=== PATIENT | male | born 1930 | race Caucasian/White ===

== ENCOUNTER 2016-09-16 19:27 | Inpatient (IN) | payer MEDICARE ==
[~2016-09-16] VITALS: Ht 180.3 cm; Wt 66.7 kg
[2016-09-16] MEDS ORDERED: Vancomycin 1.5gm/D5W 250ml 250 ML IVPB ONE (19:45)
--- NOTE | 2016-09-16 19:51 | Emergency Room Report ---
History of Present Illness General Chief Complaint: Dyspnea/Respdistress Source: Family Member, Medical Record (Chasity Day M.D.) Present Illness HPI 86-year-old male with Parkinson's disease bedbound nonverbal end-stage dementia brought by EMS from senior living for shortness of breath. EMS reports that patient was hypoxic at 76 on room air and went up to 95% with nonrebreather. Per senior living charts no other information obtained. No information able to be obtained from patient as patient is nonverbal. Per speaking with the patient 's bilingual case manager patient is deemed DO NOT RESUSCITATE. Per speaking to patient sign the patient is now made DO NOT RESUSCITATE and DO NOT INTUBATE. (Chasity Day M.D.) Allergies: Coded Allergies: No Known Allergies (Unverified , 09/16/16) Patient History Limited by: medical condition Past Medical History: HTN, CAD, dementia Past Surgical History: unable to obtain Pertinent Family History: unable to obtain (Chasity Day M.D.) Nursing Documentation-H Hx Cardiac Problems: No Hx Hypertension: No Hx Pacemaker: No Hx Asthma: No Hx COPD: No Hx Diabetes: No Hx Cancer: No Hx Gastrointestinal Problems: No Hx Dialysis: No Hx Neurological Problems: Yes - dementia, parkinsons Hx Cerebrovascular Accident: No Hx Seizures: No (Chasity Day M.D.) Review of Systems All Other Systems: limited - patient nonverbal (Chasity Day M.D.) Physical Exam Vital Signs Date Time Temp Pulse Resp B/P Pulse Ox O2 Delivery O2 Flow Rate FiO2 09/16/16 19:24 113 22 90/60 94 Simple Mask Sp02 EP Interpretation: abnormal General Appearance: normal inspection, moderate distress, cachetic, other - nonverbal male, appears to be in resp distress, Chronically Ill Head: normocephalic, atraumatic Eyes: bilateral eye EOMI, bilateral eye PERRL, bilateral eye normal inspection ENT: normal ENT inspection, normal pharynx, moist mucus membranes Neck: normal inspection, full range of motion, supple Respiratory: no respiratory distress, respiratory distress, decreased breath sounds, other - unable to fully assess as poor inspiratory effort. satting 97 on NRB Cardiovascular #1: normal inspection, no edema, normal capillary refill, tachycardia Gastrointestinal: normal inspection, normal bowel sounds, soft, non-distended, no guarding, other - no grimace to deep palpation of abdomen. soft Musculoskeletal: normal inspection, non-tender, other - normal passive ROM of ext Neurologic: other - nonverbal, not following commands, minimally moving ext spontaneously, good tone (Chasity Day M.D.) Procedures Critical Care Time Critical Care Time 45 minutes of CC time 86 yo M with sepsis VS: hypotension, tachycardia Sepsis criteria met Airway patent. +hypoxic, NRB applied, patient DNI BP improved here with IVF PLAN: IV access, labs, lactate, Blood/Urine Cx, Abx Tele vs RASHID CC time also includes review of labs, review of EMR and paperwork from SNF CC could include dosing of pressors, additional Abx CC time does not include procedures (Chasity Day M.D.) Medical Decision Making Medicare Attestation IChasity MD hereby attest that the medical record entry for date of service, 09/16/16 accurately reflects signatures/notations that I made in my capacity as MD when I treated/diagnosed the above listed Medicare beneficiary. I attest that this information is true, accurate and complete to the best of my knowledge. I understand that any falsification, omission, or concealment of material fact may subject me to administrative, civil, or criminal liability. This patient warrants hospital admission for extreme of age and has a condition that cannot be treated as outpatient. (Chasity Day M.D.) Diagnostic Impression: Primary Impression: Pneumonia Qualified Codes: J18.9 - Pneumonia, unspecified organism Additional Impressions: Sepsis Hypoxia Respiratory failure DNR (do not resuscitate) ER Course 86 YO hx parkinsons, cad, htn, nonverbal, sent in for hypoxia and hypotension. DDX: sepsis, 2/2 to UTI/PNA or intraabdominal infection, vs ACS / CHF Plan: IV access, gambling monitor, O2 via NRB obtain labs: cbc, bmp, blood cx, lactate, ua, ucx, cxr anticipate admission ER Course: patient remained tachycardic hypotension improved with fluids hypoxic on RA, improved with NRB afebrile rectally IVF and ABX given source likely PNA CXR: R sided complicated infiltrate vs lung abscess vs. free air. however repeat abd exam, no grimace to deep palpation, slightly distended CT C/A/P performed to better evaluate -- appears to be R sided PNA EKG: sinus tach labs: no leukocytosis, +inc lactate, potassium 5.0, renal failure 1.8 d/w patient's son - patient made DNR/DNI with only selective comfort measures. no central line no intubation no pressors no TEMP documented by nursing staff however was verbally told afebrile at 99 rectally Disposition: Patient is in critical condition and is to be admitted to tele. He will need continuation of fluids/abx for sepsis 2/[address] C/A/P read pending however grossly appears to have R sided lung infiltrate, no free air seen patient is DNR/DNI as made by son at bedside. only selective comfort measures to be done. d/w hospitalist (Chasity Day M.D.) ER Course Agreed with the above assessment and physical exam. CT lung, abdomen and pelvis was reviewed and is written below. Patient improved with treatment but serious. (Tree Nash M.D.) EKG Diagnostic Results Rate: tachycardiac Rhythm: NSR ST Segments: no acute changes (Chasity Day M.D.) Rhythm Strip Diag. Results Rhythm Strip Time: 19:48 EP Interpretation: yes Rate: 101 Rhythm: NSR (Chasity Day M.D.) CT/MRI/US Diagnostic Results CT/MRI/US Diagnostic Results : Imaging Test Ordered: chest, abd, pelvis Impression CT chest: Lower lobe airspace disease bilaterally and right upper lobe airspace disease concerning for pneumonia. Cardiomegaly without pericardial effusion. Multivessel coronary calcifications. Reactive small prominent he did mediastinal hilar lymph nodes. CT abdomen and pelvis: Fluids and nondistended stomach and bowel without wall thickening or surrounding inflammation is nonspecific and may be normal might also be seen with gastroenteritis in the clinical setting. No bowel obstruction. No appendicitis or any other inflammatory changes about. This is unremarkable. Gallbladder is seen. Tympanic cyst. No obstructive uropathy. No free air or free fluid. Lipoma involving the right psoas muscle. Compression fractures involving T12 and L3 vertebral bodies. Retropulsion of the posterior superior wall of the L3 vertebral body into the central canal resulting in at least moderate central canal narrowing Judy-Colace any associated neurologic deficits. Age of this fracture may be more recent. Palpate for tenderness. Good alignment degenerative lenin-lysthesis of L5 on S1. (Tree Nash M.D.) Last Vital Signs Date Time Temp Pulse Resp B/P Pulse Ox O2 Delivery O2 Flow Rate FiO2 09/16/16 19:24 113 22 90/60 94 Simple Mask (Chasity Day M.D.) Last Vital Signs Date Time Temp Pulse Resp B/P Pulse Ox O2 Delivery O2 Flow Rate FiO2 09/17/16 04:00 98.1 78 20 119/68 97 Simple Mask 8.0 50 Status: improved (Tree Nash M.D.) Disposition: ADMITTED INPATIENT Condition: Critical Referrals: NON PHYSICIAN (PCP) Chasity Day M.D. Sep 16, 2016 19:51 Tree Nash M.D. Sep 17, 2016 06:49
[2016-09-16 20:09] LABS: ABG ALLEN TEST POSITIVE; ABG BASE EXCESS -0.8; ABG PCO2 33.1 mmHg (35.0-45.0)
[2016-09-16 20:10] LABS: BASOPHILS % (AUTO) 0.5 % (0.0-2.0); EOSINOPHILS % (AUTO) 0.2 % (0.0-3.0); LYMPHOCYTES % (AUTO) 14.3 % (20.0-45.0); MEAN CORPUSCULAR HEMOGLOBIN 30.6 PG (27.0-31.0); MEAN CORPUSCULAR HGB CONC 33.1 G/DL (32.0-36.0); MEAN CORPUSCULAR VOLUME 93 FL (80-99); MEAN PLATELET VOLUME 8.3 FL (6.5-10.1); MONOCYTES % (AUTO) 5.6 % (1.0-10.0); NEUTROPHILS % (AUTO) 79.5 % (45.0-75.0); PLATELET COUNT 254 K/UL (150-450); RED BLOOD COUNT 4.61 M/UL (4.70-6.10); RED CELL DISTRIBUTION WIDTH 13.5 % (11.6-14.8); WHITE BLOOD COUNT 7.7 K/UL (4.8-10.8)
[2016-09-16 20:26] LABS: TROPONIN I < 0.30 ng/mL (<=0.30)
[2016-09-16 20:29] LABS: ALANINE AMINOTRANSFERASE 5 U/L (3-41); ALBUMIN/GLOBULIN RATIO 1.3 (1.0-2.7); ANION GAP 13 (5-15); ASPARTATE AMINO TRANSFERASE 13 U/L (5-40); CALCIUM 9.6 mg/dL (8.6-10.2); CARBON DIOXIDE 27 mEQ/L (20-30); CHLORIDE 99 mEQ/L (98-107); CREATININE 1.8 mg/dL (0.7-1.2); HEMOLYSIS 16; SODIUM 139 mEQ/L (135-145); TOTAL PROTEIN 7.4 g/dL (6.6-8.7)
[2016-09-16 20:32] LABS: REFLEX LACTIC ACID YES OR NO YES
[2016-09-16 20:40] LABS: CKMB 2.8 ng/mL (< 6.7)
[2016-09-16 20:41] VITALS: BP 147/107
[2016-09-16] MEDS ORDERED: Zosyn 4.5gm inj ONE (21:04)
[2016-09-16 21:59] LABS: APPEARANCE,URINE CLEAR; KETONES,URINE NEGATIVE (NEGATIVE); LEUKOCYTE ESTERASE ,URINE NEGATIVE (NEGATIVE); NITRITE,URINE NEGATIVE (NEGATIVE); PH,URINE 8 (4.5-8.0); PROTEIN,URINE NEGATIVE (NEGATIVE); UROBILINOGEN,URINE NORMAL MG/DL (0.0-1.0)
[2016-09-16] MEDS ORDERED: Piperacillin/Tazobactam 4.5 GM in NS 110 ML IV SCH (22:00)
[2016-09-16] MEDS ORDERED: OMEPRAZOLE40 M1 ORAL (22:10)
[2016-09-16] MEDS ORDERED: LISINOPRIL5 MG ORAL (22:10)
[2016-09-16] MEDS ORDERED: SINEMET 25/1001 EA ORAL (22:10)
[2016-09-16] MEDS ORDERED: TYLENOL325 MG ORAL (22:10)
[2016-09-16] MEDS ORDERED: PROSCAR5 MG ORAL (22:10)
[2016-09-16] MEDS ORDERED: ASPIR 8181 MG ORAL (22:10)
[2016-09-16] MEDS ORDERED: CENTRUM SILVER1 EAC7 PO (22:10)
[2016-09-16] MEDS ORDERED: MODAFINIL100 MG ORAL (22:10)
[2016-09-16] MEDS ORDERED: ZOFRAN4 M3 ORAL (22:10)
[2016-09-16] MEDS ORDERED: SYMBICORT 16010.2 G1 IH (22:10)
[2016-09-16] MEDS ORDERED: MIRTAZAPINE7.5 MG ORAL (22:10)
[2016-09-16] MEDS ORDERED: TAMSULOSIN HCL0.4 MG ORAL (22:10)
[2016-09-16] MEDS ORDERED: PLAVIX75 MG ORAL (22:10)
[2016-09-16] MEDS ORDERED: GLYCERIN L5.4 GM/5.4 RC (22:10)
[2016-09-16] MEDS ORDERED: LIPITOR80 MG ORAL (22:10)
[2016-09-16] MEDS ORDERED: ATROPINE INJ (22:10)
[2016-09-16] MEDS ORDERED: MIRALAX17 G2 ORAL (22:10)
[2016-09-16] MEDS ORDERED: GUAIFENESIN-CO118 M1 ORAL (22:10)
[2016-09-16] MEDS ORDERED: ARTIFICIAL TEA1 EAC2 OP (22:10)
[2016-09-16] MEDS ORDERED: METOPROLOL SUCC25 MG ORAL (22:10)
[2016-09-16] MEDS ORDERED: DOCUSATE SODIU100 MG ORAL (22:10)
[2016-09-16 22:36] VITALS: BP 130/72
[2016-09-17 00:02] VITALS: BP 119/68
[2016-09-17] MEDS ORDERED: SINEMET 25-2501 EACH ORAL (00:51)
[2016-09-17] MEDS ORDERED: [UNRECOGNIZED DRUG - OTHER] (00:51)
[2016-09-17] MEDS ORDERED: TYLENOL EXTRA500 MG ORAL (00:51)
[2016-09-17] MEDS ORDERED: ATROPINE 0.01%-10 ML ORAL (00:51)
[2016-09-17] MEDS ORDERED: Robitussin DM PO (00:55)
[2016-09-17 04:00] VITALS: BP 119/68
[2016-09-17] MEDS ORDERED: Zosyn 3.375gm inj ONE (05:25)
[2016-09-17] MEDS: Piperacillin/Tazobactam 3.375 GM in D5W 110 ML IVPB SCH ×3 (05:37→23:10)
[2016-09-17 08:45] LABS: ANION GAP 8 (5-15); CALCIUM 7.8 mg/dL (8.6-10.2); CARBON DIOXIDE 24 mEQ/L (20-30); CHLORIDE 105 mEQ/L (98-107); HEMOLYSIS 3; POTASSIUM 3.9 mEQ/L (3.4-4.9); SODIUM 137 mEQ/L (135-145)
[2016-09-17 08:46] VITALS: BP 97/52
[2016-09-17 08:52] LABS: BASOPHILS % (AUTO) 0.9 % (0.0-2.0); EOSINOPHILS % (AUTO) 1.3 % (0.0-3.0); LYMPHOCYTES % (AUTO) 22.4 % (20.0-45.0); MEAN CORPUSCULAR HEMOGLOBIN 31.3 PG (27.0-31.0); MEAN CORPUSCULAR HGB CONC 34.5 G/DL (32.0-36.0); MEAN CORPUSCULAR VOLUME 91 FL (80-99); MEAN PLATELET VOLUME 7.5 FL (6.5-10.1); MONOCYTES % (AUTO) 7.4 % (1.0-10.0); NEUTROPHILS % (AUTO) 68.1 % (45.0-75.0); PLATELET COUNT 181 K/UL (150-450); RED BLOOD COUNT 3.35 M/UL (4.70-6.10); RED CELL DISTRIBUTION WIDTH 12.9 % (11.6-14.8); WHITE BLOOD COUNT 5.6 K/UL (4.8-10.8)
--- NOTE | 2016-09-17 09:42 | Diagnostic Imaging Report ---
Indication: Chest and abdominal pain Technique: Continuous helical transaxial imaging of the abdomen and pelvis was obtained from the lung bases to the pubic symphysis. No IV contrast was administered. Coronal 2-D reformats were also obtained. Study obtained in a Siemens sensation [address] Total Dose length Product (DLP): [address] Dose Index Volume (CTDIvol): 11.2 mGy Comparison: None Findings: CT chest: There is consolidation that is fairly extensive involving the lung bases bilaterally worse on the right. There is also some infiltrate in the right upper lobe. Findings are consistent with pneumonia. Aorta and coronary arteries show moderate calcification. There is no pleural effusion present. Small nodes are seen in mediastinum. Aorta is calcified. CT abdomen pelvis: Breathing motion limits evaluation. There is a moderate degree of stool within the distal colon and rectal vault which is distended. There is probable gallbladder sludge or small stones. There is no obvious hydronephrosis or evidence of obstructive nephropathy. Cystic foci are noted within the lateral segment of the left lobe of the liver or just adjacent to it. These are probably arising from the liver. Other hypodensities noted within the liver consistent with cysts. There is no free fluid or free air. No compelling evidence for bowel obstruction. Appendix not definitely seen. There is a focus of macroscopic fat involving the lateral aspect of the right iliopsoas muscle extending into the iliac is muscle difficult to measure but approximately 3.8 x 1.4 x 4.2 cm consistent with a lipoma. Compression fracture deformities involving the L3 vertebra and T12 vertebra as are noted. These are probably old fractures. Please correlate clinically. There is mild retropulsion of the superior aspects of the vertebral endplate at both of these levels. The bones are osteopenic diffusely. There is an anterolisthesis of L5 on S1 associated with bilateral pars interarticularis defects. Narrowing of several thoracic and lumbar discs noted with vacuum phenomena. Impression: Evidence of bilateral pneumonia involving the lower lung yi. Fecal impaction with moderate distention of the rectum. Atherosclerotic disease. Multiple hypodensities in the liver presumably cysts. Gallbladder stones versus sludge. Compression fracture deformities, probably old involving the T12 and L3 vertebra. Mild retropulsion noted. If clinically warranted evaluation with MRI may be of benefit. Limited evaluation due to breathing motion. Old left hip fracture. Status post pinning. Right psoas lipoma [facility] has communicated the preliminary results to the Emergency Department. Their findings are largely concordant with this report. The CT scanner at [facility] is accredited by the [employer] and the scans are performed using dose optimization techniques as appropriate to a performed exam including Automatic Exposure control.
--- NOTE | 2016-09-17 11:23 | Wound Care Consultation ---
Wound Assessment Wound Assessment #1: Wound Number: #1 Wound Present on Admission: Yes New Wound: No Status Change of Wound: No Wound Location Body Site: sacral Wound Type: pressure ulcer Elizabeth Test: Does not Elizabeth Pressure Ulcer Stage: I Wound Length: 3.0 Wound Width: 3.0 Percent of Wound [place]/Red: 100 Wound Drainage Amount: None Wound Drainage Odor: None/Absent Tissue Surrounding Wound: Erythemic Wound General Appearance: Reddened Wound Assessment #2: Wound Number: #2 Wound Present on Admission: Yes New Wound: No Status Change of Wound: No Wound Location Body Site: other - BRIDGE OF NOSE Wound Type: pressure ulcer Elizabeth Test: Does not Elizabeth Pressure Ulcer Stage: I Wound Length: 0.3 Wound Width: 0.3 Percent of Wound [place]/Red: 100 Wound Drainage Amount: None Wound Drainage Odor: None/Absent Tissue Surrounding Wound: Erythemic Wound General Appearance: Reddened Wound Assessment #3: Wound Number: #3 Wound Present on Admission: Yes New Wound: No Status Change of Wound: No Wound Location Body Site Modif: left Wound Location Body Site: heel Wound Type: pressure ulcer Elizabeth Test: Does not Elizabeth Pressure Ulcer Stage: I Wound Length: 4.0 Wound Width: 4.0 Percent of Wound [place]/Red: 100 Wound Drainage Amount: None Wound Drainage Odor: None/Absent Tissue Surrounding Wound: Intact Wound General Appearance: Reddened Wound Assessment #4: Wound Number: #4 Wound Present on Admission: Yes New Wound: No Status Change of Wound: No Wound Location Body Site Modif: right Wound Location Body Site: heel Wound Type: pressure ulcer Elizabeth Test: Does not Elizabeth Pressure Ulcer Stage: I Wound Length: 4.0 Wound Width: 4.0 Percent of Wound [place]/Red: 100 Wound Drainage Amount: None Wound Drainage Odor: None/Absent Tissue Surrounding Wound: Intact Wound General Appearance: Reddened Wound Comment #1 Sacral stage 1 pressure ulcer. #2 Bridge of nose stage 1 pressure ulcer. #3 Left heel stage 1 pressure ulcer. #4 Right heel stage 1 pressure ulcer. Recommendation. - Local wound care as ordered. - Apply low air loss SPR mattress for skin and wound management. - Apply foam cushion tape to bridge of nose and sides of cheek for skin management and prevention 02 mask. - Turn and reposition. - Offload affected pressure sites. place pillows offload. - Apply heel protectors, Offload heels. - Optimize nutrition. - Keep clean and dry. - Avoid shear and friction. - Assess and notify MD for any further changes of condition to skin noted. MARIAA KAISER Sep 17, 2016 11:23
[2016-09-17 12:00] VITALS: BP 137/75
--- NOTE | 2016-09-17 12:19 | Consultation ---
Consult Note Consult Note NEUROLOGY CONSULTATION: Full note dictated #[id number] 86 y/o, CM of ?H who has a PH of CAD, PD, Dementia, non-verbal, and being essentially bed bound. He was hospitalized for a pneumonia. ON EXAM: Non-verbal. Follows a few simple commands. Tone increased with spasticity and rigidity. Quadriparesis - LE>UE with LE flexion contractures. G 1/4 tremor which increases with effort. Globally diminished DTRs with extensor plantars. IMPRESSION: Encephalopathy due to pneumonia and sepsis. H/O PD on Sinemet. Also has corticospinal tract findings - unexplained. REC: 1. Would insert NGT and restart on same dose of Sinemet that he was taking at his NH. 2. CT of brain - no contrast to evaluate for corticospinal tract findings - unexplained. 3. Frequent ROM exercises. 4. W/U for other treatable encephalopathy. Shayne Dickson M.D., M.S.P.Juli. SHAYNE DICKSON Sep 17, 2016 12:19
--- NOTE | 2016-09-17 12:38 | Diagnostic Imaging Report ---
Indication: Dyspnea Comparison: None A single view chest radiograph was obtained. Findings: There is a focus of infiltrate likely pneumonia in the right upper lobe. Right basal infiltrate also noted. Lung volumes are low bilaterally. Cardiomegaly is present. The bones are osteopenic. Impression: Suspicion of right-sided pneumonia
--- NOTE | 2016-09-17 12:40 | Consultation ---
Consult Note Consult Note asked to eval for Cr 1.8 Admitted with aspiration pneumonia examined- data reviewed Assessment/Plan Renal failure acute vs chronic Low BP , dehydration CAD Parkinson BPH HTN GERD Low Cognition Pneumonia plan: Slow hydrate Avoid nephrotoxics monitor renal parameters- Neuro eval Anemia VANITA Nation Sep 17, 2016 12:40
--- NOTE | 2016-09-17 12:48 | Consultation ---
History of Present Illness General Date patient seen: Sep 17, 2016 Chief Complaint: Dyspnea/Respdistress Referring physician: Dr. Fried Reason for Consultation: dyspnea Present Illness HPI 86 year old male with hx Dementia, Parkinson, bed bound, DNR transported to ER from assisted living because of hypotension. He was diagnosed to have pneumonia and sepsis, admitted to telemetry for further evaluation. Pt is awake, looks comfortable. the healthcare network pricing consultant at the bed site helping with the PMHx. I met with the son, Alexandro who want DNR, and no Gtube ever. He is not sure about NG tube for now. Allergies: Coded Allergies: No Known Allergies (Unverified , 09/16/16) Medication History Scheduled Aspirin* (Aspir 81*), 81 MG ORAL Q3XWK, (Reported) Atorvastatin (Lipitor), 20 MG ORAL BEDTIME, (Reported) Carbidopa/Levodopa* (Sinemet 25-250 Mg Tablet*), 1 TAB ORAL THREE TIMES A DAY, ( Reported) Clopidogrel Bisulfate* (Plavix*), 75 MG ORAL DAILY, (Reported) Dextran 70/Hypromellose (Artificial Tears), 1 EACH OP QID, (Reported) Finasteride* (Proscar*), 5 MG ORAL DAILY, (Reported) Levodopa/Carbidopa (Carbidopa-Levodopa 25-100 Tab), 1.5 TAB ORAL THREE TIMES A DAY, (Reported) Lisinopril (Lisinopril*), 2.5 MG ORAL DAILY, (Reported) Metoprolol Succinate* (Metoprolol Succinate*), 25 MG ORAL BID, (Reported) Mirtazapine* (Mirtazapine*), 7.5 MG ORAL BEDTIME, (Reported) Modafinil* (Provigil), 200 MG ORAL DAILY, (Reported) Omeprazole (Omeprazole), 40 MG ORAL DAILY, (Reported) Tamsulosin Hcl (Tamsulosin Hcl*), 0.8 MG ORAL BEDTIME, (Reported) Scheduled PRN Acetaminophen* (Tylenol Extra Strength*), 500 MG ORAL Q6H PRN for Mild Pain/ Temp > 100.5, (Reported) Atropine Sulfate in 0.9% NaCl (Atropine 0.01%-Ns Eye Drops), 10 ML ORAL QID PRN for PRN, (Reported) Budesonide/Formoterol Fumarate (Symbicort 160-4.5 Mcg Inhaler), 1 PUFF IH BID PRN for Shortness of Breath, (Reported) Docusate Sodium* (Docusate Sodium*), 100 MG ORAL TWICE A DAY PRN for PRN, ( Reported) Guaifenesin/Codeine Phos* (Robitussin Ac*), Unknown Dose ORAL Q4H PRN for For Cough, (Reported) Ondansetron* (Zofran*), 4 MG ORAL Q6H PRN for Nausea & Vomiting, (Reported) Polyethylene Glycol 3350* (Miralax*), 17 GM ORAL DAILY PRN for PRN, (Reported) [Robitussin DM], 10 MG PO Q4HR PRN for For Cough, (Reported) Miscellaneous Medications Glycerin (Glycerin Laxative), Unknown Dose RC, (Reported) Multivit-Min/FA/Lycopen/Lutein (Centrum Silver Men Tablet), 1 EACH PO, (Reported ) Discontinued Medications Acetaminophen (Tylenol), 500 MG ORAL PRN PRN for For Pain, (Reported) Discontinued Reason: Therapy completed Atropine (Atropine Sulfate), Unknown Dose INJ, (Reported) Discontinued Reason: Pt stopped taking med [robitu], (Reported) Discontinued Reason: Pt stopped taking med Patient History Healthcare decision maker Alexandro Luevano Resuscitation status Do Not Resuscitate Advanced Directive on File Yes Past Medical/Surgical History Past Medical/Surgical History: (1) Parkinson disease (2) Dementia (3) Limited mobility Review of Systems Hematologic/Lymphatic: Reports: no symptoms Physical Exam General Appearance: WD/WN HEENT: normocephalic Neck: non-tender, normal alignment Respiratory/Chest: chest wall non-tender, lungs clear Cardiovascular/Chest: normal peripheral pulses, regular rhythm Abdomen: normal bowel sounds, non tender Genitourinary/Rectal: normal genital exam, normal rectal exam Extremities: normal range of motion Skin Exam: normal pigmentation Last 24 Hour Vital Signs Date Time Temp Pulse Resp B/P Pulse Ox O2 Delivery O2 Flow Rate FiO2 09/17/16 08:46 99.7 68 18 97/52 97 Simple Mask 15.0 09/17/16 04:00 98.1 78 20 119/68 97 Simple Mask 8.0 50 09/17/16 04:00 74 09/17/16 00:23 Venturi Mask 12.0 50 09/17/16 00:23 97 Venturi Mask 12.0 50 09/17/16 00:02 98.1 88 20 119/68 98 Venturi Mask 09/17/16 00:00 88 09/16/16 22:48 99.7 99 19 130/72 98 Non-Rebreather 09/16/16 22:36 99.7 99 19 130/72 98 Non-Rebreather 09/16/16 20:42 111 25 Non-Rebreather 09/16/16 20:41 99.7 111 25 147/107 100 Non-Rebreather 09/16/16 19:24 113 22 90/60 94 Simple Mask Intake and Output 09/16/16 09/17/16 19:00 07:00 Intake Total 2659.0 ml Output Total 725 ml Balance 1934.0 ml Intake IV Total 2659.0 ml Output Urine Total 725 ml # Bowel Movements 1 Laboratory Tests Test 09/16/16 19:30 09/16/16 19:58 09/16/16 21:30 09/16/16 22:00 White Blood Count 7.7 K/UL (4.8-10.8) Red Blood Count 4.61 M/UL (4.70-6.10) L Hemoglobin 14.1 G/DL (14.2-18.0) L Hematocrit 42.7 % (42.0-52.0) Mean Corpuscular Volume 93 FL (80-99) Mean Corpuscular Hemoglobin 30.6 PG (27.0-31.0) Mean Corpuscular Hemoglobin Concent 33.1 G/DL (32.0-36.0) Red Cell Distribution Width 13.5 % (11.6-14.8) Platelet Count 254 K/UL (150-450) Mean Platelet Volume 8.3 FL (6.5-10.1) Neutrophils (%) (Auto) 79.5 % (45.0-75.0) H Lymphocytes (%) (Auto) 14.3 % (20.0-45.0) L Monocytes (%) (Auto) 5.6 % (1.0-10.0) Eosinophils (%) (Auto) 0.2 % (0.0-3.0) Basophils (%) (Auto) 0.5 % (0.0-2.0) Sodium Level 139 mEQ/L (135-145) Potassium Level 5.0 mEQ/L (3.4-4.9) H Chloride Level 99 mEQ/L (98-107) Carbon Dioxide Level 27 mEQ/L (20-30) Anion Gap 13 (5-15) Blood Urea Nitrogen 19 mg/dL (7-23) Creatinine 1.8 mg/dL (0.7-1.2) H Estimat Glomerular Filtration Rate mL/min (>60) Glucose Level 126 mg/dL (74-106) H Lactic Acid Level 3.00 mmol/L (0.66-2.22) H 1.40 mmol/L (0.66-2.22) Calcium Level 9.6 mg/dL (8.6-10.2) Total Bilirubin 0.5 mg/dL (0.0-1.2) Aspartate Amino Transf (AST/SGOT) 13 U/L (5-40) Alanine Aminotransferase (ALT/SGPT) 5 U/L (3-41) Alkaline Phosphatase 132 U/L (40-129) H Total Creatine Kinase 82 U/L (38-174) Creatine Kinase MB 2.8 ng/mL (< 6.7) Creatine Kinase MB Relative Index 3.4 Troponin I < 0.30 ng/mL (<=0.30) Total Protein 7.4 g/dL (6.6-8.7) Albumin 4.2 g/dL (3.5-5.2) Globulin 3.2 g/dL Albumin/Globulin Ratio 1.3 (1.0-2.7) Arterial Blood pH 7.448 (7.350-7.450) Arterial Blood Partial Pressure CO2 33.1 mmHg (35.0-45.0) L Arterial Blood Partial Pressure O2 201.8 mmHg (75.0-100.0) H Arterial Blood HCO3 22.4 mmol/L (22.0-26.0) Arterial Blood Oxygen Saturation 99.1 % (92.0-98.0) H Arterial Blood Base Excess -0.8 Temo Test Positive Venous Blood pH Pending Venous Blood Partial Pressure CO2 Pending Venous Blood Partial Pressure O2 Pending Venous Blood HCO3 Pending Venous Blood Total Carbon Dioxide Pending Venous Bld O2 Saturation (Measured) Pending Venous Blood Oxygen Saturation Pending Venous Blood Base Excess Pending Methemoglobin Pending Sodium (Blood Gas) Pending Urine Color Pale yellow Urine Appearance Clear Urine pH 8 (4.5-8.0) Urine Specific [place] 1.010 (1.005-1.035) Urine Protein Negative (NEGATIVE) Urine Glucose (UA) Negative (NEGATIVE) Urine Ketones Negative (NEGATIVE) Urine Occult Blood Negative (NEGATIVE) Urine Nitrite Negative (NEGATIVE) Urine Bilirubin Negative (NEGATIVE) Urine Urobilinogen Normal MG/DL (0.0-1.0) Urine Leukocyte Esterase Negative (NEGATIVE) Test 09/17/16 08:05 White Blood Count 5.6 K/UL (4.8-10.8) Red Blood Count 3.35 M/UL (4.70-6.10) L Hemoglobin 10.5 G/DL (14.2-18.0) L Hematocrit 30.3 % (42.0-52.0) L Mean Corpuscular Volume 91 FL (80-99) Mean Corpuscular Hemoglobin 31.3 PG (27.0-31.0) H Mean Corpuscular Hemoglobin Concent 34.5 G/DL (32.0-36.0) Red Cell Distribution Width 12.9 % (11.6-14.8) Platelet Count 181 K/UL (150-450) Mean Platelet Volume 7.5 FL (6.5-10.1) Neutrophils (%) (Auto) 68.1 % (45.0-75.0) Lymphocytes (%) (Auto) 22.4 % (20.0-45.0) Monocytes (%) (Auto) 7.4 % (1.0-10.0) Eosinophils (%) (Auto) 1.3 % (0.0-3.0) Basophils (%) (Auto) 0.9 % (0.0-2.0) Sodium Level 137 mEQ/L (135-145) Potassium Level 3.9 mEQ/L (3.4-4.9) Chloride Level 105 mEQ/L (98-107) Carbon Dioxide Level 24 mEQ/L (20-30) Anion Gap 8 (5-15) Blood Urea Nitrogen 15 mg/dL (7-23) Creatinine 1.0 mg/dL (0.7-1.2) Estimat Glomerular Filtration Rate mL/min (>60) Glucose Level 94 mg/dL (74-106) Calcium Level 7.8 mg/dL (8.6-10.2) L Height (Feet): 5 Height (Inches): 11.00 Weight (Pounds): 147 Medications Current Medications Medications (Trade) Dose Ordered Sig/Angie Route PRN Reason Start Time Stop Time Status Last Admin Dose Admin Acetaminophen (Tylenol) 650 mg Q4H PRN ORAL Mild Pain (Pain Scale 1-3) 09/16/16 23:30 10/16/16 23:29 Dextrose STAT PRN IV Hypoglycemia 09/16/16 23:30 10/16/16 23:29 Piperacillin Sod/ Tazobactam Sod/ Dextrose (Zosyn/D5W) 110 ml @ 27.5 mls/hr EVERY 8 HOURS IVPB 09/17/16 06:00 09/22/16 05:59 09/17/16 05:37 Sodium Chloride (Sodium Chloride 1000ml bag) 1,000 ml @ 75 mls/hr [id number] IVLG 09/17/16 00:16 10/17/16 00:15 09/17/16 00:11 Vancomycin HCl 1 gm/Dextrose 275 ml @ 183.708 mls/hr Q24H IVPB 09/17/16 20:00 09/22/16 19:59 Assessment/Plan Problem List: (1) Sepsis ICD Codes: A41.9 - Sepsis, unspecified organism SNOMED: 04671516 (2) ATN (acute tubular necrosis) ICD Codes: N17.0 - Acute kidney failure with tubular necrosis SNOMED: 58040761 (3) Acute encephalopathy ICD Codes: G93.40 - Encephalopathy, unspecified SNOMED: 2849840 (4) Pneumonia ICD Codes: J18.9 - Pneumonia, unspecified organism SNOMED: 336259987 Qualifiers: Qualified Codes: J18.9 - Pneumonia, unspecified organism (5) Protein-calorie malnutrition, severe ICD Codes: E43 - Unspecified severe protein-calorie malnutrition SNOMED: 562785919 (6) Dementia ICD Codes: F03.90 - Unspecified dementia without behavioral disturbance SNOMED: 42088245 (7) Parkinson disease ICD Codes: G20 - Parkinson's disease SNOMED: 49804064 (8) Limited mobility ICD Codes: Z74.09 - Other reduced mobility SNOMED: 0487067 Assessment/Plan respiratory treatment IV antibiotics titrate fio2 to sat of 92% npo swallow study dvt prophylaxis CHILO SHANKS Sep 17, 2016 12:48
--- NOTE | 2016-09-17 13:06 | History and Physical ---
History of Present Illness General Date patient seen: Sep 17, 2016 Time patient seen: 13:06 Reason for Hospitalization: Dyspnea/Respdistress Present Illness HPI 86yo male with pmh of HTN, CAD, Parkinson's disease, dementia, bed bound and non -verbal, BPH who presents from [facility] with hypotension and hypoxia. Per son and CG , pt noted to have low BPs and low O2 saturations and therefore was brought into ER for further eval. Pt noted to have increased cough and congestion the last few days. No reports of fevers/chills. Pt has been taking in some PO intake. Unable to obtain ROS given pt w/ dementia and is nonverbal. In ED, concern for severe sepsis 2/2 PNA vs UTI. Pt hypotensive and tachycardic , as well as hypoxic on room air. Hypotension improved w/ IVFs. O2 satus improved w/ NRB. PCXR showed R sided infiltrate. CT c/a/p showed b/l PNA. Pt w/ lactic acidosis. Pt given vanco and zosyn in ED. Per TOM and per son Alexandro pt is DNR/DNI. Per TOM, family does not want artificial feeding w/ feeding tube. Allergies: Coded Allergies: No Known Allergies (Unverified , 09/16/16) Medication History Scheduled Aspirin* (Aspir 81*), 81 MG ORAL Q3XWK, (Reported) Atorvastatin (Lipitor), 20 MG ORAL BEDTIME, (Reported) Carbidopa/Levodopa* (Sinemet 25-250 Mg Tablet*), 1 TAB ORAL THREE TIMES A DAY, ( Reported) Clopidogrel Bisulfate* (Plavix*), 75 MG ORAL DAILY, (Reported) Dextran 70/Hypromellose (Artificial Tears), 1 EACH OP QID, (Reported) Finasteride* (Proscar*), 5 MG ORAL DAILY, (Reported) Levodopa/Carbidopa (Carbidopa-Levodopa 25-100 Tab), 1.5 TAB ORAL THREE TIMES A DAY, (Reported) Lisinopril (Lisinopril*), 2.5 MG ORAL DAILY, (Reported) Metoprolol Succinate* (Metoprolol Succinate*), 25 MG ORAL BID, (Reported) Mirtazapine* (Mirtazapine*), 7.5 MG ORAL BEDTIME, (Reported) Modafinil* (Provigil), 200 MG ORAL DAILY, (Reported) Omeprazole (Omeprazole), 40 MG ORAL DAILY, (Reported) Tamsulosin Hcl (Tamsulosin Hcl*), 0.8 MG ORAL BEDTIME, (Reported) Scheduled PRN Acetaminophen* (Tylenol Extra Strength*), 500 MG ORAL Q6H PRN for Mild Pain/ Temp > 100.5, (Reported) Atropine Sulfate in 0.9% NaCl (Atropine 0.01%-Ns Eye Drops), 10 ML ORAL QID PRN for PRN, (Reported) Budesonide/Formoterol Fumarate (Symbicort 160-4.5 Mcg Inhaler), 1 PUFF IH BID PRN for Shortness of Breath, (Reported) Docusate Sodium* (Docusate Sodium*), 100 MG ORAL TWICE A DAY PRN for PRN, ( Reported) Guaifenesin/Codeine Phos* (Robitussin Ac*), Unknown Dose ORAL Q4H PRN for For Cough, (Reported) Ondansetron* (Zofran*), 4 MG ORAL Q6H PRN for Nausea & Vomiting, (Reported) Polyethylene Glycol 3350* (Miralax*), 17 GM ORAL DAILY PRN for PRN, (Reported) [Robitussin DM], 10 MG PO Q4HR PRN for For Cough, (Reported) Miscellaneous Medications Glycerin (Glycerin Laxative), Unknown Dose RC, (Reported) Multivit-Min/FA/Lycopen/Lutein (Centrum Silver Men Tablet), 1 EACH PO, (Reported ) Discontinued Medications Acetaminophen (Tylenol), 500 MG ORAL PRN PRN for For Pain, (Reported) Discontinued Reason: Therapy completed Atropine (Atropine Sulfate), Unknown Dose INJ, (Reported) Discontinued Reason: Pt stopped taking med [robitu], (Reported) Discontinued Reason: Pt stopped taking med Patient History Healthcare decision maker Alexandro Luevano Resuscitation status Do Not Resuscitate Advanced Directive on File Yes Past Medical/Surgical History Past Medical/Surgical History: (1) CAD (coronary artery disease) (2) HTN (hypertension) (3) BPH (benign prostatic hyperplasia) (4) Dementia Family History Family History: Patient reports no known family medical history. Social History Social History: (1) Lives in assisted living facility Review of Systems ROS Narrative Unable to obtain given pt w/ dementia and non-verbal Physical Exam Physical Exam Narrative General: eyes closed, poorly responsive to voice or pain, NAD, appears stated age Head: normocephalic, without obvious abnormality, atraumatic Eyes: conjunctivae/corneas clear. PERRL, EOM's intact Throat: lips, mucosa, and tongue normal. MMM Neck: supple, symmetrical, trachea midline, and no JVD Lungs: +rhonchi b/l Heart: regular rate and rhythm, S1, S2 normal, no murmur, click, rub or gallop Abdomen: soft, non-tender, non-distended, bowel sounds normal; no masses or organomegaly Extremities: extremities normal, atraumatic, no cyanosis or edema Pulses: 2+ and symmetric Skin: skin color, texture, turgor normal; no rashes or lesions Neurologic: grossly normal, no focal deficits Last 24 Hour Vital Signs Date Time Temp Pulse Resp B/P Pulse Ox O2 Delivery O2 Flow Rate FiO2 09/17/16 08:46 99.7 68 18 97/52 97 Simple Mask 15.0 09/17/16 04:00 98.1 78 20 119/68 97 Simple Mask 8.0 50 09/17/16 04:00 74 09/17/16 00:23 Venturi Mask 12.0 50 09/17/16 00:23 97 Venturi Mask 12.0 50 09/17/16 00:02 98.1 88 20 119/68 98 Venturi Mask 09/17/16 00:00 88 09/16/16 22:48 99.7 99 19 130/72 98 Non-Rebreather 09/16/16 22:36 99.7 99 19 130/72 98 Non-Rebreather 09/16/16 20:42 111 25 Non-Rebreather 09/16/16 20:41 99.7 111 25 147/107 100 Non-Rebreather 09/16/16 19:24 113 22 90/60 94 Simple Mask Intake and Output 09/16/16 09/17/16 19:00 07:00 Intake Total 2659.0 ml Output Total 725 ml Balance 1934.0 ml Intake IV Total 2659.0 ml Output Urine Total 725 ml # Bowel Movements 1 Laboratory Tests Test 09/16/16 19:30 09/16/16 19:58 09/16/16 21:30 09/16/16 22:00 White Blood Count 7.7 K/UL (4.8-10.8) Red Blood Count 4.61 M/UL (4.70-6.10) L Hemoglobin 14.1 G/DL (14.2-18.0) L Hematocrit 42.7 % (42.0-52.0) Mean Corpuscular Volume 93 FL (80-99) Mean Corpuscular Hemoglobin 30.6 PG (27.0-31.0) Mean Corpuscular Hemoglobin Concent 33.1 G/DL (32.0-36.0) Red Cell Distribution Width 13.5 % (11.6-14.8) Platelet Count 254 K/UL (150-450) Mean Platelet Volume 8.3 FL (6.5-10.1) Neutrophils (%) (Auto) 79.5 % (45.0-75.0) H Lymphocytes (%) (Auto) 14.3 % (20.0-45.0) L Monocytes (%) (Auto) 5.6 % (1.0-10.0) Eosinophils (%) (Auto) 0.2 % (0.0-3.0) Basophils (%) (Auto) 0.5 % (0.0-2.0) Sodium Level 139 mEQ/L (135-145) Potassium Level 5.0 mEQ/L (3.4-4.9) H Chloride Level 99 mEQ/L (98-107) Carbon Dioxide Level 27 mEQ/L (20-30) Anion Gap 13 (5-15) Blood Urea Nitrogen 19 mg/dL (7-23) Creatinine 1.8 mg/dL (0.7-1.2) H Estimat Glomerular Filtration Rate mL/min (>60) Glucose Level 126 mg/dL (74-106) H Lactic Acid Level 3.00 mmol/L (0.66-2.22) H 1.40 mmol/L (0.66-2.22) Calcium Level 9.6 mg/dL (8.6-10.2) Total Bilirubin 0.5 mg/dL (0.0-1.2) Aspartate Amino Transf (AST/SGOT) 13 U/L (5-40) Alanine Aminotransferase (ALT/SGPT) 5 U/L (3-41) Alkaline Phosphatase 132 U/L (40-129) H Total Creatine Kinase 82 U/L (38-174) Creatine Kinase MB 2.8 ng/mL (< 6.7) Creatine Kinase MB Relative Index 3.4 Troponin I < 0.30 ng/mL (<=0.30) Total Protein 7.4 g/dL (6.6-8.7) Albumin 4.2 g/dL (3.5-5.2) Globulin 3.2 g/dL Albumin/Globulin Ratio 1.3 (1.0-2.7) Arterial Blood pH 7.448 (7.350-7.450) Arterial Blood Partial Pressure CO2 33.1 mmHg (35.0-45.0) L Arterial Blood Partial Pressure O2 201.8 mmHg (75.0-100.0) H Arterial Blood HCO3 22.4 mmol/L (22.0-26.0) Arterial Blood Oxygen Saturation 99.1 % (92.0-98.0) H Arterial Blood Base Excess -0.8 Temo Test Positive Venous Blood pH Pending Venous Blood Partial Pressure CO2 Pending Venous Blood Partial Pressure O2 Pending Venous Blood HCO3 Pending Venous Blood Total Carbon Dioxide Pending Venous Bld O2 Saturation (Measured) Pending Venous Blood Oxygen Saturation Pending Venous Blood Base Excess Pending Methemoglobin Pending Sodium (Blood Gas) Pending Urine Color Pale yellow Urine Appearance Clear Urine pH 8 (4.5-8.0) Urine Specific [place] 1.010 (1.005-1.035) Urine Protein Negative (NEGATIVE) Urine Glucose (UA) Negative (NEGATIVE) Urine Ketones Negative (NEGATIVE) Urine Occult Blood Negative (NEGATIVE) Urine Nitrite Negative (NEGATIVE) Urine Bilirubin Negative (NEGATIVE) Urine Urobilinogen Normal MG/DL (0.0-1.0) Urine Leukocyte Esterase Negative (NEGATIVE) Test 09/17/16 08:05 White Blood Count 5.6 K/UL (4.8-10.8) Red Blood Count 3.35 M/UL (4.70-6.10) L Hemoglobin 10.5 G/DL (14.2-18.0) L Hematocrit 30.3 % (42.0-52.0) L Mean Corpuscular Volume 91 FL (80-99) Mean Corpuscular Hemoglobin 31.3 PG (27.0-31.0) H Mean Corpuscular Hemoglobin Concent 34.5 G/DL (32.0-36.0) Red Cell Distribution Width 12.9 % (11.6-14.8) Platelet Count 181 K/UL (150-450) Mean Platelet Volume 7.5 FL (6.5-10.1) Neutrophils (%) (Auto) 68.1 % (45.0-75.0) Lymphocytes (%) (Auto) 22.4 % (20.0-45.0) Monocytes (%) (Auto) 7.4 % (1.0-10.0) Eosinophils (%) (Auto) 1.3 % (0.0-3.0) Basophils (%) (Auto) 0.9 % (0.0-2.0) Sodium Level 137 mEQ/L (135-145) Potassium Level 3.9 mEQ/L (3.4-4.9) Chloride Level 105 mEQ/L (98-107) Carbon Dioxide Level 24 mEQ/L (20-30) Anion Gap 8 (5-15) Blood Urea Nitrogen 15 mg/dL (7-23) Creatinine 1.0 mg/dL (0.7-1.2) Estimat Glomerular Filtration Rate mL/min (>60) Glucose Level 94 mg/dL (74-106) Calcium Level 7.8 mg/dL (8.6-10.2) L Height (Feet): 5 Height (Inches): 11.00 Weight (Pounds): 147 Medications Current Medications Medications (Trade) Dose Ordered Sig/Angie Route PRN Reason Start Time Stop Time Status Last Admin Dose Admin Acetaminophen (Tylenol) 650 mg Q4H PRN ORAL FEVER 09/17/16 13:00 10/17/16 12:59 UNV Acetaminophen (Tylenol) 650 mg Q4H PRN ORAL Mild Pain (Pain Scale 1-3) 09/17/16 13:00 10/17/16 12:59 UNV Acetaminophen (Tylenol) 650 mg Q4H PRN ORAL Mild Pain (Pain Scale 1-3) 09/16/16 23:30 10/16/16 23:29 Bisacodyl (Dulcolax) 10 mg ONCE ONCE RECTAL 09/17/16 13:00 09/17/16 13:01 UNV Carbidopa/Levodopa (Sinemet 25/250) 1 ea TID@0700,1200,1700 ORAL 09/17/16 13:00 10/17/16 12:59 Dextrose STAT PRN IV Hypoglycemia 09/16/16 23:30 10/16/16 23:29 Heparin Sodium (Porcine) (Heparin 5000 units/ml) 5,000 units EVERY 12 HOURS SUBQ 09/17/16 21:00 10/17/16 20:59 Lorazepam (Ativan 2mg/ml 1ml) 0.5 mg Q4H PRN IV For Anxiety 09/17/16 13:00 09/24/16 12:59 UNV Morphine Sulfate (Morphine Sulfate) 2 mg Q6H PRN IVP Moderate Pain (Pain Scale 4-6) 09/17/16 13:00 09/24/16 12:59 UNV Ondansetron HCl (Zofran) 4 mg Q6H PRN IVP Nausea & Vomiting 09/17/16 13:00 10/17/16 12:59 UNV Piperacillin Sod/ Tazobactam Sod/ Dextrose (Zosyn/D5W) 110 ml @ 27.5 mls/hr EVERY 8 HOURS IVPB 09/17/16 06:00 09/22/16 05:59 09/17/16 05:37 Polyethylene Glycol (Miralax) 17 gm DAILY PRN ORAL Constipation 09/17/16 13:00 10/17/16 12:59 UNV Sodium Chloride (Sodium Chloride 1000ml bag) 1,000 ml @ 75 mls/hr [id number] IVLG 09/17/16 00:16 10/17/16 00:15 09/17/16 00:11 Temazepam (Restoril) 15 mg HSPRN PRN ORAL Insomnia 09/17/16 13:00 09/24/16 12:59 UNV Vancomycin HCl 1 gm/Dextrose 275 ml @ 183.708 mls/hr Q24H IVPB 09/17/16 20:00 09/22/16 19:59 Assessment/Plan Problem List: (1) Acute respiratory failure with hypoxia ICD Codes: J96.01 - Acute respiratory failure with hypoxia SNOMED: 89116225, 396278811 (2) Severe sepsis ICD Codes: A41.9 - Sepsis, unspecified organism; R65.20 - Severe sepsis without septic shock SNOMED: 67809329 (3) Aspiration pneumonia ICD Codes: J69.0 - Pneumonitis due to inhalation of food and vomit SNOMED: 148833371 (4) Lactic acidosis ICD Codes: E87.2 - Acidosis SNOMED: 84921103 (5) Toxic metabolic encephalopathy ICD Codes: G92 - Toxic encephalopathy SNOMED: 981809561 (6) Parkinson disease ICD Codes: G20 - Parkinson's disease SNOMED: 09645816 (7) Dementia ICD Codes: F03.90 - Unspecified dementia without behavioral disturbance SNOMED: 60520527 (8) ALMA (acute kidney injury) ICD Codes: N17.9 - Acute kidney failure, unspecified SNOMED: 81011388 (9) ATN (acute tubular necrosis) ICD Codes: N17.0 - Acute kidney failure with tubular necrosis SNOMED: 91972291 (10) Protein-calorie malnutrition, severe ICD Codes: E43 - Unspecified severe protein-calorie malnutrition SNOMED: 573620349 (11) Iron deficiency ICD Codes: E61.1 - Iron deficiency SNOMED: 85286707 (12) BPH (benign prostatic hyperplasia) ICD Codes: N40.0 - Benign prostatic hyperplasia without lower urinary tract symptoms SNOMED: 677491179, 060896450 (13) CAD (coronary artery disease) ICD Codes: I25.10 - Atherosclerotic heart disease of [place] coronary artery without angina pectoris SNOMED: 17900406 Status: not improved Assessment/Plan Admit inpt Pulmonology consulted Cont vanco and zosyn for empiric converge of aspiration PNA F/u cultures Duonebs ATC and PRN Chest PT Suction PRN Trend CBC Nephrology consulted mIVFs Trend BMP Monitor UOP Neurology consulted Check CT brain 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 Disposition: Once the patient is stable to leave the hospital, I anticipate the patient will likely be discharged to the following environment: [facility] w/ hospice vs SNF w/ hospice I spent 70 minutes on this patient's case, and 40 minutes were dedicated to counseling and/or care coordination. Discussed with patient/family, nursing staff, SW/CM, pulmonology, renal, neurology regarding clinical status, treatment course, and disposition planning. Time of note may not reflect time of encounter. Elizabeth Portillo M.D. Sep 17, 2016 13:06
[2016-09-17] MEDS ORDERED: Miralax 17gm pkt ORAL PRN (14:00)
[2016-09-17] MEDS ORDERED: Morphine Sulfate 2mg/ml Inj IVP PRN ×2 (14:00→16:00)
[2016-09-17] MEDS ORDERED: LORazepam Inj 2mg/ml 1ml IV PRN ×2 (14:00→16:30)
--- NOTE | 2016-09-17 14:01 | Consultation ---
DATE OF CONSULTATION: 09/17/2016 NEUROLOGY CONSULTATION CONSULTING PHYSICIAN: Paresh Dickson M.D. REQUESTING PHYSICIAN: Viridiana Fried M.D. HISTORY: Mr. Naseem Luevano is an 86-year-old, gentleman, of unknown handedness, who does have a past history of coronary artery disease, Parkinson's disease, dementia, is nonverbal, and is essentially bed bound. He apparently lives in a residential, where he was noted to have an alteration in his mental state. He was brought into the [facility] Emergency Room where he was discovered to have a pneumonia. He has since been hospitalized started on intravenous fluids and antibiotics. This consultation was requested to evaluate the patient for his Parkinson's disease and manage his Parkinson's disease. The patient himself was unable to give me any history. PAST MEDICAL HISTORY: Significant for coronary artery disease, Parkinson's disease, dementia, being nonverbal, and being nonmobile. FAMILY HISTORY: Unavailable. PERSONAL HISTORY: Home: He lives in a residential. Work: Unknown. Habits: Unknown. PRESENT MEDICATIONS: Include vancomycin, Zosyn, and Tylenol p.r.n. PHYSICAL EXAMINATION: GENERAL: He is a well-developed, well-nourished, pleasant gentleman, lying in bed with his legs flexed and his upper extremities flexed. VITAL SIGNS: Pulse 68 per minute, blood pressure 97/52 mmHg, respirations 18 per minute, and temperature 99.7 degrees Fahrenheit. HEAD: Normocephalic and atraumatic. EENT: Examination benign. NECK: No neck rigidity was observed. NEUROLOGICAL EXAMINATION: MENTAL STATUS EXAMINATION: He was awake and looked alert. He was nonverbal and thus further mental status testing was impossible. He did follow a few simple commands, but this was quite inconsistent. Further mental status testing was impossible. SPEECH: Could not be tested as he was mute. LANGUAGE: He followed a few simple commands inconsistently. He was unable to express himself in any way. CRANIAL NERVE EXAMINATION: II: He did blink to threat in all yi. III, IV & : External ocular movements were present on oculocephalic maneuvers. The pupils were 3 mm in diameter, equal, round, regular and reactive sluggishly to light. V & VII: The corneal reflexes were present bilaterally. VIII: He seemed to be able to hear and had no nystagmus. IX & X: The gag reflex was present but diminished. XI: The sternocleidomastoids and trapezii function. XII: The tongue was in midline without any fasciculations or atrophy. MOTOR SYSTEM: The tone was increased in all four extremities with a combination of spasticity and rigidity. Examination of muscle mass revealed generalized muscle wasting. He also had bilateral upper and lower extremity flexion contractures. Examination of power was impossible to perform in an organized manner. 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 SENSORY EXAMINATION: He responded appropriately to deep pain. He was unable to cooperate for the sensory modalities. REFLEXES: Trace+ and bilaterally symmetrical at the biceps, triceps, brachioradialis, knees, and zero at both ankles. The plantar responses were flexor bilaterally. COORDINATION, STANCE & GAIT: Could not be tested. ABNORMAL MOVEMENTS: Tremor (7-8 Hz): G 1/4 Tremor (4-5 Hz): G 0/4 Rigidity: G 2/4 Bradykinesia: G 3/4 Hypomimia: G 3/4. DIAGNOSTIC IMPRESSION: 1. Mr. Naseem Luevano is an 86-year-old, gentleman, of unknown handedness, who does have a past history of coronary artery disease, Parkinson's disease, dementia, being nonverbal and being essentially bed-bound, who was hospitalized for change in mental state, which was discovered to be due to a pneumonia. 2. 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 In addition, he also has bradykinesia, hypomimia, and globally diminished reflexes with extensor plantar responses bilaterally. 3. Laboratory data on admission revealed that he was anemic with a hemoglobin of 10.4. His creatinine was elevated to 1.8. His alkaline phosphatase was elevated to 132. He also had lactic acidosis which has now improved. His urinalysis was essentially benign. 4. A CT scan of the chest, abdomen and pelvis revealed bilateral pneumonia involving the lower lung yi, fecal impaction with moderate distention of his rectum, multiple liver cysts, gallbladder stones versus sludge., compression fractures of the T12 and L3 which looked old, an old left hip fracture that was pinned, a right psoas lipoma. 5. The patient's history, neurological examination, and laboratory data are most compatible with an encephalopathy related to his pneumonia and sepsis. He also has parkinsonian symptoms and in addition is exhibiting corticospinal tract dysfunction which at this point in time, is unexplained. RECOMMENDATIONS: 1. Agree with management thus far. 2. It would be prudent to insert a nasogastric tube and restart the patient on the same dose of Sinemet that he was taking at his residential. 3. A CT scan of the brain should be performed to exclude ongoing acute intracranial pathology as the patient does have corticospinal tract findings that are unexplained. 4. Frequent range of motion exercises should be performed. 5. The patient should be worked up thoroughly for other treatable causes of encephalopathy with in addition to the laboratory tests already done, a B12 level, folate level, vitamin D level, TSH, and ESR. 6. Depending on how the patient fares over the next day or so further recommendations will be given. Thank you for entrusting me with the care of Mr. Luevano. I shall follow him with you. Paresh Dickson M.D., M.S.P.H. DR: CHIQUITA JOB#: [id number] LINO
[2016-09-17 14:09] LABS: THYROID STIMULATING HORMONE 2.28 uIU/mL (0.300-4.500)
[2016-09-17] MEDS ORDERED: Miralax 17gm pkt NG PRN (14:30)
--- NOTE | 2016-09-17 15:47 | Diagnostic Imaging Report ---
Indication: Headache Technique: Contiguous 5 mm thick transaxial imaging of the head obtained in a Siemens Sensation [address] scanner. Soft tissue and bone windows generated. Total Dose length Product (DLP): [address] Dose Index Volume (CTDIvol): 70.38 mGy Comparison: none Findings: There is moderate prominence of the ventricles, basal cisterns, and cerebral sulci consistent with atrophy. Moderate, nonspecific, white matter hypoattenuation is noted throughout the brain consistent with chronic small vessel disease. There is no midline shift, edema, acute hemorrhage, mass effect, or abnormal extra-axial fluid collections. Bones and extra osseous soft tissues are unremarkable. Impression: No acute intracranial bleed, mass effect or edema. Moderate atrophy of the brain. Evidence of chronic small vessel disease involving white matter tracts. Note: The posterior fossa is obscured by artifact and is not optimally seen or evaluated. The CT scanner at [facility] is accredited by the [employer] and the scans are performed using dose optimization techniques as appropriate to a performed exam including Automatic Exposure control.
[2016-09-17 16:00] VITALS: BP 123/68
[2016-09-17] MEDS ORDERED: Miralax 17gm pkt NG SCH (18:00)
[2016-09-17] MEDS: Miralax 17gm pkt NG SCH (18:00)
[2016-09-17 20:00] VITALS: BP 157/84
[2016-09-17] MEDS ORDERED: Vancomycin 1250mg/D5W 250ml IVPB SCH (20:00)
[2016-09-17] MEDS ORDERED: Vancomycin 1 GM in D5W 275 ML IVPB SCH (20:00)
[2016-09-17] MEDS ORDERED: Atorvastatin 20mg tab NG SCH ×2 (21:00)
[2016-09-17] MEDS ORDERED: Tamsulosin 0.4mg cap NGT SCH ×2 (21:00)
[2016-09-17] MEDS ORDERED: Heparin 5000 units/ml inj SUBQ SCH (21:00)
[2016-09-17] MEDS: Vancomycin 1250mg/D5W 250ml 250 ML IVPB SCH (21:11)
[2016-09-17] MEDS: Heparin 5000 units/ml inj SUBQ SCH (21:13)
[2016-09-18] VITALS (7 sets, daily range): BP systolic 115–171; BP diastolic 65–91
[2016-09-18] MEDS ORDERED: DiphenhydrAMINE 50mg/ml Inj IVP PRN (00:30)
[2016-09-18] MEDS: Piperacillin/Tazobactam 3.375 GM in D5W 110 ML IVPB SCH ×3 (06:22→22:40)
[2016-09-18 07:27] LABS: BASOPHILS % (AUTO) 0.7 % (0.0-2.0); EOSINOPHILS % (AUTO) 3.1 % (0.0-3.0); MEAN CORPUSCULAR HEMOGLOBIN 29.8 PG (27.0-31.0); MEAN CORPUSCULAR HGB CONC 32.6 G/DL (32.0-36.0); MEAN CORPUSCULAR VOLUME 91 FL (80-99); MEAN PLATELET VOLUME 8.2 FL (6.5-10.1); NEUTROPHILS % (AUTO) 70.3 % (45.0-75.0); PLATELET COUNT 202 K/UL (150-450); RED BLOOD COUNT 3.75 M/UL (4.70-6.10); RED CELL DISTRIBUTION WIDTH 13.1 % (11.6-14.8); WHITE BLOOD COUNT 6.4 K/UL (4.8-10.8)
[2016-09-18 07:56] LABS: ALANINE AMINOTRANSFERASE 10 U/L (3-41); ALBUMIN/GLOBULIN RATIO 1.1 (1.0-2.7); ANION GAP 12 (5-15); ASPARTATE AMINO TRANSFERASE 13 U/L (5-40); CALCIUM 8.3 mg/dL (8.6-10.2); CARBON DIOXIDE 23 mEQ/L (20-30); CHLORIDE 102 mEQ/L (98-107); CREATININE 0.9 mg/dL (0.7-1.2); HEMOLYSIS 3; MAGNESIUM 1.8 mg/dL (1.7-2.5); PHOSPHORUS 2.4 mg/dL (2.5-4.8); POTASSIUM 3.8 mEQ/L (3.4-4.9); SODIUM 137 mEQ/L (135-145); TOTAL PROTEIN 5.6 g/dL (6.6-8.7)
[2016-09-18 07:58] LABS: CRP QUANT 8.8 mg/dL (< 0.5); URIC ACID 2.1 mg/dL (3.0-7.5)
[2016-09-18 07:59] LABS: FERRITIN 143 ng/mL (10-230)
[2016-09-18 08:01] LABS: CORTISOL AM 14.7 ug/dL (6.0-20.0)
[2016-09-18] MEDS ORDERED: Aspirin Baby 81mg NG SCH ×2 (09:00)
[2016-09-18] MEDS: Miralax 17gm pkt NG SCH (09:00)
[2016-09-18] MEDS ORDERED: Modafinil 100mg tab NG SCH ×2 (09:00)
[2016-09-18] MEDS ORDERED: Tubing IV Secondary IV ONE ×2 (09:03→10:35)
--- NOTE | 2016-09-18 09:40 | General Progress Note ---
Assessment/Plan Status: stable - from renal stand Status Narrative Cr now WNL Assessment/Plan Renal failure acute vs chronic Cr resolved Encephalopathy Low BP , dehydration CAD Parkinson BPH HTN GERD Low Cognition Pneumonia, Aspiration plan: Slow hydrate Avoid nephrotoxics monitor renal parameters- Neuro eval noted IV iron Subjective ROS Limited/Unobtainable: No Constitutional: Reports: malaise, weakness Allergies: Coded Allergies: No Known Allergies (Unverified , 09/16/16) Objective Last 24 Hour Vital Signs Date Time Temp Pulse Resp B/P Pulse Ox O2 Delivery O2 Flow Rate FiO2 09/18/16 08:51 Venturi Mask 10.0 45 09/18/16 08:51 95 Venturi Mask 10.0 45 09/18/16 08:00 96.0 71 18 115/65 98 Simple Mask 10.0 09/18/16 04:00 97.3 75 20 138/82 99 Venturi Mask 10.0 09/18/16 00:00 97.7 70 20 145/86 99 Venturi Mask 09/17/16 23:48 Venturi Mask 09/17/16 23:47 87 20 98 Venturi Mask 10.0 45 09/17/16 20:25 97 Venturi Mask 12.0 50 09/17/16 20:25 Venturi Mask 12.0 50 09/17/16 20:00 97.7 92 20 157/84 98 Venturi Mask 10.0 09/17/16 16:00 97.9 84 19 123/68 98 Simple Mask 12.0 09/17/16 12:00 98.2 62 19 137/75 100 Simple Mask 8.0 09/17/16 12:00 80 Intake and Output 09/17/16 09/18/16 19:00 07:00 Intake Total 607.5 ml 1343.334 ml Output Total 2000 ml Balance 607.5 ml -656.666 ml Intake IV Total 607.5 ml 1343.334 ml Output Urine Total 2000 ml # Bowel Movements 4 Laboratory Tests 09/17/16 13:40: Erythrocyte Sedimentation Rate 47H, Vitamin B12 Level 744, Vitamin D 25-Hydroxy [Pending], 25-Hydroxy Vitamin D2 [Pending], 25-Hydroxy Vitamin D3 [Pending], Folate [Pending], Thyroid Stimulating Hormone (TSH) 2.280, Rapid Plasma Reagin Non reactive 09/18/16 06:25: White Blood Count 6.4, Red Blood Count 3.75L, Hemoglobin 11.2L, Hematocrit 34.2L , Mean Corpuscular Volume 91, Mean Corpuscular Hemoglobin 29.8, Mean Corpuscular Hemoglobin Concent 32.6, Red Cell Distribution Width 13.1, Platelet Count 202, Mean Platelet Volume 8.2, Neutrophils (%) (Auto) 70.3, Lymphocytes (% ) (Auto) 17.0L, Monocytes (%) (Auto) 9.0, Eosinophils (%) (Auto) 3.1H, Basophils (%) (Auto) 0.7, Sodium Level 137, Potassium Level 3.8, Chloride Level 102, Carbon Dioxide Level 23, Anion Gap 12, Blood Urea Nitrogen 12, Creatinine 0.9, Estimat Glomerular Filtration Rate , Glucose Level 79, Uric Acid 2.1L, Calcium Level 8.3L, Phosphorus Level 2.4L, Magnesium Level 1.8, Iron Level 21L, Total Iron Binding Capacity 183L, Percent Iron Saturation 11L, Unsaturated Iron Binding 162, Ferritin 143, Total Bilirubin 0.5, Aspartate Amino Transf (AST/SGOT ) 13, Alanine Aminotransferase (ALT/SGPT) 10, Alkaline Phosphatase 83, C- Reactive Protein, Quantitative 8.8H, Pro-B-Type Natriuretic Peptide 621H, Total Protein 5.6L, Albumin 3.0L, Globulin 2.6, Albumin/Globulin Ratio 1.1, Cortisol AM Sample 14.7 Height (Feet): 5 Height (Inches): 11.00 Weight (Pounds): 147 General Appearance: lethargic, confused Cardiovascular: tachycardia Respiratory/Chest: decreased breath sounds Abdomen: soft VANITA BILLINGS Sep 18, 2016 09:40
[2016-09-18] MEDS ORDERED: Budesonide HHN 0.25mg/2ml ud HHN SCH (10:00)
[2016-09-18] MEDS: Heparin 5000 units/ml inj SUBQ SCH ×2 (10:29→22:24)
[2016-09-18] MEDS ORDERED: NS 275ml ONE (10:35)
[2016-09-18] MEDS ORDERED: Iron Sucrose 200 MG in NS 110 ML IV ONE (10:45)
--- NOTE | 2016-09-18 12:05 | GI Initial Consult Note ---
History of Present Illness General Date patient seen: Sep 18, 2016 Time patient seen: 11:54 Reason for Hospitalization: Dyspnea/Respdistress Referring physician: Dr. Fried Reason for Consultation: Dysphagia / NGT placement Present Illness HPI 86 y/o male with PMHx of who has a PH of CAD, PD, Dementia, non-verbal, and being essentially bed bound hospitalized for sepsis and hypoxia found to have pneumonia on recent chest CT. GI consulted to place NGT after 2 failed attemps. He presents today with anemia, iron deficiency and hypoalbuminemia. Unknown history of endoscopic procedures. Home Meds Reported Medications [Robitussin DM] No Conflict Check, 10 MG PO Q4HR Y for For Cough 09/17/16 Atropine Sulfate in 0.9% NaCl (ATROPINE 0.01%-NS EYE DROPS) 10 Ml Drops, 10 ML ORAL QID Y for PRN, #4 ML 09/17/16 Acetaminophen* (TYLENOL EXTRA STRENGTH*) 500 Mg Tablet, 500 MG ORAL Q6H Y for Mild Pain/Temp > 100.5, TAB 0 Refills 09/17/16 Carbidopa/Levodopa* (SINEMET 25-250 MG TABLET*) 1 Each Tablet, 1 TAB ORAL THREE TIMES A DAY, TAB 09/17/16 Docusate Sodium* (DOCUSATE SODIUM*) 100 Mg Capsule, 100 MG ORAL TWICE A DAY Y for PRN, CAP 09/16/16 Glycerin (GLYCERIN LAXATIVE) 5.4 Gm/5.4 Ml Xin.pf.ladan, RC 09/16/16 Polyethylene Glycol 3350* (MIRALAX*) 17 Gm Powd.pack, 17 GM ORAL DAILY Y for PRN , PACKET 09/16/16 Guaifenesin/Codeine Phos* (ROBITUSSIN AC*) 118 Ml Liquid, ORAL Q4H Y for For Cough, #118 ML 0 Refills 09/16/16 Ondansetron* (ZOFRAN*) 4 Mg Tablet, 4 MG ORAL Q6H Y for Nausea & Vomiting, TAB 09/16/16 Budesonide/Formoterol Fumarate (SYMBICORT 160-4.5 MCG INHALER) 10.2 Gm Hfa.aer.ad, 1 PUFF IH BID Y for Shortness of Breath, #1 INH 0 Refills 09/16/16 Tamsulosin Hcl (TAMSULOSIN HCL*) 0.4 Mg Cap.er.24h, 0.8 MG ORAL BEDTIME, CAP 09/16/16 Aspirin* (ASPIR 81*) 81 Mg Tablet.dr, 81 MG ORAL Q3XWK, TAB 09/16/16 Mirtazapine* (MIRTAZAPINE*) 7.5 Mg Tablet, 7.5 MG ORAL BEDTIME, TAB 09/16/16 Atorvastatin (Lipitor) 80 Mg Tablet, 20 MG ORAL BEDTIME, #30 TAB 0 Refills 09/16/16 Clopidogrel Bisulfate* (PLAVIX*) 75 Mg Tablet, 75 MG ORAL DAILY, TAB 09/16/16 Finasteride* (PROSCAR*) 5 Mg Tablet, 5 MG ORAL DAILY, #30 TAB 0 Refills 09/16/16 Omeprazole (OMEPRAZOLE) 40 Mg Capsule.dr, 40 MG ORAL DAILY, CAP 09/16/16 Metoprolol Succinate* (METOPROLOL SUCCINATE*) 25 Mg Tab.er.24h, 25 MG ORAL BID, TAB 09/16/16 Modafinil* (PROVIGIL) 100 Mg Tablet, 200 MG ORAL DAILY, TAB 0 Refills 09/16/16 Multivit-Min/FA/Lycopen/Lutein (CENTRUM SILVER MEN TABLET) 1 Each Tablet, 1 EACH PO, TAB 09/16/16 Dextran 70/Hypromellose (ARTIFICIAL TEARS) 1 Each Droperette, 1 EACH OP QID 09/16/16 Lisinopril (LISINOPRIL*) 5 Mg Tablet, 2.5 MG ORAL DAILY, TAB 09/16/16 Levodopa/Carbidopa (Carbidopa-Levodopa 25-100 Tab) 1 Each Tablet, 1.5 TAB ORAL THREE TIMES A DAY, TAB 09/16/16 Discontinued Reported Medications [robitu] No Conflict Check 09/17/16 Atropine (Atropine Sulfate) 0.4 Mg/1 Ml Vial, INJ, MG 09/16/16 Acetaminophen (Tylenol) 325 Mg Tablet, 500 MG ORAL PRN Y for For Pain, #30 TAB 0 Refills 09/16/16 Med list reviewed/reconciled: Yes Allergies: Coded Allergies: No Known Allergies (Unverified , 09/16/16) Patient History History Provided By: Medical Record PMH Narrative Limited by: medical condition Past Medical History: HTN, CAD, dementia Past Surgical History: unable to obtain Pertinent Family History: unable to obtain Hx Cardiac Problems: No Hx Hypertension: No Hx Pacemaker: No Hx Asthma: No Hx COPD: No Hx Diabetes: No Hx Cancer: No Hx Gastrointestinal Problems: No Hx Dialysis: No Hx Neurological Problems: Yes - dementia, Parkinson Hx Cerebrovascular Accident: No Hx Seizures: No Social History: Denies: alcohol use, drug use, other, smoking Review of Systems All Other Systems: limited Physical Exam Vital Signs Date Time Temp Pulse Resp B/P Pulse Ox O2 Delivery O2 Flow Rate FiO2 09/16/16 19:24 113 22 90/60 94 Simple Mask 09/16/16 20:41 99.7 09/17/16 00:23 12.0 50 Sp02 EP Interpretation: reviewed Labs Laboratory Tests Test 09/17/16 13:40 09/18/16 06:25 Erythrocyte Sedimentation Rate 47 MM/HR (0-30) H Vitamin B12 Level 744 pg/mL (211-946) Vitamin D 25-Hydroxy Pending 25-Hydroxy Vitamin D2 Pending 25-Hydroxy Vitamin D3 Pending Folate Pending Thyroid Stimulating Hormone (TSH) 2.280 uIU/mL (0.300-4.500) Rapid Plasma Reagin Non reactive (Non Reactive) White Blood Count 6.4 K/UL (4.8-10.8) Red Blood Count 3.75 M/UL (4.70-6.10) L Hemoglobin 11.2 G/DL (14.2-18.0) L Hematocrit 34.2 % (42.0-52.0) L Mean Corpuscular Volume 91 FL (80-99) Mean Corpuscular Hemoglobin 29.8 PG (27.0-31.0) Mean Corpuscular Hemoglobin Concent 32.6 G/DL (32.0-36.0) Red Cell Distribution Width 13.1 % (11.6-14.8) Platelet Count 202 K/UL (150-450) Mean Platelet Volume 8.2 FL (6.5-10.1) Neutrophils (%) (Auto) 70.3 % (45.0-75.0) Lymphocytes (%) (Auto) 17.0 % (20.0-45.0) L Monocytes (%) (Auto) 9.0 % (1.0-10.0) Eosinophils (%) (Auto) 3.1 % (0.0-3.0) H Basophils (%) (Auto) 0.7 % (0.0-2.0) Sodium Level 137 mEQ/L (135-145) Potassium Level 3.8 mEQ/L (3.4-4.9) Chloride Level 102 mEQ/L (98-107) Carbon Dioxide Level 23 mEQ/L (20-30) Anion Gap 12 (5-15) Blood Urea Nitrogen 12 mg/dL (7-23) Creatinine 0.9 mg/dL (0.7-1.2) Estimat Glomerular Filtration Rate mL/min (>60) Glucose Level 79 mg/dL (74-106) Uric Acid 2.1 mg/dL (3.0-7.5) L Calcium Level 8.3 mg/dL (8.6-10.2) L Phosphorus Level 2.4 mg/dL (2.5-4.8) L Magnesium Level 1.8 mg/dL (1.7-2.5) Iron Level 21 ug/dL (59-158) L Total Iron Binding Capacity 183 ug/dL (250-400) L Percent Iron Saturation 11 % (15-50) L Unsaturated Iron Binding 162 ug/dL (112-346) Ferritin 143 ng/mL (10-230) Total Bilirubin 0.5 mg/dL (0.0-1.2) Aspartate Amino Transf (AST/SGOT) 13 U/L (5-40) Alanine Aminotransferase (ALT/SGPT) 10 U/L (3-41) Alkaline Phosphatase 83 U/L (40-129) C-Reactive Protein, Quantitative 8.8 mg/dL (< 0.5) H Pro-B-Type Natriuretic Peptide 621 pg/mL (0-450) H Total Protein 5.6 g/dL (6.6-8.7) L Albumin 3.0 g/dL (3.5-5.2) L Globulin 2.6 g/dL Albumin/Globulin Ratio 1.1 (1.0-2.7) Cortisol AM Sample 14.7 ug/dL (6.0-20.0) General Appearance: no apparent distress Head: normocephalic EENT: normal ENT inspection Neck: supple Respiratory: other Cardiovascular: normal rate Gastrointestinal: soft Rectal: deferred Genitourinary: no CVA tenderness Musculoskeletal: back normal Skin: normal inspection, normal color, no rash, warm/dry Lymphatic: normal inspection, no adenopathy Current Medications Current Medications Medications (Trade) Dose Ordered Sig/Angie Route PRN Reason Start Time Stop Time Status Last Admin Dose Admin Acetaminophen (Tylenol) 650 mg Q4H PRN ORAL FEVER>100.5 09/17/16 16:00 10/17/16 15:59 Acetaminophen (Tylenol) 650 mg Q4H PRN ORAL Mild Pain (Pain Scale 1-3) 09/17/16 19:30 10/17/16 19:29 Aspirin (ASA) 81 mg 3XW NG 09/18/16 09:00 10/18/16 08:59 Atorvastatin Calcium (Lipitor) 20 mg BEDTIME NG 09/17/16 21:00 10/17/16 20:59 Budesonide (Pulmicort) 0.25 mg EVERY 12 HOURS HHN 09/18/16 10:00 10/18/16 09:59 Carbidopa/Levodopa (Sinemet 25/250) 1 ea TID@0700,1200,1700 NG 09/17/16 17:00 10/17/16 16:59 Clopidogrel Bisulfate (Plavix) 75 mg DAILY NG 09/18/16 09:00 10/18/16 08:59 Dextrose (Dextrose 50%) STAT PRN IV Hypoglycemia 09/17/16 16:00 10/17/16 15:59 Diphenhydramine HCl 25 mg 25 mg Q6H PRN IVP ITCH and Insomnia 09/18/16 00:30 10/18/16 00:29 Heparin Sodium (Porcine) (Heparin 5000 units/ml) 5,000 units EVERY 12 HOURS SUBQ 09/17/16 21:00 10/17/16 20:59 09/18/16 10:29 Lansoprazole (Prevacid) 30 mg DAILY NG 09/18/16 09:00 10/18/16 08:59 Lorazepam (Ativan 2mg/ml 1ml) 0.5 mg Q4H PRN IV For Anxiety 09/17/16 16:30 09/24/16 16:29 Mirtazapine (Remeron) 7.5 mg BEDTIME NG 09/17/16 21:00 10/17/16 20:59 Modafinil (Provigil) 200 mg DAILY NG 09/18/16 09:00 09/25/16 08:59 Morphine Sulfate (Morphine Sulfate) 2 mg Q6H PRN IVP Moderate Pain (Pain Scale 4-6) 09/17/16 16:00 09/24/16 15:59 Ondansetron HCl (Zofran) 4 mg Q6H PRN IVP Nausea & Vomiting 09/17/16 16:00 10/17/16 15:59 Piperacillin Sod/ Tazobactam Sod 3.375 gm/Dextrose 110 ml @ 27.5 mls/hr EVERY 8 HOURS IVPB 09/17/16 22:00 09/22/16 21:59 09/18/16 06:22 Polyethylene Glycol (Miralax) 17 gm BID NG 09/17/16 18:00 10/17/16 17:59 Sodium Chloride (Sodium Chloride 1000ml bag) 1,000 ml @ 50 mls/hr Q20H IVLG 09/18/16 16:45 10/18/16 16:44 Tamsulosin HCl (Flomax) 0.8 mg BEDTIME NGT 09/17/16 21:00 10/17/16 20:59 Temazepam (Restoril) 15 mg HSPRN PRN ORAL Insomnia 09/17/16 21:00 09/24/16 20:59 Vancomycin HCl/ Dextrose (Vancomycin 1250mg/D5W 250ml) 250 ml @ 166.667 mls/hr Q24H IVPB 09/17/16 20:00 09/22/16 19:59 09/17/16 21:11 GI: Plan Problems: (1) Iron deficiency (2) Dehydration (3) Protein-calorie malnutrition, severe (4) Acute encephalopathy (5) Pneumonia Plan CT AP reviewed >> pneumonia ST evaluation reviewed >> video swallow when receptive unable to place NGT >> recommend no further manual NGT placement attempts iron deficiency >> venofer ppi monitor H&H, prn transfusions IV hydration + electrolyte correction abx fu labs Discussed with Dr. Robles. Thank you fro referring this patient, we will follow. Geovanna Agrawal N.P. Sep 18, 2016 12:04
--- NOTE | 2016-09-18 15:14 | Pulmonology Progress Note ---
Assessment/Plan Problems: (1) Sepsis (2) ATN (acute tubular necrosis) (3) Acute encephalopathy (4) Pneumonia (5) Protein-calorie malnutrition, severe (6) Dementia (7) Parkinson disease (8) Limited mobility Assessment/Plan discontinue non-essential meds liquid nena [place] change face mask to NC avoid NG tube. Subjective ROS Limited/Unobtainable: Yes Allergies: Coded Allergies: No Known Allergies (Unverified , 09/16/16) Objective Last 24 Hour Vital Signs Date Time Temp Pulse Resp B/P Pulse Ox O2 Delivery O2 Flow Rate FiO2 09/18/16 12:00 97.7 74 18 152/88 Simple Mask 10.0 09/18/16 10:08 Venturi Mask 10.0 45 09/18/16 10:06 94 18 97 Venturi Mask 10.0 45 09/18/16 08:51 Venturi Mask 10.0 45 09/18/16 08:51 95 Venturi Mask 10.0 45 09/18/16 08:00 96.0 71 18 115/65 98 Simple Mask 10.0 09/18/16 04:00 97.3 75 20 138/82 99 Venturi Mask 10.0 09/18/16 00:00 97.7 70 20 145/86 99 Venturi Mask 09/17/16 23:48 Venturi Mask 09/17/16 23:47 87 20 98 Venturi Mask 10.0 45 09/17/16 20:25 97 Venturi Mask 12.0 50 09/17/16 20:25 Venturi Mask 12.0 50 09/17/16 20:00 97.7 92 20 157/84 98 Venturi Mask 10.0 09/17/16 16:00 97.9 84 19 123/68 98 Simple Mask 12.0 Intake and Output 09/17/16 09/18/16 19:00 07:00 Intake Total 607.5 ml 1343.334 ml Output Total 2000 ml Balance 607.5 ml -656.666 ml Intake IV Total 607.5 ml 1343.334 ml Output Urine Total 2000 ml # Bowel Movements 4 HEENT: normocephalic, atraumatic Respiratory/Chest: chest wall non-tender, normal breath sounds Cardiovascular: normal peripheral pulses, normal rate Abdomen: normal bowel sounds, soft, non tender Genitourinary: normal external genitalia Extremities: no cyanosis 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 Complete Laboratory Tests 09/18/16 06:25: White Blood Count 6.4, Red Blood Count 3.75L, Hemoglobin 11.2L, Hematocrit 34.2L , Mean Corpuscular Volume 91, Mean Corpuscular Hemoglobin 29.8, Mean Corpuscular Hemoglobin Concent 32.6, Red Cell Distribution Width 13.1, Platelet Count 202, Mean Platelet Volume 8.2, Neutrophils (%) (Auto) 70.3, Lymphocytes (% ) (Auto) 17.0L, Monocytes (%) (Auto) 9.0, Eosinophils (%) (Auto) 3.1H, Basophils (%) (Auto) 0.7, Sodium Level 137, Potassium Level 3.8, Chloride Level 102, Carbon Dioxide Level 23, Anion Gap 12, Blood Urea Nitrogen 12, Creatinine 0.9, Estimat Glomerular Filtration Rate , Glucose Level 79, Uric Acid 2.1L, Calcium Level 8.3L, Phosphorus Level 2.4L, Magnesium Level 1.8, Iron Level 21L, Total Iron Binding Capacity 183L, Percent Iron Saturation 11L, Unsaturated Iron Binding 162, Ferritin 143, Total Bilirubin 0.5, Aspartate Amino Transf (AST/SGOT ) 13, Alanine Aminotransferase (ALT/SGPT) 10, Alkaline Phosphatase 83, C- Reactive Protein, Quantitative 8.8H, Pro-B-Type Natriuretic Peptide 621H, Total Protein 5.6L, Albumin 3.0L, Globulin 2.6, Albumin/Globulin Ratio 1.1, Cortisol AM Sample 14.7 Current Medications Medications (Trade) Dose Ordered Sig/Angie Route PRN Reason Start Time Stop Time Status Last Admin Dose Admin Acetaminophen (Tylenol) 650 mg Q4H PRN ORAL FEVER>100.5 09/17/16 16:00 10/17/16 15:59 Acetaminophen (Tylenol) 650 mg Q4H PRN ORAL Mild Pain (Pain Scale 1-3) 09/17/16 19:30 10/17/16 19:29 Albuterol/ Ipratropium (DuoNeb 0.5-3(2.5)mg/3ml) 3 ml Q4H PRN HHN Shortness of Breath 09/18/16 15:15 09/23/16 15:14 UNV Albuterol/ Ipratropium (DuoNeb 0.5-3(2.5)mg/3ml) 3 ml Q6HRT HHN 09/18/16 19:00 09/23/16 18:59 UNV Artificial Tears (Akwa-Tears) 1 drop QIDPRN PRN BOTH EYES Dry Eyes 09/18/16 15:15 10/18/16 15:14 UNV Budesonide 0.25 mg 0.25 mg EVERY 12 HOURS HHN 09/18/16 10:00 10/18/16 09:59 Carbidopa/Levodopa (Sinemet 25/250) 1 ea TID@0700,1200,1700 NG 09/17/16 17:00 10/17/16 16:59 Dextrose (Dextrose 50%) STAT PRN IV Hypoglycemia 09/17/16 16:00 10/17/16 15:59 Diphenhydramine HCl 25 mg 25 mg Q6H PRN IVP ITCH and Insomnia 09/18/16 00:30 10/18/16 00:29 Glycopyrrolate (Robinul) 0.1 mg Q6H PRN IV excessive secretions 09/18/16 15:15 10/18/16 15:14 UNV Heparin Sodium (Porcine) (Heparin 5000 units/ml) 5,000 units EVERY 12 HOURS SUBQ 09/17/16 21:00 10/17/16 20:59 09/18/16 10:29 Iron Sucrose/ Sodium Chloride (Venofer/Sodium Chloride) 60 ml @ 240 mls/hr BEDTIME IV 09/18/16 21:00 09/19/16 21:14 Lorazepam (Ativan 2mg/ml 1ml) 0.5 mg Q4H PRN IV For Anxiety 09/17/16 16:30 09/24/16 16:29 Modafinil (Provigil) 200 mg DAILY NG 09/18/16 09:00 09/25/16 08:59 Morphine Sulfate (Morphine Sulfate) 2 mg Q6H PRN IVP Moderate Pain (Pain Scale 4-6) 09/17/16 16:00 09/24/16 15:59 Ondansetron HCl (Zofran) 4 mg Q6H PRN IVP Nausea & Vomiting 09/17/16 16:00 10/17/16 15:59 Piperacillin Sod/ Tazobactam Sod 3.375 gm/Dextrose 110 ml @ 27.5 mls/hr EVERY 8 HOURS IVPB 09/17/16 22:00 09/22/16 21:59 09/18/16 06:22 Sodium Chloride (Sodium Chloride 1000ml bag) 1,000 ml @ 50 mls/hr Q20H IVLG 09/18/16 16:45 10/18/16 16:44 Vancomycin HCl/ Dextrose (Vancomycin 1250mg/D5W 250ml) 250 ml @ 166.667 mls/hr Q24H IVPB 09/17/16 20:00 09/22/16 19:59 09/17/16 21:11 CHILO SHANKS Sep 18, 2016 15:14
[2016-09-18] MEDS ORDERED: Artificial Tears 1.4% Op Soln BOTH EYES PRN (15:15)
[2016-09-18] MEDS ORDERED: DuoNeb 0.5-3(2.5)mg/3ml neb HHN PRN (15:15)
[2016-09-18] MEDS ORDERED: Morphine Sulfate 10mg/5ml Oral Soln ud ORAL PRN (15:15)
[2016-09-18] MEDS ORDERED: Glycopyrrolate 0.2mg/ml 1ml Vial IV PRN (15:15)
[2016-09-18] MEDS ORDERED: Morphine 5mg/2.5ml Oral Soln ORAL PRN (15:45)
--- NOTE | 2016-09-18 16:36 | Neurology Progress Note ---
Interim History Interim History Interim History Mr. Luevano looks alert and brighter today. He continues to be mute. He does follow commands inconsistently. He continues to be cognitively impoverished and motorically challenged. Attempts were made to insert an NGT but failed. Review of Systems Neuro Review of Systems Benign. Objective Physical Exam Last Vital Signs Date Time Temp Pulse Resp B/P Pulse Ox O2 Delivery O2 Flow Rate FiO2 09/18/16 12:00 97.7 74 18 152/88 Simple Mask 10.0 09/18/16 10:08 45 09/18/16 10:06 97 Laboratory Tests Test 09/18/16 06:25 White Blood Count 6.4 K/UL (4.8-10.8) Red Blood Count 3.75 M/UL (4.70-6.10) L Hemoglobin 11.2 G/DL (14.2-18.0) L Hematocrit 34.2 % (42.0-52.0) L Mean Corpuscular Volume 91 FL (80-99) Mean Corpuscular Hemoglobin 29.8 PG (27.0-31.0) Mean Corpuscular Hemoglobin Concent 32.6 G/DL (32.0-36.0) Red Cell Distribution Width 13.1 % (11.6-14.8) Platelet Count 202 K/UL (150-450) Mean Platelet Volume 8.2 FL (6.5-10.1) Neutrophils (%) (Auto) 70.3 % (45.0-75.0) Lymphocytes (%) (Auto) 17.0 % (20.0-45.0) L Monocytes (%) (Auto) 9.0 % (1.0-10.0) Eosinophils (%) (Auto) 3.1 % (0.0-3.0) H Basophils (%) (Auto) 0.7 % (0.0-2.0) Sodium Level 137 mEQ/L (135-145) Potassium Level 3.8 mEQ/L (3.4-4.9) Chloride Level 102 mEQ/L (98-107) Carbon Dioxide Level 23 mEQ/L (20-30) Anion Gap 12 (5-15) Blood Urea Nitrogen 12 mg/dL (7-23) Creatinine 0.9 mg/dL (0.7-1.2) Estimat Glomerular Filtration Rate mL/min (>60) Glucose Level 79 mg/dL (74-106) Uric Acid 2.1 mg/dL (3.0-7.5) L Calcium Level 8.3 mg/dL (8.6-10.2) L Phosphorus Level 2.4 mg/dL (2.5-4.8) L Magnesium Level 1.8 mg/dL (1.7-2.5) Iron Level 21 ug/dL (59-158) L Total Iron Binding Capacity 183 ug/dL (250-400) L Percent Iron Saturation 11 % (15-50) L Unsaturated Iron Binding 162 ug/dL (112-346) Ferritin 143 ng/mL (10-230) Total Bilirubin 0.5 mg/dL (0.0-1.2) Aspartate Amino Transf (AST/SGOT) 13 U/L (5-40) Alanine Aminotransferase (ALT/SGPT) 10 U/L (3-41) Alkaline Phosphatase 83 U/L (40-129) C-Reactive Protein, Quantitative 8.8 mg/dL (< 0.5) H Pro-B-Type Natriuretic Peptide 621 pg/mL (0-450) H Total Protein 5.6 g/dL (6.6-8.7) L Albumin 3.0 g/dL (3.5-5.2) L Globulin 2.6 g/dL Albumin/Globulin Ratio 1.1 (1.0-2.7) Cortisol AM Sample 14.7 ug/dL (6.0-20.0) Neurologic Exam Objective PHYSICAL EXAMINATION: GENERAL: He is a well-developed, well-nourished, pleasant gentleman, lying in bed in no acute distress. HEAD: Normocephalic and atraumatic. EENT: Examination benign. NECK: No neck rigidity was observed. NEUROLOGICAL EXAMINATION: MENTAL STATUS EXAMINATION: He was awake and alert. He was nonverbal and thus further mental status testing was impossible. He did follow a few simple commands, but this was quite inconsistent. Further mental status testing was impossible. SPEECH: Could not be tested as he was mute. LANGUAGE: He followed a few simple commands inconsistently. He was unable to express himself in any way. CRANIAL NERVE EXAMINATION: II: He did blink to threat in all yi. III, IV & : External ocular movements were present on oculocephalic maneuvers. The pupils were 3 mm in diameter, equal, round, regular and reactive sluggishly to light. V & VII: The corneal reflexes were present bilaterally. VIII: He seemed to be able to hear and had no nystagmus. IX & X: The gag reflex was present but diminished. XI: The sternocleidomastoids and trapezii function. XII: The tongue was in midline without any fasciculations or atrophy. MOTOR SYSTEM: The tone was increased in all four extremities with a combination of spasticity and rigidity. Examination of muscle mass revealed generalized muscle wasting. He also had bilateral upper and lower extremity flexion contractures. Examination of power was impossible to perform in an organized manner. 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 SENSORY EXAMINATION: He responded appropriately to deep pain. He was unable to cooperate for the sensory modalities. REFLEXES: Trace+ and bilaterally symmetrical at the biceps, triceps, brachioradialis, knees, and zero at both ankles. The plantar responses were flexor bilaterally. COORDINATION, STANCE & GAIT: Could not be tested. ABNORMAL MOVEMENTS: Tremor (7-8 Hz): G 1/4 Tremor (4-5 Hz): G 0/4 Rigidity: G 2/4 Bradykinesia: G 3/4 Hypomimia: G 3/4. Impression/Recommendations Diagnostic Impression 1. Mr. Naseem Luevano is an 86-year-old, gentleman, of unknown handedness, who does have a past history of coronary artery disease, Parkinson' s disease, dementia, being nonverbal and being essentially bed-bound, who was hospitalized for change in mental state, which was discovered to be due to a pneumonia. 2. He looks a little brighter but is still cognitively impoverished and motorically challenged. 3. 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 In addition, he also has bradykinesia, hypomimia, and globally diminished reflexes with extensor plantar responses bilaterally. 4. Laboratory data on admission revealed that he was anemic with a hemoglobin of 10.4. His creatinine was elevated to 1.8. His alkaline phosphatase was elevated to 132. He also had lactic acidosis which has now improved. His urinalysis was essentially benign. 5. A CT scan of the chest, abdomen and pelvis revealed bilateral pneumonia involving the lower lung yi, fecal impaction with moderate distention of his rectum, multiple liver cysts, gallbladder stones versus sludge., compression fractures of the T12 and L3 which looked old , an old left hip fracture that was pinned, a right psoas lipoma. 6. The CT of the brain revealed significant fronto-temporal atrophy and deep white matter changes. 7. The patient's history, neurological examination, and laboratory data are most compatible with an encephalopathy related to his pneumonia and sepsis. 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 Recommendations 1. Continue present management. 2. It would be prudent to insert a nasogastric tube and restart the patient on the same dose of Sinemet that [facility] at [facility]. 3. Frequent range of motion exercises should be performed. Paresh Dickson M.D., M.S.P.PARESH [place] Sep 18, 2016 16:36
--- NOTE | 2016-09-18 17:22 | General Progress Note ---
Assessment/Plan Problem List: (1) Acute respiratory failure with hypoxia ICD Codes: J96.01 - Acute respiratory failure with hypoxia SNOMED: 97363310, 542290081 (2) Severe sepsis ICD Codes: A41.9 - Sepsis, unspecified organism; R65.20 - Severe sepsis without septic shock SNOMED: 05971544 (3) Aspiration pneumonia ICD Codes: J69.0 - Pneumonitis due to inhalation of food and vomit SNOMED: 046919846 (4) Lactic acidosis ICD Codes: E87.2 - Acidosis SNOMED: 77398360 (5) Toxic metabolic encephalopathy ICD Codes: G92 - Toxic encephalopathy SNOMED: 702077455 (6) Parkinson disease ICD Codes: G20 - Parkinson's disease SNOMED: 14811489 (7) Dementia ICD Codes: F03.90 - Unspecified dementia without behavioral disturbance SNOMED: 19799804 (8) ALMA (acute kidney injury) ICD Codes: N17.9 - Acute kidney failure, unspecified SNOMED: 02670733 (9) ATN (acute tubular necrosis) ICD Codes: N17.0 - Acute kidney failure with tubular necrosis SNOMED: 16796485 (10) Protein-calorie malnutrition, severe ICD Codes: E43 - Unspecified severe protein-calorie malnutrition SNOMED: 657893995 (11) Iron deficiency ICD Codes: E61.1 - Iron deficiency SNOMED: 74372229 (12) BPH (benign prostatic hyperplasia) ICD Codes: N40.0 - Benign prostatic hyperplasia without lower urinary tract symptoms SNOMED: 628505888, 854478062 (13) CAD (coronary artery disease) ICD Codes: I25.10 - Atherosclerotic heart disease of red devil coronary artery without angina pectoris SNOMED: 38777753 Status: unchanged Assessment/Plan Pulmonology consulted Cont vanco and zosyn for empiric converge of aspiration PNA F/u blood cultures--ngtd Duonebs ATC and PRN Chest PT Suction PRN Trend CBC Nephrology consulted mIVFs Trend BMP Monitor UOP Neurology consulted Check CT brain--neg Cont sinemet as tolerated INDIAN NANNY eval--pt high aspiration risk, NPO except meds, difficult NGT placement D/w family and no plan for G tube. Would like to cont diet for oral gratification as plan is for home w/ hospice Pain control, bowel regimen Supportive care Hospice referral made to [facility] per daughter's request DC planning, home w/ hospice likely on Wednesday per family request DVT Prophylaxis: SCD, HSQ Code Status: DNR/DNI Hospital Classification Declaration: Based on this initial evaluation, and depending on the patient's clinical course, I anticipate that this patient will require hospitalization for 2-3 days for severe sepsis, aspiration PNA, ALMA and close respiratory/hemodynamic monitoring. Disposition: Once the patient is stable to leave the hospital, I anticipate the patient will likely be discharged to the following environment: [facility] w/ hospice vs SNF w/ hospice Discussed with patient/family, nursing staff, SW/CM, pulmonology, renal, neurology regarding clinical status, treatment course, and disposition planning. D/w family extensively regarding hospice and plan of care Time of note may not reflect time of encounter. Subjective Date patient seen: Sep 18, 2016 Time patient seen: 13:00 ROS Limited/Unobtainable: Yes Allergies: Coded Allergies: No Known Allergies (Unverified , 09/16/16) Subjective Pt poorly responsive, eyes closed On face mask Congested Difficult NGT placement D/w caregiver and daughter at bedside Objective Last 24 Hour Vital Signs Date Time Temp Pulse Resp B/P Pulse Ox O2 Delivery O2 Flow Rate FiO2 09/18/16 16:00 98.1 81 20 171/88 99 Simple Mask 10.0 09/18/16 12:00 97.7 74 18 152/88 Simple Mask 10.0 09/18/16 10:08 Venturi Mask 10.0 45 09/18/16 10:06 94 18 97 Venturi Mask 10.0 45 09/18/16 08:51 Venturi Mask 10.0 45 09/18/16 08:51 95 Venturi Mask 10.0 45 09/18/16 08:00 96.0 71 18 115/65 98 Simple Mask 10.0 09/18/16 04:00 97.3 75 20 138/82 99 Venturi Mask 10.0 09/18/16 00:00 97.7 70 20 145/86 99 Venturi Mask 09/17/16 23:48 Venturi Mask 09/17/16 23:47 87 20 98 Venturi Mask 10.0 45 09/17/16 20:25 97 Venturi Mask 12.0 50 09/17/16 20:25 Venturi Mask 12.0 50 09/17/16 20:00 97.7 92 20 157/84 98 Venturi Mask 10.0 Intake and Output 09/17/16 09/18/16 19:00 07:00 Intake Total 607.5 ml 1343.334 ml Output Total 2000 ml Balance 607.5 ml -656.666 ml Intake IV Total 607.5 ml 1343.334 ml Output Urine Total 2000 ml # Bowel Movements 4 Laboratory Tests 09/18/16 06:25: White Blood Count 6.4, Red Blood Count 3.75L, Hemoglobin 11.2L, Hematocrit 34.2L , Mean Corpuscular Volume 91, Mean Corpuscular Hemoglobin 29.8, Mean Corpuscular Hemoglobin Concent 32.6, Red Cell Distribution Width 13.1, Platelet Count 202, Mean Platelet Volume 8.2, Neutrophils (%) (Auto) 70.3, Lymphocytes (% ) (Auto) 17.0L, Monocytes (%) (Auto) 9.0, Eosinophils (%) (Auto) 3.1H, Basophils (%) (Auto) 0.7, Sodium Level 137, Potassium Level 3.8, Chloride Level 102, Carbon Dioxide Level 23, Anion Gap 12, Blood Urea Nitrogen 12, Creatinine 0.9, Estimat Glomerular Filtration Rate , Glucose Level 79, Uric Acid 2.1L, Calcium Level 8.3L, Phosphorus Level 2.4L, Magnesium Level 1.8, Iron Level 21L, Total Iron Binding Capacity 183L, Percent Iron Saturation 11L, Unsaturated Iron Binding 162, Ferritin 143, Total Bilirubin 0.5, Aspartate Amino Transf (AST/SGOT ) 13, Alanine Aminotransferase (ALT/SGPT) 10, Alkaline Phosphatase 83, C- Reactive Protein, Quantitative 8.8H, Pro-B-Type Natriuretic Peptide 621H, Total Protein 5.6L, Albumin 3.0L, Globulin 2.6, Albumin/Globulin Ratio 1.1, Cortisol AM Sample 14.7 Height (Feet): 5 Height (Inches): 11.00 Weight (Pounds): 147 Objective General: eyes closed, poorly responsive to voice or pain, NAD, appears stated age Head: normocephalic, without obvious abnormality, atraumatic Eyes: conjunctivae/corneas clear. PERRL, EOM's intact Throat: lips, mucosa, and tongue normal. MMM Neck: supple, symmetrical, trachea midline, and no JVD Lungs: +rhonchi b/l Heart: regular rate and rhythm, S1, S2 normal, no murmur, click, rub or gallop Abdomen: soft, non-tender, non-distended, bowel sounds normal; no masses or organomegaly Extremities: extremities normal, atraumatic, no cyanosis or edema Pulses: 2+ and symmetric Skin: skin color, texture, turgor normal; no rashes or lesions Neurologic: grossly normal, no focal deficits Elizabeth Portillo M.D. Sep 18, 2016 17:22
[2016-09-18] MEDS: DuoNeb 0.5-3(2.5)mg/3ml neb HHN SCH (18:51)
[2016-09-18] MEDS: Vancomycin 1250mg/D5W 250ml 250 ML IVPB SCH (20:38)
[2016-09-18] MEDS: Iron Sucrose 100 MG in NS 55 ML IV SCH (22:17)
[2016-09-19] MEDS: DuoNeb 0.5-3(2.5)mg/3ml neb HHN SCH ×4 (01:21→19:18)
[2016-09-19 04:00] VITALS: BP 134/74
[2016-09-19] MEDS: Piperacillin/Tazobactam 3.375 GM in D5W 110 ML IVPB SCH ×3 (06:15→23:47)
[2016-09-19 07:22] LABS: BASOPHILS % (AUTO) 0.5 % (0.0-2.0); EOSINOPHILS % (AUTO) 1.7 % (0.0-3.0); LYMPHOCYTES % (AUTO) 15.4 % (20.0-45.0); MEAN CORPUSCULAR HEMOGLOBIN 30.3 PG (27.0-31.0); MEAN CORPUSCULAR HGB CONC 33.6 G/DL (32.0-36.0); MEAN CORPUSCULAR VOLUME 90 FL (80-99); MEAN PLATELET VOLUME 7.9 FL (6.5-10.1); MONOCYTES % (AUTO) 8.2 % (1.0-10.0); NEUTROPHILS % (AUTO) 74.2 % (45.0-75.0); PLATELET COUNT 189 K/UL (150-450); RED BLOOD COUNT 3.43 M/UL (4.70-6.10); RED CELL DISTRIBUTION WIDTH 12.6 % (11.6-14.8); WHITE BLOOD COUNT 5.8 K/UL (4.8-10.8)
[2016-09-19 07:33] LABS: ANION GAP 12 (5-15); CALCIUM 8.2 mg/dL (8.6-10.2); CARBON DIOXIDE 23 mEQ/L (20-30); CHLORIDE 103 mEQ/L (98-107); CREATININE 0.8 mg/dL (0.7-1.2); HEMOLYSIS 5; MAGNESIUM 1.7 mg/dL (1.7-2.5); PHOSPHORUS 2.5 mg/dL (2.5-4.8); POTASSIUM 3.4 mEQ/L (3.4-4.9); SODIUM 138 mEQ/L (135-145)
[2016-09-19 08:00] VITALS: BP 121/79
[2016-09-19] MEDS: Heparin 5000 units/ml inj SUBQ SCH ×2 (09:44→22:24)
--- NOTE | 2016-09-19 10:35 | General Progress Note ---
Assessment/Plan Status: unchanged Status Narrative stable renal parameters- Asp prone, no tube feeding ! Assessment/Plan Renal failure acute vs chronic Cr resolved Encephalopathy Low BP , dehydration CAD Parkinson BPH HTN GERD Low Cognition Pneumonia, Aspiration plan: Slow hydrate Avoid nephrotoxics monitor renal parameters- Neuro eval noted IV iron DC planning Subjective ROS Limited/Unobtainable: Yes Allergies: Coded Allergies: No Known Allergies (Unverified , 09/16/16) Objective Last 24 Hour Vital Signs Date Time Temp Pulse Resp B/P Pulse Ox O2 Delivery O2 Flow Rate FiO2 09/19/16 08:00 98.8 100 26 121/79 95 Nasal Cannula 4.0 09/19/16 07:58 87 17 97 Nasal Cannula 4.0 09/19/16 07:51 88 17 97 Nasal Cannula 4.0 09/19/16 07:51 Nasal Cannula 4.0 09/19/16 07:50 97 Nasal Cannula 4.0 09/19/16 04:00 97.7 65 18 134/74 95 Nasal Cannula 4.0 09/19/16 01:29 94 18 96 Nasal Cannula 4.0 36 09/19/16 01:28 94 18 94 Nasal Cannula 4.0 36 09/18/16 23:38 98.1 90 18 148/83 98 Nasal Cannula 4.0 09/18/16 20:00 97.7 102 20 133/91 95 Nasal Cannula 4.0 09/18/16 19:08 97 18 96 Nasal Cannula 4.0 36 09/18/16 19:06 97 18 96 Nasal Cannula 4.0 36 09/18/16 18:57 95 18 95 Nasal Cannula 4.0 36 09/18/16 18:57 95 18 95 Nasal Cannula 4.0 36 09/18/16 18:52 Nasal Cannula 4.0 36 09/18/16 18:51 98 Venturi Mask 10.0 45 09/18/16 16:00 98.1 81 20 171/88 99 Simple Mask 10.0 09/18/16 12:00 97.7 74 18 152/88 Simple Mask 10.0 Intake and Output 09/18/16 09/19/16 19:00 07:00 Intake Total 147.5 ml 720.000 ml Output Total 1200 ml 600 ml Balance -1052.5 ml 120.000 ml Intake Oral 120 ml IV Total 27.5 ml 720.000 ml Output Urine Total 1200 ml 600 ml # Bowel Movements 2 1 Laboratory Tests 09/19/16 04:55: White Blood Count 5.8, Red Blood Count 3.43L, Hemoglobin 10.4L, Hematocrit 30.9L , Mean Corpuscular Volume 90, Mean Corpuscular Hemoglobin 30.3, Mean Corpuscular Hemoglobin Concent 33.6, Red Cell Distribution Width 12.6, Platelet Count 189, Mean Platelet Volume 7.9, Neutrophils (%) (Auto) 74.2, Lymphocytes (% ) (Auto) 15.4L, Monocytes (%) (Auto) 8.2, Eosinophils (%) (Auto) 1.7, Basophils (%) (Auto) 0.5, Sodium Level 138, Potassium Level 3.4, Chloride Level 103, Carbon Dioxide Level 23, Anion Gap 12, Blood Urea Nitrogen 13, Creatinine 0.8, Estimat Glomerular Filtration Rate , Glucose Level 78, Calcium Level 8.2L, Phosphorus Level 2.5, Magnesium Level 1.7 Height (Feet): 5 Height (Inches): 11.00 Weight (Pounds): 147 General Appearance: no apparent distress VANITA BILLINGS Sep 19, 2016 10:35
--- NOTE | 2016-09-19 11:43 | General Progress Note ---
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 Family reportedly no longer want NGT placement considering hospice Objective Last 24 Hour Vital Signs Date Time Temp Pulse Resp B/P Pulse Ox O2 Delivery O2 Flow Rate FiO2 09/19/16 08:00 98.8 100 26 121/79 95 Nasal Cannula 4.0 09/19/16 07:58 87 17 97 Nasal Cannula 4.0 09/19/16 07:51 88 17 97 Nasal Cannula 4.0 09/19/16 07:51 Nasal Cannula 4.0 09/19/16 07:50 97 Nasal Cannula 4.0 09/19/16 04:00 97.7 65 18 134/74 95 Nasal Cannula 4.0 09/19/16 01:29 94 18 96 Nasal Cannula 4.0 36 09/19/16 01:28 94 18 94 Nasal Cannula 4.0 36 09/18/16 23:38 98.1 90 18 148/83 98 Nasal Cannula 4.0 09/18/16 20:00 97.7 102 20 133/91 95 Nasal Cannula 4.0 09/18/16 19:08 97 18 96 Nasal Cannula 4.0 36 09/18/16 19:06 97 18 96 Nasal Cannula 4.0 36 09/18/16 18:57 95 18 95 Nasal Cannula 4.0 36 09/18/16 18:57 95 18 95 Nasal Cannula 4.0 36 09/18/16 18:52 Nasal Cannula 4.0 36 09/18/16 18:51 98 Venturi Mask 10.0 45 09/18/16 16:00 98.1 81 20 171/88 99 Simple Mask 10.0 09/18/16 12:00 97.7 74 18 152/88 Simple Mask 10.0 Intake and Output 09/18/16 09/19/16 19:00 07:00 Intake Total 147.5 ml 720.000 ml Output Total 1200 ml 600 ml Balance -1052.5 ml 120.000 ml Intake Oral 120 ml IV Total 27.5 ml 720.000 ml Output Urine Total 1200 ml 600 ml # Bowel Movements 2 1 Laboratory Tests 09/19/16 04:55: White Blood Count 5.8, Red Blood Count 3.43L, Hemoglobin 10.4L, Hematocrit 30.9L , Mean Corpuscular Volume 90, Mean Corpuscular Hemoglobin 30.3, Mean Corpuscular Hemoglobin Concent 33.6, Red Cell Distribution Width 12.6, Platelet Count 189, Mean Platelet Volume 7.9, Neutrophils (%) (Auto) 74.2, Lymphocytes (% ) (Auto) 15.4L, Monocytes (%) (Auto) 8.2, Eosinophils (%) (Auto) 1.7, Basophils (%) (Auto) 0.5, Sodium Level 138, Potassium Level 3.4, Chloride Level 103, Carbon Dioxide Level 23, Anion Gap 12, Blood Urea Nitrogen 13, Creatinine 0.8, Estimat Glomerular Filtration Rate , Glucose Level 78, Calcium Level 8.2L, Phosphorus Level 2.5, Magnesium Level 1.7 Height (Feet): 5 Height (Inches): 11.00 Weight (Pounds): 147 Objective Thin / frail old man cachectic non verbal supple coarse BS RR abd soft no edema OBS KAELYN FOUNTAIN Sep 19, 2016 11:43
[2016-09-19 12:00] VITALS: BP 162/95
--- NOTE | 2016-09-19 13:38 | Neurology Progress Note ---
Interim History Interim History Interim History Mr. Luevano looks alert and brighter today. He continues to be mute. He does follow commands inconsistently. He continues to be cognitively impoverished and motorically challenged. Attempts were made to insert an NGT but failed. He has been unable to take his oral medicines. No new medical problems have been observed. Review of Systems Neuro Review of Systems Unable to obtain. Objective Physical Exam Last Vital Signs Date Time Temp Pulse Resp B/P Pulse Ox O2 Delivery O2 Flow Rate FiO2 09/19/16 13:05 93 20 91 Nasal Cannula 4.0 09/19/16 12:00 97.9 162/95 09/19/16 01:29 36 Laboratory Tests Test 09/19/16 04:55 White Blood Count 5.8 K/UL (4.8-10.8) Red Blood Count 3.43 M/UL (4.70-6.10) L Hemoglobin 10.4 G/DL (14.2-18.0) L Hematocrit 30.9 % (42.0-52.0) L Mean Corpuscular Volume 90 FL (80-99) Mean Corpuscular Hemoglobin 30.3 PG (27.0-31.0) Mean Corpuscular Hemoglobin Concent 33.6 G/DL (32.0-36.0) Red Cell Distribution Width 12.6 % (11.6-14.8) Platelet Count 189 K/UL (150-450) Mean Platelet Volume 7.9 FL (6.5-10.1) Neutrophils (%) (Auto) 74.2 % (45.0-75.0) Lymphocytes (%) (Auto) 15.4 % (20.0-45.0) L Monocytes (%) (Auto) 8.2 % (1.0-10.0) Eosinophils (%) (Auto) 1.7 % (0.0-3.0) Basophils (%) (Auto) 0.5 % (0.0-2.0) Sodium Level 138 mEQ/L (135-145) Potassium Level 3.4 mEQ/L (3.4-4.9) Chloride Level 103 mEQ/L (98-107) Carbon Dioxide Level 23 mEQ/L (20-30) Anion Gap 12 (5-15) Blood Urea Nitrogen 13 mg/dL (7-23) Creatinine 0.8 mg/dL (0.7-1.2) Estimat Glomerular Filtration Rate mL/min (>60) Glucose Level 78 mg/dL (74-106) Calcium Level 8.2 mg/dL (8.6-10.2) L Phosphorus Level 2.5 mg/dL (2.5-4.8) Magnesium Level 1.7 mg/dL (1.7-2.5) Neurologic Exam Objective PHYSICAL EXAMINATION: GENERAL: He is a well-developed, well-nourished, pleasant gentleman, lying in bed in no acute distress. HEAD: Normocephalic and atraumatic. EENT: Examination benign. NECK: No neck rigidity was observed. NEUROLOGICAL EXAMINATION: MENTAL STATUS EXAMINATION: He was awake and alert. He was nonverbal and thus further mental status testing was impossible. He did follow a few simple commands, but this was quite inconsistent. Further mental status testing was impossible. SPEECH: Could not be tested as he was mute. LANGUAGE: He followed a few simple commands inconsistently. He was unable to express himself in any way. CRANIAL NERVE EXAMINATION: II: He did blink to threat in all yi. III, IV & : External ocular movements were present on oculocephalic maneuvers. He also followed my hand with his eyes. The pupils were 3 mm in diameter, equal, round, regular and reactive sluggishly to light. V & VII: The corneal reflexes were present bilaterally. VIII: He seemed to be able to hear and had no nystagmus. IX & X: The gag reflex was present but diminished. XI: The sternocleidomastoids and trapezii function. XII: The tongue was in midline without any fasciculations or atrophy. MOTOR SYSTEM: The tone was increased in all four extremities with a combination of spasticity and rigidity. Examination of muscle mass revealed generalized muscle wasting. Examination of power was impossible to perform in an organized manner. 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 SENSORY EXAMINATION: He responded appropriately to deep pain. He was unable to cooperate for the sensory modalities. REFLEXES: Trace+ and bilaterally symmetrical at the biceps, triceps, brachioradialis, knees, and zero at both ankles. The plantar responses were flexor bilaterally. COORDINATION, STANCE & GAIT: Could not be tested. ABNORMAL MOVEMENTS: Tremor (7-8 Hz): G 1/4 Tremor (4-5 Hz): G 0/4 Rigidity: G 1/4 Bradykinesia: G 3/4 Hypomimia: G 3/4. Impression/Recommendations Diagnostic Impression 1. Mr. Naseem Luevano is an 86-year-old, gentleman, of unknown handedness, who does have a past history of coronary artery disease, Parkinson' s disease, dementia, being nonverbal and being essentially bed-bound, who was hospitalized for a change in mental state, which was discovered to be due to a pneumonia. 2. He looks a little brighter but is still cognitively impoverished and motorically challenged. 3. 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 In addition, he also has bradykinesia, hypomimia, and globally diminished reflexes with extensor plantar responses bilaterally. 4. Laboratory data on admission revealed that he was anemic with a hemoglobin of 10.4. His creatinine was elevated to 1.8. His alkaline phosphatase was elevated to 132. He also had lactic acidosis which has now improved. His urinalysis was essentially benign. 5. A CT scan of the chest, abdomen and pelvis revealed bilateral pneumonia involving the lower lung yi, fecal impaction with moderate distention of his rectum, multiple liver cysts, gallbladder stones versus sludge., compression fractures of the T12 and L3 which looked old, an old left hip fracture that was pinned, a right psoas lipoma. 6. The CT of the brain revealed significant fronto-temporal atrophy and deep white matter changes. 7. The patient's history, neurological examination, and laboratory data are most compatible with an encephalopathy related to his pneumonia and sepsis. 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 Recommendations 1. Continue present management. 2. Would restart the patient on the same dose of Sinemet that he was taking at his long term. 3. Frequent range of motion exercises should be performed - caregiver instructed. Paresh Dickson M.D., M.S.P.H. PARESH DICKSON Sep 19, 2016 13:38
[2016-09-19 16:00] VITALS: BP 150/88
--- NOTE | 2016-09-19 16:02 | Pulmonology Progress Note ---
Assessment/Plan Problems: (1) Sepsis (2) ATN (acute tubular necrosis) (3) Acute encephalopathy (4) Pneumonia (5) Protein-calorie malnutrition, severe (6) Dementia (7) Parkinson disease (8) Limited mobility Assessment/Plan discontinue non-essential meds liquid nena [place] change face mask to NC avoid NG tube. Subjective ROS Limited/Unobtainable: No Allergies: Coded Allergies: No Known Allergies (Unverified , 09/16/16) Objective Last 24 Hour Vital Signs Date Time Temp Pulse Resp B/P Pulse Ox O2 Delivery O2 Flow Rate FiO2 09/19/16 13:05 93 20 91 Nasal Cannula 4.0 09/19/16 12:56 90 18 95 Nasal Cannula 4.0 09/19/16 12:00 97.9 95 20 162/95 95 Nasal Cannula 4.0 09/19/16 08:00 98.8 100 26 121/79 95 Nasal Cannula 4.0 09/19/16 07:58 87 17 97 Nasal Cannula 4.0 09/19/16 07:51 88 17 97 Nasal Cannula 4.0 09/19/16 07:51 Nasal Cannula 4.0 09/19/16 07:50 97 Nasal Cannula 4.0 09/19/16 04:00 97.7 65 18 134/74 95 Nasal Cannula 4.0 09/19/16 01:29 94 18 96 Nasal Cannula 4.0 36 09/19/16 01:28 94 18 94 Nasal Cannula 4.0 36 09/18/16 23:38 98.1 90 18 148/83 98 Nasal Cannula 4.0 09/18/16 20:00 97.7 102 20 133/91 95 Nasal Cannula 4.0 09/18/16 19:08 97 18 96 Nasal Cannula 4.0 36 09/18/16 19:06 97 18 96 Nasal Cannula 4.0 36 09/18/16 18:57 95 18 95 Nasal Cannula 4.0 36 09/18/16 18:57 95 18 95 Nasal Cannula 4.0 36 09/18/16 18:52 Nasal Cannula 4.0 36 09/18/16 18:51 98 Venturi Mask 10.0 45 Intake and Output 09/18/16 09/19/16 19:00 07:00 Intake Total 147.5 ml 720.000 ml Output Total 1200 ml 600 ml Balance -1052.5 ml 120.000 ml Intake Oral 120 ml IV Total 27.5 ml 720.000 ml Output Urine Total 1200 ml 600 ml # Bowel Movements 2 1 Objective General Appearance: WD/WN HEENT: normocephalic, atraumatic Respiratory/Chest: chest wall non-tender, lungs clear Breasts: no masses Cardiovascular: normal peripheral pulses, normal rate Abdomen: normal bowel sounds, soft, non tender Genitourinary: normal external genitalia Extremities: no cyanosis Skin: no rash Neurologic/Psychiatric: sign artist II-XII grossly normal, normal mood/affect Lymphatic: no groin adenopathy Microbiology Date/Time Source Procedure Growth Status 09/16/16 19:45 Blood Blood Culture - Preliminary NO GROWTH AFTER 48 HOURS Resulted 09/16/16 19:30 Blood Blood Culture - Preliminary NO GROWTH AFTER 48 HOURS Resulted 09/16/16 21:41 Nasal Nares MRSA Culture - Final NO METHICILLIN RESISTANT STAPH AUREUS... Complete 09/16/16 21:41 Rectum VRE Culture - Final NO VANCOMYCIN RESISTANT ENTEROCOCCUS ... Complete Laboratory Tests 09/19/16 04:55: White Blood Count 5.8, Red Blood Count 3.43L, Hemoglobin 10.4L, Hematocrit 30.9L , Mean Corpuscular Volume 90, Mean Corpuscular Hemoglobin 30.3, Mean Corpuscular Hemoglobin Concent 33.6, Red Cell Distribution Width 12.6, Platelet Count 189, Mean Platelet Volume 7.9, Neutrophils (%) (Auto) 74.2, Lymphocytes (% ) (Auto) 15.4L, Monocytes (%) (Auto) 8.2, Eosinophils (%) (Auto) 1.7, Basophils (%) (Auto) 0.5, Sodium Level 138, Potassium Level 3.4, Chloride Level 103, Carbon Dioxide Level 23, Anion Gap 12, Blood Urea Nitrogen 13, Creatinine 0.8, Estimat Glomerular Filtration Rate , Glucose Level 78, Calcium Level 8.2L, Phosphorus Level 2.5, Magnesium Level 1.7 Current Medications Medications (Trade) Dose Ordered Sig/Angie Route PRN Reason Start Time Stop Time Status Last Admin Dose Admin Acetaminophen (Tylenol) 650 mg Q4H PRN ORAL FEVER>100.5 09/17/16 16:00 10/17/16 15:59 Acetaminophen (Tylenol) 650 mg Q4H PRN ORAL Mild Pain (Pain Scale 1-3) 09/17/16 19:30 10/17/16 19:29 Albuterol/ Ipratropium (DuoNeb 0.5-3(2.5)mg/3ml) 3 ml Q4H PRN HHN Shortness of Breath 09/18/16 15:15 09/23/16 15:14 Albuterol/ Ipratropium (DuoNeb 0.5-3(2.5)mg/3ml) 3 ml Q6HRT HHN 09/18/16 19:00 09/23/16 18:59 09/19/16 12:55 Artificial Tears (Akwa-Tears) 1 drop QIDPRN PRN BOTH EYES Dry Eyes 09/18/16 15:15 10/18/16 15:14 Carbidopa/Levodopa (Sinemet 25/250) 1 ea TID@0700,1200,1700 NG 09/17/16 17:00 10/17/16 16:59 Dextrose (Dextrose 50%) STAT PRN IV Hypoglycemia 09/17/16 16:00 10/17/16 15:59 Diphenhydramine HCl 25 mg 25 mg Q6H PRN IVP ITCH and Insomnia 09/18/16 00:30 10/18/16 00:29 Glycopyrrolate (Robinul) 0.1 mg Q6H PRN IV excessive secretions 09/18/16 15:15 10/18/16 15:14 Heparin Sodium (Porcine) (Heparin 5000 units/ml) 5,000 units EVERY 12 HOURS SUBQ 09/17/16 21:00 10/17/16 20:59 09/19/16 09:44 Iron Sucrose/ Sodium Chloride (Venofer/Sodium Chloride) 60 ml @ 240 mls/hr BEDTIME IV 09/18/16 21:00 09/19/16 21:14 09/18/16 22:17 Lorazepam (Ativan 2mg/ml 1ml) 0.5 mg Q4H PRN IV For Anxiety 09/17/16 16:30 09/24/16 16:29 Morphine Sulfate (Morphine Sulfate) 2 mg Q6H PRN IVP Moderate Pain (Pain Scale 4-6) 09/17/16 16:00 09/24/16 15:59 Morphine Sulfate (Morphine 5mg/ 2.5ml Oral Soln) 5 mg Q3H PRN ORAL Breakthrough Pain 8/11/17 15:45 09/25/16 15:14 Ondansetron HCl (Zofran) 4 mg Q6H PRN IVP Nausea & Vomiting 09/17/16 16:00 10/17/16 15:59 Piperacillin Sod/ Tazobactam Sod 3.375 gm/Dextrose 110 ml @ 27.5 mls/hr EVERY 8 HOURS IVPB 09/17/16 22:00 09/22/16 21:59 09/19/16 13:48 Sodium Chloride 1,000 ml @ 50 mls/hr Q20H IVLG 09/18/16 16:45 10/18/16 16:44 09/19/16 13:48 Vancomycin HCl (Vanco rx to dose) 1 ea DAILY PRN MISC PER RX PROTOCOL 09/18/16 16:15 10/18/16 16:14 Vancomycin HCl/ Dextrose (Vancomycin 1250mg/D5W 250ml) 250 ml @ 166.667 mls/hr Q24H IVPB 09/17/16 20:00 09/22/16 19:59 09/18/16 20:38 CHILO SHANKS Sep 19, 2016 16:02
[2016-09-19] MEDS ORDERED: Tubing IV Secondary IV ONE (16:59)
[2016-09-19 20:00] VITALS: BP 125/84
[2016-09-19] MEDS: Vancomycin 1250mg/D5W 250ml 250 ML IVPB SCH (20:00)
[2016-09-19] MEDS: Iron Sucrose 100 MG in NS 55 ML IV SCH (20:21)
[2016-09-19] MEDS: Vancomycin 1 GM in D5W 275 ML IVPB SCH (22:16)
--- NOTE | 2016-09-19 22:25 | General Progress Note ---
Assessment/Plan Problem List: (1) Acute respiratory failure with hypoxia ICD Codes: J96.01 - Acute respiratory failure with hypoxia SNOMED: 22327198, 573098461 (2) Severe sepsis ICD Codes: A41.9 - Sepsis, unspecified organism; R65.20 - Severe sepsis without septic shock SNOMED: 87334596 (3) Aspiration pneumonia ICD Codes: J69.0 - Pneumonitis due to inhalation of food and vomit SNOMED: 273127874 (4) Lactic acidosis ICD Codes: E87.2 - Acidosis SNOMED: 35543578 (5) Toxic metabolic encephalopathy ICD Codes: G92 - Toxic encephalopathy SNOMED: 886030841 (6) Parkinson disease ICD Codes: G20 - Parkinson's disease SNOMED: 40094982 (7) Dementia ICD Codes: F03.90 - Unspecified dementia without behavioral disturbance SNOMED: 10748672 (8) ALMA (acute kidney injury) ICD Codes: N17.9 - Acute kidney failure, unspecified SNOMED: 79632024 (9) ATN (acute tubular necrosis) ICD Codes: N17.0 - Acute kidney failure with tubular necrosis SNOMED: 55390933 (10) Protein-calorie malnutrition, severe ICD Codes: E43 - Unspecified severe protein-calorie malnutrition SNOMED: 660605585 (11) Iron deficiency ICD Codes: E61.1 - Iron deficiency SNOMED: 21019727 (12) BPH (benign prostatic hyperplasia) ICD Codes: N40.0 - Benign prostatic hyperplasia without lower urinary tract symptoms SNOMED: 017057412, 535610153 (13) CAD (coronary artery disease) ICD Codes: I25.10 - Atherosclerotic heart disease of [place] coronary artery without angina pectoris SNOMED: 26163525 Status: stable Assessment/Plan Pulmonology consulted Cont vanco and zosyn for empiric converge of aspiration PNA F/u blood cultures--ngtd Duonebs ATC and PRN Chest PT Suction PRN Trend CBC Nephrology consulted mIVFs Trend BMP Monitor UOP Neurology consulted Check CT brain--neg Cont sinemet as tolerated HYDRODYNAMICS PROFESSOR eval--pt high aspiration risk, NPO except meds, difficult NGT placement D/w family and no plan for G tube. Would like to cont diet for oral gratification as plan is for home w/ hospice--Puree diet ordered Pain control, bowel regimen Supportive care Hospice referral made to [facility] per daughter's request DC planning, home w/ hospice likely on Wednesday per family request DVT Prophylaxis: SCD, HSQ Code Status: DNR/DNI Hospital Classification Declaration: Based on this initial evaluation, and depending on the patient's clinical course, I anticipate that this patient will require hospitalization for 2-3 days for severe sepsis, aspiration PNA, ALMA and close respiratory/hemodynamic monitoring. Disposition: Once the patient is stable to leave the hospital, I anticipate the patient will likely be discharged to the following environment: [facility] w/ hospice vs SNF w/ hospice Discussed with patient/family, nursing staff, SW/CM, pulmonology, renal, neurology regarding clinical status, treatment course, and disposition planning. D/w family extensively regarding hospice and plan of care Time of note may not reflect time of encounter. Subjective Date patient seen: Sep 19, 2016 Time patient seen: 13:00 ROS Limited/Unobtainable: Yes Allergies: Coded Allergies: No Known Allergies (Unverified , 09/16/16) Subjective Eyes open today but non responsive to verbal stimuli On NC Congestion improved Caregiver feeding small amts of puree diet D/w caregiver and daughter at bedside Objective Last 24 Hour Vital Signs Date Time Temp Pulse Resp B/P Pulse Ox O2 Delivery O2 Flow Rate FiO2 09/19/16 20:00 97.8 96 20 125/84 98 Nasal Cannula 4.0 09/19/16 19:55 75 20 99 Nasal Cannula 3.0 32 09/19/16 19:21 75 18 99 Nasal Cannula 3.0 09/19/16 19:20 99 Nasal Cannula 3.0 32 09/19/16 19:20 Nasal Cannula 3.0 32 09/19/16 16:00 97.5 90 20 150/88 96 Nasal Cannula 4.0 09/19/16 13:05 93 20 91 Nasal Cannula 4.0 09/19/16 12:56 90 18 95 Nasal Cannula 4.0 09/19/16 12:00 97.9 95 20 162/95 95 Nasal Cannula 4.0 09/19/16 08:00 98.8 100 26 121/79 95 Nasal Cannula 4.0 09/19/16 07:58 87 17 97 Nasal Cannula 4.0 09/19/16 07:51 88 17 97 Nasal Cannula 4.0 09/19/16 07:51 Nasal Cannula 4.0 09/19/16 07:50 97 Nasal Cannula 4.0 09/19/16 04:00 97.7 65 18 134/74 95 Nasal Cannula 4.0 09/19/16 01:29 94 18 96 Nasal Cannula 4.0 36 09/19/16 01:28 94 18 94 Nasal Cannula 4.0 36 09/18/16 23:38 98.1 90 18 148/83 98 Nasal Cannula 4.0 Intake and Output 09/18/16 09/19/16 19:00 07:00 Intake Total 147.5 ml 720.000 ml Output Total 1200 ml 600 ml Balance -1052.5 ml 120.000 ml Intake Oral 120 ml IV Total 27.5 ml 720.000 ml Output Urine Total 1200 ml 600 ml # Bowel Movements 2 1 Laboratory Tests 09/19/16 04:55: White Blood Count 5.8, Red Blood Count 3.43L, Hemoglobin 10.4L, Hematocrit 30.9L , Mean Corpuscular Volume 90, Mean Corpuscular Hemoglobin 30.3, Mean Corpuscular Hemoglobin Concent 33.6, Red Cell Distribution Width 12.6, Platelet Count 189, Mean Platelet Volume 7.9, Neutrophils (%) (Auto) 74.2, Lymphocytes (% ) (Auto) 15.4L, Monocytes (%) (Auto) 8.2, Eosinophils (%) (Auto) 1.7, Basophils (%) (Auto) 0.5, Sodium Level 138, Potassium Level 3.4, Chloride Level 103, Carbon Dioxide Level 23, Anion Gap 12, Blood Urea Nitrogen 13, Creatinine 0.8, Estimat Glomerular Filtration Rate , Glucose Level 78, Calcium Level 8.2L, Phosphorus Level 2.5, Magnesium Level 1.7 09/19/16 19:38: Vancomycin Level Trough 5.7 Height (Feet): 5 Height (Inches): 11.00 Weight (Pounds): 147 Objective General: eyes open, poorly responsive to voice or pain, NAD, appears stated age Head: normocephalic, without obvious abnormality, atraumatic Eyes: conjunctivae/corneas clear. PERRL, EOM's intact Throat: lips, mucosa, and tongue normal. MMM Neck: supple, symmetrical, trachea midline, and no JVD Lungs: +rhonchi b/l Heart: regular rate and rhythm, S1, S2 normal, no murmur, click, rub or gallop Abdomen: soft, non-tender, non-distended, bowel sounds normal; no masses or organomegaly Extremities: extremities normal, atraumatic, no cyanosis or edema Pulses: 2+ and symmetric Skin: skin color, texture, turgor normal; no rashes or lesions Neurologic: grossly normal, no focal deficits Elizabeth Portillo M.D. Sep 19, 2016 22:25
[2016-09-19 23:39] VITALS: BP 154/87
[2016-09-20] MEDS: DuoNeb 0.5-3(2.5)mg/3ml neb HHN SCH ×4 (00:59→19:06)
[2016-09-20 04:00] VITALS: BP 132/89
[2016-09-20] MEDS: Piperacillin/Tazobactam 3.375 GM in D5W 110 ML IVPB SCH ×3 (05:58→22:00)
[2016-09-20 08:00] VITALS: BP 154/84
[2016-09-20] MEDS: Vancomycin 1 GM in D5W 275 ML IVPB SCH ×3 (09:04→21:04)
[2016-09-20] MEDS: Heparin 5000 units/ml inj SUBQ SCH ×2 (09:06→21:05)
--- NOTE | 2016-09-20 12:10 | Neurology Progress Note ---
Interim History Interim History Interim History Mr. Luevano prefers to keep his eyes closed today. He is awake and does follow commands inconsistently. He continues to be mute. He continues to be cognitively impoverished and motorically challenged. He has been unable to take his oral medicines. No new medical problems have been observed. His son want to have him transferred to [facility]. Review of Systems Neuro Review of Systems Unable to obtain. Objective Physical Exam Last Vital Signs Date Time Temp Pulse Resp B/P Pulse Ox O2 Delivery O2 Flow Rate FiO2 09/20/16 08:00 98.7 79 20 154/84 100 Nasal Cannula 09/20/16 07:27 3.0 09/20/16 01:08 32 Laboratory Tests Test 09/19/16 19:38 Vancomycin Level Trough 5.7 ug/mL (5.0-12.0) Neurologic Exam Objective PHYSICAL EXAMINATION: GENERAL: He is a well-developed, well-nourished, pleasant gentleman, lying in bed in no acute distress. HEAD: Normocephalic and atraumatic. EENT: Examination benign. NECK: No neck rigidity was observed. NEUROLOGICAL EXAMINATION: MENTAL STATUS EXAMINATION: He was awake but not alert. He kept his eyes closed. He was nonverbal and thus further mental status testing was impossible. He did follow a few simple commands, but this was quite inconsistent. Further mental status testing was impossible. SPEECH: Could not be tested as he was mute. LANGUAGE: He followed a few simple commands inconsistently. He was unable to express himself in any way. CRANIAL NERVE EXAMINATION: II: He did blink to threat in all yi. III, IV & : External ocular movements were present on oculocephalic maneuvers. The pupils were 3 mm in diameter, equal, round, regular and reactive sluggishly to light. V & VII: The corneal reflexes were present bilaterally. VIII: He seemed to be able to hear and had no nystagmus. IX & X: The gag reflex was present but diminished. XI: The sternocleidomastoids and trapezii function. XII: The tongue was in midline without any fasciculations or atrophy. MOTOR SYSTEM: The tone was increased in all four extremities with a combination of spasticity and rigidity. Examination of muscle mass revealed generalized muscle wasting. Examination of power was impossible to perform in an organized manner. 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 SENSORY EXAMINATION: He responded appropriately to deep pain. He was unable to cooperate for the sensory modalities. REFLEXES: Trace+ and bilaterally symmetrical at the biceps, triceps, brachioradialis, knees, and zero at both ankles. The plantar responses were flexor bilaterally. COORDINATION, STANCE & GAIT: Could not be tested. ABNORMAL MOVEMENTS: Tremor (7-8 Hz): G 1/4 Tremor (4-5 Hz): G 0/4 Rigidity: G 1/4 Bradykinesia: G 3/4 Hypomimia: G 3/4. Impression/Recommendations Diagnostic Impression 1. Mr. Naseem Luevano is an 86-year-old, gentleman, of unknown handedness, who does have a past history of coronary artery disease, Parkinson' s disease, dementia, being nonverbal and being essentially bed-bound, who was hospitalized for a change in mental state, which was discovered to be due to a pneumonia. 2. He is more subdued today. He is still cognitively impoverished and motorically challenged. 3. 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 In addition, he also has bradykinesia, hypomimia, and globally diminished reflexes with extensor plantar responses bilaterally. 4. Laboratory data on admission revealed that he was anemic with a hemoglobin of 10.4. His creatinine was elevated to 1.8. His alkaline phosphatase was elevated to 132. He also had lactic acidosis which has now improved. His urinalysis was essentially benign. 5. A CT scan of the chest, abdomen and pelvis revealed bilateral pneumonia involving the lower lung yi, fecal impaction with moderate distention of his rectum, multiple liver cysts, gallbladder stones versus sludge., compression fractures of the T12 and L3 which looked old, an old left hip fracture that was pinned, a right psoas lipoma. 6. The CT of the brain revealed significant fronto-temporal atrophy and deep white matter changes. 7. The patient's history, neurological examination, and laboratory data are most compatible with an encephalopathy related to his pneumonia and sepsis. 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 Recommendations 1. Continue present management. 2. Sinemet 25/250 q 7AM, 12 Noon, 5 PM. 3. Frequent range of motion exercises should be performed - caregiver instructed. Paresh Dickson M.D., M.S.P.[facility]. PARESH DICKSON Sep 20, 2016 12:10
[2016-09-20 12:40] VITALS: BP 156/85
--- NOTE | 2016-09-20 12:44 | General Progress Note ---
Assessment/Plan Problem List: (1) Acute respiratory failure with hypoxia ICD Codes: J96.01 - Acute respiratory failure with hypoxia SNOMED: 09414008, 504736261 (2) Severe sepsis ICD Codes: A41.9 - Sepsis, unspecified organism; R65.20 - Severe sepsis without septic shock SNOMED: 35894110 (3) Aspiration pneumonia ICD Codes: J69.0 - Pneumonitis due to inhalation of food and vomit SNOMED: 867818750 (4) Lactic acidosis ICD Codes: E87.2 - Acidosis SNOMED: 08268359 (5) Toxic metabolic encephalopathy ICD Codes: G92 - Toxic encephalopathy SNOMED: 682573127 (6) Parkinson disease ICD Codes: G20 - Parkinson's disease SNOMED: 55572267 (7) Dementia ICD Codes: F03.90 - Unspecified dementia without behavioral disturbance SNOMED: 87913746 (8) ALMA (acute kidney injury) ICD Codes: N17.9 - Acute kidney failure, unspecified SNOMED: 43931125 (9) ATN (acute tubular necrosis) ICD Codes: N17.0 - Acute kidney failure with tubular necrosis SNOMED: 43924649 (10) Protein-calorie malnutrition, severe ICD Codes: E43 - Unspecified severe protein-calorie malnutrition SNOMED: 639124409 (11) Iron deficiency ICD Codes: E61.1 - Iron deficiency SNOMED: 30198353 (12) BPH (benign prostatic hyperplasia) ICD Codes: N40.0 - Benign prostatic hyperplasia without lower urinary tract symptoms SNOMED: 723298685, 206617312 (13) CAD (coronary artery disease) ICD Codes: I25.10 - Atherosclerotic heart disease of [place] coronary artery without angina pectoris SNOMED: 89546627 Status: stable Assessment/Plan Pulmonology consulted ID consulted Cont vanco and zosyn for empiric converge of aspiration PNA F/u blood cultures--ngtd Duonebs ATC and PRN Chest PT Suction PRN Trend CBC Nephrology consulted mIVFs Trend BMP Monitor UOP Neurology consulted Check CT brain--neg GI consulted for Dobhoff placement Cont sinemet as tolerated 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 Would like Dobhoff placement Pain control, bowel regimen Supportive care Hospice referral made to [facility] per daughter's request DC planning, home w/ hospice likely on Wednesday per family request DVT Prophylaxis: SCD, HSQ Code Status: DNR/DNI Hospital Classification Declaration: Based on this initial evaluation, and depending on the patient's clinical course, I anticipate that this patient will require hospitalization for 2-3 days for severe sepsis, aspiration PNA, ALMA and close respiratory/hemodynamic monitoring. Disposition: Once the patient is stable to leave the hospital, I anticipate the patient will likely be discharged to the following environment: SENIOR CARE w/ hospice vs SNF w/ hospice Extra time spent 32min in addition to normal encounter time for care/ coordination and counseling. Discussed with patient/family, nursing staff, SW/CM , pulmonology, renal, neurology regarding clinical status, treatment course, and disposition planning. D/w family extensively regarding plan of care. D/w GI re plan for Dobhoff placement tomorrow. D/w son re Dobhoff placement, plan of care, possible transfer to [facility] Time of note may not reflect time of encounter. Subjective Date patient seen: Sep 20, 2016 Time patient seen: 12:44 ROS Limited/Unobtainable: Yes Allergies: Coded Allergies: No Known Allergies (Unverified , 09/16/16) Subjective Opened eyes to voice of family, not speaking or following commands On NC Congestion improved Caregiver feeding small amts of puree diet Not able to take meds D/w son extensively--they no longer want hospice and would to optimize his nutrition and send him home. Son wants transfer to [facility] if we are unable to place NGT/Dobhoff. D/w Gi who states can place Dobhoff tomorrow AM Objective Last 24 Hour Vital Signs Date Time Temp Pulse Resp B/P Pulse Ox O2 Delivery O2 Flow Rate FiO2 09/20/16 12:40 98.5 79 20 156/85 99 Room Air 09/20/16 08:00 98.7 79 20 154/84 100 Nasal Cannula 09/20/16 07:27 79 20 100 Nasal Cannula 3.0 09/20/16 07:19 81 17 98 Nasal Cannula 3.0 09/20/16 07:18 Nasal Cannula 3.0 09/20/16 07:16 98 Nasal Cannula 3.0 09/20/16 04:00 98.5 89 20 132/89 95 Nasal Cannula 4.0 09/20/16 01:08 80 20 100 Nasal Cannula 3.0 32 09/20/16 01:00 78 18 98 Nasal Cannula 3.0 09/19/16 23:39 98.1 97 18 154/87 97 Nasal Cannula 4.0 09/19/16 20:00 97.8 96 20 125/84 98 Nasal Cannula 4.0 09/19/16 19:55 75 20 99 Nasal Cannula 3.0 32 09/19/16 19:21 75 18 99 Nasal Cannula 3.0 09/19/16 19:20 99 Nasal Cannula 3.0 32 09/19/16 19:20 Nasal Cannula 3.0 32 09/19/16 16:00 97.5 90 20 150/88 96 Nasal Cannula 4.0 09/19/16 13:05 93 20 91 Nasal Cannula 4.0 09/19/16 12:56 90 18 95 Nasal Cannula 4.0 Intake and Output 09/19/16 09/20/16 19:00 07:00 Intake Total 410.0 ml 982.500 ml Output Total 500 ml 500 ml Balance -90.0 ml 482.500 ml IV Total 410.0 ml 982.500 ml Output Urine Total 500 ml 500 ml # Bowel Movements 2 1 Laboratory Tests 09/19/16 19:38: Vancomycin Level Trough 5.7 Height (Feet): 5 Height (Inches): 11.00 Weight (Pounds): 147 Objective General: eyes open, poorly responsive to voice or pain, NAD, appears stated age Head: normocephalic, without obvious abnormality, atraumatic Eyes: conjunctivae/corneas clear. PERRL, EOM's intact Throat: lips, mucosa, and tongue normal. MMM Neck: supple, symmetrical, trachea midline, and no JVD Lungs: +rhonchi b/l Heart: regular rate and rhythm, S1, S2 normal, no murmur, click, rub or gallop Abdomen: soft, non-tender, non-distended, bowel sounds normal; no masses or organomegaly Extremities: extremities normal, atraumatic, no cyanosis or edema Pulses: 2+ and symmetric Skin: skin color, texture, turgor normal; no rashes or lesions Neurologic: grossly normal, no focal deficits Elizabeth Portillo M.D. Sep 20, 2016 12:44
--- NOTE | 2016-09-20 13:06 | Pulmonology Progress Note ---
Assessment/Plan Problems: (1) Sepsis (2) ATN (acute tubular necrosis) (3) Acute encephalopathy (4) Pneumonia (5) Protein-calorie malnutrition, severe (6) Dementia (7) Parkinson disease (8) Limited mobility Assessment/Plan discontinue non-essential meds liquid nena [place] change face mask to NC avoid NG tube. pts son decided to transfer the pt to [facility] Subjective ROS Limited/Unobtainable: No Constitutional: Reports: no symptoms HEENT: Repors: no symptoms Respiratory: Reports: no symptoms Allergies: Coded Allergies: No Known Allergies (Unverified , 09/16/16) Objective Last 24 Hour Vital Signs Date Time Temp Pulse Resp B/P Pulse Ox O2 Delivery O2 Flow Rate FiO2 09/20/16 12:40 98.5 79 20 156/85 99 Room Air 09/20/16 08:00 98.7 79 20 154/84 100 Nasal Cannula 09/20/16 07:27 79 20 100 Nasal Cannula 3.0 09/20/16 07:19 81 17 98 Nasal Cannula 3.0 09/20/16 07:18 Nasal Cannula 3.0 09/20/16 07:16 98 Nasal Cannula 3.0 09/20/16 04:00 98.5 89 20 132/89 95 Nasal Cannula 4.0 09/20/16 01:08 80 20 100 Nasal Cannula 3.0 32 09/20/16 01:00 78 18 98 Nasal Cannula 3.0 09/19/16 23:39 98.1 97 18 154/87 97 Nasal Cannula 4.0 09/19/16 20:00 97.8 96 20 125/84 98 Nasal Cannula 4.0 09/19/16 19:55 75 20 99 Nasal Cannula 3.0 32 09/19/16 19:21 75 18 99 Nasal Cannula 3.0 09/19/16 19:20 99 Nasal Cannula 3.0 32 09/19/16 19:20 Nasal Cannula 3.0 32 09/19/16 16:00 97.5 90 20 150/88 96 Nasal Cannula 4.0 Intake and Output 09/19/16 09/20/16 19:00 07:00 Intake Total 410.0 ml 982.500 ml Output Total 500 ml 500 ml Balance -90.0 ml 482.500 ml IV Total 410.0 ml 982.500 ml Output Urine Total 500 ml 500 ml # Bowel Movements 2 1 Objective General Appearance: WD/WN HEENT: normocephalic, atraumatic Respiratory/Chest: chest wall non-tender, lungs clear Breasts: no masses Cardiovascular: normal peripheral pulses, normal rate Abdomen: normal bowel sounds, soft, non tender Genitourinary: normal external genitalia Extremities: no cyanosis Skin: no rash Neurologic/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: 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5)mg/3ml) 3 ml Q6HRT HHN 09/18/16 19:00 09/23/16 18:59 09/20/16 07:16 Artificial Tears (Akwa-Tears) 1 drop QIDPRN PRN BOTH EYES Dry Eyes 09/18/16 15:15 10/18/16 15:14 Carbidopa/Levodopa (Sinemet 25/250) 1 ea TID@0700,1200,1700 NG 09/17/16 17:00 10/17/16 16:59 Dextrose (Dextrose 50%) STAT PRN IV Hypoglycemia 09/17/16 16:00 10/17/16 15:59 Diphenhydramine HCl 25 mg 25 mg Q6H PRN IVP ITCH and Insomnia 09/18/16 00:30 10/18/16 00:29 Glycopyrrolate (Robinul) 0.1 mg Q6H PRN IV excessive secretions 09/18/16 15:15 10/18/16 15:14 Heparin Sodium (Porcine) (Heparin 5000 units/ml) 5,000 units EVERY 12 HOURS SUBQ 09/17/16 21:00 10/17/16 20:59 09/20/16 09:06 Lorazepam (Ativan 2mg/ml 1ml) 0.5 mg Q4H PRN IV For Anxiety 09/17/16 16:30 09/24/16 16:29 Morphine Sulfate (Morphine Sulfate) 2 mg Q6H PRN IVP Moderate Pain (Pain Scale 4-6) 09/17/16 16:00 09/24/16 15:59 Morphine Sulfate (Morphine 5mg/ 2.5ml Oral Soln) 5 mg Q3H PRN ORAL Breakthrough Pain 09/18/16 15:45 09/25/16 15:14 Ondansetron HCl (Zofran) 4 mg Q6H PRN IVP Nausea & Vomiting 09/17/16 16:00 10/17/16 15:59 Piperacillin Sod/ Tazobactam Sod/ Dextrose (Zosyn/D5W) 110 ml @ 27.5 mls/hr EVERY 8 HOURS IVPB 09/17/16 22:00 09/22/16 21:59 09/20/16 05:58 Sodium Chloride (Sodium Chloride 1000ml bag) 1,000 ml @ 50 mls/hr Q20H IVLG 09/18/16 16:45 10/18/16 16:44 09/20/16 09:04 Vancomycin HCl 1 ea 1 ea DAILY PRN MISC PER RX PROTOCOL 09/18/16 16:15 10/18/16 16:14 Vancomycin HCl/ Dextrose (Vancomycin/D5W) 275 ml @ 183.333 mls/hr Q12H IVPB 09/19/16 21:00 09/24/16 20:59 09/20/16 10:00 CHILO SHANKS Sep 20, 2016 13:06
--- NOTE | 2016-09-20 14:50 | Infectious Diseases Prog Note ---
Assessment/Plan Assessment/Plan Full consult dictated: A) 1) aspiration pna, r/o cap pna 2) Parkinson's disease 3) allergies - negative 4) pmh noted P) 1) zosyn 2) check sc, labs chest x-ray 3) d/w son 4) thank you Subjective Allergies: Coded Allergies: No Known Allergies (Unverified , 09/16/16) Objective Vital Signs Last 24 Hour Vital Signs Date Time Temp Pulse Resp B/P Pulse Ox O2 Delivery O2 Flow Rate FiO2 09/20/16 13:34 Nasal Cannula 3.0 09/20/16 13:34 Nasal Cannula 3.0 09/20/16 12:40 98.5 79 20 156/85 99 Room Air 09/20/16 08:00 98.7 79 20 154/84 100 Nasal Cannula 09/20/16 07:27 79 20 100 Nasal Cannula 3.0 09/20/16 07:19 81 17 98 Nasal Cannula 3.0 09/20/16 07:18 Nasal Cannula 3.0 09/20/16 07:16 98 Nasal Cannula 3.0 09/20/16 04:00 98.5 89 20 132/89 95 Nasal Cannula 4.0 09/20/16 01:08 80 20 100 Nasal Cannula 3.0 32 09/20/16 01:00 78 18 98 Nasal Cannula 3.0 09/19/16 23:39 98.1 97 18 154/87 97 Nasal Cannula 4.0 09/19/16 20:00 97.8 96 20 125/84 98 Nasal Cannula 4.0 09/19/16 19:55 75 20 99 Nasal Cannula 3.0 32 09/19/16 19:21 75 18 99 Nasal Cannula 3.0 09/19/16 19:20 99 Nasal Cannula 3.0 32 09/19/16 19:20 Nasal Cannula 3.0 32 09/19/16 16:00 97.5 90 20 150/88 96 Nasal Cannula 4.0 Height (Feet): 5 Height (Inches): 11.00 Weight (Pounds): 147 Laboratory Tests Test 09/19/16 19:38 Vancomycin Level Trough 5.7 ug/mL (5.0-12.0) Current Medications Medications (Trade) Dose Ordered Sig/Angie Route PRN Reason Start Time Stop Time Status Last Admin Dose Admin Acetaminophen (Tylenol) 650 mg Q4H PRN ORAL FEVER>100.5 09/17/16 16:00 10/17/16 15:59 Acetaminophen (Tylenol) 650 mg Q4H PRN ORAL Mild Pain (Pain Scale 1-3) 09/17/16 19:30 10/17/16 19:29 Albuterol/ Ipratropium (DuoNeb 0.5-3(2.5)mg/3ml) 3 ml Q4H PRN HHN Shortness of Breath 09/18/16 15:15 09/23/16 15:14 Albuterol/ Ipratropium (DuoNeb 0.5-3(2.5)mg/3ml) 3 ml Q6HRT HHN 09/18/16 19:00 09/23/16 18:59 09/20/16 07:16 Artificial Tears (Akwa-Tears) 1 drop QIDPRN PRN BOTH EYES Dry Eyes 09/18/16 15:15 10/18/16 15:14 Carbidopa/Levodopa (Sinemet 25/250) 1 ea TID@0700,1200,1700 NG 09/17/16 17:00 10/17/16 16:59 Dextrose (Dextrose 50%) STAT PRN IV Hypoglycemia 09/17/16 16:00 10/17/16 15:59 Diphenhydramine HCl 25 mg 25 mg Q6H PRN IVP ITCH and Insomnia 09/18/16 00:30 10/18/16 00:29 Glycopyrrolate (Robinul) 0.1 mg Q6H PRN IV excessive secretions 09/18/16 15:15 10/18/16 15:14 Heparin Sodium (Porcine) (Heparin 5000 units/ml) 5,000 units EVERY 12 HOURS SUBQ 09/17/16 21:00 10/17/16 20:59 09/20/16 09:06 Lorazepam (Ativan 2mg/ml 1ml) 0.5 mg Q4H PRN IV For Anxiety 09/17/16 16:30 09/24/16 16:29 Morphine Sulfate (Morphine Sulfate) 2 mg Q6H PRN IVP Moderate Pain (Pain Scale 4-6) 09/17/16 16:00 09/24/16 15:59 Morphine Sulfate (Morphine 5mg/ 2.5ml Oral Soln) 5 mg Q3H PRN ORAL Breakthrough Pain 09/18/16 15:45 09/25/16 15:14 Ondansetron HCl (Zofran) 4 mg Q6H PRN IVP Nausea & Vomiting 09/17/16 16:00 10/17/16 15:59 Piperacillin Sod/ Tazobactam Sod/ Dextrose (Zosyn/D5W) 110 ml @ 27.5 mls/hr EVERY 8 HOURS IVPB 09/17/16 22:00 09/22/16 21:59 09/20/16 14:19 Sodium Chloride (Sodium Chloride 1000ml bag) 1,000 ml @ 50 mls/hr Q20H IVLG 09/18/16 16:45 10/18/16 16:44 09/20/16 09:04 Vancomycin HCl 1 ea 1 ea DAILY PRN MISC PER RX PROTOCOL 09/18/16 16:15 10/18/16 16:14 Vancomycin HCl/ Dextrose (Vancomycin/D5W) 275 ml @ 183.333 mls/hr Q12H IVPB 09/19/16 21:00 09/24/16 20:59 09/20/16 10:00 DOMINIC PARKER Sep 20, 2016 14:50
[2016-09-20 16:00] VITALS: BP 162/93
[2016-09-20 16:15] VITALS: BP 127/69
[2016-09-20] MEDS ORDERED: Tubing IV Secondary IV ONE (17:24)
--- NOTE | 2016-09-20 18:12 | General Progress Note ---
Assessment/Plan Assessment/Plan GI: Plan Problems: (1) Iron deficiency anemia (2) Dehydration (3) Protein-calorie malnutrition, severe (4) Acute encephalopathy (5) Pneumonia Plan CT AP reviewed >> pneumonia Keep NPO by mouth. Begin TF Hold PO meds - current tube not ideal for crushed meds iron deficiency >> venofer ppi monitor H&H, prn transfusions IV hydration + electrolyte correction abx fu labs Level of care discussion with family Subjective Allergies: Coded Allergies: No Known Allergies (Unverified , 09/16/16) Subjective patient non communicative d/w son at bedside he now wants feeding tube placed a weighed-tip NJT catheter was passed in to stomach and secured with tape position verified prior to use Objective Last 24 Hour Vital Signs Date Time Temp Pulse Resp B/P Pulse Ox O2 Delivery O2 Flow Rate FiO2 09/20/16 13:34 Nasal Cannula 3.0 09/20/16 13:34 Nasal Cannula 3.0 09/20/16 12:40 98.5 79 20 156/85 99 Room Air 09/20/16 08:00 98.7 79 20 154/84 100 Nasal Cannula 09/20/16 07:27 79 20 100 Nasal Cannula 3.0 09/20/16 07:19 81 17 98 Nasal Cannula 3.0 09/20/16 07:18 Nasal Cannula 3.0 09/20/16 07:16 98 Nasal Cannula 3.0 09/20/16 04:00 98.5 89 20 132/89 95 Nasal Cannula 4.0 09/20/16 01:08 80 20 100 Nasal Cannula 3.0 32 09/20/16 01:00 78 18 98 Nasal Cannula 3.0 09/19/16 23:39 98.1 97 18 154/87 97 Nasal Cannula 4.0 09/19/16 20:00 97.8 96 20 125/84 98 Nasal Cannula 4.0 09/19/16 19:55 75 20 99 Nasal Cannula 3.0 32 09/19/16 19:21 75 18 99 Nasal Cannula 3.0 09/19/16 19:20 99 Nasal Cannula 3.0 32 09/19/16 19:20 Nasal Cannula 3.0 32 Intake and Output 09/19/16 09/20/16 19:00 07:00 Intake Total 410.0 ml 982.500 ml Output Total 500 ml 500 ml Balance -90.0 ml 482.500 ml IV Total 410.0 ml 982.500 ml Output Urine Total 500 ml 500 ml # Bowel Movements 2 1 Laboratory Tests 09/19/16 19:38: Vancomycin Level Trough 5.7 Height (Feet): 5 Height (Inches): 11.00 Weight (Pounds): 147 Objective Thin / frail old man cachectic non verbal supple coarse BS RR abd soft no edema OBS AKELYN FOUNTAIN Sep 20, 2016 18:12
[2016-09-20 20:00] VITALS: BP 132/73
[2016-09-20] MEDS ORDERED: D5NS 1,000 ML IV SCH (22:00)
[2016-09-21] VITALS: BP 135/75
[2016-09-21] MEDS: DuoNeb 0.5-3(2.5)mg/3ml neb HHN SCH ×4 (02:18→19:54)
--- NOTE | 2016-09-21 03:00 | Consultation ---
DATE OF CONSULTATION: 09/20/2016 INFECTIOUS DISEASES CONSULTATION CONSULTING PHYSICIAN: Arcenio Parker M.D. ATTENDING PHYSICIAN: Viridiana Fried M.D. I was asked by Dr. Johnson to see this patient who is associated with Dr. Fried. REASON FOR CONSULTATION: The patient's chief complaint coming in is pneumonia, hypoxia, and sepsis. HISTORY OF PRESENT ILLNESS: This is an 86-year-old male with a history of Parkinson, who comes in to [facility] for hypoxia. The patient had a chest x-ray and was noted to have right-sided pneumonia. Infectious Diseases consultation was requested for antibiotic management. He is currently on Zosyn and vancomycin. The patient is at a risk for aspiration and healthcare-acquired pneumonia, but also has a risk for community acquired pneumonia since he does reside in a [facility] and [facility]. Sputum culture has been ordered. MAR was noted. Orders were noted. Notes were reviewed. Case was discussed with RN. Case was communicated with Dr. Johnson. Case discussed with the patient's son and family. PAST MEDICAL HISTORY: The patient's past medical history includes the following. The patient has a past medical history of Parkinson disease. He has a history of dementia, CAD, hypertension. He seems to be at aspiration risk. He has a history of hypoxia. He has a history of pneumonia per the son. He has what looks like hyperlipidemia, he is on a statin. No history of diabetes. No history of cancer mentioned. ALLERGIES: No known drug allergies. SOCIAL HISTORY: Negative for smoking, alcohol, and drug abuse. FAMILY HISTORY: No mention of exposure to tuberculosis or cancer per the records. MEDICATIONS: Upon reviewing the MAR, he is on the following medications. He is on vancomycin, he is DuoNeb, he is no Zosyn, he is on morphine, he is on albuterol, he is on artificial tears, he is on Robinul, he is on diphenhydramine. Antibiotics are Zosyn and vancomycin. He is on acetaminophen, heparin, carbidopa, lorazepam, and Zofran. REVIEW OF SYSTEMS: Constitutional: The patient has a Braxton. No central line. No generalized weakness or fatigue. He came in with fevers. He is afebrile at this time. He is arousable to a certain extent, responsive to a certain extent, opens his eyes, but overall lethargic. Head And Neck: No head pain, neck pain, or neck stiffness, but limited. No obvious dysphagia, but limited again. Cardiac: No pressure. Gastrointestinal: No nausea, vomiting, or diarrhea. Genitourinary: He has a Braxton. Pulmonary: No congestion, shortness of breath, or hemoptysis. He has some secretions. Skin: No new rash. Neurologic: No seizures. He came in with fever. No chills at this time. PHYSICAL EXAMINATION: VITAL SIGNS: Temperature is 98.5 degrees, pulse rate 79, respiratory rate 20, blood pressure 156/85, and saturation 99% on room air. T-max when he first came in was 99.7 degrees, consistently high. He was also tachycardic when he came in. Elevated respiratory rate was as high as 26 and heart rate was as high as 102. GENERAL: No acute distress. Very mild congestion noted. He opens his eyes. HEAD AND NECK: Oral exam, no thrush. Eye exam, no icterus. Normocephalic. No neck stiffness. Neck is supple. HEART: Regular. No gallop or murmur. No friction rub. ABDOMEN: Soft. Positive bowel sounds. Nontender. LUNGS: No rales. SKIN: No rash or dermatitis. MUSCULOSKELETAL: No effusion or contractures. Legs without cellulitis. PERIPHERAL VASCULAR: No evidence of cyanosis or gangrene. RECTAL: Deferred. GENITOURINARY: He has a Braxton. Urine is clear. LINES: Line site without phlebitis. NEUROLOGIC: Generalized weakness. Opens eyes. LABORATORY AND DIAGNOSTIC DATA: Laboratory data is as follows. The patient's white count 5.8, hemoglobin 10.4. Sedimentation rate 47. Creatinine 0.8. LFTs were noted. Chest x-ray shows right-sided pneumonia that is noted and reviewed. Right upper lobe pneumonia and right basilar pneumonia also noted. Sputum cultures were noted and is pending. Blood culture is negative today. MRSA screens are negative. Urinalysis is negative. ASSESSMENT AND PLAN: 1. The patient has what looks like a pneumonia. Most likely, this is aspiration pneumonia, since he is at risk for Parkinson and dementia. In addition, since he is at board and care, there is also a risk for healthcare-acquired pneumonia and also community acquired pneumonia. The patient had fevers and altered mental status and likely was septic. He also has hypoxia. He has systemic inflammatory response syndrome criteria. At this time, I agree with Zosyn and vancomycin. Check sputum culture. Followup labs and chest x-ray. Pulmonary treatment at this time. 2. The patient has a history of Parkinson. 3. Dementia. 4. Aspiration risk. 5. Anemia. 6. Coronary artery disease. 7. Hypertension. Blood pressure control per primary. 8. Benign prostatic hypertrophy. 9. ASSISTED. 10. Hypoxia. 11. History of pneumonia. 12. No known allergies. 13. Social history is negative. 14. Family history is noncontributory. 15. MAR was noted. 16. Case was discussed with RN. 17. Continue treatment with primary consultants. 18. Skin care per protocol. Wounds were reviewed. There is no significant drain decubitus in the patient. 19. Notes and records reviewed. 20. Case was discussed with the patient's son at length and the family. 21. Case was discussed with Dr. Johnosn. Arcenio Parker M.D. DR: Darin JOB#: [id number] CC:
[2016-09-21 04:00] VITALS: BP 131/77
[2016-09-21] MEDS: Piperacillin/Tazobactam 3.375 GM in D5W 110 ML IVPB SCH ×3 (06:00→22:12)
[2016-09-21 07:00] LABS: VITAMIN D 25-OH TOTAL 32 ng/mL (.)
[2016-09-21 08:00] VITALS: BP 111/68
[2016-09-21 08:08] LABS: BASOPHILS % (AUTO) 0.5 % (0.0-2.0); EOSINOPHILS % (AUTO) 2.5 % (0.0-3.0); LYMPHOCYTES % (AUTO) 21.1 % (20.0-45.0); MEAN CORPUSCULAR HEMOGLOBIN 30.8 PG (27.0-31.0); MEAN CORPUSCULAR HGB CONC 34.1 G/DL (32.0-36.0); MEAN CORPUSCULAR VOLUME 90 FL (80-99); MEAN PLATELET VOLUME 6.8 FL (6.5-10.1); MONOCYTES % (AUTO) 7.9 % (1.0-10.0); PLATELET COUNT 176 K/UL (150-450); RED BLOOD COUNT 3.21 M/UL (4.70-6.10); RED CELL DISTRIBUTION WIDTH 12.5 % (11.6-14.8); WHITE BLOOD COUNT 6.1 K/UL (4.8-10.8)
[2016-09-21] MEDS: Vancomycin 1 GM in D5W 275 ML IVPB SCH ×2 (08:27→21:12)
[2016-09-21] MEDS: Heparin 5000 units/ml inj SUBQ SCH ×2 (08:28→21:13)
[2016-09-21 08:31] LABS: ANION GAP 10 (5-15); CALCIUM 8.3 mg/dL (8.6-10.2); CARBON DIOXIDE 23 mEQ/L (20-30); CHLORIDE 106 mEQ/L (98-107); CREATININE 0.8 mg/dL (0.7-1.2); HEMOLYSIS 4; SODIUM 139 mEQ/L (135-145)
[2016-09-21 08:36] LABS: MAGNESIUM 1.7 mg/dL (1.7-2.5); PHOSPHORUS 1.8 mg/dL (2.5-4.8)
[2016-09-21] MEDS ORDERED: Potassium Phosphate 30 MM in NS 275 ML IVPB ONE (09:15)
[2016-09-21] MEDS ORDERED: D5NS 1000ml IV ONE (09:43)
[2016-09-21] MEDS ORDERED: NS 275ml ONE (09:43)
[2016-09-21] MEDS ORDERED: Sterile Water Irrig 1000ml IRRIG ONE (09:43)
[2016-09-21] MEDS ORDERED: Tubing IV Secondary IV ONE (09:43)
--- NOTE | 2016-09-21 10:17 | GI Progress Note ---
Assessment/Plan Problems: (1) Lives in assisted living facility ICD Codes: Z59.3 - Problems related to living in residential institution SNOMED: 008942539 (2) Iron deficiency ICD Codes: E61.1 - Iron deficiency SNOMED: 03239502 (3) Dehydration ICD Codes: E86.0 - Dehydration SNOMED: 11473440 (4) Protein-calorie malnutrition, severe ICD Codes: E43 - Unspecified severe protein-calorie malnutrition SNOMED: 020089602 (5) Acute encephalopathy ICD Codes: G93.40 - Encephalopathy, unspecified SNOMED: 8014561 (6) Parkinson disease ICD Codes: G20 - Parkinson's disease SNOMED: 99796738 Status: unchanged Status Narrative Discussed with Dr. Robles. Assessment/Plan CT AP reviewed >> pneumonia Keep NPO by mouth. Begin TF via dobhoff Hold PO meds - current tube not ideal for crushed meds iron deficiency >> venofer ppi monitor H&H, prn transfusions IV hydration + electrolyte correction abx fu labs Level of care discussion with family Subjective Subjective limited Objective Last 24 Hour Vital Signs Date Time Temp Pulse Resp B/P Pulse Ox O2 Delivery O2 Flow Rate FiO2 09/21/16 07:05 80 18 99 Nasal Cannula 2.0 28 09/21/16 07:00 96 Nasal Cannula 2.0 28 09/21/16 07:00 84 18 96 Nasal Cannula 2.0 28 09/21/16 07:00 Nasal Cannula 2.0 28 09/21/16 04:00 98.0 72 18 131/77 96 Nasal Cannula 2.0 09/21/16 02:21 79 18 99 Nasal Cannula 2.0 09/21/16 02:18 77 18 97 Nasal Cannula 2.0 09/21/16 00:00 98.2 74 18 135/75 97 Nasal Cannula 2.0 09/20/16 20:00 98.0 75 18 132/73 97 Nasal Cannula 2.0 09/20/16 19:15 86 18 100 Nasal Cannula 3.0 09/20/16 19:07 85 Nasal Cannula 3.0 09/20/16 19:07 Nasal Cannula 3.0 09/20/16 19:06 85 18 98 Nasal Cannula 3.0 09/20/16 16:15 98.2 73 18 127/69 98 Room Air 09/20/16 16:00 98.1 71 18 162/93 97 Nasal Cannula 4.0 09/20/16 13:34 Nasal Cannula 3.0 09/20/16 13:34 Nasal Cannula 3.0 09/20/16 12:40 98.5 79 20 156/85 99 Room Air Intake and Output 09/20/16 09/21/16 19:00 07:00 Intake Total 345.000 ml 1274.166 ml Output Total 500 ml 700 ml Balance -155.000 ml 574.166 ml Free Water 50 ml 50 ml IV Total 275.000 ml 804.166 ml Tube Feeding 20 ml 420 ml Output Urine Total 500 ml 700 ml Laboratory Tests Test 09/21/16 08:00 White Blood Count 6.1 K/UL (4.8-10.8) Red Blood Count 3.21 M/UL (4.70-6.10) L Hemoglobin 9.9 G/DL (14.2-18.0) L Hematocrit 28.9 % (42.0-52.0) L Mean Corpuscular Volume 90 FL (80-99) Mean Corpuscular Hemoglobin 30.8 PG (27.0-31.0) Mean Corpuscular Hemoglobin Concent 34.1 G/DL (32.0-36.0) Red Cell Distribution Width 12.5 % (11.6-14.8) Platelet Count 176 K/UL (150-450) Mean Platelet Volume 6.8 FL (6.5-10.1) Neutrophils (%) (Auto) 68.0 % (45.0-75.0) Lymphocytes (%) (Auto) 21.1 % (20.0-45.0) Monocytes (%) (Auto) 7.9 % (1.0-10.0) Eosinophils (%) (Auto) 2.5 % (0.0-3.0) Basophils (%) (Auto) 0.5 % (0.0-2.0) Sodium Level 139 mEQ/L (135-145) Potassium Level 3.0 mEQ/L (3.4-4.9) L Chloride Level 106 mEQ/L (98-107) Carbon Dioxide Level 23 mEQ/L (20-30) Anion Gap 10 (5-15) Blood Urea Nitrogen 9 mg/dL (7-23) Creatinine 0.8 mg/dL (0.7-1.2) Estimat Glomerular Filtration Rate mL/min (>60) Glucose Level 133 mg/dL (74-106) H Calcium Level 8.3 mg/dL (8.6-10.2) L Phosphorus Level 1.8 mg/dL (2.5-4.8) L Magnesium Level 1.7 mg/dL (1.7-2.5) Vancomycin Level Trough 16.2 ug/mL (5.0-12.0) H Microbiology Date/Time Source Procedure Growth Status 09/20/16 23:30 Sputum Induced Gram Stain Pending Resulted 09/20/16 23:30 Sputum Induced Sputum Culture - Preliminary Resulted Height (Feet): 5 Height (Inches): 11.00 Weight (Pounds): 147 General Appearance: no apparent distress Cardiovascular: normal rate Respiratory/Chest: normal breath sounds, no respiratory distress Abdominal Exam: normal bowel sounds, non tender, soft, other - dooff Geovanna Agrawal N.P. Sep 21, 2016 10:17
--- NOTE | 2016-09-21 10:29 | Diagnostic Imaging Report ---
Indication: Post feeding tube placement Technique: Supine view of the abdomen Comparison: none Findings: There is a weighted nasogastric feeding tube, tip projected at the level of the gastric fundus. Bowel gas pattern is unremarkable. No unusual masses or calcifications. The heart is enlarged and there is opacification of the left lung base Impression: Satisfactory position of feeding tube Other findings as described
[2016-09-21] MEDS ORDERED: Potassium Phosphate 30 MM in NS 275 ML IV ONE ×2 (10:30→11:00)
--- NOTE | 2016-09-21 10:44 | General Progress Note ---
Assessment/Plan Status: unchanged Status Narrative Low K and Phos- Son at bed side Assessment/Plan Renal failure acute vs chronic Cr resolved Encephalopathy Low BP , dehydration CAD Parkinson BPH HTN GERD Low Cognition Pneumonia, Aspiration plan: K and Phos supplement Avoid nephrotoxics monitor renal parameters- Neuro eval noted IV iron DC planning?? Subjective ROS Limited/Unobtainable: No Constitutional: Reports: malaise Allergies: Coded Allergies: No Known Allergies (Unverified , 09/16/16) Objective Last 24 Hour Vital Signs Date Time Temp Pulse Resp B/P Pulse Ox O2 Delivery O2 Flow Rate FiO2 09/21/16 08:00 96.2 86 18 111/68 93 Nasal Cannula 4.0 09/21/16 07:05 80 18 99 Nasal Cannula 2.0 28 09/21/16 07:00 96 Nasal Cannula 2.0 28 09/21/16 07:00 84 18 96 Nasal Cannula 2.0 28 09/21/16 07:00 Nasal Cannula 2.0 28 09/21/16 04:00 98.0 72 18 131/77 96 Nasal Cannula 2.0 09/21/16 02:21 79 18 99 Nasal Cannula 2.0 09/21/16 02:18 77 18 97 Nasal Cannula 2.0 09/21/16 00:00 98.2 74 18 135/75 97 Nasal Cannula 2.0 09/20/16 20:00 98.0 75 18 132/73 97 Nasal Cannula 2.0 09/20/16 19:15 86 18 100 Nasal Cannula 3.0 09/20/16 19:07 85 Nasal Cannula 3.0 09/20/16 19:07 Nasal Cannula 3.0 09/20/16 19:06 85 18 98 Nasal Cannula 3.0 09/20/16 16:15 98.2 73 18 127/69 98 Room Air 09/20/16 16:00 98.1 71 18 162/93 97 Nasal Cannula 4.0 09/20/16 13:34 Nasal Cannula 3.0 09/20/16 13:34 Nasal Cannula 3.0 09/20/16 12:40 98.5 79 20 156/85 99 Room Air Intake and Output 09/20/16 09/21/16 19:00 07:00 Intake Total 345.000 ml 1274.166 ml Output Total 500 ml 700 ml Balance -155.000 ml 574.166 ml Free Water 50 ml 50 ml IV Total 275.000 ml 804.166 ml Tube Feeding 20 ml 420 ml Output Urine Total 500 ml 700 ml Laboratory Tests 09/21/16 08:00: White Blood Count 6.1, Red Blood Count 3.21L, Hemoglobin 9.9L, Hematocrit 28.9L , Mean Corpuscular Volume 90, Mean Corpuscular Hemoglobin 30.8, Mean Corpuscular Hemoglobin Concent 34.1, Red Cell Distribution Width 12.5, Platelet Count 176, Mean Platelet Volume 6.8, Neutrophils (%) (Auto) 68.0, Lymphocytes (% ) (Auto) 21.1, Monocytes (%) (Auto) 7.9, Eosinophils (%) (Auto) 2.5, Basophils ( %) (Auto) 0.5, Sodium Level 139, Potassium Level 3.0L, Chloride Level 106, Carbon Dioxide Level 23, Anion Gap 10, Blood Urea Nitrogen 9, Creatinine 0.8, Estimat Glomerular Filtration Rate , Glucose Level 133H, Calcium Level 8.3L, Phosphorus Level 1.8L, Magnesium Level 1.7, Vancomycin Level Trough 16.2H Height (Feet): 5 Height (Inches): 11.00 Weight (Pounds): 147 General Appearance: no apparent distress, lethargic EENT: other - NGT + Cardiovascular: normal rate Respiratory/Chest: decreased breath sounds Abdomen: soft Objective other PE not changed VANITA BILLINGS Sep 21, 2016 10:44
[2016-09-21 12:00] VITALS: BP 109/61
--- NOTE | 2016-09-21 12:13 | Diagnostic Imaging Report ---
Indication: Shortness of breath Technique: One view of the chest Comparison: A 10/28/16 Findings: Interim partial clearing of previously demonstrated right mid and lower lung infiltrates, some residual disease still present. There is suggestion of increasing opacification in the retrocardiac region, however. There is suggestion of a small left pleural effusion. Nasogastric weighted feeding tube is now present, tip projected at the level of the gastric body fundus junction. Impression: Improved but persistent right mid and lower lung infiltrates. Suspect new or increased retrocardiac infiltrates Suspect small left pleural effusion Nasogastric feeding tube at the level of the gastric body/fundus junction
--- NOTE | 2016-09-21 12:20 | Pulmonology Progress Note ---
Assessment/Plan Problems: (1) Sepsis (2) ATN (acute tubular necrosis) (3) Acute encephalopathy (4) Pneumonia (5) Protein-calorie malnutrition, severe (6) Dementia (7) Parkinson disease (8) Limited mobility Assessment/Plan liquid nena [place] for excessive secretions change face mask to NC tolerating NG tube. feeding pts son decided to transfer the pt to [facility] Subjective ROS Limited/Unobtainable: Yes Interval Events: nG tube in place tolerating feeding Allergies: Coded Allergies: No Known Allergies (Unverified , 09/16/16) Objective Last 24 Hour Vital Signs Date Time Temp Pulse Resp B/P Pulse Ox O2 Delivery O2 Flow Rate FiO2 09/21/16 12:00 97.7 74 17 109/61 97 Nasal Cannula 2.0 09/21/16 08:00 96.2 86 18 111/68 93 Nasal Cannula 4.0 09/21/16 07:05 80 18 99 Nasal Cannula 2.0 28 09/21/16 07:00 96 Nasal Cannula 2.0 28 09/21/16 07:00 84 18 96 Nasal Cannula 2.0 28 09/21/16 07:00 Nasal Cannula 2.0 28 09/21/16 04:00 98.0 72 18 131/77 96 Nasal Cannula 2.0 09/21/16 02:21 79 18 99 Nasal Cannula 2.0 09/21/16 02:18 77 18 97 Nasal Cannula 2.0 09/21/16 00:00 98.2 74 18 135/75 97 Nasal Cannula 2.0 09/20/16 20:00 98.0 75 18 132/73 97 Nasal Cannula 2.0 09/20/16 19:15 86 18 100 Nasal Cannula 3.0 09/20/16 19:07 85 Nasal Cannula 3.0 09/20/16 19:07 Nasal Cannula 3.0 09/20/16 19:06 85 18 98 Nasal Cannula 3.0 09/20/16 16:15 98.2 73 18 127/69 98 Room Air 09/20/16 16:00 98.1 71 18 162/93 97 Nasal Cannula 4.0 09/20/16 13:34 Nasal Cannula 3.0 09/20/16 13:34 Nasal Cannula 3.0 09/20/16 12:40 98.5 79 20 156/85 99 Room Air Intake and Output 09/20/16 09/21/16 19:00 07:00 Intake Total 345.000 ml 1274.166 ml Output Total 500 ml 700 ml Balance -155.000 ml 574.166 ml Free Water 50 ml 50 ml IV Total 275.000 ml 804.166 ml Tube Feeding 20 ml 420 ml Output Urine Total 500 ml 700 ml Objective General Appearance: WD/WN HEENT: normocephalic, atraumatic Respiratory/Chest: chest wall non-tender, lungs clear Breasts: no masses Cardiovascular: normal peripheral pulses, normal rate Abdomen: normal bowel sounds, soft, non tender Genitourinary: normal external genitalia Extremities: no cyanosis Skin: no rash Neurologic/Psychiatric: medicaid biller II-XII grossly normal, normal mood/affect Lymphatic: no groin adenopathy Microbiology Date/Time Source Procedure Growth Status 09/20/16 23:30 Sputum Induced Gram Stain - Final Resulted 09/20/16 23:30 Sputum Induced Sputum Culture - Preliminary Resulted Laboratory Tests 09/21/16 08:00: White Blood Count 6.1, Red Blood Count 3.21L, Hemoglobin 9.9L, Hematocrit 28.9L , Mean Corpuscular Volume 90, Mean Corpuscular Hemoglobin 30.8, Mean Corpuscular Hemoglobin Concent 34.1, Red Cell Distribution Width 12.5, Platelet Count 176, Mean Platelet Volume 6.8, Neutrophils (%) (Auto) 68.0, Lymphocytes (% ) (Auto) 21.1, Monocytes (%) (Auto) 7.9, Eosinophils (%) (Auto) 2.5, Basophils ( %) (Auto) 0.5, Sodium Level 139, Potassium Level 3.0L, Chloride Level 106, Carbon Dioxide Level 23, Anion Gap 10, Blood Urea Nitrogen 9, Creatinine 0.8, Estimat Glomerular Filtration Rate , Glucose Level 133H, Calcium Level 8.3L, Phosphorus Level 1.8L, Magnesium Level 1.7, Vancomycin Level Trough 16.2H Current Medications Medications (Trade) Dose Ordered Sig/Angie Route PRN Reason Start Time Stop Time Status Last Admin Dose Admin Acetaminophen (Tylenol) 650 mg Q4H PRN ORAL FEVER>100.5 09/17/16 16:00 10/17/16 15:59 Acetaminophen (Tylenol) 650 mg Q4H PRN ORAL Mild Pain (Pain Scale 1-3) 09/17/16 19:30 10/17/16 19:29 Albuterol/ Ipratropium (DuoNeb 0.5-3(2.5)mg/3ml) 3 ml Q4H PRN HHN Shortness of Breath 09/18/16 15:15 09/23/16 15:14 Albuterol/ Ipratropium (DuoNeb 0.5-3(2.5)mg/3ml) 3 ml Q6HRT HHN 09/18/16 19:00 09/23/16 18:59 09/21/16 07:16 Artificial Tears (Akwa-Tears) 1 drop QIDPRN PRN BOTH EYES Dry Eyes 09/18/16 15:15 10/18/16 15:14 Carbidopa/Levodopa (Sinemet 25/250) 1 ea TID@0700,1200,1700 NG 09/17/16 17:00 10/17/16 16:59 09/21/16 06:39 Dextrose (Dextrose 50%) STAT PRN IV Hypoglycemia 09/17/16 16:00 10/17/16 15:59 Diphenhydramine HCl (Benadryl) 25 mg Q6H PRN IVP ITCH and Insomnia 09/18/16 00:30 10/18/16 00:29 Glycopyrrolate (Robinul) 0.1 mg Q6H PRN IV excessive secretions 09/18/16 15:15 10/18/16 15:14 Heparin Sodium (Porcine) (Heparin 5000 units/ml) 5,000 units EVERY 12 HOURS SUBQ 09/17/16 21:00 10/17/16 20:59 09/21/16 08:28 Lorazepam (Ativan 2mg/ml 1ml) 0.5 mg Q4H PRN IV For Anxiety 09/17/16 16:30 09/24/16 16:29 Morphine Sulfate (Morphine Sulfate) 2 mg Q6H PRN IVP Moderate Pain (Pain Scale 4-6) 09/17/16 16:00 09/24/16 15:59 Morphine Sulfate (Morphine 5mg/ 2.5ml Oral Soln) 5 mg Q3H PRN ORAL Breakthrough Pain 09/18/16 15:45 09/25/16 15:14 Ondansetron HCl (Zofran) 4 mg Q6H PRN IVP Nausea & Vomiting 09/17/16 16:00 10/17/16 15:59 Piperacillin Sod/ Tazobactam Sod 3.375 gm/Dextrose 110 ml @ 27.5 mls/hr EVERY 8 HOURS IVPB 09/20/16 22:00 09/25/16 21:59 09/21/16 06:00 Potassium Phosphate/Sodium Chloride (Potassium Phosphate/Sodium Chloride) 285 ml @ 47.5 mls/hr ONCE ONCE IV 09/21/16 11:00 09/21/16 16:59 09/21/16 11:19 Sodium Chloride 1,000 ml @ 50 mls/hr Q20H IV 09/21/16 09:00 10/21/16 08:59 09/21/16 08:30 Vancomycin HCl 1 ea 1 ea DAILY PRN MISC PER RX PROTOCOL 09/18/16 16:15 10/18/16 16:14 Vancomycin HCl 1 gm/Dextrose 275 ml @ 183.333 mls/hr Q12H IVPB 09/19/16 21:00 09/24/16 20:59 09/21/16 08:27 CHILO SHANKS Sep 21, 2016 12:20
[2016-09-21] MEDS ORDERED: KCl 10% 20 mEq/15ml liquid NG ONE (14:00)
[2016-09-21] MEDS ORDERED: NS w/KCl 20mEq 1,000 ML IV SCH (14:30)
[2016-09-21 16:00] VITALS: BP 128/75
[2016-09-21] MEDS ORDERED: Morphine 5mg/2.5ml Oral Soln GT PRN (16:30)
[2016-09-21 20:00] VITALS: BP 140/77
--- NOTE | 2016-09-21 20:45 | Neurology Progress Note ---
Interim History Interim History Interim History Mr. Luevano looks more alert and bright today. The NGT is in. He is awake and does follow commands more consistently. He continues to be mute - except for a single word. He continues to be cognitively impoverished and motorically challenged. No new medical problems have been observed. Review of Systems Neuro Review of Systems Unable to obtain. Objective Physical Exam Last Vital Signs Date Time Temp Pulse Resp B/P Pulse Ox O2 Delivery O2 Flow Rate FiO2 09/21/16 20:05 80 18 99 Nasal Cannula 2.0 28 09/21/16 16:00 97.7 128/75 Laboratory Tests Test 09/21/16 08:00 White Blood Count 6.1 K/UL (4.8-10.8) Red Blood Count 3.21 M/UL (4.70-6.10) L Hemoglobin 9.9 G/DL (14.2-18.0) L Hematocrit 28.9 % (42.0-52.0) L Mean Corpuscular Volume 90 FL (80-99) Mean Corpuscular Hemoglobin 30.8 PG (27.0-31.0) Mean Corpuscular Hemoglobin Concent 34.1 G/DL (32.0-36.0) Red Cell Distribution Width 12.5 % (11.6-14.8) Platelet Count 176 K/UL (150-450) Mean Platelet Volume 6.8 FL (6.5-10.1) Neutrophils (%) (Auto) 68.0 % (45.0-75.0) Lymphocytes (%) (Auto) 21.1 % (20.0-45.0) Monocytes (%) (Auto) 7.9 % (1.0-10.0) Eosinophils (%) (Auto) 2.5 % (0.0-3.0) Basophils (%) (Auto) 0.5 % (0.0-2.0) Sodium Level 139 mEQ/L (135-145) Potassium Level 3.0 mEQ/L (3.4-4.9) L Chloride Level 106 mEQ/L (98-107) Carbon Dioxide Level 23 mEQ/L (20-30) Anion Gap 10 (5-15) Blood Urea Nitrogen 9 mg/dL (7-23) Creatinine 0.8 mg/dL (0.7-1.2) Estimat Glomerular Filtration Rate mL/min (>60) Glucose Level 133 mg/dL (74-106) H Calcium Level 8.3 mg/dL (8.6-10.2) L Phosphorus Level 1.8 mg/dL (2.5-4.8) L Magnesium Level 1.7 mg/dL (1.7-2.5) Vancomycin Level Trough 16.2 ug/mL (5.0-12.0) H Neurologic Exam Objective PHYSICAL EXAMINATION: GENERAL: He is a well-developed, well-nourished, pleasant gentleman, lying in bed in no acute distress. HEAD: Normocephalic and atraumatic. EENT: Examination benign. NECK: No neck rigidity was observed. NEUROLOGICAL EXAMINATION: MENTAL STATUS EXAMINATION: He was awake and alert. He said a single word that was unintelligible. He did follow a few simple commands consistently. Further mental status testing was impossible. SPEECH: Could not be tested as he was mute. LANGUAGE: He followed a few simple commands consistently. He was unable to express himself in any way. CRANIAL NERVE EXAMINATION: II: He did blink to threat in all yi. III, IV & : External ocular movements were present on oculocephalic maneuvers. The pupils were 3 mm in diameter, equal, round, regular and reactive sluggishly to light. V & VII: The corneal reflexes were present bilaterally. VIII: He seemed to be able to hear and had no nystagmus. IX & X: The gag reflex was present but diminished. XI: The sternocleidomastoids and trapezii function. XII: The tongue was in midline without any fasciculations or atrophy. MOTOR SYSTEM: The tone was increased in all four extremities with a combination of spasticity and rigidity. Examination of muscle mass revealed generalized muscle wasting. Examination of power was impossible to perform in an organized manner. 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 SENSORY EXAMINATION: He responded appropriately to deep pain. He was unable to cooperate for the sensory modalities. REFLEXES: Trace+ and bilaterally symmetrical at the biceps, triceps, brachioradialis, knees, and zero at both ankles. The plantar responses were flexor bilaterally. COORDINATION, STANCE & GAIT: Could not be tested. ABNORMAL MOVEMENTS: Tremor (7-8 Hz): G 1/4 Tremor (4-5 Hz): G 0/4 Rigidity: G 1/4 Bradykinesia: G 2/4 Hypomimia: G 2/4. Impression/Recommendations Diagnostic Impression 1. Mr. Naseem Luevano is an 86-year-old, gentleman, of unknown handedness, who does have a past history of coronary artery disease, Parkinson' s disease, dementia, being nonverbal and being essentially bed-bound, who was hospitalized for a change in mental state, which was discovered to be due to a pneumonia. 2. He is brighter today. He is still cognitively impoverished and motorically challenged. 3. On neurological examination, at this time, he said a single word. 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 In addition, he also has bradykinesia, hypomimia, and globally diminished reflexes with extensor plantar responses bilaterally. 4. Laboratory data on admission revealed that he was anemic with a hemoglobin of 10.4. His creatinine was elevated to 1.8. His alkaline phosphatase was elevated to 132. He also had lactic acidosis which has now improved. His urinalysis was essentially benign. 5. A CT scan of the chest, abdomen and pelvis revealed bilateral pneumonia involving the lower lung yi, fecal impaction with moderate distention of his rectum, multiple liver cysts, gallbladder stones versus sludge., compression fractures of the T12 and L3 which looked old, an old left hip fracture that was pinned, a right psoas lipoma. 6. The CT of the brain revealed significant fronto-temporal atrophy and deep white matter changes. 7. The patient's history, neurological examination, and laboratory data are most compatible with an encephalopathy related to his pneumonia and sepsis. 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 8. He is brighter and less parkinsonian today. He is being fed through a NGT. Recommendations 1. Continue present management. 2. Sinemet 25/250 q 7AM, 12 Noon, 5 PM. 3. Frequent range of motion exercises should be performed. Shayne Dickson M.D., MAlma. SHAYNE DICKSON Sep 21, 2016 20:45
--- NOTE | 2016-09-21 20:47 | General Progress Note ---
Assessment/Plan Problem List: (1) Acute respiratory failure with hypoxia ICD Codes: J96.01 - Acute respiratory failure with hypoxia SNOMED: 51313637, 511814702 (2) Severe sepsis ICD Codes: A41.9 - Sepsis, unspecified organism; R65.20 - Severe sepsis without septic shock SNOMED: 69467593 (3) Aspiration pneumonia ICD Codes: J69.0 - Pneumonitis due to inhalation of food and vomit SNOMED: 531806669 (4) Lactic acidosis ICD Codes: E87.2 - Acidosis SNOMED: 64100948 (5) Toxic metabolic encephalopathy ICD Codes: G92 - Toxic encephalopathy SNOMED: 474037767 (6) Parkinson disease ICD Codes: G20 - Parkinson's disease SNOMED: 91315496 (7) Dementia ICD Codes: F03.90 - Unspecified dementia without behavioral disturbance SNOMED: 68949236 (8) ALMA (acute kidney injury) ICD Codes: N17.9 - Acute kidney failure, unspecified SNOMED: 25429542 (9) ATN (acute tubular necrosis) ICD Codes: N17.0 - Acute kidney failure with tubular necrosis SNOMED: 49129921 (10) Protein-calorie malnutrition, severe ICD Codes: E43 - Unspecified severe protein-calorie malnutrition SNOMED: 524575465 (11) Iron deficiency ICD Codes: E61.1 - Iron deficiency SNOMED: 44754385 (12) BPH (benign prostatic hyperplasia) ICD Codes: N40.0 - Benign prostatic hyperplasia without lower urinary tract symptoms SNOMED: 022650908, 292837167 (13) CAD (coronary artery disease) ICD Codes: I25.10 - Atherosclerotic heart disease of [place] coronary artery without angina pectoris SNOMED: 66927777 Status: stable Assessment/Plan Pulmonology consulted ID consulted Cont vanco and zosyn for empiric converge of aspiration PNA F/u blood cultures--ngtd Duonebs ATC and PRN Chest PT Suction PRN Trend CBC Nephrology consulted mIVFs Trend BMP Monitor UOP Neurology consulted Check CT brain--neg GI consulted for Dobhoff placement Dobhoff placed 09/20 Cont tube feeds No meds via Dobhoff per GI Cont sinemet as tolerated PO [employer] eval--pt high aspiration risk, NPO except meds, but family wish to cont PO as tolerated D/w family and no plan for G tube but would like trial of NGT/Dobhoff Pain control, bowel regimen Supportive care Hospice referral made to [facility] hospice per daughter's request but now family is refusing DVT Prophylaxis: SCD, HSQ Code Status: DNR/DNI Hospital Classification Declaration: Based on this initial evaluation, and depending on the patient's clinical course, I anticipate that this patient will require hospitalization for 2-3 days for severe sepsis, aspiration PNA, ALMA and close respiratory/hemodynamic monitoring. Disposition: Once the patient is stable to leave the hospital, I anticipate the patient will likely be discharged to the following environment: [facility] vs SNF Discussed with patient/family, nursing staff, SW/CM, pulmonology, renal, neurology regarding clinical status, treatment course, and disposition planning. D/w family extensively regarding plan of care. D/w pulm re PNA. D/w ID re abx. D/w son re plan of care Time of note may not reflect time of encounter. Subjective Date patient seen: Sep 21, 2016 Time patient seen: 12:00 ROS Limited/Unobtainable: Yes Allergies: Coded Allergies: No Known Allergies (Unverified , 09/16/16) Subjective Dobhoff placed yesterday and pt started on tube feeds More awake but still poorly responsive. Able to squeeze fingers on command Congestion improved Caregiver feeding small amts of puree diet Sinemet being given crushed in apple sauce D/w son extensively--they no longer want hospice and would to optimize his nutrition and send him home. Son wants transfer to [facility] if we are unable to place NGT/Dobhoff. D/w Gi who states can place Dobhoff tomorrow AM Objective Last 24 Hour Vital Signs Date Time Temp Pulse Resp B/P Pulse Ox O2 Delivery O2 Flow Rate FiO2 09/21/16 20:05 80 18 99 Nasal Cannula 2.0 09/21/16 19:55 80 18 98 Nasal Cannula 2.0 09/21/16 19:55 98 Nasal Cannula 2.0 09/21/16 19:55 Nasal Cannula 2.0 09/21/16 16:00 97.7 74 18 128/75 95 Nasal Cannula 2.0 09/21/16 12:45 78 18 99 Nasal Cannula 2.0 09/21/16 12:40 77 18 96 Nasal Cannula 2.0 09/21/16 12:00 97.7 74 17 109/61 97 Nasal Cannula 2.0 09/21/16 08:00 96.2 86 18 111/68 93 Nasal Cannula 4.0 09/21/16 07:05 80 18 99 Nasal Cannula 2.0 28 09/21/16 07:00 96 Nasal Cannula 2.0 28 09/21/16 07:00 84 18 96 Nasal Cannula 2.0 28 09/21/16 07:00 Nasal Cannula 2.0 28 09/21/16 04:00 98.0 72 18 131/77 96 Nasal Cannula 2.0 09/21/16 02:21 79 18 99 Nasal Cannula 2.0 09/21/16 02:18 77 18 97 Nasal Cannula 2.0 09/21/16 00:00 98.2 74 18 135/75 97 Nasal Cannula 2.0 Intake and Output 09/20/16 09/21/16 19:00 07:00 Intake Total 345.000 ml 1274.166 ml Output Total 500 ml 700 ml Balance -155.000 ml 574.166 ml Free Water 50 ml 50 ml IV Total 275.000 ml 804.166 ml Tube Feeding 20 ml 420 ml Output Urine Total 500 ml 700 ml Laboratory Tests 09/21/16 08:00: White Blood Count 6.1, Red Blood Count 3.21L, Hemoglobin 9.9L, Hematocrit 28.9L , Mean Corpuscular Volume 90, Mean Corpuscular Hemoglobin 30.8, Mean Corpuscular Hemoglobin Concent 34.1, Red Cell Distribution Width 12.5, Platelet Count 176, Mean Platelet Volume 6.8, Neutrophils (%) (Auto) 68.0, Lymphocytes (% ) (Auto) 21.1, Monocytes (%) (Auto) 7.9, Eosinophils (%) (Auto) 2.5, Basophils ( %) (Auto) 0.5, Sodium Level 139, Potassium Level 3.0L, Chloride Level 106, Carbon Dioxide Level 23, Anion Gap 10, Blood Urea Nitrogen 9, Creatinine 0.8, Estimat Glomerular Filtration Rate , Glucose Level 133H, Calcium Level 8.3L, Phosphorus Level 1.8L, Magnesium Level 1.7, Vancomycin Level Trough 16.2H Height (Feet): 5 Height (Inches): 11.00 Weight (Pounds): 147 Objective General: eyes open, poorly responsive to voice or pain, NAD, appears stated age Head: normocephalic, without obvious abnormality, atraumatic Eyes: conjunctivae/corneas clear. PERRL, EOM's intact Throat: lips, mucosa, and tongue normal. MMM Neck: supple, symmetrical, trachea midline, and no JVD Lungs: +rhonchi b/l Heart: regular rate and rhythm, S1, S2 normal, no murmur, click, rub or gallop Abdomen: soft, non-tender, non-distended, bowel sounds normal; no masses or organomegaly Extremities: extremities normal, atraumatic, no cyanosis or edema Pulses: 2+ and symmetric Skin: skin color, texture, turgor normal; no rashes or lesions Neurologic: grossly normal, no focal deficits Elizabeth Portillo M.D. Sep 21, 2016 20:47
--- NOTE | 2016-09-21 21:43 | Infectious Diseases Prog Note ---
Assessment/Plan Assessment/Plan ASSESSMENT AND PLAN: 1. aspiration pna/hap pna, sepsis, fevers, weakness, sirs - clinically more alert, fevers resolved - chest x-ray improved - continue zosyn and vancomycin - check sc, labs and f/u chest x-ray - pulmonary treatment - d/w pharmacy 2. The patient has a history of Parkinson. 3. Dementia. 4. Aspiration risk. 5. Anemia. 6. Coronary artery disease. 7. Hypertension. Blood pressure control per primary. 8. Benign prostatic hypertrophy. 9. [facility]. 10. Hypoxia. 11. History of pneumonia. 12. No known allergies. 13. Social history is negative. 14. Family history is noncontributory. 15. MAR was noted. 16. Case was discussed with RN. 17. Continue treatment with primary consultants. 18. Skin care per protocol. Wounds were reviewed. There is no significant drain decubitus in the patient. 19. Notes and records reviewed. 20. Case was discussed with the patient's son at length and the family. 21. Case was discussed with Dr. Johnson. Subjective Constitutional: Reports: fatigue, other - overall more alert , Denies: fever HEENT: Reports: congestion - some Respiratory: Reports: shortness of breath - some Cardiovascular: Denies: chest pain Gastrointestinal/Abdominal: Denies: diarrhea, nausea, vomiting Genitourinary: Reports: other - + goldberg Neurologic: Denies: headache Psychiatric: Reports: no symptoms Skin: Denies: rash Hematologic: Denies: bleeding Musculoskeletal: Denies: pain Allergies: Coded Allergies: No Known Allergies (Unverified , 09/16/16) Objective Vital Signs Last 24 Hour Vital Signs Date Time Temp Pulse Resp B/P Pulse Ox O2 Delivery O2 Flow Rate FiO2 09/21/16 20:05 80 18 99 Nasal Cannula 2.0 09/21/16 19:55 80 18 98 Nasal Cannula 2.0 09/21/16 19:55 98 Nasal Cannula 2.0 09/21/16 19:55 Nasal Cannula 2.0 09/21/16 16:00 97.7 74 18 128/75 95 Nasal Cannula 2.0 09/21/16 12:45 78 18 99 Nasal Cannula 2.0 09/21/16 12:40 77 18 96 Nasal Cannula 2.0 09/21/16 12:00 97.7 74 17 109/61 97 Nasal Cannula 2.0 09/21/16 08:00 96.2 86 18 111/68 93 Nasal Cannula 4.0 09/21/16 07:05 80 18 99 Nasal Cannula 2.0 28 09/21/16 07:00 96 Nasal Cannula 2.0 28 09/21/16 07:00 84 18 96 Nasal Cannula 2.0 28 09/21/16 07:00 Nasal Cannula 2.0 28 09/21/16 04:00 98.0 72 18 131/77 96 Nasal Cannula 2.0 09/21/16 02:21 79 18 99 Nasal Cannula 2.0 09/21/16 02:18 77 18 97 Nasal Cannula 2.0 09/21/16 00:00 98.2 74 18 135/75 97 Nasal Cannula 2.0 Height (Feet): 5 Height (Inches): 11.00 Weight (Pounds): 147 General Appearance: no acute distress HEENT: normocephalic, atraumatic, anicteric, mucous membranes moist, PERRL, EOMI, pharynx normal, supple, no JVD Respiratory/Chest: crackles/rales, rhonchi - bilaterally Cardiovascular: normal rate, regular rhythm, no gallop/murmur Abdomen: normal bowel sounds, soft, non tender, no organomegaly Genitourinary: other - + goldberg - urine slt cloudy Extremities: no cyanosis Skin: no rash 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 Suspect new or increased retrocardiac infiltrates Suspect small left pleural effusion Microbiology Date/Time Source Procedure Growth Status 09/16/16 19:45 Blood Blood Culture - Preliminary NO GROWTH AFTER 4 DAYS Resulted 09/20/16 23:30 Sputum Induced Gram Stain - Final Resulted 09/20/16 23:30 Sputum Induced Sputum Culture - Preliminary Resulted 09/16/16 21:41 Rectum VRE Culture - Final NO VANCOMYCIN RESISTANT ENTEROCOCCUS ... Complete Microbiology Date/Time Source Procedure Growth Status 09/20/16 23:30 Sputum Induced Gram Stain - Final Resulted 09/20/16 23:30 Sputum Induced Sputum Culture - Preliminary Resulted Laboratory Tests Test 09/21/16 08:00 White Blood Count 6.1 K/UL (4.8-10.8) Red Blood Count 3.21 M/UL (4.70-6.10) L Hemoglobin 9.9 G/DL (14.2-18.0) L Hematocrit 28.9 % (42.0-52.0) L Mean Corpuscular Volume 90 FL (80-99) Mean Corpuscular Hemoglobin 30.8 PG (27.0-31.0) Mean Corpuscular Hemoglobin Concent 34.1 G/DL (32.0-36.0) Red Cell Distribution Width 12.5 % (11.6-14.8) Platelet Count 176 K/UL (150-450) Mean Platelet Volume 6.8 FL (6.5-10.1) Neutrophils (%) (Auto) 68.0 % (45.0-75.0) Lymphocytes (%) (Auto) 21.1 % (20.0-45.0) Monocytes (%) (Auto) 7.9 % (1.0-10.0) Eosinophils (%) (Auto) 2.5 % (0.0-3.0) Basophils (%) (Auto) 0.5 % (0.0-2.0) Sodium Level 139 mEQ/L (135-145) Potassium Level 3.0 mEQ/L (3.4-4.9) L Chloride Level 106 mEQ/L (98-107) Carbon Dioxide Level 23 mEQ/L (20-30) Anion Gap 10 (5-15) Blood Urea Nitrogen 9 mg/dL (7-23) Creatinine 0.8 mg/dL (0.7-1.2) Estimat Glomerular Filtration Rate mL/min (>60) Glucose Level 133 mg/dL (74-106) H Calcium Level 8.3 mg/dL (8.6-10.2) L Phosphorus Level 1.8 mg/dL (2.5-4.8) L Magnesium Level 1.7 mg/dL (1.7-2.5) Vancomycin Level Trough 16.2 ug/mL (5.0-12.0) H Current Medications Medications (Trade) Dose Ordered Sig/Angie Route PRN Reason Start Time Stop Time Status Last Admin Dose Admin Acetaminophen (Tylenol) 650 mg Q4H PRN ORAL FEVER>100.5 09/17/16 16:00 10/17/16 15:59 Acetaminophen (Tylenol) 650 mg Q4H PRN ORAL Mild Pain (Pain Scale 1-3) 09/17/16 19:30 10/17/16 19:29 Albuterol/ Ipratropium (DuoNeb 0.5-3(2.5)mg/3ml) 3 ml Q4H PRN HHN Shortness of Breath 09/18/16 15:15 09/23/16 15:14 Albuterol/ Ipratropium (DuoNeb 0.5-3(2.5)mg/3ml) 3 ml Q6HRT HHN 09/18/16 19:00 09/23/16 18:59 09/21/16 19:54 Artificial Tears (Akwa-Tears) 1 drop QIDPRN PRN BOTH EYES Dry Eyes 09/18/16 15:15 10/18/16 15:14 Carbidopa/Levodopa (Sinemet 25/250) 1 ea TID@0700,1200,1700 NG 09/17/16 17:00 10/17/16 16:59 09/21/16 17:20 Dextrose (Dextrose 50%) STAT PRN IV Hypoglycemia 09/17/16 16:00 10/17/16 15:59 Diphenhydramine HCl (Benadryl) 25 mg Q6H PRN IVP ITCH and Insomnia 09/18/16 00:30 10/18/16 00:29 Glycopyrrolate (Robinul) 0.1 mg Q6H PRN IV excessive secretions 09/18/16 15:15 10/18/16 15:14 Heparin Sodium (Porcine) (Heparin 5000 units/ml) 5,000 units EVERY 12 HOURS SUBQ 09/17/16 21:00 10/17/16 20:59 09/21/16 21:13 Lorazepam (Ativan 2mg/ml 1ml) 0.5 mg Q4H PRN IV For Anxiety 09/17/16 16:30 09/24/16 16:29 Morphine Sulfate (Morphine Sulfate) 2 mg Q6H PRN IVP Moderate Pain (Pain Scale 4-6) 09/17/16 16:00 09/24/16 15:59 Morphine Sulfate (Morphine 5mg/ 2.5ml Oral Soln) 5 mg Q3H PRN GT Breakthrough Pain 09/21/16 16:30 09/25/16 15:14 Ondansetron HCl (Zofran) 4 mg Q6H PRN IVP Nausea & Vomiting 09/17/16 16:00 10/17/16 15:59 Piperacillin Sod/ Tazobactam Sod 3.375 gm/Dextrose 110 ml @ 27.5 mls/hr EVERY 8 HOURS IVPB 09/20/16 22:00 09/25/16 21:59 09/21/16 14:42 Sodium Chloride (NS w/KCl 20mEq) 1,000 ml @ 50 mls/hr Q20H IV 09/21/16 14:30 10/21/16 14:29 09/21/16 14:42 Vancomycin HCl 1 ea 1 ea DAILY PRN MISC PER RX PROTOCOL 09/18/16 16:15 10/18/16 16:14 Vancomycin HCl 1 gm/Dextrose 275 ml @ 183.333 mls/hr Q12H IVPB 09/19/16 21:00 09/24/16 20:59 09/21/16 21:12 DOMINIC PARKER Sep 21, 2016 21:42
[2016-09-22] VITALS: BP 148/80
[2016-09-22] MEDS: DuoNeb 0.5-3(2.5)mg/3ml neb HHN SCH ×4 (01:11→19:55)
[2016-09-22 04:00] VITALS: BP 152/85
[2016-09-22] MEDS: Piperacillin/Tazobactam 3.375 GM in D5W 110 ML IVPB SCH ×3 (05:56→21:48)
[2016-09-22 06:27] LABS: BASOPHILS % (AUTO) 0.8 % (0.0-2.0); EOSINOPHILS % (AUTO) 2.9 % (0.0-3.0); LYMPHOCYTES % (AUTO) 14.5 % (20.0-45.0); MEAN CORPUSCULAR HEMOGLOBIN 30.9 PG (27.0-31.0); MEAN CORPUSCULAR VOLUME 91 FL (80-99); MEAN PLATELET VOLUME 7.5 FL (6.5-10.1); MONOCYTES % (AUTO) 7.5 % (1.0-10.0); NEUTROPHILS % (AUTO) 74.3 % (45.0-75.0); PLATELET COUNT 190 K/UL (150-450); RED BLOOD COUNT 3.35 M/UL (4.70-6.10); RED CELL DISTRIBUTION WIDTH 12.5 % (11.6-14.8); WHITE BLOOD COUNT 5.9 K/UL (4.8-10.8)
[2016-09-22 06:40] LABS: ANION GAP 10 (5-15); CALCIUM 8.4 mg/dL (8.6-10.2); CARBON DIOXIDE 26 mEQ/L (20-30); CHLORIDE 106 mEQ/L (98-107); CREATININE 0.7 mg/dL (0.7-1.2); HEMOLYSIS 3; MAGNESIUM 1.5 mg/dL (1.7-2.5); PHOSPHORUS 2.3 mg/dL (2.5-4.8); POTASSIUM 3.4 mEQ/L (3.4-4.9); SODIUM 142 mEQ/L (135-145)
[2016-09-22 08:30] VITALS: BP 131/74
[2016-09-22] MEDS: Vancomycin 1 GM in D5W 275 ML IVPB SCH (09:55)
[2016-09-22] MEDS: Heparin 5000 units/ml inj SUBQ SCH ×2 (09:56→21:50)
[2016-09-22] MEDS ORDERED: Potassium Phosphate 20 MM in NS 275 ML IV ONE (10:00)
--- NOTE | 2016-09-22 11:22 | General Progress Note ---
Assessment/Plan Status: stable - from renal stand Assessment/Plan Renal failure acute vs chronic Cr resolved Encephalopathy Low BP , dehydration CAD Parkinson BPH HTN GERD Low Cognition Pneumonia, Aspiration plan: K and Phos supplement Avoid nephrotoxics monitor renal parameters- Neuro eval noted IV iron DC planning?? Subjective ROS Limited/Unobtainable: No Constitutional: Reports: malaise Allergies: Coded Allergies: No Known Allergies (Unverified , 09/16/16) Objective Last 24 Hour Vital Signs Date Time Temp Pulse Resp B/P Pulse Ox O2 Delivery O2 Flow Rate FiO2 09/22/16 08:30 98.2 76 18 131/74 97 Room Air 09/22/16 07:44 73 18 99 Nasal Cannula 2.0 09/22/16 07:38 68 18 98 Nasal Cannula 2.0 09/22/16 07:38 98 Nasal Cannula 2.0 28 09/22/16 07:38 28 09/22/16 07:38 Nasal Cannula 2.0 28 09/22/16 04:00 98.5 76 21 152/85 94 Room Air 09/22/16 01:15 81 18 99 Nasal Cannula 2.0 09/22/16 01:11 82 18 98 Nasal Cannula 2.0 09/22/16 00:00 97.9 74 20 148/80 97 Nasal Cannula 3.0 09/21/16 20:05 80 18 99 Nasal Cannula 2.0 09/21/16 20:00 97.9 69 20 140/77 97 Simple Mask 3.0 09/21/16 19:55 80 18 98 Nasal Cannula 2.0 09/21/16 19:55 98 Nasal Cannula 2.0 09/21/16 19:55 Nasal Cannula 2.0 09/21/16 16:00 97.7 74 18 128/75 95 Nasal Cannula 2.0 09/21/16 12:45 78 18 99 Nasal Cannula 2.0 09/21/16 12:40 77 18 96 Nasal Cannula 2.0 09/21/16 12:00 97.7 74 17 109/61 97 Nasal Cannula 2.0 Intake and Output 09/21/16 09/22/16 19:00 07:00 Intake Total 690 ml 50 ml Output Total 300 ml 700 ml Balance 390 ml -650 ml Free Water 50 ml 50 ml IV Total 200 ml Tube Feeding 440 ml Output Urine Total 300 ml 700 ml # Bowel Movements 1 Laboratory Tests 09/22/16 05:30: White Blood Count 5.9, Red Blood Count 3.35L, Hemoglobin 10.3L, Hematocrit 30.4L , Mean Corpuscular Volume 91, Mean Corpuscular Hemoglobin 30.9, Mean Corpuscular Hemoglobin Concent 34.0, Red Cell Distribution Width 12.5, Platelet Count 190, Mean Platelet Volume 7.5, Neutrophils (%) (Auto) 74.3, Lymphocytes (% ) (Auto) 14.5L, Monocytes (%) (Auto) 7.5, Eosinophils (%) (Auto) 2.9, Basophils (%) (Auto) 0.8, Sodium Level 142, Potassium Level 3.4, Chloride Level 106, Carbon Dioxide Level 26, Anion Gap 10, Blood Urea Nitrogen 9, Creatinine 0.7, Estimat Glomerular Filtration Rate , Glucose Level 108H, Calcium Level 8.4L, Phosphorus Level 2.3L, Magnesium Level 1.5L Height (Feet): 5 Height (Inches): 11.00 Weight (Pounds): 147 General Appearance: no apparent distress Objective other PE not changed VANITA BILLINGS Sep 22, 2016 11:21
[2016-09-22 11:49] VITALS: BP 151/83
[2016-09-22] MEDS: Modafinil 100mg tab ORAL SCH (11:57)
--- NOTE | 2016-09-22 12:34 | GI Progress Note ---
Assessment/Plan Problems: (1) Lives in assisted living facility ICD Codes: Z59.3 - Problems related to living in residential institution SNOMED: 121304219 (2) Iron deficiency ICD Codes: E61.1 - Iron deficiency SNOMED: 25227731 (3) Dehydration ICD Codes: E86.0 - Dehydration SNOMED: 86583162 (4) Protein-calorie malnutrition, severe ICD Codes: E43 - Unspecified severe protein-calorie malnutrition SNOMED: 327103417 (5) Acute encephalopathy ICD Codes: G93.40 - Encephalopathy, unspecified SNOMED: 5901645 (6) Parkinson disease ICD Codes: G20 - Parkinson's disease SNOMED: 39968739 Status: stable, progressing Status Narrative Discussed with Dr. Robles. Assessment/Plan CT AP reviewed >> pneumonia Keep NPO by mouth. Begin TF via dobhoff Hold PO meds - current tube not ideal for crushed meds iron deficiency >> venofer ppi monitor H&H, prn transfusions IV hydration + electrolyte correction abx fu labs Level of care discussion with family Subjective Subjective limited, more awake Objective Last 24 Hour Vital Signs Date Time Temp Pulse Resp B/P Pulse Ox O2 Delivery O2 Flow Rate FiO2 09/22/16 11:49 98.8 72 22 151/83 95 Nasal Cannula 2.0 09/22/16 08:30 98.2 76 18 131/74 97 Room Air 09/22/16 07:44 73 18 99 Nasal Cannula 2.0 09/22/16 07:38 68 18 98 Nasal Cannula 2.0 09/22/16 07:38 98 Nasal Cannula 2.0 09/22/16 07:38 28 09/22/16 07:38 Nasal Cannula 2.0 09/22/16 04:00 98.5 76 21 152/85 94 Room Air 09/22/16 01:15 81 18 99 Nasal Cannula 2.0 09/22/16 01:11 82 18 98 Nasal Cannula 2.0 09/22/16 00:00 97.9 74 20 148/80 97 Nasal Cannula 3.0 09/21/16 20:05 80 18 99 Nasal Cannula 2.0 28 09/21/16 20:00 97.9 69 20 140/77 97 Simple Mask 3.0 09/21/16 19:55 80 18 98 Nasal Cannula 2.0 09/21/16 19:55 98 Nasal Cannula 2.0 28 09/21/16 19:55 Nasal Cannula 2.0 28 09/21/16 16:00 97.7 74 18 128/75 95 Nasal Cannula 2.0 09/21/16 12:45 78 18 99 Nasal Cannula 2.0 28 09/21/16 12:40 77 18 96 Nasal Cannula 2.0 28 Intake and Output 09/21/16 09/22/16 19:00 07:00 Intake Total 690 ml 50 ml Output Total 300 ml 700 ml Balance 390 ml -650 ml Free Water 50 ml 50 ml IV Total 200 ml Tube Feeding 440 ml Output Urine Total 300 ml 700 ml # Bowel Movements 1 Laboratory Tests Test 09/22/16 05:30 White Blood Count 5.9 K/UL (4.8-10.8) Red Blood Count 3.35 M/UL (4.70-6.10) L Hemoglobin 10.3 G/DL (14.2-18.0) L Hematocrit 30.4 % (42.0-52.0) L Mean Corpuscular Volume 91 FL (80-99) Mean Corpuscular Hemoglobin 30.9 PG (27.0-31.0) Mean Corpuscular Hemoglobin Concent 34.0 G/DL (32.0-36.0) Red Cell Distribution Width 12.5 % (11.6-14.8) Platelet Count 190 K/UL (150-450) Mean Platelet Volume 7.5 FL (6.5-10.1) Neutrophils (%) (Auto) 74.3 % (45.0-75.0) Lymphocytes (%) (Auto) 14.5 % (20.0-45.0) L Monocytes (%) (Auto) 7.5 % (1.0-10.0) Eosinophils (%) (Auto) 2.9 % (0.0-3.0) Basophils (%) (Auto) 0.8 % (0.0-2.0) Sodium Level 142 mEQ/L (135-145) Potassium Level 3.4 mEQ/L (3.4-4.9) Chloride Level 106 mEQ/L (98-107) Carbon Dioxide Level 26 mEQ/L (20-30) Anion Gap 10 (5-15) Blood Urea Nitrogen 9 mg/dL (7-23) Creatinine 0.7 mg/dL (0.7-1.2) Estimat Glomerular Filtration Rate mL/min (>60) Glucose Level 108 mg/dL (74-106) H Calcium Level 8.4 mg/dL (8.6-10.2) L Phosphorus Level 2.3 mg/dL (2.5-4.8) L Magnesium Level 1.5 mg/dL (1.7-2.5) L Height (Feet): 5 Height (Inches): 11.00 Weight (Pounds): 147 General Appearance: no apparent distress, alert Cardiovascular: normal rate Respiratory/Chest: normal breath sounds, no respiratory distress, other - 2LNC Abdominal Exam: other - dobhoff Geovanna Agrawal N.P. Sep 22, 2016 12:34
--- NOTE | 2016-09-22 13:23 | Pulmonology Progress Note ---
Assessment/Plan Problems: (1) Sepsis (2) ATN (acute tubular necrosis) (3) Acute encephalopathy (4) Pneumonia (5) Protein-calorie malnutrition, severe (6) Dementia (7) Parkinson disease (8) Limited mobility Assessment/Plan tolerating feeding Robinol for excessive secretions change face mask to NC tolerating NG tube. feeding taper fio2, pulse oximeter on room air the plan is to dc home with possible hospitce or home care Subjective ROS Limited/Unobtainable: No Constitutional: Reports: no symptoms HEENT: Repors: no symptoms Allergies: Coded Allergies: No Known Allergies (Unverified , 09/16/16) Objective Last 24 Hour Vital Signs Date Time Temp Pulse Resp B/P Pulse Ox O2 Delivery O2 Flow Rate FiO2 09/22/16 11:49 98.8 72 22 151/83 95 Nasal Cannula 2.0 09/22/16 08:30 98.2 76 18 131/74 97 Room Air 09/22/16 07:44 73 18 99 Nasal Cannula 2.0 09/22/16 07:38 68 18 98 Nasal Cannula 2.0 09/22/16 07:38 98 Nasal Cannula 2.0 28 09/22/16 07:38 28 09/22/16 07:38 Nasal Cannula 2.0 28 09/22/16 04:00 98.5 76 21 152/85 94 Room Air 09/22/16 01:15 81 18 99 Nasal Cannula 2.0 09/22/16 01:11 82 18 98 Nasal Cannula 2.0 09/22/16 00:00 97.9 74 20 148/80 97 Nasal Cannula 3.0 09/21/16 20:05 80 18 99 Nasal Cannula 2.0 09/21/16 20:00 97.9 69 20 140/77 97 Simple Mask 3.0 09/21/16 19:55 80 18 98 Nasal Cannula 2.0 09/21/16 19:55 98 Nasal Cannula 2.0 09/21/16 19:55 Nasal Cannula 2.0 09/21/16 16:00 97.7 74 18 128/75 95 Nasal Cannula 2.0 Intake and Output 09/21/16 09/22/16 19:00 07:00 Intake Total 690 ml 50 ml Output Total 300 ml 700 ml Balance 390 ml -650 ml Free Water 50 ml 50 ml IV Total 200 ml Tube Feeding 440 ml Output Urine Total 300 ml 700 ml # Bowel Movements 1 Objective General Appearance: WD/WN HEENT: normocephalic, atraumatic Respiratory/Chest: chest wall non-tender, lungs clear Breasts: no masses Cardiovascular: normal peripheral pulses, normal rate Abdomen: normal bowel sounds, soft, non tender Genitourinary: normal external genitalia Extremities: no cyanosis Skin: no rash Neurologic/Psychiatric: 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 grossly normal, normal mood/affect Lymphatic: no groin adenopathy Microbiology Date/Time Source Procedure Growth Status 09/20/16 23:30 Sputum Induced Gram Stain - Final Resulted 09/20/16 23:30 Sputum Culture - Preliminary Gram Negative Bacillus 1 Gram Negative Bacillus 2 Resulted Laboratory Tests 09/22/16 05:30: White Blood Count 5.9, Red Blood Count 3.35L, Hemoglobin 10.3L, Hematocrit 30.4L , Mean Corpuscular Volume 91, Mean Corpuscular Hemoglobin 30.9, Mean Corpuscular Hemoglobin Concent 34.0, Red Cell Distribution Width 12.5, Platelet Count 190, Mean Platelet Volume 7.5, Neutrophils (%) (Auto) 74.3, Lymphocytes (% ) (Auto) 14.5L, Monocytes (%) (Auto) 7.5, Eosinophils (%) (Auto) 2.9, Basophils (%) (Auto) 0.8, Sodium Level 142, Potassium Level 3.4, Chloride Level 106, Carbon Dioxide Level 26, Anion Gap 10, Blood Urea Nitrogen 9, Creatinine 0.7, Estimat Glomerular Filtration Rate , Glucose Level 108H, Calcium Level 8.4L, Phosphorus Level 2.3L, Magnesium Level 1.5L Current Medications Medications (Trade) Dose Ordered Sig/Angie Route PRN Reason Start Time Stop Time Status Last Admin Dose Admin Acetaminophen (Tylenol) 650 mg Q4H PRN ORAL FEVER>100.5 09/17/16 16:00 10/17/16 15:59 Acetaminophen (Tylenol) 650 mg Q4H PRN ORAL Mild Pain (Pain Scale 1-3) 09/17/16 19:30 10/17/16 19:29 Albuterol/ Ipratropium (DuoNeb 0.5-3(2.5)mg/3ml) 3 ml Q4H PRN HHN Shortness of Breath 09/18/16 15:15 09/23/16 15:14 Albuterol/ Ipratropium (DuoNeb 0.5-3(2.5)mg/3ml) 3 ml Q6HRT HHN 09/18/16 19:00 09/23/16 18:59 09/22/16 07:38 Artificial Tears (Akwa-Tears) 1 drop QIDPRN PRN BOTH EYES Dry Eyes 09/18/16 15:15 10/18/16 15:14 Carbidopa/Levodopa (Sinemet 25/250) 1 ea TID@0700,1200,1700 NG 09/17/16 17:00 10/17/16 16:59 09/22/16 12:38 Dextrose (Dextrose 50%) STAT PRN IV Hypoglycemia 09/17/16 16:00 10/17/16 15:59 Diphenhydramine HCl (Benadryl) 25 mg Q6H PRN IVP ITCH and Insomnia 09/18/16 00:30 10/18/16 00:29 Glycopyrrolate (Robinul) 0.1 mg Q6H PRN IV excessive secretions 09/18/16 15:15 10/18/16 15:14 Heparin Sodium (Porcine) (Heparin 5000 units/ml) 5,000 units EVERY 12 HOURS SUBQ 09/17/16 21:00 10/17/16 20:59 09/22/16 09:56 Lorazepam (Ativan 2mg/ml 1ml) 0.5 mg Q4H PRN IV For Anxiety 09/17/16 16:30 09/24/16 16:29 Modafinil (Provigil) 200 mg DAILY ORAL 09/22/16 11:00 09/29/16 10:59 09/22/16 11:57 Morphine Sulfate (Morphine Sulfate) 2 mg Q6H PRN IVP Moderate Pain (Pain Scale 4-6) 09/17/16 16:00 09/24/16 15:59 Morphine Sulfate 5 mg 5 mg Q3H PRN GT Breakthrough Pain 09/21/16 16:30 09/25/16 15:14 Ondansetron HCl (Zofran) 4 mg Q6H PRN IVP Nausea & Vomiting 09/17/16 16:00 10/17/16 15:59 Piperacillin Sod/ Tazobactam Sod/ Dextrose (Zosyn/D5W) 110 ml @ 27.5 mls/hr EVERY 8 HOURS IVPB 09/20/16 22:00 09/25/16 21:59 09/22/16 05:56 Potassium Phosphate/Sodium Chloride (Potassium Phosphate/Sodium Chloride) 281.6667 ml @ 46.944 m... ONCE ONCE IV 09/22/16 10:00 09/22/16 15:59 09/22/16 10:04 Vancomycin HCl 1 ea 1 ea DAILY PRN MISC PER RX PROTOCOL 09/18/16 16:15 10/18/16 16:14 Vancomycin HCl 1 gm/Dextrose 275 ml @ 183.333 mls/hr Q12H IVPB 09/19/16 21:00 09/24/16 20:59 09/22/16 09:55 CHILO SHANKS Sep 22, 2016 13:23
--- NOTE | 2016-09-22 15:29 | Infectious Diseases Prog Note ---
Assessment/Plan Assessment/Plan ASSESSMENT AND PLAN: 1. gram neg pna, aspiration pna/hap pna, sepsis, fevers, weakness, sirs - clinically more alert, fevers resolved - chest x-ray improved - continue zosyn, discontinue vancomycin - check sc, labs and f/u chest x-ray - pulmonary treatment - d/w pharmacy - d/w Dr. Johnson 2. The patient has a history of Parkinson. 3. Dementia. 4. Aspiration risk. 5. Anemia. 6. Coronary artery disease. 7. Hypertension. Blood pressure control per primary. 8. Benign prostatic hypertrophy. 9. HARDIK. 10. Hypoxia. 11. History of pneumonia. 12. No known allergies. 13. Social history is negative. 14. Family history is noncontributory. 15. MAR was noted. 16. Case was discussed with RN. 17. Continue treatment with primary consultants. 18. Skin care per protocol. Wounds were reviewed. There is no significant drain decubitus in the patient. 19. Notes and records reviewed. 20. Case was discussed with the patient's son at length and the family. 21. Case was discussed with Dr. Johnson. Subjective Constitutional: Denies: fever HEENT: Reports: congestion - less Respiratory: Reports: shortness of breath - less Cardiovascular: Denies: chest pain Gastrointestinal/Abdominal: Denies: nausea Genitourinary: Denies: dysuria, hematuria Neurologic: Denies: headache, numbness Psychiatric: Denies: depression Skin: Denies: rash Hematologic: Denies: bleeding Musculoskeletal: Denies: pain Allergies: Coded Allergies: No Known Allergies (Unverified , 09/16/16) Objective Vital Signs Last 24 Hour Vital Signs Date Time Temp Pulse Resp B/P Pulse Ox O2 Delivery O2 Flow Rate FiO2 09/22/16 13:55 69 18 98 Nasal Cannula 2.0 09/22/16 13:47 28 09/22/16 13:47 68 18 94 Nasal Cannula 2.0 09/22/16 11:49 98.8 72 22 151/83 95 Nasal Cannula 2.0 09/22/16 08:30 98.2 76 18 131/74 97 Room Air 09/22/16 07:44 73 18 99 Nasal Cannula 2.0 09/22/16 07:38 68 18 98 Nasal Cannula 2.0 09/22/16 07:38 98 Nasal Cannula 2.0 28 09/22/16 07:38 28 09/22/16 07:38 Nasal Cannula 2.0 09/22/16 04:00 98.5 76 21 152/85 94 Room Air 09/22/16 01:15 81 18 99 Nasal Cannula 2.0 09/22/16 01:11 82 18 98 Nasal Cannula 2.0 09/22/16 00:00 97.9 74 20 148/80 97 Nasal Cannula 3.0 09/21/16 20:05 80 18 99 Nasal Cannula 2.0 09/21/16 20:00 97.9 69 20 140/77 97 Simple Mask 3.0 09/21/16 19:55 80 18 98 Nasal Cannula 2.0 09/21/16 19:55 98 Nasal Cannula 2.0 09/21/16 19:55 Nasal Cannula 2.0 09/21/16 16:00 97.7 74 18 128/75 95 Nasal Cannula 2.0 Height (Feet): 5 Height (Inches): 11.00 Weight (Pounds): 147 General Appearance: no acute distress HEENT: normocephalic, atraumatic, anicteric, mucous membranes moist, PERRL, EOMI, pharynx normal, supple, no JVD Respiratory/Chest: crackles/rales, rhonchi - bilaterally Cardiovascular: normal rate, regular rhythm, no gallop/murmur, no JVD Abdomen: normal bowel sounds, soft, non tender, no organomegaly, non distended Genitourinary: other Extremities: no cyanosis Skin: no rash 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 Suspect new or increased retrocardiac infiltrates Suspect small left pleural effusion Microbiology Date/Time Source Procedure Growth Status 09/16/16 19:45 Blood Blood Culture - Final NO GROWTH AFTER 5 DAYS Complete 09/20/16 23:30 Sputum Induced Gram Stain - Final Resulted 09/20/16 23:30 Sputum Culture - Preliminary Gram Negative Bacillus 1 Gram Negative Bacillus 2 Resulted 09/16/16 21:41 Rectum VRE Culture - Final NO VANCOMYCIN RESISTANT ENTEROCOCCUS ... Complete Microbiology Date/Time Source Procedure Growth Status 09/20/16 23:30 Sputum Induced Gram Stain - Final Resulted 09/20/16 23:30 Sputum Culture - Preliminary Gram Negative Bacillus 1 Gram Negative Bacillus 2 Resulted Laboratory Tests Test 09/22/16 05:30 White Blood Count 5.9 K/UL (4.8-10.8) Red Blood Count 3.35 M/UL (4.70-6.10) L Hemoglobin 10.3 G/DL (14.2-18.0) L Hematocrit 30.4 % (42.0-52.0) L Mean Corpuscular Volume 91 FL (80-99) Mean Corpuscular Hemoglobin 30.9 PG (27.0-31.0) Mean Corpuscular Hemoglobin Concent 34.0 G/DL (32.0-36.0) Red Cell Distribution Width 12.5 % (11.6-14.8) Platelet Count 190 K/UL (150-450) Mean Platelet Volume 7.5 FL (6.5-10.1) Neutrophils (%) (Auto) 74.3 % (45.0-75.0) Lymphocytes (%) (Auto) 14.5 % (20.0-45.0) L Monocytes (%) (Auto) 7.5 % (1.0-10.0) Eosinophils (%) (Auto) 2.9 % (0.0-3.0) Basophils (%) (Auto) 0.8 % (0.0-2.0) Sodium Level 142 mEQ/L (135-145) Potassium Level 3.4 mEQ/L (3.4-4.9) Chloride Level 106 mEQ/L (98-107) Carbon Dioxide Level 26 mEQ/L (20-30) Anion Gap 10 (5-15) Blood Urea Nitrogen 9 mg/dL (7-23) Creatinine 0.7 mg/dL (0.7-1.2) Estimat Glomerular Filtration Rate mL/min (>60) Glucose Level 108 mg/dL (74-106) H Calcium Level 8.4 mg/dL (8.6-10.2) L Phosphorus Level 2.3 mg/dL (2.5-4.8) L Magnesium Level 1.5 mg/dL (1.7-2.5) L Current Medications Medications (Trade) Dose Ordered Sig/Angie Route PRN Reason Start Time Stop Time Status Last Admin Dose Admin Acetaminophen (Tylenol) 650 mg Q4H PRN ORAL FEVER>100.5 09/17/16 16:00 10/17/16 15:59 Acetaminophen (Tylenol) 650 mg Q4H PRN ORAL Mild Pain (Pain Scale 1-3) 09/17/16 19:30 10/17/16 19:29 Albuterol/ Ipratropium (DuoNeb 0.5-3(2.5)mg/3ml) 3 ml Q4H PRN HHN Shortness of Breath 09/18/16 15:15 09/23/16 15:14 Albuterol/ Ipratropium (DuoNeb 0.5-3(2.5)mg/3ml) 3 ml Q6HRT HHN 09/18/16 19:00 09/23/16 18:59 09/22/16 13:47 Artificial Tears (Akwa-Tears) 1 drop QIDPRN PRN BOTH EYES Dry Eyes 09/18/16 15:15 10/18/16 15:14 Carbidopa/Levodopa (Sinemet 25/250) 1 ea TID@0700,1200,1700 NG 09/17/16 17:00 10/17/16 16:59 09/22/16 12:38 Dextrose (Dextrose 50%) STAT PRN IV Hypoglycemia 09/17/16 16:00 10/17/16 15:59 Diphenhydramine HCl (Benadryl) 25 mg Q6H PRN IVP ITCH and Insomnia 09/18/16 00:30 10/18/16 00:29 Glycopyrrolate (Robinul) 0.1 mg Q6H PRN IV excessive secretions 09/18/16 15:15 10/18/16 15:14 Heparin Sodium (Porcine) (Heparin 5000 units/ml) 5,000 units EVERY 12 HOURS SUBQ 09/17/16 21:00 10/17/16 20:59 09/22/16 09:56 Lorazepam (Ativan 2mg/ml 1ml) 0.5 mg Q4H PRN IV For Anxiety 09/17/16 16:30 09/24/16 16:29 Modafinil (Provigil) 200 mg DAILY ORAL 09/22/16 11:00 09/29/16 10:59 09/22/16 11:57 Morphine Sulfate (Morphine Sulfate) 2 mg Q6H PRN IVP Moderate Pain (Pain Scale 4-6) 09/17/16 16:00 09/24/16 15:59 Morphine Sulfate 5 mg 5 mg Q3H PRN GT Breakthrough Pain 09/21/16 16:30 09/25/16 15:14 Ondansetron HCl (Zofran) 4 mg Q6H PRN IVP Nausea & Vomiting 09/17/16 16:00 10/17/16 15:59 Piperacillin Sod/ Tazobactam Sod/ Dextrose (Zosyn/D5W) 110 ml @ 27.5 mls/hr EVERY 8 HOURS IVPB 09/20/16 22:00 09/25/16 21:59 09/22/16 14:23 Potassium Phosphate/Sodium Chloride (Potassium Phosphate/Sodium Chloride) 281.6667 ml @ 46.944 m... ONCE ONCE IV 09/22/16 10:00 09/22/16 15:59 09/22/16 10:04 Vancomycin HCl 1 ea 1 ea DAILY PRN MISC PER RX PROTOCOL 09/18/16 16:15 10/18/16 16:14 Vancomycin HCl 1 gm/Dextrose 275 ml @ 183.333 mls/hr Q12H IVPB 09/19/16 21:00 09/24/16 20:59 09/22/16 09:55 DOMINIC PARKER Sep 22, 2016 15:29
[2016-09-22 16:14] VITALS: BP 125/73
--- NOTE | 2016-09-22 18:00 | Neurology Progress Note ---
Interim History Interim History Interim History Mr. Luevano continues to look more alert and bright. He says he feels the "same" as yesterday. He is being fed and has been getting his medicine through the [facility]. He is awake and follows commands more consistently. He continues to be cognitively impoverished and motorically challenged. No new medical problems have been observed. Review of Systems Neuro Review of Systems Unable to obtain. Objective Physical Exam Last Vital Signs Date Time Temp Pulse Resp B/P Pulse Ox O2 Delivery O2 Flow Rate FiO2 09/22/16 16:14 97.8 73 25 125/73 99 Nasal Cannula 2.0 09/22/16 13:55 28 Laboratory Tests Test 09/22/16 05:30 White Blood Count 5.9 K/UL (4.8-10.8) Red Blood Count 3.35 M/UL (4.70-6.10) L Hemoglobin 10.3 G/DL (14.2-18.0) L Hematocrit 30.4 % (42.0-52.0) L Mean Corpuscular Volume 91 FL (80-99) Mean Corpuscular Hemoglobin 30.9 PG (27.0-31.0) Mean Corpuscular Hemoglobin Concent 34.0 G/DL (32.0-36.0) Red Cell Distribution Width 12.5 % (11.6-14.8) Platelet Count 190 K/UL (150-450) Mean Platelet Volume 7.5 FL (6.5-10.1) Neutrophils (%) (Auto) 74.3 % (45.0-75.0) Lymphocytes (%) (Auto) 14.5 % (20.0-45.0) L Monocytes (%) (Auto) 7.5 % (1.0-10.0) Eosinophils (%) (Auto) 2.9 % (0.0-3.0) Basophils (%) (Auto) 0.8 % (0.0-2.0) Sodium Level 142 mEQ/L (135-145) Potassium Level 3.4 mEQ/L (3.4-4.9) Chloride Level 106 mEQ/L (98-107) Carbon Dioxide Level 26 mEQ/L (20-30) Anion Gap 10 (5-15) Blood Urea Nitrogen 9 mg/dL (7-23) Creatinine 0.7 mg/dL (0.7-1.2) Estimat Glomerular Filtration Rate mL/min (>60) Glucose Level 108 mg/dL (74-106) H Calcium Level 8.4 mg/dL (8.6-10.2) L Phosphorus Level 2.3 mg/dL (2.5-4.8) L Magnesium Level 1.5 mg/dL (1.7-2.5) L Neurologic Exam Objective PHYSICAL EXAMINATION: GENERAL: He is a well-developed, well-nourished, pleasant gentleman, lying in bed in no acute distress. HEAD: Normocephalic and atraumatic. EENT: Examination benign. NECK: No neck rigidity was observed. NEUROLOGICAL EXAMINATION: MENTAL STATUS EXAMINATION: He was awake and alert. He said a few word that were intelligible. He did follow a few commands more consistently. Further mental status testing was impossible. SPEECH: He had a moderate dysarthria and was hypophonic. LANGUAGE: He followed a few simple commands and said a few words. CRANIAL NERVE EXAMINATION: II: He did blink to threat in all yi. III, IV & : External ocular movements were present. The pupils were 3 mm in diameter, equal, round, regular and reactive sluggishly to light. V & VII: The corneal reflexes were present bilaterally. VIII: He was able to hear and had no nystagmus. IX & X: The gag reflex was present but diminished. XI: The sternocleidomastoids and trapezii functioned. XII: The tongue was in midline without any fasciculations or atrophy. MOTOR SYSTEM: The tone was increased in all four extremities with a combination of spasticity and rigidity. Examination of muscle mass revealed generalized muscle wasting. Examination of power was impossible to perform in an organized manner. 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 SENSORY EXAMINATION: He responded appropriately to deep pain. He was unable to cooperate for other sensory modalities. REFLEXES: Trace+ and bilaterally symmetrical at the biceps, triceps, brachioradialis, knees, and zero at both ankles. The plantar responses were flexor bilaterally. COORDINATION, STANCE & GAIT: Could not be tested. ABNORMAL MOVEMENTS: Tremor (7-8 Hz): G Tr/4 Tremor (4-5 Hz): G 0/4 Rigidity: G 0/4 Bradykinesia: G 2/4 Hypomimia: G 2/4. Impression/Recommendations Diagnostic Impression 1. Mr. Naseem Luevano is an 86-year-old, gentleman, of unknown handedness, who does have a past history of coronary artery disease, Parkinson' s disease, dementia, being nonverbal and being essentially bed-bound, who was hospitalized for a change in mental state, which was discovered to be due to a pneumonia. 2. He is brighter today. He is able to say a few words. He is still cognitively impoverished and motorically challenged. 3. On neurological examination, at this time, he is able to say a few words. 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 In addition, he also has bradykinesia, hypomimia, and globally diminished reflexes with extensor plantar responses bilaterally. 4. Laboratory data on admission revealed that he was anemic with a hemoglobin of 10.4. His creatinine was elevated to 1.8. His alkaline phosphatase was elevated to 132. He also had lactic acidosis which has now improved. His urinalysis was essentially benign. 5. A CT scan of the chest, abdomen and pelvis revealed bilateral pneumonia involving the lower lung yi, fecal impaction with moderate distention of his rectum, multiple liver cysts, gallbladder stones versus sludge., compression fractures of the T12 and L3 which looked old, an old left hip fracture that was pinned, a right psoas lipoma. 6. The CT of the brain revealed significant fronto-temporal atrophy and deep white matter changes. 7. The patient's history, neurological examination, and laboratory data are most compatible with an encephalopathy related to his pneumonia and sepsis. 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 8. He is brighter and less parkinsonian today. He is being fed through a [facility]. Recommendations 1. Continue present management. 2. Sinemet 25/250 q 7AM, 12 Noon, 5 PM. 3. Frequent range of motion exercises should be performed. Paresh Dickson M.D., M.S.P.H. PARESH DICKSON Sep 22, 2016 18:00
[2016-09-22 20:11] VITALS: BP 130/74
[2016-09-23 00:17] VITALS: BP 138/75
--- NOTE | 2016-09-23 00:21 | General Progress Note ---
Assessment/Plan Problem List: (1) Acute respiratory failure with hypoxia ICD Codes: J96.01 - Acute respiratory failure with hypoxia SNOMED: 95469959, 973345453 (2) Severe sepsis ICD Codes: A41.9 - Sepsis, unspecified organism; R65.20 - Severe sepsis without septic shock SNOMED: 53270388 (3) Aspiration pneumonia ICD Codes: J69.0 - Pneumonitis due to inhalation of food and vomit SNOMED: 880185148 (4) Lactic acidosis ICD Codes: E87.2 - Acidosis SNOMED: 75239336 (5) Toxic metabolic encephalopathy ICD Codes: G92 - Toxic encephalopathy SNOMED: 050691583 (6) Parkinson disease ICD Codes: G20 - Parkinson's disease SNOMED: 99359883 (7) Dementia ICD Codes: F03.90 - Unspecified dementia without behavioral disturbance SNOMED: 41301536 (8) ALMA (acute kidney injury) ICD Codes: N17.9 - Acute kidney failure, unspecified SNOMED: 56453231 (9) ATN (acute tubular necrosis) ICD Codes: N17.0 - Acute kidney failure with tubular necrosis SNOMED: 55708542 (10) Protein-calorie malnutrition, severe ICD Codes: E43 - Unspecified severe protein-calorie malnutrition SNOMED: 000619906 (11) Iron deficiency ICD Codes: E61.1 - Iron deficiency SNOMED: 65085694 (12) BPH (benign prostatic hyperplasia) ICD Codes: N40.0 - Benign prostatic hyperplasia without lower urinary tract symptoms SNOMED: 235425070, 586292118 (13) CAD (coronary artery disease) ICD Codes: I25.10 - Atherosclerotic heart disease of [place] coronary artery without angina pectoris SNOMED: 94020312 Status: stable Assessment/Plan Pulmonology consulted ID consulted Cont vanco and zosyn for empiric converge of aspiration PNA F/u sputum culture F/u blood cultures--ngtd Duonebs ATC and PRN Chest PT Suction PRN Trend CBC Nephrology consulted Replete lytes Trend BMP Monitor UOP Neurology consulted Check CT brain--neg GI consulted for Dobhoff placement Dobhoff placed 09/20 Cont tube feeds No meds via Dobhoff per GI Cont sinemet and modafinil as tolerated 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 DME order placed DC planning DVT Prophylaxis: SCD, HSQ Code Status: DNR/DNI Hospital Classification Declaration: Based on this initial evaluation, and depending on the patient's clinical course, I anticipate that this patient will require hospitalization for 12 days for severe sepsis, aspiration PNA, ALMA and close respiratory/hemodynamic monitoring. Disposition: Once the patient is stable to leave the hospital, I anticipate the patient will likely be discharged to the following environment: Home w/ HH +CG vs SNF Discussed with patient/family, nursing staff, SW/CM, pulmonology, renal, neurology regarding clinical status, treatment course, and disposition planning. D/w family extensively regarding plan of care. D/w pulm re PNA. D/w ID re abx. D/w son re plan of care Time of note may not reflect time of encounter. Subjective Date patient seen: Sep 22, 2016 Time patient seen: 13:00 ROS Limited/Unobtainable: Yes Allergies: Coded Allergies: No Known Allergies (Unverified , 09/16/16) Subjective No acute o/n events Cont on tube feeds via Dobhoff Cont on IV vanco and zosyn More awake, following simple commands and per CG said a few words Congestion improved Caregiver feeding small amts of puree diet Sinemet being given crushed in apple sauce D/w son extensively--they no longer want hospice and would to optimize his nutrition and send him home. Objective Last 24 Hour Vital Signs Date Time Temp Pulse Resp B/P Pulse Ox O2 Delivery O2 Flow Rate FiO2 09/22/16 20:11 97.6 63 17 130/74 100 Nasal Cannula 2.0 09/22/16 19:45 70 16 99 Nasal Cannula 2.0 28 09/22/16 19:30 96 Nasal Cannula 2.0 28 09/22/16 19:30 67 16 96 Nasal Cannula 2.0 09/22/16 19:30 Nasal Cannula 2.0 28 09/22/16 16:14 97.8 73 25 125/73 99 Nasal Cannula 2.0 09/22/16 13:55 69 18 98 Nasal Cannula 2.0 28 09/22/16 13:47 28 09/22/16 13:47 68 18 94 Nasal Cannula 2.0 09/22/16 11:49 98.8 72 22 151/83 95 Nasal Cannula 2.0 09/22/16 08:30 98.2 76 18 131/74 97 Room Air 09/22/16 07:44 73 18 99 Nasal Cannula 2.0 09/22/16 07:38 68 18 98 Nasal Cannula 2.0 09/22/16 07:38 98 Nasal Cannula 2.0 09/22/16 07:38 09/22/16 07:38 Nasal Cannula 2.0 09/22/16 04:00 98.5 76 21 152/85 94 Room Air 09/22/16 01:15 81 18 99 Nasal Cannula 2.0 09/22/16 01:11 82 18 98 Nasal Cannula 2.0 09/22/16 00:00 97.9 74 20 148/80 97 Nasal Cannula 3.0 Intake and Output 09/21/16 09/22/16 19:00 07:00 Intake Total 690 ml 90 ml Output Total 300 ml 700 ml Balance 390 ml -610 ml Free Water 50 ml 50 ml IV Total 200 ml Tube Feeding 440 ml 40 ml Output Urine Total 300 ml 700 ml # Bowel Movements 1 Laboratory Tests 09/22/16 05:30: White Blood Count 5.9, Red Blood Count 3.35L, Hemoglobin 10.3L, Hematocrit 30.4L , Mean Corpuscular Volume 91, Mean Corpuscular Hemoglobin 30.9, Mean Corpuscular Hemoglobin Concent 34.0, Red Cell Distribution Width 12.5, Platelet Count 190, Mean Platelet Volume 7.5, Neutrophils (%) (Auto) 74.3, Lymphocytes (% ) (Auto) 14.5L, Monocytes (%) (Auto) 7.5, Eosinophils (%) (Auto) 2.9, Basophils (%) (Auto) 0.8, Sodium Level 142, Potassium Level 3.4, Chloride Level 106, Carbon Dioxide Level 26, Anion Gap 10, Blood Urea Nitrogen 9, Creatinine 0.7, Estimat Glomerular Filtration Rate , Glucose Level 108H, Calcium Level 8.4L, Phosphorus Level 2.3L, Magnesium Level 1.5L Height (Feet): 5 Height (Inches): 11.00 Weight (Pounds): 147 Objective General: eyes open, poorly responsive to voice or pain, NAD, appears stated age Head: normocephalic, without obvious abnormality, atraumatic Eyes: conjunctivae/corneas clear. PERRL, EOM's intact Throat: lips, mucosa, and tongue normal. MMM Neck: supple, symmetrical, trachea midline, and no JVD Lungs: +rhonchi b/l Heart: regular rate and rhythm, S1, S2 normal, no murmur, click, rub or gallop Abdomen: soft, non-tender, non-distended, bowel sounds normal; no masses or organomegaly Extremities: extremities normal, atraumatic, no cyanosis or edema Pulses: 2+ and symmetric Skin: skin color, texture, turgor normal; no rashes or lesions Neurologic: grossly normal, no focal deficits Elizabeth Portillo M.D. Sep 23, 2016 00:02
[2016-09-23] MEDS: DuoNeb 0.5-3(2.5)mg/3ml neb HHN SCH ×3 (01:03→13:31)
[2016-09-23 04:00] VITALS: BP 122/66
[2016-09-23] MEDS: Piperacillin/Tazobactam 3.375 GM in D5W 110 ML IVPB SCH ×3 (06:30→21:21)
[2016-09-23 07:10] LABS: BASOPHILS % (AUTO) 0.6 % (0.0-2.0); EOSINOPHILS % (AUTO) 2.3 % (0.0-3.0); LYMPHOCYTES % (AUTO) 10.5 % (20.0-45.0); MEAN CORPUSCULAR HEMOGLOBIN 30.5 PG (27.0-31.0); MEAN CORPUSCULAR HGB CONC 33.6 G/DL (32.0-36.0); MEAN CORPUSCULAR VOLUME 91 FL (80-99); MEAN PLATELET VOLUME 7.5 FL (6.5-10.1); MONOCYTES % (AUTO) 7.2 % (1.0-10.0); NEUTROPHILS % (AUTO) 79.5 % (45.0-75.0); PLATELET COUNT 193 K/UL (150-450); RED BLOOD COUNT 3.13 M/UL (4.70-6.10); RED CELL DISTRIBUTION WIDTH 13.3 % (11.6-14.8); WHITE BLOOD COUNT 6.2 K/UL (4.8-10.8)
[2016-09-23 07:29] LABS: ANION GAP 10 (5-15); CALCIUM 8.2 mg/dL (8.6-10.2); CARBON DIOXIDE 26 mEQ/L (20-30); CHLORIDE 102 mEQ/L (98-107); CREATININE 0.8 mg/dL (0.7-1.2); HEMOLYSIS 2; PHOSPHORUS 2.8 mg/dL (2.5-4.8); POTASSIUM 3.7 mEQ/L (3.4-4.9); SODIUM 138 mEQ/L (135-145)
[2016-09-23 08:00] VITALS: BP 128/74
[2016-09-23] MEDS: Modafinil 100mg tab ORAL SCH (09:45)
[2016-09-23] MEDS: Heparin 5000 units/ml inj SUBQ SCH ×2 (09:45→21:24)
[2016-09-23] MEDS ORDERED: GLYCOPYRRO0.2 MG/1 M IV (10:15)
[2016-09-23] MEDS ORDERED: METRONIDAZOLE500 MG ORAL (10:15)
[2016-09-23] MEDS ORDERED: CEFEPIME-D2 GM/50 ML IVPB (10:15)
[2016-09-23] MEDS ORDERED: DUONEB 0.5-3(2.53 ML HHN (10:29)
--- NOTE | 2016-09-23 10:49 | GI Progress Note ---
Assessment/Plan Problems: (1) Lives in assisted living facility ICD Codes: Z59.3 - Problems related to living in residential institution SNOMED: 927867445 (2) Iron deficiency ICD Codes: E61.1 - Iron deficiency SNOMED: 89486227 (3) Dehydration ICD Codes: E86.0 - Dehydration SNOMED: 58447367 (4) Protein-calorie malnutrition, severe ICD Codes: E43 - Unspecified severe protein-calorie malnutrition SNOMED: 311420434 (5) Acute encephalopathy ICD Codes: G93.40 - Encephalopathy, unspecified SNOMED: 8879657 (6) Parkinson disease ICD Codes: G20 - Parkinson's disease SNOMED: 89755254 Status: progressing Status Narrative Discussed with Dr. Robles. Assessment/Plan CT AP reviewed >> pneumonia NPO x meds >> fu ST eval TF via dobhoff Hold PO meds - current tube not ideal for crushed meds ppi monitor H&H, prn transfusions IV hydration + electrolyte correction abx fu labs level of care discussion with family Subjective Subjective limited, more awake Objective Last 24 Hour Vital Signs Date Time Temp Pulse Resp B/P Pulse Ox O2 Delivery O2 Flow Rate FiO2 09/23/16 09:40 97.3 09/23/16 09:01 73 16 97 Nasal Cannula 2.0 09/23/16 08:53 74 16 96 Nasal Cannula 2.0 09/23/16 08:53 Nasal Cannula 2.0 09/23/16 08:52 96 Nasal Cannula 2.0 09/23/16 08:00 100.1 76 20 128/74 95 Nasal Cannula 09/23/16 04:00 97.6 77 17 122/66 95 Nasal Cannula 2.0 09/23/16 01:03 72 16 97 Nasal Cannula 2.0 09/23/16 01:03 68 16 95 Nasal Cannula 2.0 28 09/23/16 00:17 97.4 71 16 138/75 93 Nasal Cannula 2.0 09/22/16 20:11 97.6 63 17 130/74 100 Nasal Cannula 2.0 09/22/16 19:45 70 16 99 Nasal Cannula 2.0 28 09/22/16 19:30 96 Nasal Cannula 2.0 28 09/22/16 19:30 67 16 96 Nasal Cannula 2.0 28 09/22/16 19:30 Nasal Cannula 2.0 28 09/22/16 16:14 97.8 73 25 125/73 99 Nasal Cannula 2.0 09/22/16 13:55 69 18 98 Nasal Cannula 2.0 28 09/22/16 13:47 28 09/22/16 13:47 68 18 94 Nasal Cannula 2.0 28 09/22/16 11:49 98.8 72 22 151/83 95 Nasal Cannula 2.0 Intake and Output 09/22/16 09/23/16 19:00 07:00 Intake Total 580 ml Output Total 980 ml 700 ml Balance -400 ml -700 ml Free Water 100 ml Tube Feeding 480 ml Output Urine Total 980 ml 700 ml # Voids 2 # Bowel Movements 1 Laboratory Tests Test 09/23/16 04:55 White Blood Count 6.2 K/UL (4.8-10.8) Red Blood Count 3.13 M/UL (4.70-6.10) L Hemoglobin 9.5 G/DL (14.2-18.0) L Hematocrit 28.4 % (42.0-52.0) L Mean Corpuscular Volume 91 FL (80-99) Mean Corpuscular Hemoglobin 30.5 PG (27.0-31.0) Mean Corpuscular Hemoglobin Concent 33.6 G/DL (32.0-36.0) Red Cell Distribution Width 13.3 % (11.6-14.8) Platelet Count 193 K/UL (150-450) Mean Platelet Volume 7.5 FL (6.5-10.1) Neutrophils (%) (Auto) 79.5 % (45.0-75.0) H Lymphocytes (%) (Auto) 10.5 % (20.0-45.0) L Monocytes (%) (Auto) 7.2 % (1.0-10.0) Eosinophils (%) (Auto) 2.3 % (0.0-3.0) Basophils (%) (Auto) 0.6 % (0.0-2.0) Sodium Level 138 mEQ/L (135-145) Potassium Level 3.7 mEQ/L (3.4-4.9) Chloride Level 102 mEQ/L (98-107) Carbon Dioxide Level 26 mEQ/L (20-30) Anion Gap 10 (5-15) Blood Urea Nitrogen 11 mg/dL (7-23) Creatinine 0.8 mg/dL (0.7-1.2) Estimat Glomerular Filtration Rate mL/min (>60) Glucose Level 133 mg/dL (74-106) H Calcium Level 8.2 mg/dL (8.6-10.2) L Phosphorus Level 2.8 mg/dL (2.5-4.8) Magnesium Level 2.0 mg/dL (1.7-2.5) Height (Feet): 5 Height (Inches): 11.00 Weight (Pounds): 147 General Appearance: no apparent distress, alert Cardiovascular: normal rate Respiratory/Chest: normal breath sounds, other - 2LNC Abdominal Exam: other - dobhoff Geovanna Agrawal N.P. Sep 23, 2016 10:49
[2016-09-23 12:00] VITALS: BP 119/70
--- NOTE | 2016-09-23 15:01 | General Progress Note ---
Assessment/Plan Status: stable - from renal stand Assessment/Plan Renal failure acute vs chronic Cr resolved Encephalopathy Low BP , dehydration CAD Parkinson BPH HTN GERD Low Cognition Pneumonia, Aspiration plan: per PMD stable from renal stand DC planning?? Subjective ROS Limited/Unobtainable: Yes Constitutional: Reports: malaise Allergies: Coded Allergies: No Known Allergies (Unverified , 09/16/16) Objective Last 24 Hour Vital Signs Date Time Temp Pulse Resp B/P Pulse Ox O2 Delivery O2 Flow Rate FiO2 09/23/16 13:32 73 18 97 Room Air 09/23/16 12:00 98.1 75 20 119/70 Nasal Cannula 09/23/16 09:40 97.3 09/23/16 09:01 73 16 97 Nasal Cannula 2.0 09/23/16 08:53 74 16 96 Nasal Cannula 2.0 09/23/16 08:53 Nasal Cannula 2.0 09/23/16 08:52 96 Nasal Cannula 2.0 09/23/16 08:00 100.1 76 20 128/74 95 Nasal Cannula 09/23/16 04:00 97.6 77 17 122/66 95 Nasal Cannula 2.0 09/23/16 01:03 72 16 97 Nasal Cannula 2.0 28 09/23/16 01:03 68 16 95 Nasal Cannula 2.0 28 09/23/16 00:17 97.4 71 16 138/75 93 Nasal Cannula 2.0 09/22/16 20:11 97.6 63 17 130/74 100 Nasal Cannula 2.0 09/22/16 19:45 70 16 99 Nasal Cannula 2.0 28 09/22/16 19:30 96 Nasal Cannula 2.0 28 09/22/16 19:30 67 16 96 Nasal Cannula 2.0 28 09/22/16 19:30 Nasal Cannula 2.0 28 09/22/16 16:14 97.8 73 25 125/73 99 Nasal Cannula 2.0 Intake and Output 09/22/16 09/23/16 19:00 07:00 Intake Total 580 ml Output Total 980 ml 700 ml Balance -400 ml -700 ml Free Water 100 ml Tube Feeding 480 ml Output Urine Total 980 ml 700 ml # Voids 2 # Bowel Movements 1 Laboratory Tests 09/23/16 04:55: White Blood Count 6.2, Red Blood Count 3.13L, Hemoglobin 9.5L, Hematocrit 28.4L , Mean Corpuscular Volume 91, Mean Corpuscular Hemoglobin 30.5, Mean Corpuscular Hemoglobin Concent 33.6, Red Cell Distribution Width 13.3, Platelet Count 193, Mean Platelet Volume 7.5, Neutrophils (%) (Auto) 79.5H, Lymphocytes ( %) (Auto) 10.5L, Monocytes (%) (Auto) 7.2, Eosinophils (%) (Auto) 2.3, Basophils (%) (Auto) 0.6, Sodium Level 138, Potassium Level 3.7, Chloride Level 102, Carbon Dioxide Level 26, Anion Gap 10, Blood Urea Nitrogen 11, Creatinine 0.8, Estimat Glomerular Filtration Rate , Glucose Level 133H, Calcium Level 8.2L , Phosphorus Level 2.8, Magnesium Level 2.0 Height (Feet): 5 Height (Inches): 11.00 Weight (Pounds): 147 General Appearance: no apparent distress Objective other PE not changed VANITA BILLINGS Sep 23, 2016 15:01
--- NOTE | 2016-09-23 15:43 | Pulmonology Progress Note ---
Assessment/Plan Problems: (1) Sepsis (2) ATN (acute tubular necrosis) (3) Acute encephalopathy (4) Pneumonia (5) Protein-calorie malnutrition, severe (6) Dementia (7) Parkinson disease (8) Limited mobility Assessment/Plan tolerating feeding change face mask to NC tolerating NG tube. feeding taper fio2, pulse oximeter on room air the plan is to dc home with possible hospitce or home care in process Subjective ROS Limited/Unobtainable: No Constitutional: Reports: no symptoms HEENT: Repors: no symptoms Allergies: Coded Allergies: No Known Allergies (Unverified , 09/16/16) Objective Last 24 Hour Vital Signs Date Time Temp Pulse Resp B/P Pulse Ox O2 Delivery O2 Flow Rate FiO2 09/23/16 13:32 73 18 97 Room Air 09/23/16 12:00 98.1 75 20 119/70 Nasal Cannula 09/23/16 09:40 97.3 09/23/16 09:01 73 16 97 Nasal Cannula 2.0 09/23/16 08:53 74 16 96 Nasal Cannula 2.0 09/23/16 08:53 Nasal Cannula 2.0 09/23/16 08:52 96 Nasal Cannula 2.0 09/23/16 08:00 100.1 76 20 128/74 95 Nasal Cannula 09/23/16 04:00 97.6 77 17 122/66 95 Nasal Cannula 2.0 09/23/16 01:03 72 16 97 Nasal Cannula 2.0 28 09/23/16 01:03 68 16 95 Nasal Cannula 2.0 28 09/23/16 00:17 97.4 71 16 138/75 93 Nasal Cannula 2.0 09/22/16 20:11 97.6 63 17 130/74 100 Nasal Cannula 2.0 09/22/16 19:45 70 16 99 Nasal Cannula 2.0 28 09/22/16 19:30 96 Nasal Cannula 2.0 28 09/22/16 19:30 67 16 96 Nasal Cannula 2.0 28 09/22/16 19:30 Nasal Cannula 2.0 28 09/22/16 16:14 97.8 73 25 125/73 99 Nasal Cannula 2.0 Intake and Output 09/22/16 09/23/16 19:00 07:00 Intake Total 580 ml Output Total 980 ml 700 ml Balance -400 ml -700 ml Free Water 100 ml Tube Feeding 480 ml Output Urine Total 980 ml 700 ml # Voids 2 # Bowel Movements 1 Objective General Appearance: WD/WN HEENT: normocephalic, atraumatic Respiratory/Chest: chest wall non-tender, lungs clear Breasts: no masses Cardiovascular: normal peripheral pulses, normal rate Abdomen: normal bowel sounds, soft, non tender Genitourinary: normal external genitalia Extremities: no cyanosis Skin: no rash 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/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 normal, normal mood/affect Lymphatic: no groin adenopathy Microbiology Date/Time Source Procedure Growth Status 09/20/16 23:30 Sputum Induced Gram Stain - Final Complete 09/20/16 23:30 Sputum Culture - Final Enterobacter Cloacae Complex Pseudomonas Aeruginosa Complete Laboratory Tests 09/23/16 04:55: White Blood Count 6.2, Red Blood Count 3.13L, Hemoglobin 9.5L, Hematocrit 28.4L , Mean Corpuscular Volume 91, Mean Corpuscular Hemoglobin 30.5, Mean Corpuscular Hemoglobin Concent 33.6, Red Cell Distribution Width 13.3, Platelet Count 193, Mean Platelet Volume 7.5, Neutrophils (%) (Auto) 79.5H, Lymphocytes ( %) (Auto) 10.5L, Monocytes (%) (Auto) 7.2, Eosinophils (%) (Auto) 2.3, Basophils (%) (Auto) 0.6, Sodium Level 138, Potassium Level 3.7, Chloride Level 102, Carbon Dioxide Level 26, Anion Gap 10, Blood Urea Nitrogen 11, Creatinine 0.8, Estimat Glomerular Filtration Rate , Glucose Level 133H, Calcium Level 8.2L , Phosphorus Level 2.8, Magnesium Level 2.0 Current Medications Medications (Trade) Dose Ordered Sig/Angie Route PRN Reason Start Time Stop Time Status Last Admin Dose Admin Acetaminophen (Tylenol) 650 mg Q4H PRN ORAL FEVER>100.5 09/17/16 16:00 10/17/16 15:59 Acetaminophen (Tylenol) 650 mg Q4H PRN ORAL Mild Pain (Pain Scale 1-3) 09/17/16 19:30 10/17/16 19:29 Albuterol/ Ipratropium (DuoNeb 0.5-3(2.5)mg/3ml) 3 ml Q6HRT HHN 09/18/16 19:00 09/23/16 18:59 09/23/16 13:31 Artificial Tears 1 drop 1 drop QIDPRN PRN BOTH EYES Dry Eyes 09/18/16 15:15 10/18/16 15:14 Carbidopa/Levodopa (Sinemet 25/250) 1 ea TID@0700,1200,1700 NG 09/17/16 17:00 10/17/16 16:59 09/23/16 12:11 Dextrose (Dextrose 50%) STAT PRN IV Hypoglycemia 09/17/16 16:00 10/17/16 15:59 Diphenhydramine HCl (Benadryl) 25 mg Q6H PRN IVP ITCH and Insomnia 09/18/16 00:30 10/18/16 00:29 Glycopyrrolate (Robinul) 0.1 mg Q6H PRN IV excessive secretions 09/18/16 15:15 10/18/16 15:14 Heparin Sodium (Porcine) (Heparin 5000 units/ml) 5,000 units EVERY 12 HOURS SUBQ 09/17/16 21:00 10/17/16 20:59 09/23/16 09:45 Lorazepam (Ativan 2mg/ml 1ml) 0.5 mg Q4H PRN IV For Anxiety 09/17/16 16:30 09/24/16 16:29 Modafinil (Provigil) 200 mg DAILY ORAL 09/22/16 11:00 09/29/16 10:59 09/23/16 09:45 Morphine Sulfate (Morphine Sulfate) 2 mg Q6H PRN IVP Moderate Pain (Pain Scale 4-6) 09/17/16 16:00 09/24/16 15:59 Morphine Sulfate (Morphine 5mg/ 2.5ml Oral Soln) 5 mg Q3H PRN GT Breakthrough Pain 09/21/16 16:30 09/25/16 15:14 Ondansetron HCl (Zofran) 4 mg Q6H PRN IVP Nausea & Vomiting 09/17/16 16:00 10/17/16 15:59 Piperacillin Sod/ Tazobactam Sod/ Dextrose (Zosyn/D5W) 110 ml @ 27.5 mls/hr EVERY 8 HOURS IVPB 09/20/16 22:00 09/25/16 21:59 09/23/16 14:00 CHILO SHANKS Sep 23, 2016 15:42
[2016-09-23 16:00] VITALS: BP 123/69
--- NOTE | 2016-09-23 17:03 | General Progress Note ---
Assessment/Plan Problem List: (1) Acute respiratory failure with hypoxia ICD Codes: J96.01 - Acute respiratory failure with hypoxia SNOMED: 67246110, 196942525 (2) Severe sepsis ICD Codes: A41.9 - Sepsis, unspecified organism; R65.20 - Severe sepsis without septic shock SNOMED: 25767747 (3) Aspiration pneumonia ICD Codes: J69.0 - Pneumonitis due to inhalation of food and vomit SNOMED: 565659233 (4) Lactic acidosis ICD Codes: E87.2 - Acidosis SNOMED: 37693939 (5) Toxic metabolic encephalopathy ICD Codes: G92 - Toxic encephalopathy SNOMED: 639904086 (6) Parkinson disease ICD Codes: G20 - Parkinson's disease SNOMED: 27154184 (7) Dementia ICD Codes: F03.90 - Unspecified dementia without behavioral disturbance SNOMED: 41097855 (8) ALMA (acute kidney injury) ICD Codes: N17.9 - Acute kidney failure, unspecified SNOMED: 52283140 (9) ATN (acute tubular necrosis) ICD Codes: N17.0 - Acute kidney failure with tubular necrosis SNOMED: 20011509 (10) Protein-calorie malnutrition, severe ICD Codes: E43 - Unspecified severe protein-calorie malnutrition SNOMED: 469010381 (11) Iron deficiency ICD Codes: E61.1 - Iron deficiency SNOMED: 74676782 (12) BPH (benign prostatic hyperplasia) ICD Codes: N40.0 - Benign prostatic hyperplasia without lower urinary tract symptoms SNOMED: 089329776, 615825889 (13) CAD (coronary artery disease) ICD Codes: I25.10 - Atherosclerotic heart disease of [place] coronary artery without angina pectoris SNOMED: 56502600 Status: stable Assessment/Plan Pulmonology consulted ID consulted Cont vanco and zosyn for empiric converge of aspiration PNA F/u sputum culture F/u blood cultures--ngtd Duonebs ATC and PRN Chest PT Suction PRN Trend CBC Nephrology consulted Replete lytes Trend BMP Monitor UOP Neurology consulted Check CT brain--neg GI consulted for Dobhoff placement Dobhoff placed 09/20 Cont tube feeds No meds via Dobhoff per GI Cont sinemet and modafinil as tolerated 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 DME order place Hospital bed, low pressure mattress, frank lift ordered--prequires these items due to h/o Parkinson's disease, dementia, aspiration pneumonia, pressure ulcers. He will need frequent body changing and positioning in ways not feasible in an ordinary bed. He will need HOB elevation given high aspiration risk per PRINTING MANAGER. Pt is also at risk of body deconditioning and worsening pressure sores. DC planning DVT Prophylaxis: SCD, HSQ Code Status: DNR/DNI Hospital Classification Declaration: Based on this initial evaluation, and depending on the patient's clinical course, I anticipate that this patient will require hospitalization for 12 days for severe sepsis, aspiration PNA, ALMA and close respiratory/hemodynamic monitoring. Disposition: Once the patient is stable to leave the hospital, I anticipate the patient will likely be discharged to the following environment: Home w/ HH +CG vs SNF Discussed with patient/family, nursing staff, SW/CM, pulmonology, renal, neurology regarding clinical status, treatment course, and disposition planning. D/w family extensively regarding plan of care. D/w pulm re PNA. D/w ID re abx. D/w son re plan of care Time of note may not reflect time of encounter. Subjective Date patient seen: Sep 23, 2016 Time patient seen: 17:03 ROS Limited/Unobtainable: Yes Allergies: Coded Allergies: No Known Allergies (Unverified , 09/16/16) Subjective No acute o/n events Cont on tube feeds via Dobhoff Cont IV zosyn per ID More awake, following simple commands and per CG said a few words Congestion improved Caregiver feeding small amts of puree diet Sinemet being given crushed in apple sauce D/w son extensively--they no longer want hospice and would like to optimize his nutrition and send him home. Objective Last 24 Hour Vital Signs Date Time Temp Pulse Resp B/P Pulse Ox O2 Delivery O2 Flow Rate FiO2 09/23/16 13:42 76 18 96 Room Air 09/23/16 13:32 73 18 97 Room Air 09/23/16 12:00 98.1 75 20 119/70 Nasal Cannula 09/23/16 09:40 97.3 09/23/16 09:01 73 16 97 Nasal Cannula 2.0 09/23/16 08:53 74 16 96 Nasal Cannula 2.0 09/23/16 08:53 Nasal Cannula 2.0 09/23/16 08:52 96 Nasal Cannula 2.0 09/23/16 08:00 100.1 76 20 128/74 95 Nasal Cannula 09/23/16 04:00 97.6 77 17 122/66 95 Nasal Cannula 2.0 09/23/16 01:03 72 16 97 Nasal Cannula 2.0 28 09/23/16 01:03 68 16 95 Nasal Cannula 2.0 28 09/23/16 00:17 97.4 71 16 138/75 93 Nasal Cannula 2.0 09/22/16 20:11 97.6 63 17 130/74 100 Nasal Cannula 2.0 09/22/16 19:45 70 16 99 Nasal Cannula 2.0 28 09/22/16 19:30 96 Nasal Cannula 2.0 28 09/22/16 19:30 67 16 96 Nasal Cannula 2.0 28 09/22/16 19:30 Nasal Cannula 2.0 28 Intake and Output 09/22/16 09/23/16 19:00 07:00 Intake Total 580 ml Output Total 980 ml 700 ml Balance -400 ml -700 ml Free Water 100 ml Tube Feeding 480 ml Output Urine Total 980 ml 700 ml # Voids 2 # Bowel Movements 1 Laboratory Tests 09/23/16 04:55: White Blood Count 6.2, Red Blood Count 3.13L, Hemoglobin 9.5L, Hematocrit 28.4L , Mean Corpuscular Volume 91, Mean Corpuscular Hemoglobin 30.5, Mean Corpuscular Hemoglobin Concent 33.6, Red Cell Distribution Width 13.3, Platelet Count 193, Mean Platelet Volume 7.5, Neutrophils (%) (Auto) 79.5H, Lymphocytes ( %) (Auto) 10.5L, Monocytes (%) (Auto) 7.2, Eosinophils (%) (Auto) 2.3, Basophils (%) (Auto) 0.6, Sodium Level 138, Potassium Level 3.7, Chloride Level 102, Carbon Dioxide Level 26, Anion Gap 10, Blood Urea Nitrogen 11, Creatinine 0.8, Estimat Glomerular Filtration Rate , Glucose Level 133H, Calcium Level 8.2L , Phosphorus Level 2.8, Magnesium Level 2.0 Height (Feet): 5 Height (Inches): 11.00 Weight (Pounds): 147 Objective General: eyes open, poorly responsive to voice or pain, NAD, appears stated age Head: normocephalic, without obvious abnormality, atraumatic Eyes: conjunctivae/corneas clear. PERRL, EOM's intact Throat: lips, mucosa, and tongue normal. MMM Neck: supple, symmetrical, trachea midline, and no JVD Lungs: +rhonchi b/l Heart: regular rate and rhythm, S1, S2 normal, no murmur, click, rub or gallop Abdomen: soft, non-tender, non-distended, bowel sounds normal; no masses or organomegaly Extremities: extremities normal, atraumatic, no cyanosis or edema Pulses: 2+ and symmetric Skin: skin color, texture, turgor normal; no rashes or lesions Neurologic: grossly normal, no focal deficits Elizabeth oPrtillo M.D. Sep 23, 2016 17:03
--- NOTE | 2016-09-23 17:50 | Neurology Progress Note ---
Interim History Interim History Interim History Mr. Luevano continues be more alert and bright. As per his caregiver he has been awake all day. He however is non-verbal today. He is being fed and has been getting his medicine through the NGT. He follows commands more consistently. He continues to be cognitively impoverished and motorically challenged. No new medical problems have been observed. Review of Systems Neuro Review of Systems Unable to obtain. Objective Physical Exam Last Vital Signs Date Time Temp Pulse Resp B/P Pulse Ox O2 Delivery O2 Flow Rate FiO2 09/23/16 16:00 97.7 74 20 123/69 95 Nasal Cannula 09/23/16 09:01 2.0 09/23/16 01:03 28 Laboratory Tests Test 09/23/16 04:55 White Blood Count 6.2 K/UL (4.8-10.8) Red Blood Count 3.13 M/UL (4.70-6.10) L Hemoglobin 9.5 G/DL (14.2-18.0) L Hematocrit 28.4 % (42.0-52.0) L Mean Corpuscular Volume 91 FL (80-99) Mean Corpuscular Hemoglobin 30.5 PG (27.0-31.0) Mean Corpuscular Hemoglobin Concent 33.6 G/DL (32.0-36.0) Red Cell Distribution Width 13.3 % (11.6-14.8) Platelet Count 193 K/UL (150-450) Mean Platelet Volume 7.5 FL (6.5-10.1) Neutrophils (%) (Auto) 79.5 % (45.0-75.0) H Lymphocytes (%) (Auto) 10.5 % (20.0-45.0) L Monocytes (%) (Auto) 7.2 % (1.0-10.0) Eosinophils (%) (Auto) 2.3 % (0.0-3.0) Basophils (%) (Auto) 0.6 % (0.0-2.0) Sodium Level 138 mEQ/L (135-145) Potassium Level 3.7 mEQ/L (3.4-4.9) Chloride Level 102 mEQ/L (98-107) Carbon Dioxide Level 26 mEQ/L (20-30) Anion Gap 10 (5-15) Blood Urea Nitrogen 11 mg/dL (7-23) Creatinine 0.8 mg/dL (0.7-1.2) Estimat Glomerular Filtration Rate mL/min (>60) Glucose Level 133 mg/dL (74-106) H Calcium Level 8.2 mg/dL (8.6-10.2) L Phosphorus Level 2.8 mg/dL (2.5-4.8) Magnesium Level 2.0 mg/dL (1.7-2.5) Neurologic Exam Objective PHYSICAL EXAMINATION: GENERAL: He is a well-developed, well-nourished, pleasant gentleman, lying in bed in no acute distress. HEAD: Normocephalic and atraumatic. EENT: Examination benign. NECK: No neck rigidity was observed. NEUROLOGICAL EXAMINATION: MENTAL STATUS EXAMINATION: He was awake and alert. He was non verbal. He did follow a few commands. Further mental status testing was impossible. SPEECH: He was mute. LANGUAGE: He followed a few simple commands but was mute. CRANIAL NERVE EXAMINATION: II: He did blink to threat in all yi. III, IV & : External ocular movements were present. The pupils were 3 mm in diameter, equal, round, regular and reactive sluggishly to light. V & VII: The corneal reflexes were present bilaterally. VIII: He was able to hear and had no nystagmus. IX & X: The gag reflex was present but diminished. XI: The sternocleidomastoids and trapezii functioned. XII: The tongue was in midline without any fasciculations or atrophy. MOTOR SYSTEM: The tone was increased in all four extremities with spasticity. Examination of muscle mass revealed generalized muscle wasting. Examination of power was impossible to perform in an organized manner. 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 SENSORY EXAMINATION: He responded appropriately to deep pain. He was unable to cooperate for other sensory modalities. REFLEXES: Trace+ and bilaterally symmetrical at the biceps, triceps, brachioradialis, knees, and zero at both ankles. The plantar responses were flexor bilaterally. COORDINATION, STANCE & GAIT: Could not be tested. ABNORMAL MOVEMENTS: Tremor (7-8 Hz): G Tr/4 Tremor (4-5 Hz): G 0/4 Rigidity: G 0/4 Bradykinesia: G 2/4 Hypomimia: G 2/4. Impression/Recommendations Diagnostic Impression 1. Mr. Naseem Luevano is an 86-year-old, gentleman, of unknown handedness, who does have a past history of coronary artery disease, Parkinson' s disease, dementia, being nonverbal and being essentially bed-bound, who was hospitalized for a change in mental state, which was discovered to be due to a pneumonia. 2. He continues to be bright. He however is non-verbal. He is still cognitively impoverished and motorically challenged. 3. On neurological examination, at this time, he is non-verbal. 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 In addition, he also has bradykinesia, hypomimia, and globally diminished reflexes with extensor plantar responses bilaterally. 4. Laboratory data on admission revealed that he was anemic with a hemoglobin of 10.4. His creatinine was elevated to 1.8. His alkaline phosphatase was elevated to 132. He also had lactic acidosis which has now improved. His urinalysis was essentially benign. 5. A CT scan of the chest, abdomen and pelvis revealed bilateral pneumonia involving the lower lung yi, fecal impaction with moderate distention of his rectum, multiple liver cysts, gallbladder stones versus sludge., compression fractures of the T12 and L3 which looked old, an old left hip fracture that was pinned, a right psoas lipoma. 6. The CT of the brain revealed significant fronto-temporal atrophy and deep white matter changes. 7. The patient's history, neurological examination, and laboratory data are most compatible with an encephalopathy related to his pneumonia and sepsis. 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 8. He continues to be brighter and less parkinsonian. He is being fed through a NGT. Recommendations 1. Continue present management. 2. Sinemet 25/250 q 7AM, 12 Noon, 5 PM. 3. Frequent range of motion exercises should be performed. Paresh Dickson M.D., M.S.[facility]. PARESH DICKSON Sep 23, 2016 17:50
--- NOTE | 2016-09-23 18:13 | Infectious Diseases Prog Note ---
Assessment/Plan Assessment/Plan ASSESSMENT AND PLAN: 1. pseudomonas/enterobacter pna, aspiration pna/hap pna, sepsis, fevers, weakness, sirs - clinically more alert, fevers resolved - 09/21 - chest x-ray improved on right but possible new retrocardiac infiltrate - continue zosyn for now - check sc, labs and f/u chest x-ray - pulmonary treatment - d/w pharmacy - d/w Dr. Johnson about abx - can discharge on iv cefepime and po flagy for one week, home health 2. The patient has a history of Parkinson. 3. Dementia. 4. Aspiration risk. 5. Anemia. 6. Coronary artery disease. 7. Hypertension. Blood pressure control per primary. 8. Benign prostatic hypertrophy. 9. HARDIK. 10. Hypoxia. 11. History of pneumonia. 12. No known allergies. 13. Social history is negative. 14. Family history is noncontributory. 15. MAR was noted. 16. Case was discussed with RN. 17. Continue treatment with primary consultants. 18. Skin care per protocol. Wounds were reviewed. There is no significant drain decubitus in the patient. 19. Notes and records reviewed. 20. Case was discussed with the patient's son at length and the family. 21. Case was discussed with Dr. Johnson. Subjective Constitutional: Denies: fatigue, fever HEENT: Denies: congestion Respiratory: Denies: shortness of breath Cardiovascular: Denies: chest pain Gastrointestinal/Abdominal: Denies: nausea, vomiting Genitourinary: Reports: other - + goldberg Neurologic: Denies: headache Psychiatric: Denies: depression Skin: Denies: rash Hematologic: Denies: bleeding Musculoskeletal: Denies: pain Allergies: Coded Allergies: No Known Allergies (Unverified , 09/16/16) Objective Vital Signs Last 24 Hour Vital Signs Date Time Temp Pulse Resp B/P Pulse Ox O2 Delivery O2 Flow Rate FiO2 09/23/16 16:00 97.7 74 20 123/69 95 Nasal Cannula 09/23/16 13:42 76 18 96 Room Air 09/23/16 13:32 73 18 97 Room Air 09/23/16 12:00 98.1 75 20 119/70 Nasal Cannula 09/23/16 09:40 97.3 09/23/16 09:01 73 16 97 Nasal Cannula 2.0 09/23/16 08:53 74 16 96 Nasal Cannula 2.0 09/23/16 08:53 Nasal Cannula 2.0 09/23/16 08:52 96 Nasal Cannula 2.0 09/23/16 08:00 100.1 76 20 128/74 95 Nasal Cannula 09/23/16 04:00 97.6 77 17 122/66 95 Nasal Cannula 2.0 09/23/16 01:03 72 16 97 Nasal Cannula 2.0 28 09/23/16 01:03 68 16 95 Nasal Cannula 2.0 28 09/23/16 00:17 97.4 71 16 138/75 93 Nasal Cannula 2.0 09/22/16 20:11 97.6 63 17 130/74 100 Nasal Cannula 2.0 09/22/16 19:45 70 16 99 Nasal Cannula 2.0 28 09/22/16 19:30 96 Nasal Cannula 2.0 28 09/22/16 19:30 67 16 96 Nasal Cannula 2.0 28 09/22/16 19:30 Nasal Cannula 2.0 28 Height (Feet): 5 Height (Inches): 11.00 Weight (Pounds): 147 General Appearance: no acute distress HEENT: normocephalic, atraumatic, anicteric, mucous membranes moist, PERRL, EOMI, pharynx normal, supple, no JVD, other - + ngt Respiratory/Chest: crackles/rales - few, rhonchi - bilaterally - few Cardiovascular: normal rate, regular rhythm, no gallop/murmur, no JVD Abdomen: normal bowel sounds, soft, non tender, no organomegaly, non distended Genitourinary: other - + goldberg - urine clear Extremities: no cyanosis Skin: no rash Neurologic/Psychiatric: driller portable II-XII grossly normal, alert, responsive Lymphatic: no neck adenopathy Musculoskeletal: no effusion Objective 09/21 - chest x-ray: Impression: Improved but persistent right mid and lower lung infiltrates. Suspect new or increased retrocardiac infiltrates Suspect small left pleural effusion Microbiology Date/Time Source Procedure Growth Status 09/20/16 23:30 Sputum Induced Gram Stain - Final Complete 09/20/16 23:30 Sputum Culture - Final Enterobacter Cloacae Complex Pseudomonas Aeruginosa Complete Laboratory Tests Test 09/23/16 04:55 White Blood Count 6.2 K/UL (4.8-10.8) Red Blood Count 3.13 M/UL (4.70-6.10) L Hemoglobin 9.5 G/DL (14.2-18.0) L Hematocrit 28.4 % (42.0-52.0) L Mean Corpuscular Volume 91 FL (80-99) Mean Corpuscular Hemoglobin 30.5 PG (27.0-31.0) Mean Corpuscular Hemoglobin Concent 33.6 G/DL (32.0-36.0) Red Cell Distribution Width 13.3 % (11.6-14.8) Platelet Count 193 K/UL (150-450) Mean Platelet Volume 7.5 FL (6.5-10.1) Neutrophils (%) (Auto) 79.5 % (45.0-75.0) H Lymphocytes (%) (Auto) 10.5 % (20.0-45.0) L Monocytes (%) (Auto) 7.2 % (1.0-10.0) Eosinophils (%) (Auto) 2.3 % (0.0-3.0) Basophils (%) (Auto) 0.6 % (0.0-2.0) Sodium Level 138 mEQ/L (135-145) Potassium Level 3.7 mEQ/L (3.4-4.9) Chloride Level 102 mEQ/L (98-107) Carbon Dioxide Level 26 mEQ/L (20-30) Anion Gap 10 (5-15) Blood Urea Nitrogen 11 mg/dL (7-23) Creatinine 0.8 mg/dL (0.7-1.2) Estimat Glomerular Filtration Rate mL/min (>60) Glucose Level 133 mg/dL (74-106) H Calcium Level 8.2 mg/dL (8.6-10.2) L Phosphorus Level 2.8 mg/dL (2.5-4.8) Magnesium Level 2.0 mg/dL (1.7-2.5) Current Medications Medications (Trade) Dose Ordered Sig/Angie Route PRN Reason Start Time Stop Time Status Last Admin Dose Admin Acetaminophen (Tylenol) 650 mg Q4H PRN ORAL FEVER>100.5 09/17/16 16:00 10/17/16 15:59 Acetaminophen (Tylenol) 650 mg Q4H PRN ORAL Mild Pain (Pain Scale 1-3) 09/17/16 19:30 10/17/16 19:29 Albuterol/ Ipratropium (DuoNeb 0.5-3(2.5)mg/3ml) 3 ml Q6HRT HHN 09/18/16 19:00 09/23/16 18:59 09/23/16 13:31 Artificial Tears 1 drop 1 drop QIDPRN PRN BOTH EYES Dry Eyes 09/18/16 15:15 10/18/16 15:14 Carbidopa/Levodopa (Sinemet 25/250) 1 ea TID@0700,1200,1700 NG 09/17/16 17:00 10/17/16 16:59 09/23/16 17:06 Dextrose (Dextrose 50%) STAT PRN IV Hypoglycemia 09/17/16 16:00 10/17/16 15:59 Diphenhydramine HCl (Benadryl) 25 mg Q6H PRN IVP ITCH and Insomnia 09/18/16 00:30 10/18/16 00:29 Glycopyrrolate (Robinul) 0.1 mg Q6H PRN IV excessive secretions 09/18/16 15:15 10/18/16 15:14 Heparin Sodium (Porcine) (Heparin 5000 units/ml) 5,000 units EVERY 12 HOURS SUBQ 09/17/16 21:00 10/17/16 20:59 09/23/16 09:45 Lorazepam (Ativan 2mg/ml 1ml) 0.5 mg Q4H PRN IV For Anxiety 09/17/16 16:30 09/24/16 16:29 Modafinil (Provigil) 200 mg DAILY ORAL 09/22/16 11:00 09/29/16 10:59 09/23/16 09:45 Morphine Sulfate (Morphine Sulfate) 2 mg Q6H PRN IVP Moderate Pain (Pain Scale 4-6) 09/17/16 16:00 09/24/16 15:59 Morphine Sulfate (Morphine 5mg/ 2.5ml Oral Soln) 5 mg Q3H PRN GT Breakthrough Pain 09/21/16 16:30 09/25/16 15:14 Ondansetron HCl (Zofran) 4 mg Q6H PRN IVP Nausea & Vomiting 09/17/16 16:00 10/17/16 15:59 Piperacillin Sod/ Tazobactam Sod/ Dextrose (Zosyn/D5W) 110 ml @ 27.5 mls/hr EVERY 8 HOURS IVPB 09/20/16 22:00 09/25/16 21:59 09/23/16 14:00 DOMINIC PARKER Sep 23, 2016 18:13
[2016-09-23 20:00] VITALS: BP 122/68
[2016-09-24] VITALS (7 sets, daily range): BP systolic 125–151; BP diastolic 66–80
[2016-09-24] MEDS: Piperacillin/Tazobactam 3.375 GM in D5W 110 ML IVPB SCH ×3 (06:25→22:05)
[2016-09-24 07:19] LABS: ANION GAP 7 (5-15); CALCIUM 8.3 mg/dL (8.6-10.2); CARBON DIOXIDE 29 mEQ/L (20-30); CHLORIDE 102 mEQ/L (98-107); CREATININE 0.8 mg/dL (0.7-1.2); HEMOLYSIS 0; SODIUM 138 mEQ/L (135-145)
[2016-09-24 07:31] LABS: BASOPHILS % (AUTO) 0.5 % (0.0-2.0); LYMPHOCYTES % (AUTO) 16.5 % (20.0-45.0); MEAN CORPUSCULAR HEMOGLOBIN 30.3 PG (27.0-31.0); MEAN CORPUSCULAR HGB CONC 33.2 G/DL (32.0-36.0); MEAN CORPUSCULAR VOLUME 91 FL (80-99); MEAN PLATELET VOLUME 7.2 FL (6.5-10.1); MONOCYTES % (AUTO) 8.4 % (1.0-10.0); NEUTROPHILS % (AUTO) 70.6 % (45.0-75.0); PLATELET COUNT 186 K/UL (150-450); RED BLOOD COUNT 3.14 M/UL (4.70-6.10); RED CELL DISTRIBUTION WIDTH 13.6 % (11.6-14.8); WHITE BLOOD COUNT 4.9 K/UL (4.8-10.8)
[2016-09-24] MEDS ORDERED: DiphenhydrAMINE & Zinc 28g Cream TOPIC PRN (10:00)
[2016-09-24] MEDS ORDERED: Vitamin A&D Oint 2oz Tube TOPIC SCH (10:00)
[2016-09-24] MEDS: Heparin 5000 units/ml inj SUBQ SCH ×2 (10:17→22:08)
--- NOTE | 2016-09-24 10:26 | GI Progress Note ---
Assessment/Plan Problems: (1) Lives in assisted living facility ICD Codes: Z59.3 - Problems related to living in residential institution SNOMED: 559748726 (2) Iron deficiency ICD Codes: E61.1 - Iron deficiency SNOMED: 12853179 (3) Dehydration ICD Codes: E86.0 - Dehydration SNOMED: 03420535 (4) Protein-calorie malnutrition, severe ICD Codes: E43 - Unspecified severe protein-calorie malnutrition SNOMED: 020878722 (5) Acute encephalopathy ICD Codes: G93.40 - Encephalopathy, unspecified SNOMED: 6870541 (6) Parkinson disease ICD Codes: G20 - Parkinson's disease SNOMED: 38595378 Status: stable Status Narrative Discussed with Dr. Robles. Assessment/Plan CT AP reviewed >> pneumonia NPO x meds >> fu ST eval TF via dobhoff Hold PO meds - current tube not ideal for crushed meds ppi monitor H&H, prn transfusions IV hydration + electrolyte correction abx fu labs level of care discussion with family Subjective Subjective limited, more awake Objective Last 24 Hour Vital Signs Date Time Temp Pulse Resp B/P Pulse Ox O2 Delivery O2 Flow Rate FiO2 09/24/16 08:20 97.7 68 18 136/77 96 Nasal Cannula 09/24/16 04:42 98.4 75 19 125/70 98 Nasal Cannula 2.0 09/24/16 00:21 98.3 74 16 129/73 95 Nasal Cannula 2.0 09/23/16 20:00 97.6 71 17 122/68 95 Nasal Cannula 09/23/16 19:50 97 Room Air 09/23/16 19:50 Room Air 09/23/16 16:00 97.7 74 20 123/69 95 Nasal Cannula 09/23/16 13:42 76 18 96 Room Air 09/23/16 13:32 73 18 97 Room Air 09/23/16 12:00 98.1 75 20 119/70 Nasal Cannula Intake and Output 09/23/16 09/24/16 19:00 07:00 Intake Total 600 ml 850 ml Output Total 1700 ml 500 ml Balance -1100 ml 350 ml Free Water 200 ml 80 ml IV Total 110 ml Tube Feeding 400 ml 660 ml Output Urine Total 1700 ml 500 ml # Voids 1 Laboratory Tests Test 09/24/16 05:30 White Blood Count 4.9 K/UL (4.8-10.8) Red Blood Count 3.14 M/UL (4.70-6.10) L Hemoglobin 9.5 G/DL (14.2-18.0) L Hematocrit 28.6 % (42.0-52.0) L Mean Corpuscular Volume 91 FL (80-99) Mean Corpuscular Hemoglobin 30.3 PG (27.0-31.0) Mean Corpuscular Hemoglobin Concent 33.2 G/DL (32.0-36.0) Red Cell Distribution Width 13.6 % (11.6-14.8) Platelet Count 186 K/UL (150-450) Mean Platelet Volume 7.2 FL (6.5-10.1) Neutrophils (%) (Auto) 70.6 % (45.0-75.0) Lymphocytes (%) (Auto) 16.5 % (20.0-45.0) L Monocytes (%) (Auto) 8.4 % (1.0-10.0) Eosinophils (%) (Auto) 4.0 % (0.0-3.0) H Basophils (%) (Auto) 0.5 % (0.0-2.0) Sodium Level 138 mEQ/L (135-145) Potassium Level 4.0 mEQ/L (3.4-4.9) Chloride Level 102 mEQ/L (98-107) Carbon Dioxide Level 29 mEQ/L (20-30) Anion Gap 7 (5-15) Blood Urea Nitrogen 13 mg/dL (7-23) Creatinine 0.8 mg/dL (0.7-1.2) Estimat Glomerular Filtration Rate mL/min (>60) Glucose Level 120 mg/dL (74-106) H Calcium Level 8.3 mg/dL (8.6-10.2) L Height (Feet): 5 Height (Inches): 11.00 Weight (Pounds): 147 General Appearance: no apparent distress Cardiovascular: normal rate Respiratory/Chest: normal breath sounds, no respiratory distress Abdominal Exam: normal bowel sounds, non tender, other - dobhoff Geovanna Agrawal NTeresa Sep 24, 2016 10:26
[2016-09-24] MEDS: Miralax 17gm pkt NG SCH (11:00)
[2016-09-24] MEDS: Modafinil 100mg tab ORAL SCH (11:00)
--- NOTE | 2016-09-24 12:05 | Diagnostic Imaging Report ---
Indications: Cough Technique: Portable AP chest Findings: Comparison: 09/21/16 Inspiratory effort has decreased. Cardiac silhouette remains enlarged. Bilateral interstitial infiltrates persist. Hazy opacities over both lung bases with associated costophrenic angle blunting have increased. Left retrocardiac region now obscured. Nasogastric tube remains in place. IMPRESSION: Persistent bilateral congestive changes with apparent increase in bilateral pleural effusions Underlying atelectasis or pneumonia left lower lobe not excludable
--- NOTE | 2016-09-24 12:15 | General Progress Note ---
Assessment/Plan Status: stable Assessment/Plan Renal failure acute vs chronic Cr resolved Encephalopathy Low BP , dehydration CAD Parkinson BPH HTN GERD Low Cognition Pneumonia, Aspiration plan: per PMD stable from renal stand DC planning?? Subjective ROS Limited/Unobtainable: No Constitutional: Reports: malaise Allergies: Coded Allergies: No Known Allergies (Unverified , 09/16/16) Objective Last 24 Hour Vital Signs Date Time Temp Pulse Resp B/P Pulse Ox O2 Delivery O2 Flow Rate FiO2 09/24/16 08:20 97.7 68 18 136/77 96 Nasal Cannula 09/24/16 04:42 98.4 75 19 125/70 98 Nasal Cannula 2.0 09/24/16 00:21 98.3 74 16 129/73 95 Nasal Cannula 2.0 09/23/16 20:00 97.6 71 17 122/68 95 Nasal Cannula 09/23/16 19:50 97 Room Air 09/23/16 19:50 Room Air 09/23/16 16:00 97.7 74 20 123/69 95 Nasal Cannula 09/23/16 13:42 76 18 96 Room Air 09/23/16 13:32 73 18 97 Room Air Intake and Output 09/23/16 09/24/16 19:00 07:00 Intake Total 600 ml 850 ml Output Total 1700 ml 500 ml Balance -1100 ml 350 ml Free Water 200 ml 80 ml IV Total 110 ml Tube Feeding 400 ml 660 ml Output Urine Total 1700 ml 500 ml # Voids 1 Laboratory Tests 09/24/16 05:30: White Blood Count 4.9, Red Blood Count 3.14L, Hemoglobin 9.5L, Hematocrit 28.6L , Mean Corpuscular Volume 91, Mean Corpuscular Hemoglobin 30.3, Mean Corpuscular Hemoglobin Concent 33.2, Red Cell Distribution Width 13.6, Platelet Count 186, Mean Platelet Volume 7.2, Neutrophils (%) (Auto) 70.6, Lymphocytes (% ) (Auto) 16.5L, Monocytes (%) (Auto) 8.4, Eosinophils (%) (Auto) 4.0H, Basophils (%) (Auto) 0.5, Sodium Level 138, Potassium Level 4.0, Chloride Level 102, Carbon Dioxide Level 29, Anion Gap 7, Blood Urea Nitrogen 13, Creatinine 0.8, Estimat Glomerular Filtration Rate , Glucose Level 120H, Calcium Level 8.3L Height (Feet): 5 Height (Inches): 11.00 Weight (Pounds): 147 General Appearance: no apparent distress Objective other PE not changed VANITA BILLINGS Sep 24, 2016 12:15
--- NOTE | 2016-09-24 12:44 | Neurology Progress Note ---
Interim History Interim History Interim History Mr. Luevano has been subdued today. As per his caregiver he has been coughing up a lot of secretions. He is non-verbal. The NGT feeding has been stopped.. He follows commands rarely. He continues to be cognitively impoverished and motorically challenged. Review of Systems Neuro Review of Systems Unable to obtain. Objective Physical Exam Last Vital Signs Date Time Temp Pulse Resp B/P Pulse Ox O2 Delivery O2 Flow Rate FiO2 09/24/16 12:25 97.9 73 18 151/80 97 Nasal Cannula 09/24/16 04:42 2.0 09/23/16 01:03 28 Laboratory Tests Test 09/24/16 05:30 White Blood Count 4.9 K/UL (4.8-10.8) Red Blood Count 3.14 M/UL (4.70-6.10) L Hemoglobin 9.5 G/DL (14.2-18.0) L Hematocrit 28.6 % (42.0-52.0) L Mean Corpuscular Volume 91 FL (80-99) Mean Corpuscular Hemoglobin 30.3 PG (27.0-31.0) Mean Corpuscular Hemoglobin Concent 33.2 G/DL (32.0-36.0) Red Cell Distribution Width 13.6 % (11.6-14.8) Platelet Count 186 K/UL (150-450) Mean Platelet Volume 7.2 FL (6.5-10.1) Neutrophils (%) (Auto) 70.6 % (45.0-75.0) Lymphocytes (%) (Auto) 16.5 % (20.0-45.0) L Monocytes (%) (Auto) 8.4 % (1.0-10.0) Eosinophils (%) (Auto) 4.0 % (0.0-3.0) H Basophils (%) (Auto) 0.5 % (0.0-2.0) Sodium Level 138 mEQ/L (135-145) Potassium Level 4.0 mEQ/L (3.4-4.9) Chloride Level 102 mEQ/L (98-107) Carbon Dioxide Level 29 mEQ/L (20-30) Anion Gap 7 (5-15) Blood Urea Nitrogen 13 mg/dL (7-23) Creatinine 0.8 mg/dL (0.7-1.2) Estimat Glomerular Filtration Rate mL/min (>60) Glucose Level 120 mg/dL (74-106) H Calcium Level 8.3 mg/dL (8.6-10.2) L Neurologic Exam Objective PHYSICAL EXAMINATION: GENERAL: He is a well-developed, well-nourished, pleasant gentleman, lying in bed in no acute distress. HEAD: Normocephalic and atraumatic. EENT: Examination benign. NECK: No neck rigidity was observed. NEUROLOGICAL EXAMINATION: MENTAL STATUS EXAMINATION: He was awake but subdued. He was non verbal. He did follow a few commands inconsistently. Further mental status testing was impossible. SPEECH: He was mute. LANGUAGE: He followed a few simple commands but was mute. CRANIAL NERVE EXAMINATION: II: He did blink to threat in all yi. III, IV & : External ocular movements were present. The pupils were 3 mm in diameter, equal, round, regular and reactive sluggishly to light. V & VII: The corneal reflexes were present bilaterally. VIII: He was able to hear and had no nystagmus. IX & X: The gag reflex was present but diminished. XI: The sternocleidomastoids and trapezii functioned. XII: The tongue was in midline without any fasciculations or atrophy. MOTOR SYSTEM: The tone was increased in all four extremities with spasticity. Examination of muscle mass revealed generalized muscle wasting. Examination of power was impossible to perform in an organized manner. 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 SENSORY EXAMINATION: He responded appropriately to deep pain. He was unable to cooperate for other sensory modalities. REFLEXES: Trace+ and bilaterally symmetrical at the biceps, triceps, brachioradialis, knees, and zero at both ankles. The plantar responses were flexor bilaterally. COORDINATION, STANCE & GAIT: Could not be tested. ABNORMAL MOVEMENTS: Tremor (7-8 Hz): G Tr/4 Tremor (4-5 Hz): G 0/4 Rigidity: G 0/4 Bradykinesia: G 2/4 Hypomimia: G 2/4. Impression/Recommendations Diagnostic Impression 1. Mr. Naseem Luevano is an 86-year-old, gentleman, of unknown handedness, who does have a past history of coronary artery disease, Parkinson' s disease, dementia, being nonverbal and being essentially bed-bound, who was hospitalized for a change in mental state, which was discovered to be due to a pneumonia. 2. He is subdued today. He is non-verbal. He is still cognitively impoverished and motorically challenged. 3. On neurological examination, at this time, he is subdued and non-verbal. 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 In addition, he also has bradykinesia, hypomimia, and globally diminished reflexes with extensor plantar responses bilaterally. 4. Laboratory data on admission revealed that he was anemic with a hemoglobin of 10.4. His creatinine was elevated to 1.8. His alkaline phosphatase was elevated to 132. He also had lactic acidosis which has now improved. His urinalysis was essentially benign. 5. A CT scan of the chest, abdomen and pelvis revealed bilateral pneumonia involving the lower lung yi, fecal impaction with moderate distention of his rectum, multiple liver cysts, gallbladder stones versus sludge., compression fractures of the T12 and L3 which looked old, an old left hip fracture that was pinned, a right psoas lipoma. 6. The CT of the brain revealed significant fronto-temporal atrophy and deep white matter changes. 7. The patient's history, neurological examination, and laboratory data are most compatible with an encephalopathy related to his pneumonia and sepsis. 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 8. He is subdued today but his parkinsonian syndrome is relatively well controlled. His NGT feeds have been stopped due to increased secretions.. Recommendations 1. Continue present management. 2. Sinemet 25/250 q 7AM, 12 Noon, 5 PM. 3. Frequent range of motion exercises should be performed. Paresh Dickson M.D., M[facility]. PARESH DICKSON Sep 24, 2016 12:44
[2016-09-24] MEDS: DuoNeb 0.5-3(2.5)mg/3ml neb HHN SCH ×3 (12:58→19:55)
--- NOTE | 2016-09-24 18:11 | Infectious Diseases Prog Note ---
Assessment/Plan Assessment/Plan ASSESSMENT AND PLAN: 1. pseudomonas/enterobacter pna, aspiration pna/hap pna, sepsis, fevers, weakness, sirs - clinically more alert, fevers resolved - 09/21 - chest x-ray improved on right but possible new retrocardiac infiltrate - continue zosyn for now - day # 4 abx - check labs and f/u chest x-ray - pulmonary treatment - d/w pharmacy - d/w Dr. Johnson about abx - can discharge on iv cefepime and po flagy for one week, home health 2. The patient has a history of Parkinson. 3. Dementia. 4. Aspiration risk. 5. Anemia. 6. Coronary artery disease. 7. Hypertension. Blood pressure control per primary. 8. Benign prostatic hypertrophy. 9. HARDIK. 10. Hypoxia. 11. History of pneumonia. 12. No known allergies. 13. Social history is negative. 14. Family history is noncontributory. 15. MAR was noted. 16. Case was discussed with RN. 17. Continue treatment with primary consultants. 18. Skin care per protocol. Wounds were reviewed. There is no significant drain decubitus in the patient. 19. Notes and records reviewed. 20. Case was discussed with the patient's son at length and the family. 21. Case was discussed with Dr. Johnson. Subjective Constitutional: Reports: fatigue, fever - lgt x 1, other - more alert Respiratory: Denies: shortness of breath Cardiovascular: Denies: chest pain Gastrointestinal/Abdominal: Denies: constipation, diarrhea, nausea, vomiting Genitourinary: Reports: other - + goldberg Neurologic: Denies: headache Psychiatric: Reports: no symptoms Hematologic: Denies: bleeding Musculoskeletal: Denies: pain Allergies: Coded Allergies: No Known Allergies (Unverified , 09/16/16) Objective Vital Signs Last 24 Hour Vital Signs Date Time Temp Pulse Resp B/P Pulse Ox O2 Delivery O2 Flow Rate FiO2 09/24/16 16:45 97.2 74 19 134/76 94 Nasal Cannula 09/24/16 12:25 97.9 73 18 151/80 97 Nasal Cannula 09/24/16 08:20 97.7 68 18 136/77 96 Nasal Cannula 09/24/16 04:42 98.4 75 19 125/70 98 Nasal Cannula 2.0 09/24/16 00:21 98.3 74 16 129/73 95 Nasal Cannula 2.0 09/23/16 20:00 97.6 71 17 122/68 95 Nasal Cannula 09/23/16 19:50 97 Room Air 09/23/16 19:50 Room Air Height (Feet): 5 Height (Inches): 11.00 Weight (Pounds): 147 General Appearance: no acute distress HEENT: normocephalic, atraumatic, anicteric, PERRL, EOMI, supple, no JVD Respiratory/Chest: crackles/rales, rhonchi - bilaterally Cardiovascular: normal rate, regular rhythm, no gallop/murmur, no JVD Abdomen: normal bowel sounds, soft, non tender, no organomegaly, non distended Genitourinary: other - + goldberg Extremities: no cyanosis Skin: no rash 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 Suspect new or increased retrocardiac infiltrates Suspect small left pleural effusion Microbiology Date/Time Source Procedure Growth Status 09/16/16 19:45 Blood Blood Culture - Final NO GROWTH AFTER 5 DAYS Complete 09/20/16 23:30 Sputum Induced Gram Stain - Final Complete 09/20/16 23:30 Sputum Culture - Final Enterobacter Cloacae Complex Pseudomonas Aeruginosa Complete 09/16/16 21:41 Rectum VRE Culture - Final NO VANCOMYCIN RESISTANT ENTEROCOCCUS ... Complete Laboratory Tests Test 09/24/16 05:30 White Blood Count 4.9 K/UL (4.8-10.8) Red Blood Count 3.14 M/UL (4.70-6.10) L Hemoglobin 9.5 G/DL (14.2-18.0) L Hematocrit 28.6 % (42.0-52.0) L Mean Corpuscular Volume 91 FL (80-99) Mean Corpuscular Hemoglobin 30.3 PG (27.0-31.0) Mean Corpuscular Hemoglobin Concent 33.2 G/DL (32.0-36.0) Red Cell Distribution Width 13.6 % (11.6-14.8) Platelet Count 186 K/UL (150-450) Mean Platelet Volume 7.2 FL (6.5-10.1) Neutrophils (%) (Auto) 70.6 % (45.0-75.0) Lymphocytes (%) (Auto) 16.5 % (20.0-45.0) L Monocytes (%) (Auto) 8.4 % (1.0-10.0) Eosinophils (%) (Auto) 4.0 % (0.0-3.0) H Basophils (%) (Auto) 0.5 % (0.0-2.0) Sodium Level 138 mEQ/L (135-145) Potassium Level 4.0 mEQ/L (3.4-4.9) Chloride Level 102 mEQ/L (98-107) Carbon Dioxide Level 29 mEQ/L (20-30) Anion Gap 7 (5-15) Blood Urea Nitrogen 13 mg/dL (7-23) Creatinine 0.8 mg/dL (0.7-1.2) Estimat Glomerular Filtration Rate mL/min (>60) Glucose Level 120 mg/dL (74-106) H Calcium Level 8.3 mg/dL (8.6-10.2) L Current Medications Medications (Trade) Dose Ordered Sig/Angie Route PRN Reason Start Time Stop Time Status Last Admin Dose Admin Acetaminophen (Tylenol) 650 mg Q4H PRN ORAL FEVER>100.5 09/17/16 16:00 10/17/16 15:59 Acetaminophen (Tylenol) 650 mg Q4H PRN ORAL Mild Pain (Pain Scale 1-3) 09/17/16 19:30 10/17/16 19:29 Albuterol/ Ipratropium (DuoNeb 0.5-3(2.5)mg/3ml) 3 ml Q6HRT HHN 09/24/16 10:45 09/29/16 10:44 09/24/16 12:58 Artificial Tears (Akwa-Tears) 1 drop QIDPRN PRN BOTH EYES Dry Eyes 09/18/16 15:15 10/18/16 15:14 Carbidopa/Levodopa (Sinemet 25/250) 1 ea TID@0700,1200,1700 NG 09/17/16 17:00 10/17/16 16:59 09/24/16 13:23 Dextrose (Dextrose 50%) STAT PRN IV Hypoglycemia 09/17/16 16:00 10/17/16 15:59 Glycopyrrolate (Robinul) 0.1 mg Q6H PRN IV excessive secretions 09/18/16 15:15 10/18/16 15:14 Heparin Sodium (Porcine) (Heparin 5000 units/ml) 5,000 units EVERY 12 HOURS SUBQ 09/17/16 21:00 10/17/16 20:59 09/24/16 10:17 Modafinil 200 mg 200 mg DAILY ORAL 09/22/16 11:00 09/29/16 10:59 09/24/16 11:00 Morphine Sulfate (Morphine 5mg/ 2.5ml Oral Soln) 5 mg Q3H PRN GT Breakthrough Pain 09/21/16 16:30 09/25/16 15:14 Ondansetron HCl (Zofran) 4 mg Q6H PRN IVP Nausea & Vomiting 09/17/16 16:00 10/17/16 15:59 Piperacillin Sod/ Tazobactam Sod/ Dextrose (Zosyn/D5W) 110 ml @ 27.5 mls/hr EVERY 8 HOURS IVPB 09/23/16 22:00 09/28/16 21:59 09/24/16 14:50 Polyethylene Glycol (Miralax) 17 gm DAILY NG 09/24/16 11:00 10/24/16 10:59 09/24/16 11:00 DOMINIC PARKER Sep 24, 2016 18:11
--- NOTE | 2016-09-24 21:36 | Pulmonology Progress Note ---
Assessment/Plan Problems: (1) Sepsis (2) ATN (acute tubular necrosis) (3) Acute encephalopathy (4) Pneumonia (5) Protein-calorie malnutrition, severe (6) Dementia (7) Parkinson disease (8) Limited mobility Assessment/Plan tolerating feeding more cough according to the home health care worker change face mask to NC tolerating NG tube. feeding taper fio2, pulse oximeter on room air dc planning in process Subjective Interval Events: open eyes Allergies: Coded Allergies: No Known Allergies (Unverified , 09/16/16) Objective Last 24 Hour Vital Signs Date Time Temp Pulse Resp B/P Pulse Ox O2 Delivery O2 Flow Rate FiO2 09/24/16 20:45 97.9 67 20 126/66 99 Room Air 09/24/16 20:02 69 15 98 Room Air 21 09/24/16 19:57 21 09/24/16 19:57 92 15 93 Room Air 21 09/24/16 19:56 Room Air 21 09/24/16 19:56 93 Room Air 21 09/24/16 16:45 97.2 74 19 134/76 94 Nasal Cannula 09/24/16 12:25 97.9 73 18 151/80 97 Nasal Cannula 09/24/16 08:20 97.7 68 18 136/77 96 Nasal Cannula 09/24/16 04:42 98.4 75 19 125/70 98 Nasal Cannula 2.0 09/24/16 00:21 98.3 74 16 129/73 95 Nasal Cannula 2.0 Intake and Output 09/23/16 09/24/16 19:00 07:00 Intake Total 600 ml 850 ml Output Total 1700 ml 500 ml Balance -1100 ml 350 ml Free Water 200 ml 80 ml IV Total 110 ml Tube Feeding 400 ml 660 ml Output Urine Total 1700 ml 500 ml # Voids 1 Objective General Appearance: WD/WN HEENT: normocephalic, atraumatic Respiratory/Chest: chest wall non-tender, lungs clear Breasts: no masses Cardiovascular: normal peripheral pulses, normal rate Abdomen: normal bowel sounds, soft, non tender Genitourinary: normal external genitalia Extremities: no cyanosis Skin: no rash 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, normal mood/affect Lymphatic: no groin adenopathy Laboratory Tests 09/24/16 05:30: White Blood Count 4.9, Red Blood Count 3.14L, Hemoglobin 9.5L, Hematocrit 28.6L , Mean Corpuscular Volume 91, Mean Corpuscular Hemoglobin 30.3, Mean Corpuscular Hemoglobin Concent 33.2, Red Cell Distribution Width 13.6, Platelet Count 186, Mean Platelet Volume 7.2, Neutrophils (%) (Auto) 70.6, Lymphocytes (% ) (Auto) 16.5L, Monocytes (%) (Auto) 8.4, Eosinophils (%) (Auto) 4.0H, Basophils (%) (Auto) 0.5, Sodium Level 138, Potassium Level 4.0, Chloride Level 102, Carbon Dioxide Level 29, Anion Gap 7, Blood Urea Nitrogen 13, Creatinine 0.8, Estimat Glomerular Filtration Rate , Glucose Level 120H, Calcium Level 8.3L Current Medications Medications (Trade) Dose Ordered Sig/Angie Route PRN Reason Start Time Stop Time Status Last Admin Dose Admin Acetaminophen (Tylenol) 650 mg Q4H PRN ORAL FEVER>100.5 09/17/16 16:00 10/17/16 15:59 Acetaminophen (Tylenol) 650 mg Q4H PRN ORAL Mild Pain (Pain Scale 1-3) 09/17/16 19:30 10/17/16 19:29 Albuterol/ Ipratropium (DuoNeb 0.5-3(2.5)mg/3ml) 3 ml Q6HRT HHN 09/24/16 10:45 09/29/16 10:44 09/24/16 19:55 Artificial Tears (Akwa-Tears) 1 drop QIDPRN PRN BOTH EYES Dry Eyes 09/18/16 15:15 10/18/16 15:14 Carbidopa/Levodopa (Sinemet 25/250) 1 ea TID@0700,1200,1700 NG 09/17/16 17:00 10/17/16 16:59 09/24/16 18:49 Dextrose (Dextrose 50%) STAT PRN IV Hypoglycemia 09/17/16 16:00 10/17/16 15:59 Glycopyrrolate (Robinul) 0.1 mg Q6H PRN IV excessive secretions 09/18/16 15:15 10/18/16 15:14 Heparin Sodium (Porcine) (Heparin 5000 units/ml) 5,000 units EVERY 12 HOURS SUBQ 09/17/16 21:00 10/17/16 20:59 09/24/16 10:17 Modafinil 200 mg 200 mg DAILY ORAL 09/22/16 11:00 09/29/16 10:59 09/24/16 11:00 Morphine Sulfate (Morphine 5mg/ 2.5ml Oral Soln) 5 mg Q3H PRN GT Breakthrough Pain 09/21/16 16:30 09/25/16 15:14 Ondansetron HCl (Zofran) 4 mg Q6H PRN IVP Nausea & Vomiting 09/17/16 16:00 10/17/16 15:59 Piperacillin Sod/ Tazobactam Sod/ Dextrose (Zosyn/D5W) 110 ml @ 27.5 mls/hr EVERY 8 HOURS IVPB 09/23/16 22:00 09/28/16 21:59 09/24/16 14:50 Polyethylene Glycol (Miralax) 17 gm DAILY NG 09/24/16 11:00 10/24/16 10:59 09/24/16 11:00 CHILO SHANKS Sep 24, 2016 21:36
--- NOTE | 2016-09-25 00:18 | Wound Nurse Progress Note ---
Wound RN Progress Note Wound Consult #1 Sacral stage 1 pressure ulcer. Still intact #2 Bridge of nose stage 1 pressure ulcer. Still intact #3 Left heel stage 1 pressure ulcer. Still intact #4 Right heel stage 1 pressure ulcer. Still intact Recommendation. - Local wound care as ordered. - Apply low air loss SPR mattress for skin and wound management. - Apply foam cushion tape to bridge of nose and sides of cheek for skin management and prevention 02 mask. - Turn and reposition. - Offload affected pressure sites. place pillows offload. - Apply heel protectors, Offload heels. - Optimize nutrition. - Keep clean and dry. - Avoid shear and friction. - Assess and notify MD for any further changes of condition to skin noted. MOISES OSPINA RN Sep 25, 2016 00:18
--- NOTE | 2016-09-25 00:57 | Cardiology Report ---
APPROVED REPORT EKG Measurement Heart [id number] MA 128P [id number] Sinus tachycardia with premature atrial complexes Cannot rule out Anterior infarct, age undetermined Abnormal ECG
[2016-09-25] MEDS: DuoNeb 0.5-3(2.5)mg/3ml neb HHN SCH ×4 (01:48→19:45)
[2016-09-25 04:08] VITALS: BP 148/63
[2016-09-25] MEDS: Piperacillin/Tazobactam 3.375 GM in D5W 110 ML IVPB SCH ×3 (05:00→21:23)
[2016-09-25 07:23] LABS: BASOPHILS % (AUTO) 0.7 % (0.0-2.0); EOSINOPHILS % (AUTO) 2.7 % (0.0-3.0); LYMPHOCYTES % (AUTO) 17.6 % (20.0-45.0); MEAN CORPUSCULAR VOLUME 91 FL (80-99); MEAN PLATELET VOLUME 7.2 FL (6.5-10.1); MONOCYTES % (AUTO) 8.2 % (1.0-10.0); NEUTROPHILS % (AUTO) 70.7 % (45.0-75.0); PLATELET COUNT 192 K/UL (150-450); RED CELL DISTRIBUTION WIDTH 13.6 % (11.6-14.8); WHITE BLOOD COUNT 5.2 K/UL (4.8-10.8)
[2016-09-25 07:31] LABS: ANION GAP 7 (5-15); CALCIUM 8.4 mg/dL (8.6-10.2); CARBON DIOXIDE 28 mEQ/L (20-30); CHLORIDE 102 mEQ/L (98-107); CREATININE 0.8 mg/dL (0.7-1.2); HEMOLYSIS 3; MAGNESIUM 1.8 mg/dL (1.7-2.5); PHOSPHORUS 2.4 mg/dL (2.5-4.8); POTASSIUM 4.1 mEQ/L (3.4-4.9); SODIUM 137 mEQ/L (135-145)
--- NOTE | 2016-09-25 07:47 | General Progress Note ---
Assessment/Plan Problem List: (1) Acute respiratory failure with hypoxia ICD Codes: J96.01 - Acute respiratory failure with hypoxia SNOMED: 64271820, 379078593 (2) Severe sepsis ICD Codes: A41.9 - Sepsis, unspecified organism; R65.20 - Severe sepsis without septic shock SNOMED: 84677543 (3) Aspiration pneumonia ICD Codes: J69.0 - Pneumonitis due to inhalation of food and vomit SNOMED: 252562219 (4) Lactic acidosis ICD Codes: E87.2 - Acidosis SNOMED: 13677485 (5) Toxic metabolic encephalopathy ICD Codes: G92 - Toxic encephalopathy SNOMED: 707682181 (6) Parkinson disease ICD Codes: G20 - Parkinson's disease SNOMED: 53041727 (7) Dementia ICD Codes: F03.90 - Unspecified dementia without behavioral disturbance SNOMED: 13134203 (8) ALMA (acute kidney injury) ICD Codes: N17.9 - Acute kidney failure, unspecified SNOMED: 54357369 (9) ATN (acute tubular necrosis) ICD Codes: N17.0 - Acute kidney failure with tubular necrosis SNOMED: 08424643 (10) Protein-calorie malnutrition, severe ICD Codes: E43 - Unspecified severe protein-calorie malnutrition SNOMED: 259364851 (11) Iron deficiency ICD Codes: E61.1 - Iron deficiency SNOMED: 18403175 (12) BPH (benign prostatic hyperplasia) ICD Codes: N40.0 - Benign prostatic hyperplasia without lower urinary tract symptoms SNOMED: 666166046, 229382742 (13) CAD (coronary artery disease) ICD Codes: I25.10 - Atherosclerotic heart disease of [place] coronary artery without angina pectoris SNOMED: 86749487 (14) Pressure ulcer Assessment & Plan: #1 Sacral stage 1 pressure ulcer. #2 Bridge of nose stage 1 pressure ulcer. #3 Left heel stage 1 pressure ulcer. #4 Right heel stage 1 pressure ulcer. 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 DME order place Hospital bed, low pressure mattress, frank lift ordered--pt requires these items due to h/o advanced Parkinson's disease, dementia, aspiration pneumonia, pressure ulcers. He will need frequent body changing and positioning in ways not feasible in an ordinary bed. He will need HOB elevation given high aspiration risk per POLE SHAVER HELPER. Pt is also at risk of body deconditioning and worsening pressure sores. Home IV abx ordered on d/c: cefepime 2g q24 x 7 days per ID Empiric flagyl 500mg PO TID x 7 days on d/c per ID DC planning DVT Prophylaxis: SCD, HSQ Code Status: DNR/DNI Hospital Classification Declaration: Based on this initial evaluation, and depending on the patient's clinical course, I anticipate that this patient will require hospitalization for 12 days for severe sepsis, aspiration PNA, ALMA and close respiratory/hemodynamic monitoring. Disposition: Once the patient is stable to leave the hospital, I anticipate the patient will likely be discharged to the following environment: Home w/ HH +CG vs SNF Discussed with patient/family, nursing staff, SW/CM, pulmonology, renal, neurology regarding clinical status, treatment course, and disposition planning. D/w family extensively regarding plan of care. D/w pulm re PNA. D/w ID re abx. D/w son re plan of care Time of note may not reflect time of encounter. Subjective Date patient seen: Sep 24, 2016 Time patient seen: 12:00 ROS Limited/Unobtainable: Yes Allergies: Coded Allergies: No Known Allergies (Unverified , 09/16/16) Subjective No acute o/n events Cont on tube feeds via Dobhoff Cont IV zosyn per ID More awake, following simple commands and per CG said a few words Congestion improved Caregiver feeding small amts of puree diet Sinemet being given crushed in apple sauce DC pending arrangement of all DME, home health for feeds and IV abx. Awaiting CM to confirm Objective Last 24 Hour Vital Signs Date Time Temp Pulse Resp B/P Pulse Ox O2 Delivery O2 Flow Rate FiO2 09/25/16 07:36 69 18 100 Room Air 21 09/25/16 07:33 Room Air 09/25/16 07:32 94 Room Air 09/25/16 07:26 71 18 94 Room Air 09/25/16 04:08 98.1 70 20 148/63 96 Room Air 09/25/16 01:53 67 16 99 Room Air 09/25/16 01:46 69 16 97 Room Air 09/25/16 01:46 21 09/24/16 23:58 96.3 69 20 131/71 97 Room Air 09/24/16 20:45 97.9 67 20 126/66 99 Room Air 09/24/16 20:02 69 15 98 Room Air 09/24/16 19:57 21 09/24/16 19:57 92 15 93 Room Air 21 09/24/16 19:56 Room Air 21 09/24/16 19:56 93 Room Air 21 09/24/16 16:45 97.2 74 19 134/76 94 Nasal Cannula 09/24/16 12:25 97.9 73 18 151/80 97 Nasal Cannula 09/24/16 08:20 97.7 68 18 136/77 96 Nasal Cannula Intake and Output 09/24/16 09/25/16 19:00 07:00 Intake Total 605 ml Output Total 700 ml 1600 ml Balance -95 ml -1600 ml Tube Feeding 605 ml Output Urine Total 700 ml 1600 ml Laboratory Tests 09/25/16 05:10: White Blood Count 5.2, Red Blood Count 3.20L, Hemoglobin 9.9L, Hematocrit 29.2L , Mean Corpuscular Volume 91, Mean Corpuscular Hemoglobin 31.0, Mean Corpuscular Hemoglobin Concent 34.0, Red Cell Distribution Width 13.6, Platelet Count 192, Mean Platelet Volume 7.2, Neutrophils (%) (Auto) 70.7, Lymphocytes (% ) (Auto) 17.6L, Monocytes (%) (Auto) 8.2, Eosinophils (%) (Auto) 2.7, Basophils (%) (Auto) 0.7, Sodium Level 137, Potassium Level 4.1, Chloride Level 102, Carbon Dioxide Level 28, Anion Gap 7, Blood Urea Nitrogen 14, Creatinine 0.8, Estimat Glomerular Filtration Rate , Glucose Level 121H, Calcium Level 8.4L, Phosphorus Level 2.4L, Magnesium Level 1.8 Height (Feet): 5 Height (Inches): 11.00 Weight (Pounds): 147 Objective General: eyes open, poorly responsive to voice or pain, NAD, appears stated age Head: normocephalic, without obvious abnormality, atraumatic Eyes: conjunctivae/corneas clear. PERRL, EOM's intact Throat: lips, mucosa, and tongue normal. MMM Neck: supple, symmetrical, trachea midline, and no JVD Lungs: +rhonchi b/l Heart: regular rate and rhythm, S1, S2 normal, no murmur, click, rub or gallop Abdomen: soft, non-tender, non-distended, bowel sounds normal; no masses or organomegaly Extremities: extremities normal, atraumatic, no cyanosis or edema Pulses: 2+ and symmetric Skin: skin color, texture, turgor normal; no rashes or lesions Neurologic: grossly normal, no focal deficits Elizabeth Portillo M.D. Sep 25, 2016 07:47
--- NOTE | 2016-09-25 07:50 | Pulmonology Progress Note ---
Assessment/Plan Assessment/Plan ASSESSMENT acute hypoxemic RF requiring NRM 2 to aspiration PNA severe sepsis aspiration PNA acute toxic metabolic encephalopathy Parkinson disease ARF severe protein calorie malnutrition anemia CAD BPH Dysphagia high aspiration risk e/lyte imbalance : hypo P, hypo Mg PLAN OF CARE MS floor weaned to NC pulse oximetry stable pulmonary toilet ( HHN and CPT) suction frequently sputum cx + Enterobacter, Pseudomonas abx ID follows fup CXR with persistent bilateral congestive changes CT C/A/P noted, + bilateral PNA CT head no acute IC pathology, + chronic small vessel disease neuro follows per neuro acute encephalopathy likely due to infectious process levodopa continued Dobbhoff placed by GI TF per NGT strict aspiration precautions, monitor NGT tolerance no meds via NGT as per GI swallow eval with high aspiration risk, recommended NPO status and nonoral feeding ARF resolved, likely due to dehydration nephro follows P replacement per nephro today HH at baseline, monitor, goal to keep Hgb above 7 pain management Bowel regimen hospice eval with initial plan to dc home with hospice services currently family changed decision dc plan home with HH and DME - per PMD DNR/DNI status case discussed and evaluated by supervising physician Subjective Allergies: Coded Allergies: No Known Allergies (Unverified , 09/16/16) Subjective weaned to NC on MS floor afebrile, no leukocytosis NGT with TF Objective Last 24 Hour Vital Signs Date Time Temp Pulse Resp B/P Pulse Ox O2 Delivery O2 Flow Rate FiO2 09/25/16 07:36 69 18 100 Room Air 09/25/16 07:33 Room Air 09/25/16 07:32 94 Room Air 09/25/16 07:26 71 18 94 Room Air 09/25/16 04:08 98.1 70 20 148/63 96 Room Air 09/25/16 01:53 67 16 99 Room Air 09/25/16 01:46 69 16 97 Room Air 09/25/16 01:46 21 09/24/16 23:58 96.3 69 20 131/71 97 Room Air 09/24/16 20:45 97.9 67 20 126/66 99 Room Air 09/24/16 20:02 69 15 98 Room Air 09/24/16 19:57 21 09/24/16 19:57 92 15 93 Room Air 09/24/16 19:56 Room Air 09/24/16 19:56 93 Room Air 21 09/24/16 16:45 97.2 74 19 134/76 94 Nasal Cannula 09/24/16 12:25 97.9 73 18 151/80 97 Nasal Cannula 09/24/16 08:20 97.7 68 18 136/77 96 Nasal Cannula Intake and Output 09/24/16 09/25/16 19:00 07:00 Intake Total 605 ml Output Total 700 ml 1600 ml Balance -95 ml -1600 ml Tube Feeding 605 ml Output Urine Total 700 ml 1600 ml General Appearance: cachetic, other - bedridden elderly male in NAD HEENT: normocephalic, atraumatic, anicteric, other - NGT Respiratory/Chest: no accessory muscle use, rhonchi - scattered Cardiovascular: normal peripheral pulses, normal rate, no JVD Abdomen: normal bowel sounds, soft, non tender Extremities: no edema, pedal pulses normal Neurologic/Psychiatric: abnormal gait - bedridden , awake, poorly responsive Musculoskeletal: atrophy - BLE Laboratory Tests 09/25/16 05:10: White Blood Count 5.2, Red Blood Count 3.20L, Hemoglobin 9.9L, Hematocrit 29.2L , Mean Corpuscular Volume 91, Mean Corpuscular Hemoglobin 31.0, Mean Corpuscular Hemoglobin Concent 34.0, Red Cell Distribution Width 13.6, Platelet Count 192, Mean Platelet Volume 7.2, Neutrophils (%) (Auto) 70.7, Lymphocytes (% ) (Auto) 17.6L, Monocytes (%) (Auto) 8.2, Eosinophils (%) (Auto) 2.7, Basophils (%) (Auto) 0.7, Sodium Level 137, Potassium Level 4.1, Chloride Level 102, Carbon Dioxide Level 28, Anion Gap 7, Blood Urea Nitrogen 14, Creatinine 0.8, Estimat Glomerular Filtration Rate , Glucose Level 121H, Calcium Level 8.4L, Phosphorus Level 2.4L, Magnesium Level 1.8 Current Medications Medications (Trade) Dose Ordered Sig/Angie Route PRN Reason Start Time Stop Time Status Last Admin Dose Admin Acetaminophen (Tylenol) 650 mg Q4H PRN ORAL FEVER>100.5 09/17/16 16:00 10/17/16 15:59 Acetaminophen (Tylenol) 650 mg Q4H PRN ORAL Mild Pain (Pain Scale 1-3) 09/17/16 19:30 10/17/16 19:29 Albuterol/ Ipratropium (DuoNeb 0.5-3(2.5)mg/3ml) 3 ml Q6HRT HHN 09/24/16 10:45 09/29/16 10:44 09/25/16 07:32 Artificial Tears (Akwa-Tears) 1 drop QIDPRN PRN BOTH EYES Dry Eyes 09/18/16 15:15 10/18/16 15:14 Carbidopa/Levodopa (Sinemet 25/250) 1 ea TID@0700,1200,1700 NG 09/17/16 17:00 10/17/16 16:59 09/25/16 06:07 Dextrose (Dextrose 50%) STAT PRN IV Hypoglycemia 09/17/16 16:00 10/17/16 15:59 Glycopyrrolate (Robinul) 0.1 mg Q6H PRN IV excessive secretions 09/18/16 15:15 10/18/16 15:14 Heparin Sodium (Porcine) (Heparin 5000 units/ml) 5,000 units EVERY 12 HOURS SUBQ 09/17/16 21:00 10/17/16 20:59 09/24/16 22:08 Modafinil 200 mg 200 mg DAILY ORAL 09/22/16 11:00 09/29/16 10:59 09/24/16 11:00 Morphine Sulfate (Morphine 5mg/ 2.5ml Oral Soln) 5 mg Q3H PRN GT Breakthrough Pain 09/21/16 16:30 09/25/16 15:14 Ondansetron HCl (Zofran) 4 mg Q6H PRN IVP Nausea & Vomiting 09/17/16 16:00 10/17/16 15:59 Piperacillin Sod/ Tazobactam Sod/ Dextrose (Zosyn/D5W) 110 ml @ 27.5 mls/hr EVERY 8 HOURS IVPB 09/23/16 22:00 09/28/16 21:59 09/25/16 05:00 Polyethylene Glycol (Miralax) 17 gm DAILY NG 09/24/16 11:00 10/24/16 10:59 09/24/16 11:00 Ca Saldivar NP (Vanchtein) Sep 25, 2016 07:50
[2016-09-25 08:11] VITALS: BP 102/58
[2016-09-25] MEDS: Modafinil 100mg tab ORAL SCH (09:00)
[2016-09-25] MEDS: Miralax 17gm pkt NG SCH (09:00)
--- NOTE | 2016-09-25 09:11 | General Progress Note ---
Assessment/Plan Status: unchanged Assessment/Plan Renal failure acute vs chronic Cr resolved Encephalopathy Low BP , dehydration CAD Parkinson BPH HTN GERD Low Cognition Pneumonia, Aspiration plan: per PMD stable from renal stand- Phos via NGT DC planning?? Subjective ROS Limited/Unobtainable: No Constitutional: Reports: malaise Allergies: Coded Allergies: No Known Allergies (Unverified , 09/16/16) Objective Last 24 Hour Vital Signs Date Time Temp Pulse Resp B/P Pulse Ox O2 Delivery O2 Flow Rate FiO2 09/25/16 08:11 97.7 68 20 102/58 92 Room Air 09/25/16 07:36 69 18 100 Room Air 09/25/16 07:33 Room Air 09/25/16 07:32 94 Room Air 09/25/16 07:26 71 18 94 Room Air 09/25/16 04:08 98.1 70 20 148/63 96 Room Air 09/25/16 01:53 67 16 99 Room Air 09/25/16 01:46 69 16 97 Room Air 09/25/16 01:46 21 09/24/16 23:58 96.3 69 20 131/71 97 Room Air 09/24/16 20:45 97.9 67 20 126/66 99 Room Air 09/24/16 20:02 69 15 98 Room Air 21 09/24/16 19:57 21 09/24/16 19:57 92 15 93 Room Air 21 09/24/16 19:56 Room Air 21 09/24/16 19:56 93 Room Air 09/24/16 16:45 97.2 74 19 134/76 94 Nasal Cannula 09/24/16 12:25 97.9 73 18 151/80 97 Nasal Cannula Intake and Output 09/24/16 09/25/16 19:00 07:00 Intake Total 605 ml Output Total 700 ml 1600 ml Balance -95 ml -1600 ml Tube Feeding 605 ml Output Urine Total 700 ml 1600 ml Laboratory Tests 09/25/16 05:10: White Blood Count 5.2, Red Blood Count 3.20L, Hemoglobin 9.9L, Hematocrit 29.2L , Mean Corpuscular Volume 91, Mean Corpuscular Hemoglobin 31.0, Mean Corpuscular Hemoglobin Concent 34.0, Red Cell Distribution Width 13.6, Platelet Count 192, Mean Platelet Volume 7.2, Neutrophils (%) (Auto) 70.7, Lymphocytes (% ) (Auto) 17.6L, Monocytes (%) (Auto) 8.2, Eosinophils (%) (Auto) 2.7, Basophils (%) (Auto) 0.7, Sodium Level 137, Potassium Level 4.1, Chloride Level 102, Carbon Dioxide Level 28, Anion Gap 7, Blood Urea Nitrogen 14, Creatinine 0.8, Estimat Glomerular Filtration Rate , Glucose Level 121H, Calcium Level 8.4L, Phosphorus Level 2.4L, Magnesium Level 1.8 Height (Feet): 5 Height (Inches): 11.00 Weight (Pounds): 147 EENT: other - NGT Respiratory/Chest: decreased breath sounds Abdomen: soft Objective other PE not changed VANITA BILLINGS Sep 25, 2016 09:11
[2016-09-25] MEDS: Heparin 5000 units/ml inj SUBQ SCH ×2 (09:44→21:21)
[2016-09-25] MEDS: Phospha 250 Neutral tab ORAL SCH ×2 (09:47→17:54)
--- NOTE | 2016-09-25 11:04 | GI Progress Note ---
Assessment/Plan Problems: (1) Lives in assisted living facility ICD Codes: Z59.3 - Problems related to living in residential institution SNOMED: 398062019 (2) Iron deficiency ICD Codes: E61.1 - Iron deficiency SNOMED: 40612265 (3) Dehydration ICD Codes: E86.0 - Dehydration SNOMED: 40503734 (4) Protein-calorie malnutrition, severe ICD Codes: E43 - Unspecified severe protein-calorie malnutrition SNOMED: 786382877 (5) Acute encephalopathy ICD Codes: G93.40 - Encephalopathy, unspecified SNOMED: 3743654 (6) Parkinson disease ICD Codes: G20 - Parkinson's disease SNOMED: 92023707 Status: stable, progressing Status Narrative Discussed with Dr. Robles. Assessment/Plan CT AP reviewed >> pneumonia NPO x meds >> fu ST eval TF via dobhoff ok to give meds via dobhoff >> Tube is not ideal for crushed meds due to high chance of clogging. Meds must be finely crushed, tube flushed well after every use ppi monitor H&H, prn transfusions IV hydration + electrolyte correction abx fu labs level of care discussion with family The patient was seen and examined at bedside and all new and available data was reviewed in the patients chart. I agree with the above findings, impression and plan. (Patient seen earlier today. Signature stamp does not reflect patient encounter time.). -Yazan Robles MD Subjective Subjective limited, more awake Objective Last 24 Hour Vital Signs Date Time Temp Pulse Resp B/P Pulse Ox O2 Delivery O2 Flow Rate FiO2 09/25/16 08:11 97.7 68 20 102/58 92 Room Air 09/25/16 07:36 69 18 100 Room Air 09/25/16 07:33 Room Air 09/25/16 07:32 94 Room Air 09/25/16 07:26 71 18 94 Room Air 09/25/16 04:08 98.1 70 20 148/63 96 Room Air 09/25/16 01:53 67 16 99 Room Air 09/25/16 01:46 69 16 97 Room Air 09/25/16 01:46 21 09/24/16 23:58 96.3 69 20 131/71 97 Room Air 09/24/16 20:45 97.9 67 20 126/66 99 Room Air 09/24/16 20:02 69 15 98 Room Air 21 09/24/16 19:57 21 09/24/16 19:57 92 15 93 Room Air 21 09/24/16 19:56 Room Air 21 09/24/16 19:56 93 Room Air 21 09/24/16 16:45 97.2 74 19 134/76 94 Nasal Cannula 09/24/16 12:25 97.9 73 18 151/80 97 Nasal Cannula Intake and Output 09/24/16 09/25/16 19:00 07:00 Intake Total 605 ml Output Total 700 ml 1600 ml Balance -95 ml -1600 ml Tube Feeding 605 ml Output Urine Total 700 ml 1600 ml Laboratory Tests Test 09/25/16 05:10 White Blood Count 5.2 K/UL (4.8-10.8) Red Blood Count 3.20 M/UL (4.70-6.10) L Hemoglobin 9.9 G/DL (14.2-18.0) L Hematocrit 29.2 % (42.0-52.0) L Mean Corpuscular Volume 91 FL (80-99) Mean Corpuscular Hemoglobin 31.0 PG (27.0-31.0) Mean Corpuscular Hemoglobin Concent 34.0 G/DL (32.0-36.0) Red Cell Distribution Width 13.6 % (11.6-14.8) Platelet Count 192 K/UL (150-450) Mean Platelet Volume 7.2 FL (6.5-10.1) Neutrophils (%) (Auto) 70.7 % (45.0-75.0) Lymphocytes (%) (Auto) 17.6 % (20.0-45.0) L Monocytes (%) (Auto) 8.2 % (1.0-10.0) Eosinophils (%) (Auto) 2.7 % (0.0-3.0) Basophils (%) (Auto) 0.7 % (0.0-2.0) Sodium Level 137 mEQ/L (135-145) Potassium Level 4.1 mEQ/L (3.4-4.9) Chloride Level 102 mEQ/L (98-107) Carbon Dioxide Level 28 mEQ/L (20-30) Anion Gap 7 (5-15) Blood Urea Nitrogen 14 mg/dL (7-23) Creatinine 0.8 mg/dL (0.7-1.2) Estimat Glomerular Filtration Rate mL/min (>60) Glucose Level 121 mg/dL (74-106) H Calcium Level 8.4 mg/dL (8.6-10.2) L Phosphorus Level 2.4 mg/dL (2.5-4.8) L Magnesium Level 1.8 mg/dL (1.7-2.5) Height (Feet): 5 Height (Inches): 11.00 Weight (Pounds): 147 General Appearance: no apparent distress, alert, confused Cardiovascular: normal rate Respiratory/Chest: no respiratory distress Abdominal Exam: other - Geovanna Martinez N.P. Sep 25, 2016 11:04 YAZAN ROBLES Oct 01, 2016 12:00
[2016-09-25 11:28] VITALS: BP 125/64
--- NOTE | 2016-09-25 14:01 | Neurology Progress Note ---
Interim History Interim History Interim History Mr. Luevano continues to be subdued. As per his caregiver he has been subdued all day. He is coughing less and his secretions have decreased. He is non-verbal. The NGT feeding has been restarted. He follows commands rarely. He continues to be cognitively impoverished and motorically challenged. Review of Systems Neuro Review of Systems Unable to obtain. Objective Physical Exam Last Vital Signs Date Time Temp Pulse Resp B/P Pulse Ox O2 Delivery O2 Flow Rate FiO2 09/25/16 13:23 67 18 98 Room Air 21 09/25/16 11:28 97.2 125/64 09/24/16 04:42 2.0 Laboratory Tests Test 09/25/16 05:10 White Blood Count 5.2 K/UL (4.8-10.8) Red Blood Count 3.20 M/UL (4.70-6.10) L Hemoglobin 9.9 G/DL (14.2-18.0) L Hematocrit 29.2 % (42.0-52.0) L Mean Corpuscular Volume 91 FL (80-99) Mean Corpuscular Hemoglobin 31.0 PG (27.0-31.0) Mean Corpuscular Hemoglobin Concent 34.0 G/DL (32.0-36.0) Red Cell Distribution Width 13.6 % (11.6-14.8) Platelet Count 192 K/UL (150-450) Mean Platelet Volume 7.2 FL (6.5-10.1) Neutrophils (%) (Auto) 70.7 % (45.0-75.0) Lymphocytes (%) (Auto) 17.6 % (20.0-45.0) L Monocytes (%) (Auto) 8.2 % (1.0-10.0) Eosinophils (%) (Auto) 2.7 % (0.0-3.0) Basophils (%) (Auto) 0.7 % (0.0-2.0) Sodium Level 137 mEQ/L (135-145) Potassium Level 4.1 mEQ/L (3.4-4.9) Chloride Level 102 mEQ/L (98-107) Carbon Dioxide Level 28 mEQ/L (20-30) Anion Gap 7 (5-15) Blood Urea Nitrogen 14 mg/dL (7-23) Creatinine 0.8 mg/dL (0.7-1.2) Estimat Glomerular Filtration Rate mL/min (>60) Glucose Level 121 mg/dL (74-106) H Calcium Level 8.4 mg/dL (8.6-10.2) L Phosphorus Level 2.4 mg/dL (2.5-4.8) L Magnesium Level 1.8 mg/dL (1.7-2.5) Neurologic Exam Objective PHYSICAL EXAMINATION: GENERAL: He is a well-developed, well-nourished, pleasant gentleman, lying in bed in no acute distress. HEAD: Normocephalic and atraumatic. EENT: Examination benign. NECK: No neck rigidity was observed. NEUROLOGICAL EXAMINATION: MENTAL STATUS EXAMINATION: He was awake but subdued. He was non verbal. He did follow a few commands inconsistently. Further mental status testing was impossible. SPEECH: He was mute. LANGUAGE: He followed a few simple commands but was mute. CRANIAL NERVE EXAMINATION: II: He did blink to threat in all yi. III, IV & : External ocular movements were present. The pupils were 3 mm in diameter, equal, round, regular and reactive sluggishly to light. V & VII: The corneal reflexes were present bilaterally. VIII: He was able to hear and had no nystagmus. IX & X: The gag reflex was present but diminished. XI: The sternocleidomastoids and trapezii functioned. XII: The tongue was in midline without any fasciculations or atrophy. MOTOR SYSTEM: The tone was increased in all four extremities with spasticity. Examination of muscle mass revealed generalized muscle wasting. Examination of power was impossible to perform in an organized manner. 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 SENSORY EXAMINATION: He responded appropriately to deep pain. He was unable to cooperate for other sensory modalities. REFLEXES: Trace+ and bilaterally symmetrical at the biceps, triceps, brachioradialis, knees, and zero at both ankles. The plantar responses were flexor bilaterally. COORDINATION, STANCE & GAIT: Could not be tested. ABNORMAL MOVEMENTS: Tremor (7-8 Hz): G Tr/4 Tremor (4-5 Hz): G 0/4 Rigidity: G 0/4 Bradykinesia: G 2/4 Hypomimia: G 2/4. Impression/Recommendations Diagnostic Impression 1. Mr. Naseem Luevano is an 86-year-old, gentleman, of unknown handedness, who does have a past history of coronary artery disease, Parkinson' s disease, dementia, being nonverbal and being essentially bed-bound, who was hospitalized for a change in mental state, which was discovered to be due to a pneumonia. 2. He continues to be subdued. He is non-verbal. He is still cognitively impoverished and motorically challenged. 3. On neurological examination, at this time, he is subdued and non-verbal. 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 In addition, he also has bradykinesia, hypomimia, and globally diminished reflexes with extensor plantar responses bilaterally. 4. Laboratory data on admission revealed that he was anemic with a hemoglobin of 10.4. His creatinine was elevated to 1.8. His alkaline phosphatase was elevated to 132. He also had lactic acidosis which has now improved. His urinalysis was essentially benign. 5. A CT scan of the chest, abdomen and pelvis revealed bilateral pneumonia involving the lower lung yi, fecal impaction with moderate distention of his rectum, multiple liver cysts, gallbladder stones versus sludge., compression fractures of the T12 and L3 which looked old, an old left hip fracture that was pinned, a right psoas lipoma. 6. The CT of the brain revealed significant fronto-temporal atrophy and deep white matter changes. 7. The patient's history, neurological examination, and laboratory data are most compatible with an encephalopathy related to his pneumonia and sepsis. 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 8. He is subdued today but his parkinsonian syndrome is relatively well controlled. His NGT feeds have been restarted. Recommendations 1. Continue present management. 2. Sinemet 25/250 q 7AM, 12 Noon, 5 PM. 3. Frequent range of motion exercises should be performed - new caregiver instructed. Paresh Dickson M.D., M.S.P.H. PARESH DICKSON Sep 25, 2016 14:01
--- NOTE | 2016-09-25 14:10 | Infectious Diseases Prog Note ---
Assessment/Plan Assessment/Plan ASSESSMENT AND PLAN: 1. pseudomonas/enterobacter pna, aspiration pna/hap pna, sepsis, fevers, weakness, sirs - clinically improving, fevers resolved - 09/21 - chest x-ray improved on right but possible new retrocardiac infiltrate - continue zosyn for now - day # 5 abx - check labs and f/u chest x-ray - pulmonary treatment - d/w pharmacy - d/w Dr. Johnson about abx - can discharge on iv cefepime and po flagy for one week, home health - d/w [facility] Pen[facility]za, pulmonary medicine 2. The patient has a history of Parkinson. 3. Dementia. 4. Aspiration risk. 5. Anemia. 6. Coronary artery disease. 7. Hypertension. Blood pressure control per primary. 8. Benign prostatic hypertrophy. 9. HARDIK. 10. Hypoxia. 11. History of pneumonia. 12. No known allergies. 13. Social history is negative. 14. Family history is noncontributory. 15. MAR was noted. 16. Case was discussed with RN. 17. Continue treatment with primary consultants. 18. Skin care per protocol. Wounds were reviewed. There is no significant drain decubitus in the patient. 19. Notes and records reviewed. 20. Case was discussed with the patient's son at length and the family. 21. Case was discussed with Dr. Johnson. Subjective Constitutional: Denies: fever HEENT: Denies: congestion Respiratory: Denies: shortness of breath Cardiovascular: Denies: chest pain Gastrointestinal/Abdominal: Denies: diarrhea, nausea, vomiting Genitourinary: Reports: other - + goldberg Neurologic: Denies: headache Psychiatric: Denies: depression Skin: Denies: rash Hematologic: Denies: bleeding Musculoskeletal: Denies: pain Allergies: Coded Allergies: No Known Allergies (Unverified , 09/16/16) Objective Vital Signs Last 24 Hour Vital Signs Date Time Temp Pulse Resp B/P Pulse Ox O2 Delivery O2 Flow Rate FiO2 09/25/16 13:23 67 18 98 Room Air 09/25/16 13:13 86 18 94 Room Air 21 09/25/16 11:28 97.2 69 20 125/64 96 Room Air 09/25/16 08:11 97.7 68 20 102/58 92 Room Air 09/25/16 07:36 69 18 100 Room Air 21 09/25/17 07:33 Room Air 09/25/16 07:32 94 Room Air 09/25/16 07:26 71 18 94 Room Air 09/25/16 04:08 98.1 70 20 148/63 96 Room Air 09/25/16 01:53 67 16 99 Room Air 09/25/16 01:46 69 16 97 Room Air 09/25/16 01:46 21 09/24/16 23:58 96.3 69 20 131/71 97 Room Air 09/24/16 20:45 97.9 67 20 126/66 99 Room Air 09/24/16 20:02 69 15 98 Room Air 09/24/16 19:57 21 09/24/16 19:57 92 15 93 Room Air 09/24/16 19:56 Room Air 09/24/16 19:56 93 Room Air 09/24/16 16:45 97.2 74 19 134/76 94 Nasal Cannula Height (Feet): 5 Height (Inches): 11.00 Weight (Pounds): 147 General Appearance: no acute distress HEENT: normocephalic, atraumatic, anicteric, mucous membranes moist, PERRL, EOMI, pharynx normal, supple, no JVD Respiratory/Chest: lungs clear, normal breath sounds, no respiratory distress, no accessory muscle use Cardiovascular: normal rate, regular rhythm, no gallop/murmur, no JVD Abdomen: normal bowel sounds, soft, non tender, no organomegaly, non distended Genitourinary: other - + goldberg - urine clear Extremities: no cyanosis Skin: no rash Neurologic/Psychiatric: director of radio services II-XII grossly normal, alert, responsive Lymphatic: no neck adenopathy Musculoskeletal: no effusion Objective 09/21 - chest x-ray: Impression: Improved but persistent right mid and lower lung infiltrates. Suspect new or increased retrocardiac infiltrates Suspect small left pleural effusion 09/24 - chest x-ray - IMPRESSION: Persistent bilateral congestive changes with apparent increase in bilateral pleural effusions Underlying atelectasis or pneumonia left lower lobe not excludable Microbiology Date/Time Source Procedure Growth Status 09/16/16 19:45 Blood Blood Culture - Final NO GROWTH AFTER 5 DAYS Complete 09/20/16 23:30 Sputum Induced Gram Stain - Final Complete 09/20/16 23:30 Sputum Culture - Final Enterobacter Cloacae Complex Pseudomonas Aeruginosa Complete 09/16/16 21:41 Rectum VRE Culture - Final NO VANCOMYCIN RESISTANT ENTEROCOCCUS ... Complete Laboratory Tests Test 09/25/16 05:10 White Blood Count 5.2 K/UL (4.8-10.8) Red Blood Count 3.20 M/UL (4.70-6.10) L Hemoglobin 9.9 G/DL (14.2-18.0) L Hematocrit 29.2 % (42.0-52.0) L Mean Corpuscular Volume 91 FL (80-99) Mean Corpuscular Hemoglobin 31.0 PG (27.0-31.0) Mean Corpuscular Hemoglobin Concent 34.0 G/DL (32.0-36.0) Red Cell Distribution Width 13.6 % (11.6-14.8) Platelet Count 192 K/UL (150-450) Mean Platelet Volume 7.2 FL (6.5-10.1) Neutrophils (%) (Auto) 70.7 % (45.0-75.0) Lymphocytes (%) (Auto) 17.6 % (20.0-45.0) L Monocytes (%) (Auto) 8.2 % (1.0-10.0) Eosinophils (%) (Auto) 2.7 % (0.0-3.0) Basophils (%) (Auto) 0.7 % (0.0-2.0) Sodium Level 137 mEQ/L (135-145) Potassium Level 4.1 mEQ/L (3.4-4.9) Chloride Level 102 mEQ/L (98-107) Carbon Dioxide Level 28 mEQ/L (20-30) Anion Gap 7 (5-15) Blood Urea Nitrogen 14 mg/dL (7-23) Creatinine 0.8 mg/dL (0.7-1.2) Estimat Glomerular Filtration Rate mL/min (>60) Glucose Level 121 mg/dL (74-106) H Calcium Level 8.4 mg/dL (8.6-10.2) L Phosphorus Level 2.4 mg/dL (2.5-4.8) L Magnesium Level 1.8 mg/dL (1.7-2.5) Current Medications Medications (Trade) Dose Ordered Sig/Angie Route PRN Reason Start Time Stop Time Status Last Admin Dose Admin Acetaminophen (Tylenol) 650 mg Q4H PRN ORAL FEVER>100.5 09/17/16 16:00 10/17/16 15:59 Acetaminophen (Tylenol) 650 mg Q4H PRN ORAL Mild Pain (Pain Scale 1-3) 09/17/16 19:30 10/17/16 19:29 Albuterol/ Ipratropium (DuoNeb 0.5-3(2.5)mg/3ml) 3 ml Q6HRT HHN 09/24/16 10:45 09/29/16 10:44 09/25/16 13:12 Artificial Tears (Akwa-Tears) 1 drop QIDPRN PRN BOTH EYES Dry Eyes 09/18/16 15:15 10/18/16 15:14 Carbidopa/Levodopa (Sinemet 25/250) 1 ea TID@0700,1200,1700 NG 09/17/16 17:00 10/17/16 16:59 09/25/16 12:14 Dextrose (Dextrose 50%) STAT PRN IV Hypoglycemia 09/17/16 16:00 10/17/16 15:59 Glycopyrrolate (Robinul) 0.1 mg Q6H PRN IV excessive secretions 09/18/16 15:15 10/18/16 15:14 Heparin Sodium (Porcine) (Heparin 5000 units/ml) 5,000 units EVERY 12 HOURS SUBQ 09/17/16 21:00 10/17/16 20:59 09/25/16 09:44 Modafinil 200 mg 200 mg DAILY ORAL 09/22/16 11:00 09/29/16 10:59 09/24/16 11:00 Morphine Sulfate (Morphine 5mg/ 2.5ml Oral Soln) 5 mg Q3H PRN GT Breakthrough Pain 09/21/16 16:30 09/25/16 15:14 Ondansetron HCl (Zofran) 4 mg Q6H PRN IVP Nausea & Vomiting 09/17/16 16:00 10/17/16 15:59 Phosphorus (Phospha 250 Neutral) 250 mg BID ORAL 09/25/16 10:00 10/25/16 09:59 Piperacillin Sod/ Tazobactam Sod/ Dextrose (Zosyn/D5W) 110 ml @ 27.5 mls/hr EVERY 8 HOURS IVPB 09/23/16 22:00 09/28/16 21:59 09/25/16 05:00 Polyethylene Glycol (Miralax) 17 gm DAILY NG 09/24/16 11:00 10/24/16 10:59 09/24/16 11:00 DOMINIC PARKER Sep 25, 2016 14:10
[2016-09-25 15:31] VITALS: BP 117/63
[2016-09-25 20:00] VITALS: BP 110/62
--- NOTE | 2016-09-25 20:09 | General Progress Note ---
Assessment/Plan Problem List: (1) Acute respiratory failure with hypoxia ICD Codes: J96.01 - Acute respiratory failure with hypoxia SNOMED: 02835347, 773001008 (2) Severe sepsis ICD Codes: A41.9 - Sepsis, unspecified organism; R65.20 - Severe sepsis without septic shock SNOMED: 33862805 (3) Aspiration pneumonia ICD Codes: J69.0 - Pneumonitis due to inhalation of food and vomit SNOMED: 475401982 (4) Lactic acidosis ICD Codes: E87.2 - Acidosis SNOMED: 28367665 (5) Toxic metabolic encephalopathy ICD Codes: G92 - Toxic encephalopathy SNOMED: 703037248 (6) Parkinson disease ICD Codes: G20 - Parkinson's disease SNOMED: 86195971 (7) Dementia ICD Codes: F03.90 - Unspecified dementia without behavioral disturbance SNOMED: 21290613 (8) ALMA (acute kidney injury) ICD Codes: N17.9 - Acute kidney failure, unspecified SNOMED: 03556307 (9) ATN (acute tubular necrosis) ICD Codes: N17.0 - Acute kidney failure with tubular necrosis SNOMED: 01115139 (10) Protein-calorie malnutrition, severe ICD Codes: E43 - Unspecified severe protein-calorie malnutrition SNOMED: 440285682 (11) Iron deficiency ICD Codes: E61.1 - Iron deficiency SNOMED: 35526708 (12) BPH (benign prostatic hyperplasia) ICD Codes: N40.0 - Benign prostatic hyperplasia without lower urinary tract symptoms SNOMED: 659687151, 287394185 (13) CAD (coronary artery disease) ICD Codes: I25.10 - Atherosclerotic heart disease of [place] coronary artery without angina pectoris SNOMED: 77049637 (14) Pressure ulcer Assessment & Plan: #1 Sacral stage 1 pressure ulcer. #2 Bridge of nose stage 1 pressure ulcer. #3 Left heel stage 1 pressure ulcer. #4 Right heel stage 1 pressure ulcer. ICD Codes: L89.90 - Pressure ulcer of unspecified site, unspecified stage SNOMED: 681128934 Status: stable Assessment/Plan Pulmonology consulted ID consulted Cont zosyn for aspiration PNA 2/2 Enterobacter and Pseudomonass s/p vanco F/u sputum culture F/u blood cultures--ngtd Duonebs ATC and PRN Chest PT Suction PRN Trend CBC Nephrology consulted Replete lytes Trend BMP Monitor UOP Neurology consulted Check CT brain--neg GI consulted for Dobhoff placement Dobhoff placed 09/20 Cont tube feeds No meds via Dobhoff per GI Cont sinemet and modafinil as tolerated PO PRINTING SALES REPRESENTATIVE eval--pt high aspiration risk D/w family and no plan for G tube but would like trial of NGT/Dobhoff Pain control, bowel regimen Supportive care Hospice referral made to [facility] hospice per daughter's request but now family is refusing D/w pt's private CM and prefer d/c home w/ HH. DME order place Hospital bed, low pressure mattress, frank lift ordered--pt requires these items due to h/o advanced Parkinson's disease, dementia, aspiration pneumonia, pressure ulcers. He will need frequent body changing and positioning in ways not feasible in an ordinary bed. He will need HOB elevation given high aspiration risk per PRINTING SALES REPRESENTATIVE. Pt is also at risk of body deconditioning and worsening pressure sores. Home IV abx ordered on d/c: cefepime 2g q24 x 7 days per ID Empiric flagyl 500mg PO TID x 7 days on d/c per ID DC planning--discharge delayed given DME will not arrive at pt's home until Wednesday DVT Prophylaxis: SCD, HSQ Code Status: DNR/DNI Hospital Classification Declaration: Based on this initial evaluation, and depending on the patient's clinical course, I anticipate that this patient will require hospitalization for 1-2 days for severe sepsis, aspiration PNA, ALMA and close respiratory/hemodynamic monitoring. Disposition: Once the patient is stable to leave the hospital, I anticipate the patient will likely be discharged to the following environment: Home w/ HH +CG ( family declined hospice, SNF) Discussed with patient/family, nursing staff, SW/CM, pulmonology, renal, neurology regarding clinical status, treatment course, and disposition planning. D/w family extensively regarding plan of care. D/w pulm re PNA. D/w ID re abx. D/w son re plan of care Time of note may not reflect time of encounter. Subjective Date patient seen: Sep 25, 2016 Time patient seen: 12:00 ROS Limited/Unobtainable: Yes Allergies: Coded Allergies: No Known Allergies (Unverified , 09/16/16) Subjective No acute o/n events Cont on tube feeds via Dobhoff Cont IV zosyn per ID More awake, following simple commands and per CG said a few words Congestion improved Caregiver feeding small amts of puree diet Sinemet being given crushed in apple sauce and pt able to take PO DC pending arrangement of all DME including hospital, home health for feeds and IV abx. Awaiting CM to confirm--per CM hospital bed to arrive on Wed Objective Last 24 Hour Vital Signs Date Time Temp Pulse Resp B/P Pulse Ox O2 Delivery O2 Flow Rate FiO2 09/25/16 20:00 98.2 69 20 110/62 95 Room Air 09/25/16 19:55 72 18 99 Room Air 09/25/16 19:45 Room Air 09/25/16 19:45 72 18 96 Room Air 09/25/16 19:45 96 Room Air 09/25/16 15:31 97.3 69 20 117/63 95 Room Air 09/25/16 13:23 67 18 98 Room Air 09/25/16 13:13 86 18 94 Room Air 09/25/16 11:28 97.2 69 20 125/64 96 Room Air 09/25/16 08:11 97.7 68 20 102/58 92 Room Air 09/25/16 07:36 69 18 100 Room Air 09/25/16 07:33 Room Air 09/25/16 07:32 94 Room Air 21 09/25/16 07:26 71 18 94 Room Air 09/25/16 04:08 98.1 70 20 148/63 96 Room Air 09/25/16 01:53 67 16 99 Room Air 09/25/16 01:46 69 16 97 Room Air 09/25/16 01:46 21 09/24/16 23:58 96.3 69 20 131/71 97 Room Air 09/24/16 20:45 97.9 67 20 126/66 99 Room Air Intake and Output 09/24/16 09/25/16 19:00 07:00 Intake Total 605 ml 27.5 ml Output Total 700 ml 1600 ml Balance -95 ml -1572.5 ml IV Total 27.5 ml Tube Feeding 605 ml Output Urine Total 700 ml 1600 ml Laboratory Tests 09/25/16 05:10: White Blood Count 5.2, Red Blood Count 3.20L, Hemoglobin 9.9L, Hematocrit 29.2L , Mean Corpuscular Volume 91, Mean Corpuscular Hemoglobin 31.0, Mean Corpuscular Hemoglobin Concent 34.0, Red Cell Distribution Width 13.6, Platelet Count 192, Mean Platelet Volume 7.2, Neutrophils (%) (Auto) 70.7, Lymphocytes (% ) (Auto) 17.6L, Monocytes (%) (Auto) 8.2, Eosinophils (%) (Auto) 2.7, Basophils (%) (Auto) 0.7, Sodium Level 137, Potassium Level 4.1, Chloride Level 102, Carbon Dioxide Level 28, Anion Gap 7, Blood Urea Nitrogen 14, Creatinine 0.8, Estimat Glomerular Filtration Rate , Glucose Level 121H, Calcium Level 8.4L, Phosphorus Level 2.4L, Magnesium Level 1.8 Height (Feet): 5 Height (Inches): 11.00 Weight (Pounds): 147 Objective General: eyes open, poorly responsive to voice or pain, NAD, appears stated age Head: normocephalic, without obvious abnormality, atraumatic Eyes: conjunctivae/corneas clear. PERRL, EOM's intact Throat: lips, mucosa, and tongue normal. MMM Neck: supple, symmetrical, trachea midline, and no JVD Lungs: +rhonchi b/l Heart: regular rate and rhythm, S1, S2 normal, no murmur, click, rub or gallop Abdomen: soft, non-tender, non-distended, bowel sounds normal; no masses or organomegaly Extremities: extremities normal, atraumatic, no cyanosis or edema Pulses: 2+ and symmetric Skin: skin color, texture, turgor normal; no rashes or lesions Neurologic: grossly normal, no focal deficits Elizabeth Portillo M.D. Sep 25, 2016 20:09
[2016-09-26] VITALS: BP 135/74
[2016-09-26] MEDS: DuoNeb 0.5-3(2.5)mg/3ml neb HHN SCH ×4 (01:13→21:00)
[2016-09-26 04:00] VITALS: BP 130/63
[2016-09-26] MEDS: Piperacillin/Tazobactam 3.375 GM in D5W 110 ML IVPB SCH ×3 (04:52→21:53)
[2016-09-26 08:11] VITALS: BP 122/56
[2016-09-26 08:16] LABS: BASOPHILS % (AUTO) 0.8 % (0.0-2.0); EOSINOPHILS % (AUTO) 2.5 % (0.0-3.0); LYMPHOCYTES % (AUTO) 18.4 % (20.0-45.0); MEAN CORPUSCULAR HEMOGLOBIN 31.8 PG (27.0-31.0); MEAN CORPUSCULAR HGB CONC 34.7 G/DL (32.0-36.0); MEAN CORPUSCULAR VOLUME 92 FL (80-99); MEAN PLATELET VOLUME 7.1 FL (6.5-10.1); NEUTROPHILS % (AUTO) 70.3 % (45.0-75.0); PLATELET COUNT 209 K/UL (150-450); RED BLOOD COUNT 3.23 M/UL (4.70-6.10); RED CELL DISTRIBUTION WIDTH 13.5 % (11.6-14.8); WHITE BLOOD COUNT 5.5 K/UL (4.8-10.8)
[2016-09-26 08:45] LABS: ANION GAP 9 (5-15); CALCIUM 8.4 mg/dL (8.6-10.2); CARBON DIOXIDE 28 mEQ/L (20-30); CHLORIDE 103 mEQ/L (98-107); CREATININE 0.9 mg/dL (0.7-1.2); HEMOLYSIS 7; MAGNESIUM 1.9 mg/dL (1.7-2.5); PHOSPHORUS 2.6 mg/dL (2.5-4.8); POTASSIUM 3.8 mEQ/L (3.4-4.9); SODIUM 140 mEQ/L (135-145)
--- NOTE | 2016-09-26 08:45 | General Progress Note ---
Assessment/Plan Problem List: (1) Dementia ICD Codes: F03.90 - Unspecified dementia without behavioral disturbance SNOMED: 81106067 (2) Parkinson disease ICD Codes: G20 - Parkinson's disease SNOMED: 94503452 (3) Iron deficiency ICD Codes: E61.1 - Iron deficiency SNOMED: 35065478 (4) HTN (hypertension) ICD Codes: I10 - Essential (primary) hypertension SNOMED: 94157696 (5) BPH (benign prostatic hyperplasia) ICD Codes: N40.0 - Benign prostatic hyperplasia without lower urinary tract symptoms SNOMED: 041102247, 470730342 (6) Aspiration pneumonia ICD Codes: J69.0 - Pneumonitis due to inhalation of food and vomit SNOMED: 851325605 Assessment/Plan ngtf family refused PEG pend possible DC today Subjective ROS Limited/Unobtainable: No Allergies: Coded Allergies: No Known Allergies (Unverified , 09/16/16) Objective Last 24 Hour Vital Signs Date Time Temp Pulse Resp B/P Pulse Ox O2 Delivery O2 Flow Rate FiO2 09/26/16 08:11 97.7 74 20 122/56 92 Room Air 09/26/16 07:23 69 18 98 Room Air 09/26/16 07:13 83 18 95 Room Air 09/26/16 07:13 95 Room Air 09/26/16 07:12 Room Air 09/26/16 04:00 98.0 61 20 130/63 98 09/26/16 01:22 68 16 98 Room Air 21 09/26/16 01:13 65 16 97 Room Air 09/26/16 00:00 98.2 69 18 135/74 95 Room Air 09/25/16 20:00 98.2 69 20 110/62 95 Room Air 09/25/16 19:55 72 18 99 Room Air 09/25/16 19:45 Room Air 09/25/16 19:45 72 18 96 Room Air 09/25/16 19:45 96 Room Air 09/25/16 15:31 97.3 69 20 117/63 95 Room Air 09/25/16 13:23 67 18 98 Room Air 21 09/25/16 13:13 86 18 94 Room Air 09/25/16 11:28 97.2 69 20 125/64 96 Room Air Intake and Output 09/25/16 09/26/16 19:00 07:00 Intake Total 972.5 ml Output Total 600 ml 1100 ml Balance 372.5 ml -1100 ml Free Water 120 ml IV Total 192.5 ml Tube Feeding 660 ml Output Urine Total 600 ml 1100 ml # Bowel Movements 1 Laboratory Tests 09/26/16 05:35: White Blood Count 5.5, Red Blood Count 3.23L, Hemoglobin 10.3L, Hematocrit 29.6L , Mean Corpuscular Volume 92, Mean Corpuscular Hemoglobin 31.8H, Mean Corpuscular Hemoglobin Concent 34.7, Red Cell Distribution Width 13.5, Platelet Count 209, Mean Platelet Volume 7.1, Neutrophils (%) (Auto) 70.3, Lymphocytes (% ) (Auto) 18.4L, Monocytes (%) (Auto) 8.0, Eosinophils (%) (Auto) 2.5, Basophils (%) (Auto) 0.8, Sodium Level [Pending], Potassium Level [Pending], Chloride Level [Pending], Carbon Dioxide Level [Pending], Blood Urea Nitrogen [Pending], Creatinine [Pending], Estimat Glomerular Filtration Rate [Pending], Glucose Level [Pending], Calcium Level [Pending], Phosphorus Level [Pending], Magnesium Level [Pending] Height (Feet): 5 Height (Inches): 11.00 Weight (Pounds): 147 General Appearance: no apparent distress EENT: TMs normal Neck: supple Cardiovascular: normal rate Respiratory/Chest: decreased breath sounds Abdomen: normal bowel sounds, non tender, soft Extremities: non-tender RUY CHAVEZ Sep 26, 2016 08:45
[2016-09-26] MEDS: Heparin 5000 units/ml inj SUBQ SCH ×2 (09:00→21:56)
[2016-09-26] MEDS: Modafinil 100mg tab ORAL SCH (09:29)
[2016-09-26] MEDS: Phospha 250 Neutral tab ORAL SCH ×2 (09:29→17:54)
[2016-09-26] MEDS: Miralax 17gm pkt NG SCH (09:29)
--- NOTE | 2016-09-26 11:01 | Pulmonology Progress Note ---
Assessment/Plan Assessment/Plan ASSESSMENT acute hypoxemic RF requiring NRM 2 to aspiration PNA severe sepsis aspiration PNA acute toxic metabolic encephalopathy Parkinson disease ARF severe protein calorie malnutrition anemia CAD BPH Dysphagia high aspiration risk e/lyte imbalance : hypo P, hypo Mg PLAN OF CARE MS floor weaned to NC pulse oximetry stable pulmonary toilet ( HHN and CPT) suction frequently sputum cx + Enterobacter, Pseudomonas abx ID follows fup CXR with persistent bilateral congestive changes CT C/A/P noted, + bilateral PNA CT head no acute IC pathology, + chronic small vessel disease neuro follows per neuro acute encephalopathy likely due to infectious process levodopa continued Dobbhoff placed by GI TF per NGT strict aspiration precautions, monitor NGT tolerance no meds via NGT as per GI swallow eval with high aspiration risk, recommended NPO status and nonoral feeding ARF resolved, likely due to dehydration nephro follows P stable after replacement 09/25 HH at baseline, monitor, goal to keep Hgb above 7 pain management Bowel regimen hospice eval with initial plan to dc home with hospice services currently family changed decision dc plan home with HH and DME - per PMD when all arrangements made DNR/DNI status case discussed and evaluated by supervising physician Subjective Allergies: Coded Allergies: No Known Allergies (Unverified , 09/16/16) Subjective weaned to NC on MS floor afebrile, no leukocytosis NGT with TF awaiting for disposition Objective Last 24 Hour Vital Signs Date Time Temp Pulse Resp B/P Pulse Ox O2 Delivery O2 Flow Rate FiO2 09/26/16 08:11 97.7 74 20 122/56 92 Room Air 09/26/16 07:23 69 18 98 Room Air 09/26/16 07:13 83 18 95 Room Air 09/26/16 07:13 95 Room Air 09/26/16 07:12 Room Air 09/26/16 04:00 98.0 61 20 130/63 98 09/26/16 01:22 68 16 98 Room Air 09/26/16 01:13 65 16 97 Room Air 09/26/16 00:00 98.2 69 18 135/74 95 Room Air 09/25/16 20:00 98.2 69 20 110/62 95 Room Air 09/25/16 19:55 72 18 99 Room Air 09/25/16 19:45 Room Air 09/25/16 19:45 72 18 96 Room Air 09/25/16 19:45 96 Room Air 21 09/25/16 15:31 97.3 69 20 117/63 95 Room Air 09/25/16 13:23 67 18 98 Room Air 21 09/25/16 13:13 86 18 94 Room Air 21 09/25/16 11:28 97.2 69 20 125/64 96 Room Air Intake and Output 09/25/16 09/26/16 19:00 07:00 Intake Total 972.5 ml 55 ml Output Total 600 ml 1100 ml Balance 372.5 ml -1045 ml Free Water 120 ml IV Total 192.5 ml Tube Feeding 660 ml 55 ml Output Urine Total 600 ml 1100 ml # Bowel Movements 1 Objective General Appearance: cachetic, other - bedridden elderly male in NAD HEENT: normocephalic, atraumatic, anicteric, other - NGT Respiratory/Chest: no accessory muscle use, rhonchi - scattered Cardiovascular: normal peripheral pulses, normal rate, no JVD Abdomen: normal bowel sounds, soft, non tender Extremities: no edema, pedal pulses normal Neurologic/Psychiatric: abnormal gait - bedridden , awake, poorly responsive Musculoskeletal: atrophy - BLE Laboratory Tests 09/26/16 05:35: White Blood Count 5.5, Red Blood Count 3.23L, Hemoglobin 10.3L, Hematocrit 29.6L , Mean Corpuscular Volume 92, Mean Corpuscular Hemoglobin 31.8H, Mean Corpuscular Hemoglobin Concent 34.7, Red Cell Distribution Width 13.5, Platelet Count 209, Mean Platelet Volume 7.1, Neutrophils (%) (Auto) 70.3, Lymphocytes (% ) (Auto) 18.4L, Monocytes (%) (Auto) 8.0, Eosinophils (%) (Auto) 2.5, Basophils (%) (Auto) 0.8, Sodium Level 140, Potassium Level 3.8, Chloride Level 103, Carbon Dioxide Level 28, Anion Gap 9, Blood Urea Nitrogen 15, Creatinine 0.9, Estimat Glomerular Filtration Rate , Glucose Level 123H, Calcium Level 8.4L, Phosphorus Level 2.6, Magnesium Level 1.9 Current Medications Medications (Trade) Dose Ordered Sig/Angie Route PRN Reason Start Time Stop Time Status Last Admin Dose Admin Acetaminophen (Tylenol) 650 mg Q4H PRN ORAL FEVER>100.5 09/17/16 16:00 10/17/16 15:59 Acetaminophen (Tylenol) 650 mg Q4H PRN ORAL Mild Pain (Pain Scale 1-3) 09/17/16 19:30 10/17/16 19:29 Albuterol/ Ipratropium (DuoNeb 0.5-3(2.5)mg/3ml) 3 ml Q6HRT HHN 09/24/16 10:45 09/29/16 10:44 09/26/16 07:12 Artificial Tears (Akwa-Tears) 1 drop QIDPRN PRN BOTH EYES Dry Eyes 09/18/16 15:15 10/18/16 15:14 Carbidopa/Levodopa (Sinemet 25/250) 1 ea TID@0700,1200,1700 NG 09/17/16 17:00 10/17/16 16:59 09/26/16 06:12 Dextrose (Dextrose 50%) STAT PRN IV Hypoglycemia 09/17/16 16:00 10/17/16 15:59 Glycopyrrolate (Robinul) 0.1 mg Q6H PRN IV excessive secretions 09/18/16 15:15 10/18/16 15:14 Heparin Sodium (Porcine) (Heparin 5000 units/ml) 5,000 units EVERY 12 HOURS SUBQ 09/17/16 21:00 10/17/16 20:59 09/26/16 09:00 Modafinil 200 mg 200 mg DAILY ORAL 09/22/16 11:00 09/29/16 10:59 09/26/16 09:29 Ondansetron HCl (Zofran) 4 mg Q6H PRN IVP Nausea & Vomiting 09/17/16 16:00 10/17/16 15:59 Phosphorus (Phospha 250 Neutral) 250 mg BID ORAL 09/25/16 10:00 10/25/16 09:59 09/26/16 09:29 Piperacillin Sod/ Tazobactam Sod/ Dextrose (Zosyn/D5W) 110 ml @ 27.5 mls/hr EVERY 8 HOURS IVPB 09/23/16 22:00 09/28/16 21:59 09/26/16 04:52 Polyethylene Glycol (Miralax) 17 gm DAILY NG 09/24/16 11:00 10/24/16 10:59 09/26/16 09:29 Yariel ([facility])Ca NP Sep 26, 2016 11:01
--- NOTE | 2016-09-26 11:07 | General Progress Note ---
Assessment/Plan Status: stable Assessment/Plan Renal failure acute vs chronic Cr resolved Encephalopathy Low BP , dehydration CAD Parkinson BPH HTN GERD Low Cognition Pneumonia, Aspiration plan: per PMD stable from renal stand- DC planning?? Subjective ROS Limited/Unobtainable: No Allergies: Coded Allergies: No Known Allergies (Unverified , 09/16/16) Objective Last 24 Hour Vital Signs Date Time Temp Pulse Resp B/P Pulse Ox O2 Delivery O2 Flow Rate FiO2 09/26/16 08:11 97.7 74 20 122/56 92 Room Air 09/26/16 07:23 69 18 98 Room Air 09/26/16 07:13 83 18 95 Room Air 09/26/16 07:13 95 Room Air 09/26/16 07:12 Room Air 09/26/16 04:00 98.0 61 20 130/63 98 09/26/16 01:22 68 16 98 Room Air 09/26/16 01:13 65 16 97 Room Air 09/26/16 00:00 98.2 69 18 135/74 95 Room Air 09/25/16 20:00 98.2 69 20 110/62 95 Room Air 09/25/16 19:55 72 18 99 Room Air 09/25/16 19:45 Room Air 09/25/16 19:45 72 18 96 Room Air 09/25/16 19:45 96 Room Air 09/25/16 15:31 97.3 69 20 117/63 95 Room Air 09/25/16 13:23 67 18 98 Room Air 09/25/16 13:13 86 18 94 Room Air 09/25/16 11:28 97.2 69 20 125/64 96 Room Air Intake and Output 09/25/16 09/26/16 19:00 07:00 Intake Total 972.5 ml 55 ml Output Total 600 ml 1100 ml Balance 372.5 ml -1045 ml Free Water 120 ml IV Total 192.5 ml Tube Feeding 660 ml 55 ml Output Urine Total 600 ml 1100 ml # Bowel Movements 1 Laboratory Tests 09/26/16 05:35: White Blood Count 5.5, Red Blood Count 3.23L, Hemoglobin 10.3L, Hematocrit 29.6L , Mean Corpuscular Volume 92, Mean Corpuscular Hemoglobin 31.8H, Mean Corpuscular Hemoglobin Concent 34.7, Red Cell Distribution Width 13.5, Platelet Count 209, Mean Platelet Volume 7.1, Neutrophils (%) (Auto) 70.3, Lymphocytes (% ) (Auto) 18.4L, Monocytes (%) (Auto) 8.0, Eosinophils (%) (Auto) 2.5, Basophils (%) (Auto) 0.8, Sodium Level 140, Potassium Level 3.8, Chloride Level 103, Carbon Dioxide Level 28, Anion Gap 9, Blood Urea Nitrogen 15, Creatinine 0.9, Estimat Glomerular Filtration Rate , Glucose Level 123H, Calcium Level 8.4L, Phosphorus Level 2.6, Magnesium Level 1.9 Height (Feet): 5 Height (Inches): 11.00 Weight (Pounds): 147 General Appearance: no apparent distress Objective other PE not changed VANITA BILLINGS Sep 26, 2016 11:07
[2016-09-26 11:27] VITALS: BP 123/72
--- NOTE | 2016-09-26 13:04 | Neurology Progress Note ---
Interim History Interim History Interim History Mr. Luevano is subdued today. As per his caregiver he brighter earlier. He is coughing less and his secretions have decreased. He is non-verbal. The NGT feeding continues. He follows commands rarely. He continues to be cognitively impoverished and motorically challenged. Review of Systems Neuro Review of Systems Unable to obtain. Objective Physical Exam Last Vital Signs Date Time Temp Pulse Resp B/P Pulse Ox O2 Delivery O2 Flow Rate FiO2 09/26/16 11:27 97.0 20 123/72 97 Room Air 09/26/16 08:11 74 09/26/16 07:23 21 09/24/16 04:42 2.0 Laboratory Tests Test 09/26/16 05:35 White Blood Count 5.5 K/UL (4.8-10.8) Red Blood Count 3.23 M/UL (4.70-6.10) L Hemoglobin 10.3 G/DL (14.2-18.0) L Hematocrit 29.6 % (42.0-52.0) L Mean Corpuscular Volume 92 FL (80-99) Mean Corpuscular Hemoglobin 31.8 PG (27.0-31.0) H Mean Corpuscular Hemoglobin Concent 34.7 G/DL (32.0-36.0) Red Cell Distribution Width 13.5 % (11.6-14.8) Platelet Count 209 K/UL (150-450) Mean Platelet Volume 7.1 FL (6.5-10.1) Neutrophils (%) (Auto) 70.3 % (45.0-75.0) Lymphocytes (%) (Auto) 18.4 % (20.0-45.0) L Monocytes (%) (Auto) 8.0 % (1.0-10.0) Eosinophils (%) (Auto) 2.5 % (0.0-3.0) Basophils (%) (Auto) 0.8 % (0.0-2.0) Sodium Level 140 mEQ/L (135-145) Potassium Level 3.8 mEQ/L (3.4-4.9) Chloride Level 103 mEQ/L (98-107) Carbon Dioxide Level 28 mEQ/L (20-30) Anion Gap 9 (5-15) Blood Urea Nitrogen 15 mg/dL (7-23) Creatinine 0.9 mg/dL (0.7-1.2) Estimat Glomerular Filtration Rate mL/min (>60) Glucose Level 123 mg/dL (74-106) H Calcium Level 8.4 mg/dL (8.6-10.2) L Phosphorus Level 2.6 mg/dL (2.5-4.8) Magnesium Level 1.9 mg/dL (1.7-2.5) Neurologic Exam Objective PHYSICAL EXAMINATION: GENERAL: He is a well-developed, well-nourished, pleasant gentleman, lying in bed in no acute distress. HEAD: Normocephalic and atraumatic. EENT: Examination benign. NECK: No neck rigidity was observed. NEUROLOGICAL EXAMINATION: MENTAL STATUS EXAMINATION: He was awake but subdued. He was non verbal. He did follow a few commands inconsistently. Further mental status testing was impossible. SPEECH: He was mute. LANGUAGE: He followed a few simple commands but was mute. CRANIAL NERVE EXAMINATION: II: He did blink to threat in all yi. III, IV & : External ocular movements were present. The pupils were 3 mm in diameter, equal, round, regular and reactive sluggishly to light. V & VII: The corneal reflexes were present bilaterally. VIII: He was able to hear and had no nystagmus. IX & X: The gag reflex was present but diminished. XI: The sternocleidomastoids and trapezii functioned. XII: The tongue was in midline without any fasciculations or atrophy. MOTOR SYSTEM: The tone was increased in all four extremities with spasticity. Examination of muscle mass revealed generalized muscle wasting. Examination of power was impossible to perform in an organized manner. 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 SENSORY EXAMINATION: He responded appropriately to deep pain. He was unable to cooperate for other sensory modalities. REFLEXES: Trace+ and bilaterally symmetrical at the biceps, triceps, brachioradialis, knees, and zero at both ankles. The plantar responses were flexor bilaterally. COORDINATION, STANCE & GAIT: Could not be tested. ABNORMAL MOVEMENTS: Tremor (7-8 Hz): G Tr/4 Tremor (4-5 Hz): G 0/4 Rigidity: G 0/4 Bradykinesia: G 2/4 Hypomimia: G 2/4. Impression/Recommendations Diagnostic Impression 1. Mr. Naseem Luevano is an 86-year-old, gentleman, of unknown handedness, who does have a past history of coronary artery disease, Parkinson' s disease, dementia, being nonverbal and being essentially bed-bound, who was hospitalized for a change in mental state, which was discovered to be due to a pneumonia. 2. He continues to be subdued. He is non-verbal. He is still cognitively impoverished and motorically challenged. 3. On neurological examination, at this time, he is subdued and non-verbal. 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 In addition, he also has bradykinesia, hypomimia, and globally diminished reflexes with extensor plantar responses bilaterally. 4. Laboratory data on admission revealed that he was anemic with a hemoglobin of 10.4. His creatinine was elevated to 1.8. His alkaline phosphatase was elevated to 132. He also had lactic acidosis which has now improved. His urinalysis was essentially benign. 5. A CT scan of the chest, abdomen and pelvis revealed bilateral pneumonia involving the lower lung yi, fecal impaction with moderate distention of his rectum, multiple liver cysts, gallbladder stones versus sludge., compression fractures of the T12 and L3 which looked old, an old left hip fracture that was pinned, a right psoas lipoma. 6. The CT of the brain revealed significant fronto-temporal atrophy and deep white matter changes. 7. The patient's history, neurological examination, and laboratory data are most compatible with an encephalopathy related to his pneumonia and sepsis. 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 8. He is subdued today but his parkinsonian syndrome is relatively well controlled. Recommendations 1. Continue present management. 2. Sinemet 25/250 q 7AM, 12 Noon, 5 PM. 3. Frequent range of motion exercises should be performed. Paresh Dickson M.D., M.S.P.HPARESH DREW Sep 26, 2016 13:04
[2016-09-26 16:07] VITALS: BP 133/73
[2016-09-26 20:00] VITALS: BP 123/72
[2016-09-27] VITALS (7 sets, daily range): BP systolic 114–150; BP diastolic 58–96
[2016-09-27] MEDS: DuoNeb 0.5-3(2.5)mg/3ml neb HHN SCH ×4 (01:29→19:42)
[2016-09-27] MEDS: Piperacillin/Tazobactam 3.375 GM in D5W 110 ML IVPB SCH ×3 (06:04→21:14)
--- NOTE | 2016-09-27 07:21 | General Progress Note ---
Assessment/Plan Problem List: (1) Dementia ICD Codes: F03.90 - Unspecified dementia without behavioral disturbance SNOMED: 76413910 (2) Parkinson disease ICD Codes: G20 - Parkinson's disease SNOMED: 85424919 (3) Iron deficiency ICD Codes: E61.1 - Iron deficiency SNOMED: 45830484 (4) HTN (hypertension) ICD Codes: I10 - Essential (primary) hypertension SNOMED: 18203641 (5) BPH (benign prostatic hyperplasia) ICD Codes: N40.0 - Benign prostatic hyperplasia without lower urinary tract symptoms SNOMED: 734605591, 984049736 (6) Aspiration pneumonia ICD Codes: J69.0 - Pneumonitis due to inhalation of food and vomit SNOMED: 124095253 Assessment/Plan ngtf family refused PEG pend possible DC to home Subjective ROS Limited/Unobtainable: No Allergies: Coded Allergies: No Known Allergies (Unverified , 09/16/16) Objective Last 24 Hour Vital Signs Date Time Temp Pulse Resp B/P Pulse Ox O2 Delivery O2 Flow Rate FiO2 09/27/16 04:00 97.9 77 20 133/76 95 Room Air 09/27/16 01:37 75 16 99 Room Air 21 09/27/16 01:27 21 09/27/16 01:27 75 16 95 Room Air 21 09/27/16 00:00 97.7 68 20 140/69 97 Room Air 09/26/16 21:11 79 18 98 Nasal Cannula 21 09/26/16 21:00 Room Air 21 09/26/16 21:00 94 Room Air 21 09/26/16 21:00 21 09/26/16 21:00 80 16 94 Room Air 21 09/26/16 20:00 97.9 69 18 123/72 96 Room Air 09/26/16 16:07 97.7 70 20 133/73 96 Room Air 09/26/16 13:30 82 20 97 Room Air 21 09/26/16 13:20 68 16 93 Room Air 09/26/16 11:27 97.0 20 123/72 97 Room Air 09/26/16 08:11 97.7 74 20 122/56 92 Room Air 09/26/16 07:23 69 18 98 Room Air 21 Intake and Output 09/26/16 09/27/16 19:00 07:00 Intake Total 890.0 ml 795.0 ml Output Total 1000 ml 1000 ml Balance -110.0 ml -205.0 ml Free Water 120 ml 80 ml IV Total 110.0 ml 110.0 ml Tube Feeding 660 ml 605 ml Output Urine Total 1000 ml 1000 ml Height (Feet): 5 Height (Inches): 11.00 Weight (Pounds): 147 General Appearance: lethargic EENT: normal ENT inspection Neck: supple Cardiovascular: normal rate Respiratory/Chest: decreased breath sounds Abdomen: normal bowel sounds, non tender, soft Extremities: non-tender RUY CHAVEZ Sep 27, 2016 07:21
[2016-09-27] MEDS: Phospha 250 Neutral tab ORAL SCH ×2 (08:50→17:12)
[2016-09-27] MEDS: Modafinil 100mg tab ORAL SCH (08:53)
[2016-09-27] MEDS: Miralax 17gm pkt NG SCH (08:53)
[2016-09-27] MEDS: Heparin 5000 units/ml inj SUBQ SCH ×2 (08:57→21:16)
--- NOTE | 2016-09-27 08:59 | Pulmonology Progress Note ---
Assessment/Plan Assessment/Plan ASSESSMENT acute hypoxemic RF requiring NRM 2 to aspiration PNA severe sepsis aspiration PNA acute toxic metabolic encephalopathy Parkinson disease ARF severe protein calorie malnutrition anemia CAD BPH Dysphagia high aspiration risk e/lyte imbalance : hypo P, hypo Mg PLAN OF CARE MS floor weaned to NC pulse oximetry stable currently on RA stable O2 sat pulmonary toilet ( HHN and CPT) suction frequently sputum cx + Enterobacter, Pseudomonas abx ID follows fup CXR with persistent bilateral congestive changes CT C/A/P noted, + bilateral PNA CT head no acute IC pathology, + chronic small vessel disease neuro follows per neuro acute encephalopathy likely due to infectious process levodopa continued Dobbhoff placed by GI TF per NGT strict aspiration precautions, monitor NGT tolerance no meds via NGT as per GI swallow eval with high aspiration risk, recommended NPO status and nonoral feeding ARF resolved, likely due to dehydration nephro follows P stable after replacement 09/25 HH at baseline, monitor, goal to keep Hgb above 7 pain management Bowel regimen hospice eval with initial plan to dc home with hospice services currently family changed decision dc plan home with HH and DME - per PMD when all arrangements made DNR/DNI status case discussed and evaluated by supervising physician Subjective Allergies: Coded Allergies: No Known Allergies (Unverified , 09/16/16) Subjective weaned to NC, now on RA pulse oximetry stable on MS floor afebrile, no leukocytosis NGT with TF awaiting for disposition private caregiver at the bedside less congested Objective Last 24 Hour Vital Signs Date Time Temp Pulse Resp B/P Pulse Ox O2 Delivery O2 Flow Rate FiO2 09/27/16 08:15 74 18 98 Room Air 09/27/16 08:11 97.9 70 20 150/93 96 Room Air 09/27/16 08:05 71 16 98 Room Air 09/27/16 08:04 Room Air 09/27/16 08:02 98 Room Air 09/27/16 04:00 97.9 77 20 133/76 95 Room Air 09/27/16 01:37 75 16 99 Room Air 21 09/27/16 01:27 21 09/27/16 01:27 75 16 95 Room Air 09/27/16 00:00 97.7 68 20 140/69 97 Room Air 09/26/16 21:11 79 18 98 Nasal Cannula 09/26/16 21:00 Room Air 21 09/26/16 21:00 94 Room Air 21 09/26/16 21:00 21 09/26/16 21:00 80 16 94 Room Air 21 09/26/16 20:00 97.9 69 18 123/72 96 Room Air 09/26/16 16:07 97.7 70 20 133/73 96 Room Air 09/26/16 13:30 82 20 97 Room Air 21 09/26/16 13:20 68 16 93 Room Air 09/26/16 11:27 97.0 20 123/72 97 Room Air Intake and Output 09/26/16 09/27/16 19:00 07:00 Intake Total 890.0 ml 795.0 ml Output Total 1000 ml 1000 ml Balance -110.0 ml -205.0 ml Free Water 120 ml 80 ml IV Total 110.0 ml 110.0 ml Tube Feeding 660 ml 605 ml Output Urine Total 1000 ml 1000 ml Objective General Appearance: cachetic, bedridden elderly male in NAD HEENT: normocephalic, atraumatic, anicteric, NGT Respiratory/Chest: no accessory muscle use, few isolated rhonchi Cardiovascular: normal peripheral pulses, normal rate, no JVD Abdomen: normal bowel sounds, soft, non tender Extremities: no edema, pedal pulses normal Neurologic/Psychiatric: bedridden , awake, poorly responsive Musculoskeletal: atrophy - BLE Current Medications Medications (Trade) Dose Ordered Sig/Angie Route PRN Reason Start Time Stop Time Status Last Admin Dose Admin Acetaminophen (Tylenol) 650 mg Q4H PRN ORAL FEVER>100.5 09/17/16 16:00 10/17/16 15:59 Acetaminophen (Tylenol) 650 mg Q4H PRN ORAL Mild Pain (Pain Scale 1-3) 09/17/16 19:30 10/17/16 19:29 Albuterol/ Ipratropium (DuoNeb 0.5-3(2.5)mg/3ml) 3 ml Q6HRT HHN 09/24/16 10:45 09/29/16 10:44 09/27/16 08:01 Artificial Tears (Akwa-Tears) 1 drop QIDPRN PRN BOTH EYES Dry Eyes 09/18/16 15:15 10/18/16 15:14 Carbidopa/Levodopa (Sinemet 25/250) 1 ea TID@0700,1200,1700 NG 09/17/16 17:00 10/17/16 16:59 09/27/16 06:11 Dextrose (Dextrose 50%) STAT PRN IV Hypoglycemia 09/17/16 16:00 10/17/16 15:59 Glycopyrrolate (Robinul) 0.1 mg Q6H PRN IV excessive secretions 09/18/16 15:15 10/18/16 15:14 Heparin Sodium (Porcine) (Heparin 5000 units/ml) 5,000 units EVERY 12 HOURS SUBQ 09/17/16 21:00 10/17/16 20:59 09/26/16 21:56 Modafinil 200 mg 200 mg DAILY ORAL 09/22/16 11:00 09/29/16 10:59 09/26/16 09:29 Ondansetron HCl (Zofran) 4 mg Q6H PRN IVP Nausea & Vomiting 09/17/16 16:00 10/17/16 15:59 Phosphorus (Phospha 250 Neutral) 250 mg BID ORAL 09/25/16 10:00 10/25/16 09:59 09/26/16 17:54 Piperacillin Sod/ Tazobactam Sod/ Dextrose (Zosyn/D5W) 110 ml @ 27.5 mls/hr EVERY 8 HOURS IVPB 09/23/16 22:00 09/28/16 21:59 09/27/16 06:04 Polyethylene Glycol (Miralax) 17 gm DAILY NG 09/24/16 11:00 10/24/16 10:59 09/26/16 09:29 Ca Saldivar NP (Vanchtein) Sep 27, 2016 08:59
--- NOTE | 2016-09-27 09:27 | General Progress Note ---
Assessment/Plan Status: unchanged Assessment/Plan Renal failure acute vs chronic Cr resolved Encephalopathy Low BP , dehydration CAD Parkinson BPH HTN GERD Low Cognition Pneumonia, Aspiration plan: per PMD stable from renal stand- DC planning?? Subjective ROS Limited/Unobtainable: No Constitutional: Reports: malaise Allergies: Coded Allergies: No Known Allergies (Unverified , 09/16/16) Objective Last 24 Hour Vital Signs Date Time Temp Pulse Resp B/P Pulse Ox O2 Delivery O2 Flow Rate FiO2 09/27/16 08:15 74 18 98 Room Air 09/27/16 08:11 97.9 70 20 150/93 96 Room Air 09/27/16 08:05 71 16 98 Room Air 09/27/16 08:04 Room Air 09/27/16 08:02 98 Room Air 09/27/16 04:00 97.9 77 20 133/76 95 Room Air 09/27/16 01:37 75 16 99 Room Air 21 09/27/16 01:27 21 09/27/16 01:27 75 16 95 Room Air 21 09/27/16 00:00 97.7 68 20 140/69 97 Room Air 09/26/16 21:11 79 18 98 Nasal Cannula 21 09/26/16 21:00 Room Air 21 09/26/16 21:00 94 Room Air 21 09/26/16 21:00 21 09/26/16 21:00 80 16 94 Room Air 21 09/26/16 20:00 97.9 69 18 123/72 96 Room Air 09/26/16 16:07 97.7 70 20 133/73 96 Room Air 09/26/16 13:30 82 20 97 Room Air 09/26/16 13:20 68 16 93 Room Air 09/26/16 11:27 97.0 20 123/72 97 Room Air Intake and Output 09/26/16 09/27/16 19:00 07:00 Intake Total 890.0 ml 795.0 ml Output Total 1000 ml 1000 ml Balance -110.0 ml -205.0 ml Free Water 120 ml 80 ml IV Total 110.0 ml 110.0 ml Tube Feeding 660 ml 605 ml Output Urine Total 1000 ml 1000 ml Height (Feet): 5 Height (Inches): 11.00 Weight (Pounds): 147 General Appearance: no apparent distress Objective other PE not changed VANITA BILLINGS Sep 27, 2016 09:27
--- NOTE | 2016-09-27 10:37 | Diagnostic Imaging Report ---
Indication: Shortness of breath Technique: XRAY CHEST 1 V Comparison: 09/24/16 Findings: Cardiomediastinal silhouette is stable. Feeding tube is again noted within the stomach. There is hazy appearance in the lung bases suggestive of atelectasis and/or pleural effusions. There is slight improved aeration of the right base. Osseous structures are stable. Impression: Slight improved aeration in the right base. Otherwise stable chest as above.
--- NOTE | 2016-09-27 13:20 | Infectious Diseases Prog Note ---
Assessment/Plan Assessment/Plan ASSESSMENT AND PLAN: 1. pseudomonas/enterobacter pna, aspiration pna/hap pna, sepsis, fevers, weakness, sirs - clinically improving, fevers resolved, chest x-ray - improved aeration on right - continue zosyn for now - day # 7/ abx - check labs and f/u chest x-ray - pulmonary treatment/suctioning - can discharge on iv cefepime and po flagy to complete abx course 2. The patient has a history of Parkinson. 3. Dementia. 4. Aspiration risk. 5. Anemia. 6. Coronary artery disease. 7. Hypertension. Blood pressure control per primary. 8. Benign prostatic hypertrophy. 9. S[facility]IVING. 10. Hypoxia. 11. History of pneumonia. 12. No known allergies. 13. Social history is negative. 14. Family history is noncontributory. 15. MAR was noted. 16. Case was discussed with RN. 17. Continue treatment with primary consultants. 18. Skin care per protocol. Wounds were reviewed. There is no significant drain decubitus in the patient. 19. Notes and records reviewed. 20. Case was discussed with the patient's son at length and the family. 21. Case was discussed with Dr. Johnson. Subjective Constitutional: Reports: fatigue, other - + secretions, whitish , Denies: fever HEENT: Reports: congestion - improved Respiratory: Reports: shortness of breath - improved Cardiovascular: Denies: chest pain Gastrointestinal/Abdominal: Denies: diarrhea, nausea, vomiting Genitourinary: Reports: other - + goldberg Neurologic: Denies: headache Psychiatric: Denies: depression Skin: Denies: rash Hematologic: Denies: bleeding Musculoskeletal: Denies: pain Allergies: Coded Allergies: No Known Allergies (Unverified , 09/16/16) Objective Vital Signs Last 24 Hour Vital Signs Date Time Temp Pulse Resp B/P Pulse Ox O2 Delivery O2 Flow Rate FiO2 09/27/16 12:02 97.7 65 20 116/58 98 Room Air 09/27/16 08:15 74 18 98 Room Air 09/27/16 08:11 97.9 70 20 150/93 96 Room Air 09/27/16 08:05 71 16 98 Room Air 09/27/16 08:04 Room Air 09/27/16 08:02 98 Room Air 09/27/16 04:00 97.9 77 20 133/76 95 Room Air 09/27/16 01:37 75 16 99 Room Air 21 09/27/16 01:27 21 09/27/16 01:27 75 16 95 Room Air 09/27/16 00:00 97.7 68 20 140/69 97 Room Air 09/26/16 21:11 79 18 98 Nasal Cannula 09/26/16 21:00 Room Air 09/26/16 21:00 94 Room Air 09/26/16 21:00 21 09/26/16 21:00 80 16 94 Room Air 21 09/26/16 20:00 97.9 69 18 123/72 96 Room Air 09/26/16 16:07 97.7 70 20 133/73 96 Room Air 09/26/16 13:30 82 20 97 Room Air 09/26/16 13:20 68 16 93 Room Air Height (Feet): 5 Height (Inches): 11.00 Weight (Pounds): 147 General Appearance: no acute distress, other - more alert HEENT: normocephalic, atraumatic, anicteric, mucous membranes moist, PERRL, EOMI, supple, no JVD Respiratory/Chest: crackles/rales - few , rhonchi - bilaterally - few Cardiovascular: normal rate, regular rhythm, no gallop/murmur, no JVD Abdomen: normal bowel sounds, soft, non tender, no organomegaly, non distended Genitourinary: other - + goldberg - urine clear Extremities: no cyanosis Skin: no rash Neurologic/Psychiatric: sole polisher II-XII grossly normal, alert, responsive Lymphatic: no neck adenopathy Musculoskeletal: no effusion Objective 09/21 - chest x-ray: Impression: Improved but persistent right mid and lower lung infiltrates. Suspect new or increased retrocardiac infiltrates Suspect small left pleural effusion 09/24 - chest x-ray - IMPRESSION: Persistent bilateral congestive changes with apparent increase in bilateral pleural effusions Underlying atelectasis or pneumonia left lower lobe not excludable 09/27 - chest x-ray - improved aeration on right lung (report noted) Microbiology Date/Time Source Procedure Growth Status 09/16/16 19:45 Blood Blood Culture - Final NO GROWTH AFTER 5 DAYS Complete 09/20/16 23:30 Sputum Induced Gram Stain - Final Complete 09/20/16 23:30 Sputum Culture - Final Enterobacter Cloacae Complex Pseudomonas Aeruginosa Complete 09/16/16 21:41 Rectum VRE Culture - Final NO VANCOMYCIN RESISTANT ENTEROCOCCUS ... Complete Labs Test 09/25/16 05:10 09/26/16 05:35 White Blood Count 5.2 K/UL (4.8-10.8) 5.5 K/UL (4.8-10.8) Red Blood Count 3.20 M/UL (4.70-6.10) 3.23 M/UL (4.70-6.10) Hemoglobin 9.9 G/DL (14.2-18.0) 10.3 G/DL (14.2-18.0) Hematocrit 29.2 % (42.0-52.0) 29.6 % (42.0-52.0) Mean Corpuscular Volume 91 FL (80-99) 92 FL (80-99) Mean Corpuscular Hemoglobin 31.0 PG (27.0-31.0) 31.8 PG (27.0-31.0) Mean Corpuscular Hemoglobin Concent 34.0 G/DL (32.0-36.0) 34.7 G/DL (32.0-36.0) Red Cell Distribution Width 13.6 % (11.6-14.8) 13.5 % (11.6-14.8) Platelet Count 192 K/UL (150-450) 209 K/UL (150-450) Mean Platelet Volume 7.2 FL (6.5-10.1) 7.1 FL (6.5-10.1) Neutrophils (%) (Auto) 70.7 % (45.0-75.0) 70.3 % (45.0-75.0) Lymphocytes (%) (Auto) 17.6 % (20.0-45.0) 18.4 % (20.0-45.0) Monocytes (%) (Auto) 8.2 % (1.0-10.0) 8.0 % (1.0-10.0) Eosinophils (%) (Auto) 2.7 % (0.0-3.0) 2.5 % (0.0-3.0) Basophils (%) (Auto) 0.7 % (0.0-2.0) 0.8 % (0.0-2.0) Sodium Level 137 mEQ/L (135-145) 140 mEQ/L (135-145) Potassium Level 4.1 mEQ/L (3.4-4.9) 3.8 mEQ/L (3.4-4.9) Chloride Level 102 mEQ/L (98-107) 103 mEQ/L (98-107) Carbon Dioxide Level 28 mEQ/L (20-30) 28 mEQ/L (20-30) Anion Gap 7 (5-15) 9 (5-15) Blood Urea Nitrogen 14 mg/dL (7-23) 15 mg/dL (7-23) Creatinine 0.8 mg/dL (0.7-1.2) 0.9 mg/dL (0.7-1.2) Estimat Glomerular Filtration Rate mL/min (>60) mL/min (>60) Glucose Level 121 mg/dL (74-106) 123 mg/dL (74-106) Calcium Level 8.4 mg/dL (8.6-10.2) 8.4 mg/dL (8.6-10.2) Phosphorus Level 2.4 mg/dL (2.5-4.8) 2.6 mg/dL (2.5-4.8) Magnesium Level 1.8 mg/dL (1.7-2.5) 1.9 mg/dL (1.7-2.5) Current Medications Medications (Trade) Dose Ordered Sig/Angie Route PRN Reason Start Time Stop Time Status Last Admin Dose Admin Acetaminophen (Tylenol) 650 mg Q4H PRN ORAL FEVER>100.5 09/17/16 16:00 10/17/16 15:59 Acetaminophen (Tylenol) 650 mg Q4H PRN ORAL Mild Pain (Pain Scale 1-3) 09/17/16 19:30 10/17/16 19:29 Albuterol/ Ipratropium (DuoNeb 0.5-3(2.5)mg/3ml) 3 ml Q6HRT HHN 09/27/16 13:00 10/02/16 12:59 Artificial Tears 1 drop 1 drop QIDPRN PRN BOTH EYES Dry Eyes 09/18/16 15:15 10/18/16 15:14 Carbidopa/Levodopa (Sinemet 25/250) 1 ea TID@0700,1200,1700 NG 09/17/16 17:00 10/17/16 16:59 09/27/16 12:15 Dextrose (Dextrose 50%) STAT PRN IV Hypoglycemia 09/17/16 16:00 10/17/16 15:59 Glycopyrrolate (Robinul) 0.1 mg Q6H PRN IV excessive secretions 09/18/16 15:15 10/18/16 15:14 Heparin Sodium (Porcine) (Heparin 5000 units/ml) 5,000 units EVERY 12 HOURS SUBQ 09/17/16 21:00 10/17/16 20:59 09/27/16 08:57 Modafinil (Provigil) 200 mg DAILY ORAL 09/28/16 09:00 10/05/16 08:59 Ondansetron HCl (Zofran) 4 mg Q6H PRN IVP Nausea & Vomiting 09/17/16 16:00 10/17/16 15:59 Phosphorus (Phospha 250 Neutral) 250 mg BID ORAL 09/25/16 10:00 10/25/16 09:59 09/27/16 08:50 Piperacillin Sod/ Tazobactam Sod/ Dextrose (Zosyn/D5W) 110 ml @ 27.5 mls/hr EVERY 8 HOURS IVPB 09/23/16 22:00 09/28/16 21:59 09/27/16 06:04 Polyethylene Glycol (Miralax) 17 gm DAILY NG 09/24/16 11:00 10/24/16 10:59 09/27/16 08:53 DOMINIC PARKER Sep 27, 2016 13:20
--- NOTE | 2016-09-27 17:33 | Neurology Progress Note ---
Interim History Interim History Interim History Mr. Luevano is awake and looks alert today. He however is non-verbal. As per his caregiver he has been brighter. He is not coughing much. The NGT feeding continues. He follows commands rarely. He continues to be cognitively impoverished and motorically challenged. Plans are to possibly go home tomorrow. Review of Systems Neuro Review of Systems Unable to obtain. Objective Physical Exam Last Vital Signs Date Time Temp Pulse Resp B/P Pulse Ox O2 Delivery O2 Flow Rate FiO2 09/27/16 16:46 97.7 70 18 114/66 96 Room Air 09/27/16 01:37 21 09/24/16 04:42 2.0 Neurologic Exam Objective PHYSICAL EXAMINATION: GENERAL: He is a well-developed, well-nourished, pleasant gentleman, lying in bed in no acute distress. HEAD: Normocephalic and atraumatic. EENT: Examination benign. NECK: No neck rigidity was observed. NEUROLOGICAL EXAMINATION: MENTAL STATUS EXAMINATION: He was awake but not completely alert. He was non verbal. He did follow a few commands inconsistently. Further mental status testing was impossible. SPEECH: He was mute. LANGUAGE: He followed a few simple commands but was mute. CRANIAL NERVE EXAMINATION: II: He did blink to threat in all yi. III, IV & : External ocular movements were present. The pupils were 3 mm in diameter, equal, round, regular and reactive sluggishly to light. V & VII: The corneal reflexes were present bilaterally. VIII: He was able to hear and had no nystagmus. IX & X: The gag reflex was present but diminished. XI: The sternocleidomastoids and trapezii functioned. XII: The tongue was in midline without any fasciculations or atrophy. MOTOR SYSTEM: The tone was increased in all four extremities with spasticity. Examination of muscle mass revealed generalized muscle wasting. Examination of power was impossible to perform in an organized manner. 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 SENSORY EXAMINATION: He responded appropriately to deep pain. He was unable to cooperate for other sensory modalities. REFLEXES: Trace+ and bilaterally symmetrical at the biceps, triceps, brachioradialis, knees, and zero at both ankles. The plantar responses were flexor bilaterally. COORDINATION, STANCE & GAIT: Could not be tested. ABNORMAL MOVEMENTS: Tremor (7-8 Hz): G 0/4 Tremor (4-5 Hz): G 0/4 Rigidity: G 0/4 Bradykinesia: G 2/4 Hypomimia: G 2/4. Impression/Recommendations Diagnostic Impression 1. Mr. Naseem Luevano is an 86-year-old, gentleman, of unknown handedness, who does have a past history of coronary artery disease, Parkinson' s disease, dementia, being nonverbal and being essentially bed-bound, who was hospitalized for a change in mental state, which was discovered to be due to a pneumonia. 2. He is awake and more alert. He is non-verbal. He is still cognitively impoverished and motorically challenged. 3. On neurological examination, at this time, he is awake and more alert but non -verbal. 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 In addition, he also has bradykinesia, hypomimia, and globally diminished reflexes with extensor plantar responses bilaterally. 4. Laboratory data on admission revealed that he was anemic with a hemoglobin of 10.4. His creatinine was elevated to 1.8. His alkaline phosphatase was elevated to 132. He also had lactic acidosis which has now improved. His urinalysis was essentially benign. 5. A CT scan of the chest, abdomen and pelvis revealed bilateral pneumonia involving the lower lung yi, fecal impaction with moderate distention of his rectum, multiple liver cysts, gallbladder stones versus sludge., compression fractures of the T12 and L3 which looked old, an old left hip fracture that was pinned, a right psoas lipoma. 6. The CT of the brain revealed significant fronto-temporal atrophy and deep white matter changes. 7. The patient's history, neurological examination, and laboratory data are most compatible with an encephalopathy related to his pneumonia and sepsis. 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 8. He is brighter today and his parkinsonian syndrome is relatively well controlled. Recommendations 1. Continue present management. 2. Sinemet 25/250 q 7AM, 12 Noon, 5 PM. 3. Frequent range of motion exercises should be performed. 4. Agree with getting him home as soon as possible. Paresh Dickson M.D., M.S.P.H. PARESH DICKSON Sep 27, 2016 17:33
--- NOTE | 2016-09-27 17:41 | Internal Med Progress Note ---
Subjective Physician Name TipGemini blackwell Attending Physician Viridiana Fried Current Medications Medications (Trade) Dose Ordered Sig/Angie Route PRN Reason Start Time Stop Time Status Last Admin Dose Admin Acetaminophen (Tylenol) 650 mg Q4H PRN ORAL FEVER>100.5 09/17/16 16:00 10/17/16 15:59 Acetaminophen (Tylenol) 650 mg Q4H PRN ORAL Mild Pain (Pain Scale 1-3) 09/17/16 19:30 10/17/16 19:29 Albuterol/ Ipratropium (DuoNeb 0.5-3(2.5)mg/3ml) 3 ml Q6HRT HHN 09/27/16 13:00 10/02/16 12:59 09/27/16 13:51 Artificial Tears (Akwa-Tears) 1 drop QIDPRN PRN BOTH EYES Dry Eyes 09/18/16 15:15 10/18/16 15:14 Carbidopa/Levodopa (Sinemet 25/250) 1 ea TID@0700,1200,1700 NG 09/17/16 17:00 10/17/16 16:59 09/27/16 17:12 Dextrose (Dextrose 50%) STAT PRN IV Hypoglycemia 09/17/16 16:00 10/17/16 15:59 Glycopyrrolate (Robinul) 0.1 mg Q6H PRN IV excessive secretions 09/18/16 15:15 10/18/16 15:14 Heparin Sodium (Porcine) (Heparin 5000 units/ml) 5,000 units EVERY 12 HOURS SUBQ 09/17/16 21:00 10/17/16 20:59 09/27/16 08:57 Modafinil 200 mg 200 mg DAILY ORAL 09/28/16 09:00 10/05/16 08:59 Ondansetron HCl (Zofran) 4 mg Q6H PRN IVP Nausea & Vomiting 09/17/16 16:00 10/17/16 15:59 Phosphorus (Phospha 250 Neutral) 250 mg BID ORAL 09/25/16 10:00 10/25/16 09:59 09/27/16 17:12 Piperacillin Sod/ Tazobactam Sod/ Dextrose (Zosyn/D5W) 110 ml @ 27.5 mls/hr EVERY 8 HOURS IVPB 09/27/16 14:00 10/02/16 13:59 09/27/16 13:43 Polyethylene Glycol (Miralax) 17 gm DAILY NG 09/24/16 11:00 10/24/16 10:59 09/27/16 08:53 Allergies: Coded Allergies: No Known Allergies (Unverified , 09/16/16) Objective Last Vital Signs Date Time Temp Pulse Resp B/P Pulse Ox O2 Delivery O2 Flow Rate FiO2 09/27/16 16:46 97.7 70 18 114/66 96 Room Air 09/27/16 01:37 21 09/24/16 04:42 2.0 Intake and Output 09/26/16 09/27/16 18:59 06:59 Intake Total 890.0 ml 850.0 ml Output Total 1000 ml 1000 ml Balance -110.0 ml -150.0 ml Free Water 120 ml 80 ml IV Total 110.0 ml 110.0 ml Tube Feeding 660 ml 660 ml Output Urine Total 1000 ml 1000 ml Assessment/Plan Status Narrative Assessment/Plan Assessment/Plan Problem List: (1) Acute respiratory failure with hypoxia ICD Codes: J96.01 - Acute respiratory failure with hypoxia SNOMED: 50953326, 822307087 (2) Severe sepsis ICD Codes: A41.9 - Sepsis, unspecified organism; R65.20 - Severe sepsis without septic shock SNOMED: 61494951 (3) Aspiration pneumonia ICD Codes: J69.0 - Pneumonitis due to inhalation of food and vomit SNOMED: 536712743 (4) Lactic acidosis ICD Codes: E87.2 - Acidosis SNOMED: 43867982 (5) Toxic metabolic encephalopathy ICD Codes: G92 - Toxic encephalopathy SNOMED: 515888090 (6) Parkinson disease ICD Codes: G20 - Parkinson's disease SNOMED: 09937064 (7) Dementia ICD Codes: F03.90 - Unspecified dementia without behavioral disturbance SNOMED: 49801206 (8) ALMA (acute kidney injury) ICD Codes: N17.9 - Acute kidney failure, unspecified SNOMED: 75107792 (9) ATN (acute tubular necrosis) ICD Codes: N17.0 - Acute kidney failure with tubular necrosis SNOMED: 20453496 (10) Protein-calorie malnutrition, severe ICD Codes: E43 - Unspecified severe protein-calorie malnutrition SNOMED: 179247304 (11) Iron deficiency ICD Codes: E61.1 - Iron deficiency SNOMED: 47169939 (12) BPH (benign prostatic hyperplasia) ICD Codes: N40.0 - Benign prostatic hyperplasia without lower urinary tract symptoms SNOMED: 974855548, 296348842 (13) CAD (coronary artery disease) ICD Codes: I25.10 - Atherosclerotic heart disease of [place] coronary artery without angina pectoris SNOMED: 82588365 (14) Pressure ulcer Assessment & Plan: #1 Sacral stage 1 pressure ulcer. #2 Bridge of nose stage 1 pressure ulcer. #3 Left heel stage 1 pressure ulcer. #4 Right heel stage 1 pressure ulcer. ICD Codes: L89.90 - Pressure ulcer of unspecified site, unspecified stage SNOMED: 466033307 Status: stable Assessment/Plan Pulmonology consulted ID consulted Cont zosyn for aspiration PNA 2/2 Enterobacter and Pseudomonass s/p vanco F/u sputum culture F/u blood cultures--ngtd Duonebs ATC and PRN Chest PT Suction PRN Trend CBC Nephrology consulted Replete lytes Trend BMP Monitor UOP Neurology consulted Check CT brain--neg GI consulted for Dobhoff placement Dobhoff placed 09/20 Cont tube feeds No meds via Dobhoff per GI Cont sinemet and modafinil as tolerated PO JUSTICE [employer] DEPUTY CLERK eval--pt high aspiration risk D/w family and no plan for G tube but would like trial of NGT/Dobhoff Pain control, bowel regimen Supportive care Hospice referral made to [facility] hospice per daughter's request but now family is refusing D/w pt's private CM and prefer d/c home w/ HH. DME order place Hospital bed, low pressure mattress, frank lift ordered--pt requires these items due to h/o advanced Parkinson's disease, dementia, aspiration pneumonia, pressure ulcers. He will need frequent body changing and positioning in ways not feasible in an ordinary bed. He will need HOB elevation given high aspiration risk per JUSTICE COURT DEPUTY CLERK. Pt is also at risk of body deconditioning and worsening pressure sores. Home IV abx ordered on d/c: cefepime 2g q24 x 7 days per ID Empiric flagyl 500mg PO TID x 7 days on d/c per ID DC planning--discharge delayed given DME will not arrive at pt's home until Wednesday DVT Prophylaxis: SCD, HSQ Code Status: DNR/DNI Hospital Classification Declaration: Based on this initial evaluation, and depending on the patient's clinical course, I anticipate that this patient will require hospitalization for 1-2 days for severe sepsis, aspiration PNA, ALMA and close respiratory/hemodynamic monitoring. Disposition: Once the patient is stable to leave the hospital, I anticipate the patient will likely be discharged to the following environment: Home w/ HH +CG ( family declined hospice, SNF) Discussed with patient/family, nursing staff, SW/CM, pulmonology, renal, neurology regarding clinical status, treatment course, and disposition planning. D/w family extensively regarding plan of care. D/w pulm re PNA. D/w ID re abx. D/w son re plan of care Time of note may not reflect time of encounter. Subjective Subjective Date patient seen: Sep 25, 2016 Time patient seen: 12:00 ROS Limited/Unobtainable: Yes Allergies: Coded Allergies: No Known Allergies (Unverified , 09/16/16) Subjective No acute o/n events Cont on tube feeds via Dobhoff Cont IV zosyn per ID More awake, following simple commands and per CG said a few words Congestion improved Caregiver feeding small amts of puree diet Sinemet being given crushed in apple sauce and pt able to take PO DC pending arrangement of all DME including hospital, home health for feeds and IV abx. Awaiting CM to confirm--per CM hospital bed to arrive on Wed Objective Objective Last 24 Hour Vital Signs Date Time Temp Pulse Resp B/P Pulse Ox O2 Delivery O2 Flow Rate FiO2 09/25/16 20:00 98.2 69 20 110/62 95 Room Air 09/25/16 19:55 72 18 99 Room Air 09/25/16 19:45 Room Air 09/25/16 19:45 72 18 96 Room Air 09/25/16 19:45 96 Room Air 09/25/16 15:31 97.3 69 20 117/63 95 Room Air 09/25/16 13:23 67 18 98 Room Air 09/25/16 13:13 86 18 94 Room Air 09/25/16 11:28 97.2 69 20 125/64 96 Room Air 09/25/16 08:11 97.7 68 20 102/58 92 Room Air 09/25/16 07:36 69 18 100 Room Air 17 07:33 Room Air 09/25/16 07:32 94 Room Air 21 09/25/16 07:26 71 18 94 Room Air 21 09/25/16 04:08 98.1 70 20 148/63 96 Room Air 09/25/16 01:53 67 16 99 Room Air 21 09/25/16 01:46 69 16 97 Room Air 21 09/25/16 01:46 21 09/24/16 23:58 96.3 69 20 131/71 97 Room Air 09/24/16 20:45 97.9 67 20 126/66 99 Room Air Intake and Output 09/24/16 09/25/16 19:00 07:00 Intake Total 605 ml 27.5 ml Output Total 700 ml 1600 ml Balance -95 ml -1572.5 ml IV Total 27.5 ml Tube Feeding 605 ml Output Urine Total 700 ml 1600 ml Laboratory Tests 09/25/16 05:10: White Blood Count 5.2, Red Blood Count 3.20L, Hemoglobin 9.9L, Hematocrit 29.2L , Mean Corpuscular Volume 91, Mean Corpuscular Hemoglobin 31.0, Mean Corpuscular Hemoglobin Concent 34.0, Red Cell Distribution Width 13.6, Platelet Count 192, Mean Platelet Volume 7.2, Neutrophils (%) (Auto) 70.7, Lymphocytes (% ) (Auto) 17.6L, Monocytes (%) (Auto) 8.2, Eosinophils (%) (Auto) 2.7, Basophils (%) (Auto) 0.7, Sodium Level 137, Potassium Level 4.1, Chloride Level 102, Carbon Dioxide Level 28, Anion Gap 7, Blood Urea Nitrogen 14, Creatinine 0.8, Estimat Glomerular Filtration Rate , Glucose Level 121H, Calcium Level 8.4L, Phosphorus Level 2.4L, Magnesium Level 1.8 Height (Feet): 5 Height (Inches): 11.00 Weight (Pounds): 147 Objective General: eyes open, poorly responsive to voice or pain, NAD, appears stated age Head: normocephalic, without obvious abnormality, atraumatic Eyes: conjunctivae/corneas clear. PERRL, EOM's intact Throat: lips, mucosa, and tongue normal. MMM Neck: supple, symmetrical, trachea midline, and no JVD Lungs: +rhonchi b/l Heart: regular rate and rhythm, S1, S2 normal, no murmur, click, rub or gallop Abdomen: soft, non-tender, non-distended, bowel sounds normal; no masses or organomegaly Extremities: extremities normal, atraumatic, no cyanosis or edema Pulses: 2+ and symmetric Skin: skin color, texture, turgor normal; no rashes or lesions Neurologic: grossly normal, no focal deficits Gemini Cordero M.D. Sep 27, 2016 17:41
[2016-09-28] MEDS: DuoNeb 0.5-3(2.5)mg/3ml neb HHN SCH ×4 (01:32→19:46)
[2016-09-28 04:00] VITALS: BP 115/66
[2016-09-28] MEDS: Piperacillin/Tazobactam 3.375 GM in D5W 110 ML IVPB SCH ×3 (06:02→21:10)
[2016-09-28 06:13] LABS: BASOPHILS % (AUTO) 0.8 % (0.0-2.0); EOSINOPHILS % (AUTO) 2.8 % (0.0-3.0); LYMPHOCYTES % (AUTO) 13.2 % (20.0-45.0); MEAN CORPUSCULAR HEMOGLOBIN 30.3 PG (27.0-31.0); MEAN CORPUSCULAR VOLUME 92 FL (80-99); MEAN PLATELET VOLUME 7.6 FL (6.5-10.1); MONOCYTES % (AUTO) 7.1 % (1.0-10.0); PLATELET COUNT 242 K/UL (150-450); RED BLOOD COUNT 3.58 M/UL (4.70-6.10); RED CELL DISTRIBUTION WIDTH 14.6 % (11.6-14.8)
[2016-09-28 06:32] LABS: ANION GAP 12 (5-15); CALCIUM 8.7 mg/dL (8.6-10.2); CARBON DIOXIDE 25 mEQ/L (20-30); CHLORIDE 102 mEQ/L (98-107); CREATININE 0.8 mg/dL (0.7-1.2); HEMOLYSIS 0; POTASSIUM 3.9 mEQ/L (3.4-4.9); SODIUM 139 mEQ/L (135-145)
[2016-09-28 08:00] VITALS: BP 132/74
[2016-09-28] MEDS ORDERED: Modafinil 100mg tab ORAL SCH (09:00)
[2016-09-28] MEDS: Miralax 17gm pkt NG SCH (10:21)
[2016-09-28] MEDS: Phospha 250 Neutral tab ORAL SCH ×2 (10:21→18:34)
[2016-09-28] MEDS: Heparin 5000 units/ml inj SUBQ SCH ×2 (10:25→21:10)
--- NOTE | 2016-09-28 11:31 | GI Progress Note ---
Assessment/Plan Problems: (1) Lives in assisted living facility ICD Codes: Z59.3 - Problems related to living in residential institution SNOMED: 019304307 (2) Iron deficiency ICD Codes: E61.1 - Iron deficiency SNOMED: 42433292 (3) Dehydration ICD Codes: E86.0 - Dehydration SNOMED: 72100529 (4) Protein-calorie malnutrition, severe ICD Codes: E43 - Unspecified severe protein-calorie malnutrition SNOMED: 812172279 (5) Acute encephalopathy ICD Codes: G93.40 - Encephalopathy, unspecified SNOMED: 2159839 (6) Parkinson disease ICD Codes: G20 - Parkinson's disease SNOMED: 42064314 Status: stable, unchanged Status Narrative Discussed with Dr. Robles. Assessment/Plan CT AP reviewed >> pneumonia NPO x meds TF via dobhoff, family refused PEG ok to give meds via dobhoff >> Tube is not ideal for crushed meds due to high chance of clogging. Meds must be finely crushed, tube flushed well after every use ppi monitor H&H, prn transfusions IV hydration + electrolyte correction abx fu labs level of care discussion with family dc planning Subjective Subjective limited, more awake Objective Last 24 Hour Vital Signs Date Time Temp Pulse Resp B/P Pulse Ox O2 Delivery O2 Flow Rate FiO2 09/28/16 08:00 97.2 75 18 132/74 94 Room Air 09/28/16 07:35 73 18 99 Room Air 09/28/16 07:23 98 Room Air 09/28/16 07:23 Room Air 09/28/16 07:22 71 20 98 Room Air 09/28/16 04:00 97.9 67 18 115/66 96 Room Air 09/28/16 01:42 81 18 100 Room Air 09/28/16 01:32 75 18 98 Room Air 09/27/16 23:59 97.7 66 20 130/96 95 Room Air 09/27/16 20:00 97.8 73 18 124/63 97 Room Air 09/27/16 19:52 75 18 100 Room Air 09/27/16 19:42 97 Room Air 09/27/16 19:42 Room Air 09/27/16 19:42 71 18 97 Room Air 09/27/16 16:46 97.7 70 18 114/66 96 Room Air 09/27/16 14:03 72 18 98 Room Air 09/27/16 13:54 68 18 98 Room Air 09/27/16 12:02 97.7 65 20 116/58 98 Room Air Intake and Output 09/27/16 09/28/16 19:00 07:00 Intake Total 1040.0 ml 740.0 ml Output Total 1025 ml 850 ml Balance 15.0 ml -110.0 ml Free Water 160 ml 80 ml IV Total 220.0 ml 110.0 ml Tube Feeding 660 ml 550 ml Output Urine Total 1025 ml 850 ml # Bowel Movements 1 Laboratory Tests Test 09/28/16 05:05 White Blood Count 6.0 K/UL (4.8-10.8) Red Blood Count 3.58 M/UL (4.70-6.10) L Hemoglobin 10.8 G/DL (14.2-18.0) L Hematocrit 32.9 % (42.0-52.0) L Mean Corpuscular Volume 92 FL (80-99) Mean Corpuscular Hemoglobin 30.3 PG (27.0-31.0) Mean Corpuscular Hemoglobin Concent 33.0 G/DL (32.0-36.0) Red Cell Distribution Width 14.6 % (11.6-14.8) Platelet Count 242 K/UL (150-450) Mean Platelet Volume 7.6 FL (6.5-10.1) Neutrophils (%) (Auto) 76.0 % (45.0-75.0) H Lymphocytes (%) (Auto) 13.2 % (20.0-45.0) L Monocytes (%) (Auto) 7.1 % (1.0-10.0) Eosinophils (%) (Auto) 2.8 % (0.0-3.0) Basophils (%) (Auto) 0.8 % (0.0-2.0) Sodium Level 139 mEQ/L (135-145) Potassium Level 3.9 mEQ/L (3.4-4.9) Chloride Level 102 mEQ/L (98-107) Carbon Dioxide Level 25 mEQ/L (20-30) Anion Gap 12 (5-15) Blood Urea Nitrogen 16 mg/dL (7-23) Creatinine 0.8 mg/dL (0.7-1.2) Estimat Glomerular Filtration Rate mL/min (>60) Glucose Level 116 mg/dL (74-106) H Calcium Level 8.7 mg/dL (8.6-10.2) Height (Feet): 5 Height (Inches): 11.00 Weight (Pounds): 147 General Appearance: no apparent distress, alert Cardiovascular: normal rate Respiratory/Chest: no respiratory distress Abdominal Exam: other - Geovanna Bañuelos N.P. Sep 28, 2016 11:31
[2016-09-28 12:00] VITALS: BP 117/79
--- NOTE | 2016-09-28 12:31 | Neurology Progress Note ---
Interim History Interim History Interim History Mr. Luevano is awake and alert. He says he feels "better." He however is poorly verbal. As per his caregiver he has been brighter. He is not coughing much. The NGT feeding continues. He follows commands better. He continues to be cognitively impoverished and motorically challenged. Plans are to possibly go home tomorrow. Review of Systems Neuro Review of Systems Unable to obtain. Objective Physical Exam Last Vital Signs Date Time Temp Pulse Resp B/P Pulse Ox O2 Delivery O2 Flow Rate FiO2 09/28/16 08:00 97.2 75 18 132/74 94 Room Air 09/27/16 01:37 21 09/24/16 04:42 2.0 Laboratory Tests Test 09/28/16 05:05 White Blood Count 6.0 K/UL (4.8-10.8) Red Blood Count 3.58 M/UL (4.70-6.10) L Hemoglobin 10.8 G/DL (14.2-18.0) L Hematocrit 32.9 % (42.0-52.0) L Mean Corpuscular Volume 92 FL (80-99) Mean Corpuscular Hemoglobin 30.3 PG (27.0-31.0) Mean Corpuscular Hemoglobin Concent 33.0 G/DL (32.0-36.0) Red Cell Distribution Width 14.6 % (11.6-14.8) Platelet Count 242 K/UL (150-450) Mean Platelet Volume 7.6 FL (6.5-10.1) Neutrophils (%) (Auto) 76.0 % (45.0-75.0) H Lymphocytes (%) (Auto) 13.2 % (20.0-45.0) L Monocytes (%) (Auto) 7.1 % (1.0-10.0) Eosinophils (%) (Auto) 2.8 % (0.0-3.0) Basophils (%) (Auto) 0.8 % (0.0-2.0) Sodium Level 139 mEQ/L (135-145) Potassium Level 3.9 mEQ/L (3.4-4.9) Chloride Level 102 mEQ/L (98-107) Carbon Dioxide Level 25 mEQ/L (20-30) Anion Gap 12 (5-15) Blood Urea Nitrogen 16 mg/dL (7-23) Creatinine 0.8 mg/dL (0.7-1.2) Estimat Glomerular Filtration Rate mL/min (>60) Glucose Level 116 mg/dL (74-106) H Calcium Level 8.7 mg/dL (8.6-10.2) Neurologic Exam Objective PHYSICAL EXAMINATION: GENERAL: He is a well-developed, well-nourished, pleasant gentleman, lying in bed in no acute distress. HEAD: Normocephalic and atraumatic. EENT: Examination benign. NECK: No neck rigidity was observed. NEUROLOGICAL EXAMINATION: MENTAL STATUS EXAMINATION: He was awake and more alert. He was minimally verbal. He did follow a few commands inconsistently. Further mental status testing was impossible. SPEECH: He was minimally verbal. LANGUAGE: He followed a few simple commands and was minimally verbal. CRANIAL NERVE EXAMINATION: II: He did blink to threat in all yi. III, IV & : External ocular movements were present. The pupils were 3 mm in diameter, equal, round, regular and reactive sluggishly to light. V & VII: The corneal reflexes were present bilaterally. VIII: He was able to hear and had no nystagmus. IX & X: The gag reflex was present but diminished. XI: The sternocleidomastoids and trapezii functioned. XII: The tongue was in midline without any fasciculations or atrophy. MOTOR SYSTEM: The tone was increased in all four extremities with spasticity. Examination of muscle mass revealed generalized muscle wasting. Examination of power was impossible to perform in an organized manner. 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 SENSORY EXAMINATION: He responded appropriately to deep pain. He was unable to cooperate for other sensory modalities. REFLEXES: Trace+ and bilaterally symmetrical at the biceps, triceps, brachioradialis, knees, and zero at both ankles. The plantar responses were flexor bilaterally. COORDINATION, STANCE & GAIT: Could not be tested. ABNORMAL MOVEMENTS: Tremor (7-8 Hz): G 0/4 Tremor (4-5 Hz): G 0/4 Rigidity: G 0/4 Bradykinesia: G 2/4 Hypomimia: G 2/4. Impression/Recommendations Diagnostic Impression 1. Mr. Naseem Luevano is an 86-year-old, gentleman, of unknown handedness, who does have a past history of coronary artery disease, Parkinson' s disease, dementia, being nonverbal and being essentially bed-bound, who was hospitalized for a change in mental state, which was discovered to be due to a pneumonia. 2. He is awake and more alert. He is minimally verbal. He is still cognitively impoverished and motorically challenged. 3. On neurological examination, at this time, he is awake and more alert but minimally verbal. 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 In addition, he also has bradykinesia, hypomimia, and globally diminished reflexes with extensor plantar responses bilaterally. 4. Laboratory data on admission revealed that he was anemic with a hemoglobin of 10.4. His creatinine was elevated to 1.8. His alkaline phosphatase was elevated to 132. He also had lactic acidosis which has now improved. His urinalysis was essentially benign. 5. A CT scan of the chest, abdomen and pelvis revealed bilateral pneumonia involving the lower lung yi, fecal impaction with moderate distention of his rectum, multiple liver cysts, gallbladder stones versus sludge., compression fractures of the T12 and L3 which looked old, an old left hip fracture that was pinned, a right psoas lipoma. 6. The CT of the brain revealed significant fronto-temporal atrophy and deep white matter changes. 7. The patient's history, neurological examination, and laboratory data are most compatible with an encephalopathy related to his pneumonia and sepsis. 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 8. He is brighter today and his parkinsonian syndrome is relatively well controlled. Recommendations 1. Continue present management. 2. Sinemet 25/250 q 7AM, 12 Noon, 5 PM. 3. Frequent range of motion exercises should be continued. 4. Agree with getting him home as soon as possible. Paresh Dickson M.D., M.S.PARESH TELLO Sep 28, 2016 12:31
--- NOTE | 2016-09-28 13:45 | General Progress Note ---
Assessment/Plan Status: stable Assessment/Plan Renal failure acute vs chronic Cr resolved Encephalopathy Low BP , dehydration CAD Parkinson BPH HTN GERD Low Cognition Pneumonia, Aspiration plan: per PMD stable from renal stand- DC planning?? Subjective ROS Limited/Unobtainable: No Constitutional: Reports: malaise Allergies: Coded Allergies: No Known Allergies (Unverified , 09/16/16) Objective Last 24 Hour Vital Signs Date Time Temp Pulse Resp B/P Pulse Ox O2 Delivery O2 Flow Rate FiO2 09/28/16 12:30 70 18 99 Room Air 09/28/16 12:00 97.5 71 18 117/79 95 Room Air 09/28/16 08:00 97.2 75 18 132/74 94 Room Air 09/28/16 07:35 73 18 99 Room Air 09/28/16 07:23 98 Room Air 09/28/16 07:23 Room Air 09/28/16 07:22 71 20 98 Room Air 09/28/16 04:00 97.9 67 18 115/66 96 Room Air 09/28/16 01:42 81 18 100 Room Air 09/28/16 01:32 75 18 98 Room Air 09/27/16 23:59 97.7 66 20 130/96 95 Room Air 09/27/16 20:00 97.8 73 18 124/63 97 Room Air 09/27/16 19:52 75 18 100 Room Air 09/27/16 19:42 97 Room Air 09/27/16 19:42 Room Air 09/27/16 19:42 71 18 97 Room Air 09/27/16 16:46 97.7 70 18 114/66 96 Room Air 09/27/16 14:03 72 18 98 Room Air 09/27/16 13:54 68 18 98 Room Air Intake and Output 09/27/16 09/28/16 19:00 07:00 Intake Total 1040.0 ml 740.0 ml Output Total 1025 ml 850 ml Balance 15.0 ml -110.0 ml Free Water 160 ml 80 ml IV Total 220.0 ml 110.0 ml Tube Feeding 660 ml 550 ml Output Urine Total 1025 ml 850 ml # Bowel Movements 1 Laboratory Tests 09/28/16 05:05: White Blood Count 6.0, Red Blood Count 3.58L, Hemoglobin 10.8L, Hematocrit 32.9L , Mean Corpuscular Volume 92, Mean Corpuscular Hemoglobin 30.3, Mean Corpuscular Hemoglobin Concent 33.0, Red Cell Distribution Width 14.6, Platelet Count 242, Mean Platelet Volume 7.6, Neutrophils (%) (Auto) 76.0H, Lymphocytes ( %) (Auto) 13.2L, Monocytes (%) (Auto) 7.1, Eosinophils (%) (Auto) 2.8, Basophils (%) (Auto) 0.8, Sodium Level 139, Potassium Level 3.9, Chloride Level 102, Carbon Dioxide Level 25, Anion Gap 12, Blood Urea Nitrogen 16, Creatinine 0.8, Estimat Glomerular Filtration Rate , Glucose Level 116H, Calcium Level 8.7 Height (Feet): 5 Height (Inches): 11.00 Weight (Pounds): 147 General Appearance: no apparent distress Objective other PE not changed VANITA BILLINGS Sep 28, 2016 13:45
[2016-09-28 16:00] VITALS: BP 134/75
--- NOTE | 2016-09-28 19:07 | Pulmonology Progress Note ---
Assessment/Plan Problems: (1) Sepsis (2) ATN (acute tubular necrosis) (3) Acute encephalopathy (4) Pneumonia (5) Protein-calorie malnutrition, severe (6) Dementia (7) Parkinson disease (8) Limited mobility Assessment/Plan tolerating feeding more cough according to the md do resident urgent care change face mask to NC CXR is better taper fio2, pulse oximeter on room air dc planning in process Subjective ROS Limited/Unobtainable: No Constitutional: Reports: no symptoms HEENT: Repors: no symptoms Respiratory: Reports: no symptoms Allergies: Coded Allergies: No Known Allergies (Unverified , 09/16/16) Objective Last 24 Hour Vital Signs Date Time Temp Pulse Resp B/P Pulse Ox O2 Delivery O2 Flow Rate FiO2 09/28/16 16:00 97.5 77 20 134/75 96 Nasal Cannula 2.0 09/28/16 12:40 69 18 99 Room Air 09/28/16 12:30 70 18 99 Room Air 09/28/16 12:00 97.5 71 18 117/79 95 Room Air 09/28/16 08:00 97.2 75 18 132/74 94 Room Air 09/28/16 07:35 73 18 99 Room Air 09/28/16 07:23 98 Room Air 09/28/16 07:23 Room Air 09/28/16 07:22 71 20 98 Room Air 09/28/16 04:00 97.9 67 18 115/66 96 Room Air 09/28/16 01:42 81 18 100 Room Air 09/28/16 01:32 75 18 98 Room Air 09/27/16 23:59 97.7 66 20 130/96 95 Room Air 09/27/16 20:00 97.8 73 18 124/63 97 Room Air 09/27/16 19:52 75 18 100 Room Air 09/27/16 19:42 97 Room Air 09/27/16 19:42 Room Air 09/27/16 19:42 71 18 97 Room Air Intake and Output 09/27/16 09/28/16 19:00 07:00 Intake Total 1040.0 ml 740.0 ml Output Total 1025 ml 850 ml Balance 15.0 ml -110.0 ml Free Water 160 ml 80 ml IV Total 220.0 ml 110.0 ml Tube Feeding 660 ml 550 ml Output Urine Total 1025 ml 850 ml # Bowel Movements 1 Objective General Appearance: WD/WN HEENT: normocephalic, atraumatic Respiratory/Chest: chest wall non-tender, lungs clear Breasts: no masses Cardiovascular: normal peripheral pulses, normal rate Abdomen: normal bowel sounds, soft, non tender Genitourinary: normal external genitalia Extremities: no cyanosis Skin: no rash Neurologic/Psychiatric: skin lifter bacon II-XII grossly normal, normal mood/affect Lymphatic: no groin adenopathy Laboratory Tests 09/28/16 05:05: White Blood Count 6.0, Red Blood Count 3.58L, Hemoglobin 10.8L, Hematocrit 32.9L , Mean Corpuscular Volume 92, Mean Corpuscular Hemoglobin 30.3, Mean Corpuscular Hemoglobin Concent 33.0, Red Cell Distribution Width 14.6, Platelet Count 242, Mean Platelet Volume 7.6, Neutrophils (%) (Auto) 76.0H, Lymphocytes ( %) (Auto) 13.2L, Monocytes (%) (Auto) 7.1, Eosinophils (%) (Auto) 2.8, Basophils (%) (Auto) 0.8, Sodium Level 139, Potassium Level 3.9, Chloride Level 102, Carbon Dioxide Level 25, Anion Gap 12, Blood Urea Nitrogen 16, Creatinine 0.8, Estimat Glomerular Filtration Rate , Glucose Level 116H, Calcium Level 8.7 Current Medications Medications (Trade) Dose Ordered Sig/Angie Route PRN Reason Start Time Stop Time Status Last Admin Dose Admin Acetaminophen (Tylenol) 650 mg Q4H PRN ORAL FEVER>100.5 09/17/16 16:00 10/17/16 15:59 Acetaminophen (Tylenol) 650 mg Q4H PRN ORAL Mild Pain (Pain Scale 1-3) 09/17/16 19:30 10/17/16 19:29 Albuterol/ Ipratropium (DuoNeb 0.5-3(2.5)mg/3ml) 3 ml Q6HRT HHN 09/27/16 13:00 10/02/16 12:59 09/28/16 12:28 Artificial Tears (Akwa-Tears) 1 drop QIDPRN PRN BOTH EYES Dry Eyes 09/18/16 15:15 10/18/16 15:14 Carbidopa/Levodopa (Sinemet 25/250) 1 ea TID@0700,1200,1700 NG 8/10/17 17:00 10/17/16 16:59 09/28/16 17:35 Dextrose (Dextrose 50%) STAT PRN IV Hypoglycemia 09/17/16 16:00 10/17/16 15:59 Glycopyrrolate (Robinul) 0.1 mg Q6H PRN IV excessive secretions 09/18/16 15:15 10/18/16 15:14 Heparin Sodium (Porcine) (Heparin 5000 units/ml) 5,000 units EVERY 12 HOURS SUBQ 09/17/16 21:00 10/17/16 20:59 09/28/16 10:25 Modafinil 200 mg 200 mg DAILY ORAL 09/28/16 09:00 10/05/16 08:59 09/28/16 10:22 Ondansetron HCl (Zofran) 4 mg Q6H PRN IVP Nausea & Vomiting 09/17/16 16:00 10/17/16 15:59 Phosphorus (Phospha 250 Neutral) 250 mg BID ORAL 09/25/16 10:00 10/25/16 09:59 09/28/16 18:34 Piperacillin Sod/ Tazobactam Sod/ Dextrose (Zosyn/D5W) 110 ml @ 27.5 mls/hr EVERY 8 HOURS IVPB 09/27/16 14:00 10/02/16 13:59 09/28/16 14:00 Polyethylene Glycol (Miralax) 17 gm DAILY NG 09/24/16 11:00 10/24/16 10:59 09/28/16 10:21 CHILO SHANKS Sep 28, 2016 19:07
[2016-09-28 20:00] VITALS: BP 114/72
--- NOTE | 2016-09-28 21:03 | General Progress Note ---
Assessment/Plan Problem List: (1) Acute respiratory failure with hypoxia ICD Codes: J96.01 - Acute respiratory failure with hypoxia SNOMED: 15799031, 896829214 (2) Severe sepsis ICD Codes: A41.9 - Sepsis, unspecified organism; R65.20 - Severe sepsis without septic shock SNOMED: 16730187 (3) Aspiration pneumonia ICD Codes: J69.0 - Pneumonitis due to inhalation of food and vomit SNOMED: 944521703 (4) Lactic acidosis ICD Codes: E87.2 - Acidosis SNOMED: 48100547 (5) Toxic metabolic encephalopathy ICD Codes: G92 - Toxic encephalopathy SNOMED: 246671668 (6) Parkinson disease ICD Codes: G20 - Parkinson's disease SNOMED: 71122421 (7) Dementia ICD Codes: F03.90 - Unspecified dementia without behavioral disturbance SNOMED: 68972199 (8) ALMA (acute kidney injury) ICD Codes: N17.9 - Acute kidney failure, unspecified SNOMED: 51535648 (9) ATN (acute tubular necrosis) ICD Codes: N17.0 - Acute kidney failure with tubular necrosis SNOMED: 98538888 (10) Protein-calorie malnutrition, severe ICD Codes: E43 - Unspecified severe protein-calorie malnutrition SNOMED: 235428876 (11) Iron deficiency ICD Codes: E61.1 - Iron deficiency SNOMED: 09212309 (12) BPH (benign prostatic hyperplasia) ICD Codes: N40.0 - Benign prostatic hyperplasia without lower urinary tract symptoms SNOMED: 713432264, 322997409 (13) CAD (coronary artery disease) ICD Codes: I25.10 - Atherosclerotic heart disease of [place] coronary artery without angina pectoris SNOMED: 57593731 (14) Pressure ulcer Assessment & Plan: #1 Sacral stage 1 pressure ulcer. #2 Bridge of nose stage 1 pressure ulcer. #3 Left heel stage 1 pressure ulcer. #4 Right heel stage 1 pressure ulcer. ICD Codes: L89.90 - Pressure ulcer of unspecified site, unspecified stage SNOMED: 256068114 Assessment/Plan Pulmonology consulted ID consulted Cont zosyn for aspiration PNA 2/2 Enterobacter and Pseudomonass s/p vanco F/u sputum culture F/u blood cultures--ngtd Duonebs ATC and PRN Chest PT Suction PRN Trend CBC Nephrology consulted Replete lytes Trend BMP Monitor UOP Neurology consulted Check CT brain--neg GI consulted for Dobhoff placement Dobhoff placed 09/20 Cont tube feeds No meds via Dobhoff per GI Cont sinemet and modafinil as tolerated PO INSURANCE SALESPERSON eval--pt high aspiration risk D/w family and no plan for G tube but would like trial of NGT/Dobhoff Pain control, bowel regimen Supportive care Hospice referral made to [facility] hospice per daughter's request but now family is refusing D/w pt's private CM and prefer d/c home w/ HH. DME order place Hospital bed, low pressure mattress, frank lift ordered--pt requires these items due to h/o advanced Parkinson's disease, dementia, aspiration pneumonia, pressure ulcers. He will need frequent body changing and positioning in ways not feasible in an ordinary bed. He will need HOB elevation given high aspiration risk per INSURANCE SALESPERSON. Pt is also at risk of body deconditioning and worsening pressure sores. Home IV abx ordered on d/c: cefepime 2g q24 x 7 days per ID Empiric flagyl 500mg PO TID x 7 days on d/c per ID DC planning--discharge delayed given DME will not arrive at pt's home until Wednesday DVT Prophylaxis: SCD, HSQ Code Status: DNR/DNI Hospital Classification Declaration: Based on this initial evaluation, and depending on the patient's clinical course, I anticipate that this patient will require hospitalization for 1-2 days for severe sepsis, aspiration PNA, ALMA and close respiratory/hemodynamic monitoring. Disposition: Once the patient is stable to leave the hospital, I anticipate the patient will likely be discharged to the following environment: Home w/ HH +CG ( family declined hospice, SNF) Discussed with patient/family, nursing staff, SW/CM, pulmonology, renal, neurology regarding clinical status, treatment course, and disposition planning. D/w family extensively regarding plan of care. D/w pulm re PNA. D/w ID re abx. D/w son re plan of care Time of note may not reflect time of encounter. Subjective Date patient seen: Sep 28, 2016 Time patient seen: 14:00 ROS Limited/Unobtainable: Yes Allergies: Coded Allergies: No Known Allergies (Unverified , 09/16/16) Subjective No acute o/n events Cont on tube feeds via Dobhoff Cont IV zosyn per ID More awake, following simple commands and per CG said a few words Congestion improved Caregiver feeding small amts of puree diet Sinemet being given crushed in apple sauce and pt able to take PO DC pending arrangement of all DME including hospital, home health for feeds and IV abx. Awaiting CM to confirm--per CM hospital bed to arrive on Wed Objective Last 24 Hour Vital Signs Date Time Temp Pulse Resp B/P Pulse Ox O2 Delivery O2 Flow Rate FiO2 09/28/16 20:00 97.9 86 18 114/72 96 Room Air 09/28/16 19:54 70 16 96 Room Air 09/28/16 19:50 21 09/28/16 19:46 79 16 96 Room Air 09/28/16 19:46 96 Room Air 09/28/16 19:46 Room Air 09/28/16 16:00 97.5 77 20 134/75 96 Nasal Cannula 2.0 09/28/16 12:40 69 18 99 Room Air 09/28/16 12:30 70 18 99 Room Air 09/28/16 12:00 97.5 71 18 117/79 95 Room Air 09/28/16 08:00 97.2 75 18 132/74 94 Room Air 09/28/16 07:35 73 18 99 Room Air 09/28/16 07:23 98 Room Air 09/28/16 07:23 Room Air 09/28/16 07:22 71 20 98 Room Air 09/28/16 04:00 97.9 67 18 115/66 96 Room Air 09/28/16 01:42 81 18 100 Room Air 09/28/16 01:32 75 18 98 Room Air 09/27/16 23:59 97.7 66 20 130/96 95 Room Air Intake and Output 09/27/16 09/28/16 19:00 07:00 Intake Total 1040.0 ml 740.0 ml Output Total 1025 ml 850 ml Balance 15.0 ml -110.0 ml Free Water 160 ml 80 ml IV Total 220.0 ml 110.0 ml Tube Feeding 660 ml 550 ml Output Urine Total 1025 ml 850 ml # Bowel Movements 1 Laboratory Tests 09/28/16 05:05: White Blood Count 6.0, Red Blood Count 3.58L, Hemoglobin 10.8L, Hematocrit 32.9L , Mean Corpuscular Volume 92, Mean Corpuscular Hemoglobin 30.3, Mean Corpuscular Hemoglobin Concent 33.0, Red Cell Distribution Width 14.6, Platelet Count 242, Mean Platelet Volume 7.6, Neutrophils (%) (Auto) 76.0H, Lymphocytes ( %) (Auto) 13.2L, Monocytes (%) (Auto) 7.1, Eosinophils (%) (Auto) 2.8, Basophils (%) (Auto) 0.8, Sodium Level 139, Potassium Level 3.9, Chloride Level 102, Carbon Dioxide Level 25, Anion Gap 12, Blood Urea Nitrogen 16, Creatinine 0.8, Estimat Glomerular Filtration Rate , Glucose Level 116H, Calcium Level 8.7 Height (Feet): 5 Height (Inches): 11.00 Weight (Pounds): 147 Objective General: eyes open, poorly responsive to voice or pain, NAD, appears stated age Head: normocephalic, without obvious abnormality, atraumatic Eyes: conjunctivae/corneas clear. PERRL, EOM's intact Throat: lips, mucosa, and tongue normal. MMM Neck: supple, symmetrical, trachea midline, and no JVD Lungs: +rhonchi b/l Heart: regular rate and rhythm, S1, S2 normal, no murmur, click, rub or gallop Abdomen: soft, non-tender, non-distended, bowel sounds normal; no masses or organomegaly Extremities: extremities normal, atraumatic, no cyanosis or edema Pulses: 2+ and symmetric Skin: skin color, texture, turgor normal; no rashes or lesions Neurologic: grossly normal, no focal deficits Elizabeth Portillo M.D. Sep 28, 2016 21:03
[2016-09-28 23:46] VITALS: BP 134/80
[2016-09-29] MEDS: DuoNeb 0.5-3(2.5)mg/3ml neb HHN SCH (01:27)
[2016-09-29 04:03] VITALS: BP_SYST 126; BP_SYST 155; BP_DIAS 69; BP_DIAS 78
[2016-09-29] MEDS: Piperacillin/Tazobactam 3.375 GM in D5W 110 ML IVPB SCH (06:09)
[2016-09-29] MEDS ORDERED: Tubing IV Secondary IV ONE (08:29)
--- NOTE | 2016-09-29 08:29 | Discharge Instructions ---
Discharge Instructions Discharge Instructions Follow up with: Primary care doctor Call MD/Return to Hospital if: fevers/chills, worsening shortness of breath, nausea/vomiting Services at Discharge: physical therapy, DME agency, respiratory care services , home health services, occupational therapy, respiratory therapy, speech therapy, HH w/Infusion Therapy, oxygen therapy Diet: tube feeding Additional Diet Information: Dobhoff for tube feeds only recommended short-term Resume Normal Activity?: Yes Activity: resume normal activities Special Instructions Cont cefepime 2g every 24 hours for 5 more days Cont flagyl 500mg three times daily for 7 days Cont tube feeds via Dobhoff. OK for meds via Dobhoff if finely crushed and then flush tube well after every use Recommend Dobhoff only for short-term. If becomes clogged then remove. If tube comes out, then do not re-insert. Oxygen via nasal cannula as needed for SOB, comfort Duonebs every 6 hours as needed for SOB/wheezing Elizabeth Portillo M.D. Sep 29, 2016 08:29
[2016-09-29] MEDS ORDERED: CEFEPIME-D2 GM/50 ML IVPB (08:37)
[2016-09-29] MEDS ORDERED: METRONIDAZOLE500 MG ORAL (08:37)
--- NOTE | 2016-09-29 08:45 | Discharge Instructions ---
Discharge Instructions Discharge Instructions Follow up with: Primary care doctor in 1-2 week Call MD/Return to Hospital if: fevers, nausea/vomiting, diarrhea, not tolerating tube feeds Services at Discharge: physical therapy, DME agency, home health services, occupational therapy, respiratory therapy, speech therapy, oxygen therapy Diet: tube feeding Resume Normal Activity?: Yes Activity: resume normal activities Special Instructions Cont tube feeds via Dobhoff. Meds OK via Dobhoff if finely crushed and flush well after every use Dobhoff only recommended for short-term use If Dohoff becomes clogged, then remove If Dobhoff comes out, then do not re-insert Cont [id number] q24h and flagyl 500mg TID for 5 more days Oxygen for comfort Duonebs q6h PRN SOB, wheezing For Congestive Heart Failure Reminder Report to your physician any weight gain of 5 pounds or more in one week. Elizabeth Portillo M.D. Sep 29, 2016 08:45
--- NOTE | 2016-09-29 15:10 | Discharge Summary ---
Discharge Summary Hospital Course Date of Admission Sep 16, 2016 at 21:10 Date of Discharge Sep 29, 2016 at 08:30 Admitting Diagnosis sepsis/hypoxia/pneumonia HPI Naseem Luevano is a 86 year old male who was admitted on Sep 16, 2016 at 21:10 for Sepsis/Hypoxia/Pneumonia Discharge Medications New Medications: Cefepime Hcl/D5w (Cefepime-Dextrose 2 Gm/50 Ml) 2 Gm/50 Ml Piggyback 2 GM IVPB Q24H for 5 Days, BAG Metronidazole* (Flagyl*) 500 Mg Tablet 500 MG ORAL THREE TIMES A DAY, #15 TAB Glycopyrrolate (Glycopyrrolate) 0.2 Mg/1 Ml Vial 0.1 MG IV Q6H PRN for 30 Days, VIAL Ipratropium/Albuterol Sulfate (DuoNeb 0.5-3(2.5)mg/3ml) 3 Ml Ampul.neb 3 ML HHN Q6HRT for 30 Days, #30 EA Continued Medications: Acetaminophen* (Tylenol Extra Strength*) 500 Mg Tablet 500 MG ORAL Q6H PRN for Mild Pain/Temp > 100.5, TAB 0 Refills Aspirin* (Aspir 81*) 81 Mg Tablet.dr 81 MG ORAL Q3XWK, TAB Atorvastatin (Lipitor) 80 Mg Tablet 20 MG ORAL BEDTIME, #30 TAB 0 Refills Atropine Sulfate in 0.9% NaCl (Atropine 0.01%-Ns Eye Drops) 10 Ml Drops 10 ML ORAL QID PRN for PRN, #4 ML Budesonide/Formoterol Fumarate (Symbicort 160-4.5 Mcg Inhaler) 10.2 Gm Hfa.aer.ad 1 PUFF IH BID PRN for Shortness of Breath, #1 INH 0 Refills Carbidopa/Levodopa* (Sinemet 25-250 Mg Tablet*) 1 Each Tablet 1 TAB ORAL THREE TIMES A DAY, TAB Clopidogrel Bisulfate* (Plavix*) 75 Mg Tablet 75 MG ORAL DAILY, TAB Dextran 70/Hypromellose (Artificial Tears) 1 Each Droperette 1 EACH OP QID Docusate Sodium* (Docusate Sodium*) 100 Mg Capsule 100 MG ORAL TWICE A DAY PRN for PRN, CAP Finasteride* (Proscar*) 5 Mg Tablet 5 MG ORAL DAILY, #30 TAB 0 Refills Glycerin (Glycerin Laxative) 5.4 Gm/5.4 Ml Xin.pf.ladan Unknown Dose RC Levodopa/Carbidopa (Carbidopa-Levodopa 25-100 Tab) 1 Each Tablet 1.5 TAB ORAL THREE TIMES A DAY, TAB Mirtazapine* (Mirtazapine*) 7.5 Mg Tablet 7.5 MG ORAL BEDTIME, TAB Modafinil* (Provigil) 100 Mg Tablet 200 MG ORAL DAILY, TAB 0 Refills Multivit-Min/FA/Lycopen/Lutein (Centrum Silver Men Tablet) 1 Each Tablet 1 EACH PO, TAB Omeprazole (Omeprazole) 40 Mg Capsule.dr 40 MG ORAL DAILY, CAP Ondansetron* (Zofran*) 4 Mg Tablet 4 MG ORAL Q6H PRN for Nausea & Vomiting, TAB Polyethylene Glycol 3350* (Miralax*) 17 Gm Powd.pack 17 GM ORAL DAILY PRN for PRN, PACKET Tamsulosin Hcl (Tamsulosin Hcl*) 0.4 Mg Cap.er.24h 0.8 MG ORAL BEDTIME, CAP [Robitussin DM] () 10 MG PO Q4HR PRN for For Cough Discontinued Medications: Guaifenesin/Codeine Phos* (Robitussin Ac*) 118 Ml Liquid Unknown Dose ORAL Q4H PRN for For Cough, #118 ML 0 Refills Lisinopril (Lisinopril*) 5 Mg Tablet 2.5 MG ORAL DAILY, TAB Metoprolol Succinate* (Metoprolol Succinate*) 25 Mg Tab.er.24h 25 MG ORAL BID, TAB Discharge Condition Upon Discharge: stable Discharge Disposition Patient was discharged to Home (01) Discharge Diagnoses: Discharge Instructions Discharge Instructions Follow up with: Primary care doctor in 1-2 week Call MD/Return to Hospital if: fevers, nausea/vomiting, diarrhea, not tolerating tube feeds Services Upon Discharge: physical therapy, DME agency, home health services, occupational therapy, respiratory therapy, speech therapy, oxygen therapy Additional Diet Information: Dobhoff for tube feeds only recommended short-term Activity: resume normal activities Elizabeth Portillo M.D. Sep 29, 2016 15:10
--- NOTE | 2016-09-29 17:46 | Pulmonology Progress Note ---
Assessment/Plan Problems: (1) Sepsis (2) ATN (acute tubular necrosis) (3) Acute encephalopathy (4) Pneumonia (5) Protein-calorie malnutrition, severe (6) Dementia (7) Parkinson disease (8) Limited mobility Assessment/Plan tolerating feeding more cough according to the direct care supervisor change face mask to NC taper fio2, pulse oximeter on room air dc planning in process Subjective ROS Limited/Unobtainable: No Constitutional: Reports: no symptoms HEENT: Repors: no symptoms Respiratory: Reports: no symptoms Allergies: Coded Allergies: No Known Allergies (Unverified , 09/16/16) Objective Last 24 Hour Vital Signs Date Time Temp Pulse Resp B/P Pulse Ox O2 Delivery O2 Flow Rate FiO2 09/29/16 04:03 97.9 68 18 126/69 94 Room Air 09/29/16 01:35 77 16 97 Room Air 21 09/29/16 01:25 74 16 93 Room Air 21 09/29/16 01:25 21 09/28/16 23:46 97.2 77 18 134/80 94 Room Air 09/28/16 20:00 97.9 86 18 114/72 96 Room Air 09/28/16 19:54 70 16 96 Room Air 21 09/28/16 19:50 21 09/28/16 19:46 79 16 96 Room Air 21 09/28/16 19:46 96 Room Air 21 09/28/16 19:46 Room Air 21 Intake and Output 09/28/16 09/29/16 19:00 07:00 Intake Total 847.5 ml 795.0 ml Output Total 700 ml 675 ml Balance 147.5 ml 120.0 ml Free Water 160 ml 80 ml IV Total 27.5 ml 110.0 ml Tube Feeding 660 ml 605 ml Output Urine Total 700 ml 675 ml # Bowel Movements 2 2 Objective General Appearance: WD/WN HEENT: normocephalic, atraumatic Respiratory/Chest: chest wall non-tender, lungs clear Breasts: no masses Cardiovascular: normal peripheral pulses, normal rate Abdomen: normal bowel sounds, soft, non tender Genitourinary: normal external genitalia Extremities: no cyanosis Skin: no rash Neurologic/Psychiatric: acupressure therapist II-XII grossly normal, normal mood/affect Lymphatic: no groin adenopathy HEENT: normocephalic, atraumatic Respiratory/Chest: chest wall non-tender, lungs clear Cardiovascular: normal peripheral pulses, normal rate Abdomen: normal bowel sounds, soft, non tender Genitourinary: normal external genitalia Extremities: no clubbing CHILO SHANKS Sep 29, 2016 17:46
== END 2016-09-29 08:30 | disposition home health service (06) | DRG 871 ==
LOC: EDBD 19:27 → EMR 19:45 → 2E 21:10 → EDBEDREQ 21:50 → 4E 09-17 15:53 → 3E 09-19 16:50 → 4W 09-24 07:10
DX: A41.9 Sepsis, unspecified organism (principal); J69.0 Pneumonitis due to inhalation of food and vomit; N17.0 Acute kidney failure with tubular necrosis; J96.01 Acute respiratory failure with hypoxia; E43 Unspecified severe protein-calorie malnutrition; G92 Toxic encephalopathy; J15.6 Pneumonia due to other Gram-negative bacteria; J15.1 Pneumonia due to Pseudomonas; L89.621 Pressure ulcer of left heel, stage 1; L89.611 Pressure ulcer of right heel, stage 1; R13.10 Dysphagia, unspecified; E86.0 Dehydration; G20 Parkinson's disease; F03.90 Unspecified dementia, unspecified severity, without behavioral disturbance, psychotic disturbance, mood disturbance, and anxiety; I25.10 Atherosclerotic heart disease of native coronary artery without angina pectoris; N40.0 Benign prostatic hyperplasia without lower urinary tract symptoms; I10 Essential (primary) hypertension; K21.9 Gastro-esophageal reflux disease without esophagitis; Z74.09 Other reduced mobility; R65.20 Severe sepsis without septic shock; Z74.01 Bed confinement status; D50.9 Iron deficiency anemia, unspecified; L89.151 Pressure ulcer of sacral region, stage 1; L89.811 Pressure ulcer of head, stage 1
CPT/HCPCS: 36415; 36600; 70450; 71010; 71250; 74000; 74176; 80048; 80053; 80202; 81003; 82306; 82533; 82550; 82553; 82607; 82728; 82746; 82803; 83540; 83550; 83605; 83735; 83880; 84100; 84443; 84484; 84550; 85025; 85651; 86140; 86592; 87040; 87070; 87081; 87181; 87205; 93005; 94640; 94760; C9399; J7620